=== PATIENT | female | born 1940 | race Caucasian/White ===

== ENCOUNTER 2023-08-16 08:25 | Outpatient (OUT) | payer MEDICARE, SELFPAY ==
[2023-08-16 09:04] LABS: Bilirubin Urine NEGATIVE (NEGATIVE); Blood Urine NEGATIVE (NEGATIVE); Clarity Urine SLIGHTLY CLOUDY (CLEAR); Color Urine LT. YELLOW (YELLOW); Glucose Urine UA NEGATIVE (NEGATIVE); Ketones Urine NEGATIVE (NEGATIVE); Leukocyte Esterase Urine MODERATE (NEGATIVE); Nitrite Urine POSITIVE (NEGATIVE); Protein Urine NEGATIVE (NEG/TRACE); Urobilinogen Urine 0.2 EU/dL (0.2-1.0); pH Urine 5.5 (5.0-9.0)
[2023-08-16 09:04] LABS: Basophils Absolute Auto 0.1 10^3/uL (0.0-0.1); Basophils Percent Auto 0.7 % (0.2-2.0); Eosinophils Absolute Auto 0.6 10^3/uL (0.0-0.7); Eosinophils Percent Auto 8.6 % (0.9-7.0); Hematocrit 35.7 % (36.0-48.0); Hemoglobin 10.8 g/dL (12.0-16.0); Immature Granulocytes Abs Auto 0.04 10^3/uL (0.00-0.03); Immature Granulocytes Pct Auto 0.6 % (0.0-0.5); Lymphocytes Absolute Auto 2.2 10^3/uL (1.2-3.8); Lymphocytes Percent Auto 32.9 % (20.5-60.0); Mean Corpuscular HGB Conc 30.3 g/dL (29.9-35.2); Mean Corpuscular Volume 89.3 fL (81.0-99.0); Mean Platelet Volume 10.5 fL (9.5-13.5); Monocytes Absolute Auto 0.7 10^3/uL (0.3-0.8); Monocytes Percent Auto 10.5 % (1.7-12.0); Neutrophils Absolute Auto 3.2 10^3/uL (1.4-6.5); Neutrophils Percent Auto 46.7 % (43.0-75.0); Platelet Count 241 10^3/uL (150-450); Red Cell Distribution Width 14.1 % (11.0-15.0); White Blood Count 6.8 10^3/uL (4.0-11.0)
[2023-08-16 09:09] LABS: Bacteria Urine SMALL #/HPF (NONE SEEN); Cast Seen? NONE SEEN #/LPF (NONE SEEN); Crystals Seen? None Seen #/HPF (None Seen); Mucus Urine NONE SEEN (NONE SEEN); RBC Urine NONE SEEN #/HPF (0-2); Squamous Epithelial Cell Urine RARE #/LPF (NONE/RARE)
[2023-08-16 09:13] LABS: Microalbumin Urine Random 1.8 mg/dL (<=30.0)
[2023-08-16 09:58] LABS: Estimated Average Glucose 134 mg/dL; Glycohemoglobin A1C 6.3 % (4.5-6.2)
[2023-08-16 10:33] LABS: Alanine Aminotransferase 14 U/L (14-59); Albumin Globulin Ratio 0.7; Albumin Level 3.1 g/dL (3.4-5.0); Alkaline Phosphatase 126 U/L (46-116); Aspartate Amino Transferase 17 U/L (15-37); BUN Creatinine Ratio 25.6; Bilirubin Total 0.3 mg/dL (0.2-1.0); Chloride 106 mmol/L (98-107); Chol HDL Ratio 4.4; Cholesterol 191 mg/dL (<=200); Estimated GFR (African America 36 (>=60); Estimated GFR (Non-African Ame 30 (>=60); Globulin 4.5 g/dL; Glucose 111 mg/dL (74-106); HDL Cholesterol 43 mg/dL (40-60); LDL Cholesterol Calculated 118.2 mg/dL; Sodium 137 mmol/L (136-145); Total Protein 7.6 g/dL (6.4-8.2); Triglycerides 149 mg/dL (<=150); VLDL CHOLESTEROL 29.8 mg/dL
== END 2023-08-16 08:26 | disposition home or self-care (01) ==
LOC: LAB 08:29
PROVIDERS: PCP Nurse Practitioner; Visit Provider Nurse Practitioner
DX: N18.4 Chronic kidney disease, stage 4 (severe) (principal); D50.9 Iron deficiency anemia, unspecified; E11.9 Type 2 diabetes mellitus without complications
CPT/HCPCS: 36415; 80053; 80061; 81001; 82043; 83036; 83540; 85025

== ENCOUNTER 2024-04-25 08:46 | Outpatient (OUT) | payer MEDICARE, SELFPAY ==
--- OUTSIDE RECORDS SUMMARY | 2024-04-25 08:58 | XMS_ITS | CCD ---
Author Organization [facility] [employer]GAL [employer] [facility] Care Team Providers Care Section Leader Name Role Phone PHYSICIAN, DEFAULT Unavailable Unavailable PHYSICIAN, DEFAULT Unavailable Unavailable AMBURN, JOSE CARLOS Unavailable Unavailable AICHHOLZ, DISTRICT SALES MANAGER BAILEE Consulting Unavailable AICHHOLZ, DISTRICT SALES MANAGER BAILEE Primary Care Unavailable AICHHOLZ, DISTRICT SALES MANAGER BAILEE Admitting Unavailable AICHHOLZ, DISTRICT SALES MANAGER BAILEE Attending Unavailable AICHHOLZ, DISTRICT SALES MANAGER BAILEE Consulting Unavailable AICHHOLZ, DISTRICT SALES MANAGER BAILEE Primary Care Unavailable AICHHOLZ, DISTRICT SALES MANAGER BAILEE Admitting Unavailable AICHHOLZ, DISTRICT SALES MANAGER BAILEE Attending Unavailable AICHHOLZ, DISTRICT SALES MANAGER BAILEE Consulting Unavailable AICHHOLZ, DISTRICT SALES MANAGER BAILEE Primary Care Unavailable AICHHOLZ, DISTRICT SALES MANAGER BAILEE Admitting Unavailable AICHHOLZ, DISTRICT SALES MANAGER BAILEE Attending Unavailable Aichholz AS400 OPERATOR, Bailee Unavailable Krishna Headley MD Primary Care Provider [phone] AICHHOLZ, BAILEE Attending Unavailable AICHHOLZ, BAILEE Attending Unavailable Allergies Allergy Classification Reported Allergen(s) Allergy Type Date of Onset Reaction(s) Facility (1 source) [facility]; Translations: [[facility]Other] Propensity to adverse reactions (disorder) 5 [facility] (3 sources) Clarithromycin Propensity to adverse reactions 4 [facility] (3 sources) Diclofenac Drug Allergy 4 [facility] (3 sources) metFORMIN Drug Allergy 4 [facility] (3 sources) Fluticasone Furoate-Vilanterol Propensity to adverse reactions 4 Headache [facility] Healthcare Work Phone: Medications Current Medications Medication Drug Class(es) Dates Sig (Normalized) Sig (Original) albuterol 0.833 mg/ml / ipratropium bromide 0.167 mg/ml inhalation solution (3 sources) Anticholinergic, beta2-Adrenergic Agonist ipratropium-albute rol (Duo-Neb) 0.5-2.5 mg/3 mL nebulizer solution Take 3 mL by nebulization in the morning and 3 mL before bedtime. 0 Active aspirin 81 mg delayed release oral tablet (3 sources) Platelet Aggregation Inhibitor, Nonsteroidal Anti-inflammatory Drug take 1 tablet by mouth in the morning aspirin 81 MG EC tablet Take 1 tablet by mouth in the morning. 0 Active ferrous sulfate 325 mg oral tablet (3 sources) Start: 08-08-2023 End: 11-06-2023 take 1 tablet by mouth in the morning ferrous sulfate (FeroSul) 325 (65 Fe) MG tablet Indications: Chronic kidney disease, stage 3 unspecified (HCC) (CMS/HCC) Take 1 tablet (325 mg) by mouth in the morning and 1 tablet (325 mg) before bedtime. 180 tablet 1 08/08/2023 11/06/2023 Active 30 actuat fluticasone furoate 0.1 mg/actuat / umeclidinium 0.0625 mg/actuat / vilanterol 0.025 mg/actuat dry powder inhaler (3 sources) Anticholinergic, Corticosteroid, beta2-Adrenergic Agonist Start: 06-04-2023 take 1 puff(s) by mouth in the morning Trelegy Ellipta 100-62.5-25 MCG/ACT aerosol powder Inhale 1 puff in the morning. Rinse mouth after use.. 0 06/04/2023 Active furosemide 20 mg oral tablet (3 sources) Loop Diuretic Start: 08-08-2023 take 1 tablet by mouth in the morning furosemide (Lasix) 20 MG tablet Take 1 tablet by mouth in the morning. 0 08/08/2023 Active gabapentin 300 mg oral capsule (3 sources) Anti-epileptic Agent Start: 08-08-2023 End: 11-06-2023 take 2 capsules by mouth at bedtime gabapentin (Neurontin) 300 MG capsule Indications: Polyneuropathy, unspecified Take 2 capsules (600 mg) by mouth at bedtime 180 capsule 1 08/08/2023 11/06/2023 Active hydrOXYzine hydrochloride 10 mg oral tablet (3 sources) Antihistamine take 1 tablet by mouth at bedtime hydrOXYzine HCl (Atarax) 10 MG tablet Take 1 tablet by mouth at bedtime 0 Active lisinopril 30 mg oral tablet (3 sources) Angiotensin Converting Enzyme Inhibitor Start: 08-08-2023 End: 11-06-2023 take 1 tablet by mouth in the morning lisinopril 30 MG tablet Indications: Essential (primary) hypertension (CMS/HCC) Take 1 tablet (30 mg) by mouth in the morning. 90 tablet 1 08/08/2023 11/06/2023 Active montelukast 10 mg oral tablet (3 sources) Leukotriene Receptor Antagonist Start: 08-08-2023 End: 11-06-2023 take 1 tablet by mouth at bedtime montelukast (Singulair) 10 MG tablet Indications: Severe persistent asthma, uncomplicated (CMS/HCC) Take 1 tablet (10 mg) by mouth at bedtime 90 tablet 1 08/08/2023 11/06/2023 Active pioglitazone 15 mg oral tablet (3 sources) Peroxisome Proliferator Receptor alpha Agonist, Peroxisome Proliferator Receptor gamma Agonist, Thiazolidinedione Start: 08-08-2023 End: 11-06-2023 take 1 tablet by mouth in the morning pioglitazone (Actos) 15 MG tablet Indications: Type 2 diabetes mellitus with diabetic neuropathy, unspecified (CMS/HCC) Take 1 tablet (15 mg) by mouth in the morning. 90 tablet 1 08/08/2023 11/06/2023 Active triamcinolone acetonide 0.001 mg/mg topical ointment (3 sources) Corticosteroid triamcinolone (Kenalog) 0.1 % ointment Apply 1 application topically in the morning and 1 application before bedtime. 0 Active Problems Active Problems Problem Classification Problem Date Documented Date Episodic/Chronic Asthma (10 sources) Uncomplicated severe persistent asthma; Translations: [Severe persistent asthma, uncomplicated] Onset: 08-08-2023 Resolved: 09-19-2023 08-08-2023 Chronic Chronic kidney disease (6 sources) Chronic kidney disease stage 4; Translations: [Chronic kidney disease, stage 4 (severe)] Onset: 08-17-2023 08-17-2023 Chronic Deficiency and other anemia (3 sources) Iron deficiency anemia; Translations: [Iron deficiency anemia, unspecified] Onset: 09-19-2023 09-19-2023 Episodic Diabetes mellitus with complications (18 sources) Type 2 diabetes mellitus with diabetic chronic kidney disease; Translations: [Neuropathy due to type 2 diabetes mellitus] Onset: 10-17-2022 Chronic Disorders of lipid metabolism (3 sources) Hyperlipidemia; Translations: [Hyperlipidemia, unspecified] Onset: 09-19-2023 09-19-2023 Chronic Essential hypertension (5 sources) Essential hypertension; Translations: [Essential (primary) hypertension] Onset: 08-08-2023 08-08-2023 Chronic Fluid and electrolyte disorders (3 sources) Hyperkalemia; Translations: [Hyperkalemia] Onset: 09-19-2023 09-19-2023 Episodic Heart valve disorders (3 sources) Tricuspid valve regurgitation; Translations: [Rheumatic tricuspid insufficiency] Onset: 09-19-2023 09-19-2023 Chronic Nutritional deficiencies (3 sources) Vitamin D deficiency; Translations: [Vitamin D deficiency, unspecified] Onset: 09-19-2023 09-19-2023 Chronic Osteoarthritis (3 sources) Osteoarthritis; Translations: [Unspecified osteoarthritis, unspecified site] Onset: 09-19-2023 09-19-2023 Chronic Other nervous system disorders (5 sources) Polyneuropathy; Translations: [Polyneuropathy, unspecified] Onset: 08-08-2023 08-08-2023 Chronic Other nutritional; endocrine; and metabolic disorders (4 sources) Body mass index 30+ - obesity; Translations: [Body mass index (BMI) 34.0-34.9, adult] Onset: 09-19-2023 09-19-2023 Chronic Other skin disorders (3 sources) Lesion of skin of face; Translations: [Disorder of the skin and subcutaneous tissue, unspecified] Onset: 09-19-2023 09-19-2023 Episodic Pulmonary heart disease (3 sources) Pulmonary hypertension; Translations: [Pulmonary hypertension, unspecified] Onset: 09-19-2023 09-19-2023 Chronic Residual codes; unclassified (3 sources) Obstructive sleep apnea syndrome; Translations: [Obstructive sleep apnea (adult) (pediatric)] Onset: 09-19-2023 09-19-2023 Chronic Residual codes; unclassified (3 sources) Insomnia; Translations: [Insomnia, unspecified] Onset: 09-19-2023 09-19-2023 Episodic Residual codes; unclassified (5 sources) Edema of lower extremity; Translations: [Localized edema] Onset: 09-19-2023 09-19-2023 Episodic Residual codes; unclassified (3 sources) Amnesia; Translations: [Other amnesia] Onset: 09-19-2023 09-19-2023 Episodic Unclassified (1 source) CHRN KIDNEY DISEASE STG 3 UNSP; Translations: [CHRN KIDNEY DISEASE STG 3 UNSP] Onset: 10-23-2022 Urinary tract infections (1 source) Urinary tract infectious disease; Translations: [Urinary tract infection, site not specified] Onset: 08-17-2023 08-17-2023 Episodic Past or Other Problems Problem Classification Problem Date Documented Da te Episodic/Chronic Deficiency and other anemia (4 sources) Iron deficiency anemia, unspecified; Translations: [IRON DEFICIENCY ANEMIA UNSPECIFIED] Onset: 11-14-2021 Episodic Other skin disorders (3 sources) Eruption; Translations: [Rash and other nonspecific skin eruption] Onset: 09-19-2023 Resolved: 09-19-2023 09-19-2023 Episodic Results Test Name Value Interpretation Reference Range Facil ity CBC AUTO DIFFon 10-17-2022 BASO # 0.0 103/ul Normal 0.0-0.1 [facility] Comment on above: Performed By: #### C BC #### [facility] [address] [place] [address] Dr. Juan Manuel Mcintosh Basophils/100 WBC (Bld) 0.4 % Normal 0.2-2.0 [facility] Comment on above: Performed By: #### C BC #### [facility] [address] [place] [address] Dr. Juan Manuel Mcintosh EO # 0.4 103/ul Normal 0.0-0.7 [facility] Comment on above: Performed By: #### C BC #### [facility] [address] [address] [address] Juan Manuel Mcintosh Eosinophils/100 WBC (Bld) 4.1 % Normal 0.9-7.0 [facility] Comment on above: Performed By: #### C BC #### [facility] [address] [place] [address] Dr. Juan Manuel Mcintosh Erythrocyte distribution width (RBC) [Ratio] 14.0 % Normal 11.0-15.0 [facility] Comment on above: Performed By: #### C BC #### [facility] [address] [place] [address] Dr. Juan Manuel Mcintosh Hematocrit (Bld) [Volume fraction] 35.3 % Critically low 36.0-48.0 [facility] Comment on above: Performed By: #### C BC #### [facility] [address] [place] [address] Dr. Juan Manuel Mcintosh Hemoglobin (Bld) [Mass/Vol] 10.9 g/dL Critically low 12.0-16.0 [facility] Comment on above: Performed By: #### C BC #### [facility] [address] [place] [address] Dr. Juan Manuel Mcintosh IG # 0.04 10e3/ul Critically high 0.00-0.03 [facility] Comment on above: Performed By: #### C BC #### [facility] [address] [place] [address] Dr. Juan Manuel Mcintosh IG % 0.4 % Normal 0.0-0.5 [facility] Comment on above: Performed By: #### C BC #### [facility] [address] [place] [address] Dr. Juan Manuel Mcintosh LYMPH # 1.7 103/ul Normal 1.2-3.8 [facility] Comment on above: Performed By: #### C BC #### [facility] [address] [place] [address] Dr. Juan Manuel Mcintosh Lymphocytes/100 WBC (Bld) 16.8 % Critically low 20.5-60.0 [facility] Comment on above: Performed By: #### C BC #### [facility] [address] [place] [address] Dr. Juan Manuel Mcintosh MANUAL DIFF REQ NO Normal [facility] Comment on above: Performed By: #### C BC #### [facility] [address] [place] [address] Dr. Juan Manuel Mcintosh MCH (RBC) [Entitic mass] 26.9 pg Normal 26.7-34.0 [facility] Comment on above: Performed By: #### C BC #### [facility] [address] [address] [address] Juan Manuel Mcintosh MCHC (RBC) [Mass/Vol] 30.9 g/dL Normal 29.9-35.2 [facility] Comment on above: Performed By: #### C BC #### [facility] [address] [address] [address] Juan Manuel Mcintosh MCV (RBC) [Entitic vol] 87.2 fL Normal 81.0-99.0 [facility] Comment on above: Performed By: #### C BC #### [facility] [address] [address] [address] Juan Manuel Mcintosh MONO # 1.1 103/ul Critically high 0.3-0.8 [facility] Comment on above: Performed By: #### C BC #### [facility] [address] [address] [address] Juan Manuel Mcintosh Monocytes/100 WBC (Bld) 10.7 % Normal 1.7-12.0 [facility] Comment on above: Performed By: #### C BC #### [facility] [address] [address] [address] Juan Manuel Mcinotsh NEUT # 6.9 103/ul Critically high 1.4-6.5 [facility] Comment on above: Performed By: #### C BC #### [facility] [address] [address] [address] Juan Manuel Mcintosh Neutrophils/100 WBC (Bld) 67.6 % Normal 43.0-75.0 [facility] Comment on above: Performed By: #### C BC #### [facility] [address] [address] [address] Juan Manuel Mcintosh Platelet mean volume (Bld) [Entitic vol] 11.2 fL Normal 9.5-13.5 [facility] Comment on above: Performed By: #### C BC #### [facility] [address] [address] [address] Juan Manuel Mcintosh PLT 186 103/ul Normal 150-450 [facility] Comment on above: Performed By: #### C BC #### [facility] [address] [place] [address] Dr. Juan Manuel Mcintosh RBC 4.05 106/ul Critically low 4.20-5.40 [facility] Comment on above: Performed By: #### C BC #### [facility] [address] [place] [address] Dr. Juan Manuel Mcintosh WBC 10.2 103/ul Normal 4.0-11.0 [facility] Comment on above: Performed By: #### C BC #### [facility] [address] [place] [address] Dr. Juan Manuel Mcintosh GLYCOHEMOGLOBIN A1Con 2022 ADA RECOMMENDATION SEE BELOW Normal [facility] Comment on above: Result Comment: ADA RECOMMENDED LIMIT 4.0 - 6.0 ADA THERAPEUTIC TARGET < 7.0 ACTION SUGGESTED > 7.0 Performed By: #### A 1C #### [facility] [address] [place] [address] Dr. Juan Manuel Mcintosh Glucose [Mass/Vol] 128 mg/dL Normal [facility] Comment on above: Performed By: #### A 1C #### [facility] [address] [place] [address] Dr. Juan Manuel Mcintosh HbA1c (Bld) [Mass fraction] 6.1 % Normal 4.5-6.2 [facility] Comment on above: Performed By: #### A 1C #### [facility] [address] [place] [address] Dr. Juan Manuel Mcintosh PROF CHEM 8 (BAS METB)on Anion gap [Moles/Vol] 15.5 mmol/L Normal [facility] Comment on above: Performed By: #### B MP #### [facility] [address] [place] [address] Dr. Juan Manuel Mcintosh Calcium [Mass/Vol] 9.0 mg/dL Normal 8.5-10.[address] [facility] Comment on above: Performed By: #### B MP #### [facility] [address] [place] [address] Dr. Juan Manuel Mcintosh Chloride [Moles/Vol] 106 mmol/L Normal 98-107 [facility] Comment on above: Performed By: #### B MP #### [facility] [address] [address] [address] Juan Manuel Mcintosh CO2 [Moles/Vol] 21.1 mmol/L Normal 21.0-32.0 [facility] Comment on above: Performed By: #### B MP #### [facility] [address] [address] [address] Juan Manuel Mcintosh Creatinine [Mass/Vol] 1.78 mg/dL Critically high 0.55-1.02 [facility] Comment on above: Performed By: #### B MP #### [facility] [address] [address] [address] Juan Manuel Mcintosh EGFR-AF NEW ZEALANDER 33 mL/min/1.73m2 Critically low >=60 [facility] Comment on above: Performed By: #### B MP #### [facility] [address] [address] [address] Juan Manuel Mcintosh EGFR-NON AF NEW ZEALANDER 27 mL/min/1.73m2 Critically low >=60 [facility] Comment on above: Performed By: #### B MP #### [facility] [address] [place] [address] Dr. Juan Manuel Mcintosh Glucose [Mass/Vol] 108 mg/dL Critically high 74-106 [facility] Comment on above: Performed By: #### B MP #### [facility] [address] [address] [address] Juan Manuel Mcintosh Potassium [Moles/Vol] 4.6 mmol/L Normal 3.5-5.1 [facility] Comment on above: Performed By: #### B MP #### [facility] [address] [address] [address] Juan Manuel Mcintosh Sodium [Moles/Vol] 138 mmol/L Normal 136-[address] [facility] Comment on above: Performed By: #### B MP #### [facility] [address] [address] [address] Juan Manuel Mcintosh Urea nitrogen [Mass/Vol] 40.0 mg/dL Critically high 7.0-18.0 [facility] Comment on above: Performed By: #### B MP #### [facility] [address] [place] [address] Dr. Juan Manuel Mcintosh Urea nitrogen/Creatinine [Mass ratio] 22.5 mg/mg Normal [facility] Comment on above: Performed By: #### B MP #### [facility] [address] [place] [address] Dr. Juan Manuel Mcintosh GLYCOHEMOGLOBIN A1Con 2021 ADA RECOMMENDATION SEE BELOW Normal [facility] Comment on above: Result Comment: ADA RECOMMENDED LIMIT 4.0 - 6.0 ADA THERAPEUTIC TARGET < 7.0 ACTION SUGGESTED > 7.0 Performed By: #### A 1C #### [facility] [address] [place] [address] Dr. Juan Manuel Mcintosh Glucose [Mass/Vol] 126 mg/dL Normal [facility] Comment on above: Performed By: #### A 1C #### [facility] [address] [place] [address] Dr. Juan Manuel Mcintosh HbA1c (Bld) [Mass fraction] 6.0 % Normal 4.5-6.2 [facility] Comment on above: Performed By: #### A 1C #### [facility] [address] [place] [address] Dr. Juan Manuel Mcintosh HEMOGRAM AND PLATELon 2021 Hematocrit (Bld) [Volume fraction] 34.5 % Critically low 36.0-48.0 [facility] Comment on above: Performed By: #### H H #### [facility] [address] [place] [address] Dr. Juan Manuel Mcintosh Hemoglobin (Bld) [Mass/Vol] 10.4 g/dL Critically low 12.0-16.0 [facility] Comment on above: Performed By: #### H H #### [facility] [address] [place] [address] Dr. Juan Manuel Mcintosh MCH (RBC) [Entitic mass] 27.8 pg Normal 26.7-34.0 [facility] Comment on above: Performed By: #### H H #### [facility] [address] [address] [address] Juan Manuel Mcintosh MCHC (RBC) [Mass/Vol] 30.1 g/dL Normal 29.9-35.2 [facility] Comment on above: Performed By: #### H H #### [facility] [address] [address] [address] Juan Manuel Mcintosh MCV (RBC) [Entitic vol] 92.2 fL Normal 81.0-99.0 [facility] Comment on above: Performed By: #### H H #### [facility] [address] [address] [address] Juan Manuel Mcintosh PLT 216 103/ul Normal 150-450 [facility] Comment on above: Performed By: #### H H #### [facility] [address] [place] [address] Dr. Juan Manuel Mcintosh RBC 3.74 106/ul Critically low 4.20-5.40 [facility] Comment on above: Performed By: #### H H #### [facility] [address] [address] [address] Juan Manuel Mcintosh WBC 5.6 103/ul Normal 4.0-11.0 [facility] Comment on above: Performed By: #### H H #### [facility] [address] [address] [address] Juan Manuel Mcintosh PROF CHEM 8 (BAS METB)on Anion gap [Moles/Vol] 14.2 mmol/L Normal [facility] Comment on above: Performed By: #### B MP #### [facility] [address] [address] [address] Juan Manuel Mcintosh Calcium [Mass/Vol] 8.9 mg/dL Normal 8.5-10.[address] [facility] Comment on above: Performed By: #### B MP #### [facility] [address] [address] [address] Juan Manuel Mcintosh Chloride [Moles/Vol] 107 mmol/L Normal 98-107 [facility] Comment on above: Performed By: #### B MP #### [facility] [address] [address] [address] Juan Manuel Mcintosh CO2 [Moles/Vol] 25.1 mmol/L Normal 21.0-32.0 [facility] Comment on above: Performed By: #### B MP #### [facility] [address] [address] [address] Juan Manuel Mcintosh Creatinine [Mass/Vol] 1.55 mg/dL Critically high 0.55-1.02 [facility] Comment on above: Performed By: #### B MP #### [facility] [address] [address] [address] Juan Manuel Mcintosh EGFR-AF NEW ZEALANDER 39 mL/min/1.73m2 Critically low >=60 [facility] Comment on above: Performed By: #### B MP #### [facility] [address] [address] [address] Juan Manuel Mcintosh EGFR-NON AF NEW ZEALANDER 32 mL/min/1.73m2 Critically low >=60 [facility] Comment on above: Performed By: #### B MP #### [facility] [address] [address] [address] Juan Manuel Mcintosh Glucose [Mass/Vol] 103 mg/dL Normal 74-[address] [facility] Comment on above: Performed By: #### B MP #### [facility] [address] [address] [address] Juan Manuel Mcintosh Potassium [Moles/Vol] 5.3 mmol/L Critically high 3.5-5.1 [facility] Comment on above: Performed By: #### B MP #### [facility] [address] [address] [address] Juan Manuel Mcintosh Sodium [Moles/Vol] 141 mmol/L Normal 136-145 [facility] Comment on above: Performed By: #### B MP #### [facility] [address] [address] [address] Juan Manuel Mcintosh Urea nitrogen [Mass/Vol] 34.0 mg/dL Critically high 7.0-18.0 [facility] Comment on above: Performed By: #### B MP #### [facility] [address] [place] [address] Dr. Juan Manuel Mcintosh Urea nitrogen/Creatinine [Mass ratio] 21.9 mg/mg Normal [facility] Comment on above: Performed By: #### B MP #### [facility] [address] [place] [address] Dr. Juan Manuel Mcintosh CBC AUTO DIFFon 11-14-2021 BASO # 0.1 103/ul Normal 0.0-0.1 [facility] Comment on above: Performed By: #### C BC #### [facility] [address] [place] [address] Dr. Juan Manuel Mcintosh Basophils/100 WBC (Bld) 1.3 % Normal 0.2-2.0 [facility] Comment on above: Performed By: #### C BC #### [facility] [address] [place] [address] Dr. Juan Manuel Mcintosh EO # 0.4 103/ul Normal 0.0-0.7 [facility] Comment on above: Performed By: #### C BC #### [facility] [address] [place] [address] Dr. Juan Manuel Mcintosh Eosinophils/100 WBC (Bld) 8.7 % Critically high 0.9-7.0 [facility] Comment on above: Performed By: #### C BC #### [facility] [address] [place] [address] Dr. Juan Manuel Mcintosh Erythrocyte distribution width (RBC) [Ratio] 14.6 % Normal 11.0-15.0 [facility] Comment on above: Performed By: #### C BC #### [facility] [address] [place] [address] Dr. Juan Manuel Mcintosh Hematocrit (Bld) [Volume fraction] 35.7 % Critically low 36.0-48.0 [facility] Comment on above: Performed By: #### C BC #### [facility] [address] [place] [address] Dr. Juan Manuel Mcintosh Hemoglobin (Bld) [Mass/Vol] 10.6 g/dL Critically low 12.0-16.0 [facility] Comment on above: Performed By: #### C BC #### [facility] [address] [place] [address] Dr. Juan Manuel Mcintosh IG # 0.02 10e3/ul Normal 0.00-0.03 [facility] Comment on above: Performed By: #### C BC #### [facility] [address] [place] [address] Dr. Juan Manuel Mcintosh IG % 0.4 % Normal 0.0-0.5 [facility] Comment on above: Performed By: #### C BC #### [facility] [address] [place] [address] Dr. Juan Manuel Mcintosh LYMPH # 1.8 103/ul Normal 1.2-3.8 [facility] Comment on above: Performed By: #### C BC #### [facility] [address] [place] [address] Dr. Juan Manuel Mcintosh Lymphocytes/100 WBC (Bld) 39.5 % Normal 20.5-60.0 [facility] Comment on above: Performed By: #### C BC #### [facility] [address] [place] [address] Dr. Juan Manuel Mcintosh MANUAL DIFF REQ NO Normal [facility] Comment on above: Performed By: #### C BC #### [facility] [address] [place] [address] Dr. Juan Maunel Mcintosh MCH (RBC) [Entitic mass] 27.4 pg Normal 26.7-34.0 [facility] Comment on above: Performed By: #### C BC #### [facility] [address] [place] [address] Dr. Juan Manuel Mcintosh MCHC (RBC) [Mass/Vol] 29.7 g/dL Critically low 29.9-35.2 [facility] Comment on above: Performed By: #### C BC #### [facility] [address] [place] [address] Dr. Juan Manuel Mcintosh MCV (RBC) [Entitic vol] 92.2 fL Normal 81.0-99.0 [facility] Comment on above: Performed By: #### C BC #### [facility] [address] [place] [address] Dr. Juan Manuel Mcintosh MONO # 0.6 103/ul Normal 0.3-0.8 [facility] Comment on above: Performed By: #### C BC #### [facility] [address] [place] [address] Dr. Juan Manuel Mcintosh Monocytes/100 WBC (Bld) 14.3 % Critically high 1.7-12.0 [facility] Comment on above: Performed By: #### C BC #### [facility] [address] [place] [address] Dr. Juan Manuel Mcintosh NEUT # 1.6 103/ul Normal 1.4-6.5 [facility] Comment on above: Performed By: #### C BC #### [facility] [address] [place] [address] Dr. Juan Manuel Mcintosh Neutrophils/100 WBC (Bld) 35.8 % Critically low 43.0-75.0 [facility] Comment on above: Performed By: #### C BC #### [facility] [address] [place] [address] Dr. Juan Manuel Mcintosh Platelet mean volume (Bld) [Entitic vol] 11.6 fL Normal 9.5-13.5 [facility] Comment on above: Performed By: #### C BC #### [facility] [address] [place] [address] Dr. Juan Manuel Mcintosh PLT 184 103/ul Normal 150-450 [facility] Comment on above: Performed By: #### C BC #### [facility] [address] [place] [address] Dr. Juan Manuel Mcintosh RBC 3.87 106/ul Critically low 4.20-5.[address] [facility] Comment on above: Performed By: #### C BC #### [facility] [address] [place] [address] Dr. Juan Manuel Mcintosh WBC 4.5 103/ul Normal 4.0-11.0 [facility] Comment on above: Performed By: #### C BC #### [facility] [address] [place] [address] Dr. Juan Manuel Mcintosh FERRITINon 04-11-2022 Ferritin [Mass/Vol] 121.0 ng/mL Normal 11.1-264.0 [facility] Comment on above: Performed By: #### F ERR, IRON #### [facility] [address] [place], [place] [address] Dr. Juan Manuel Mcintosh IRONon 11-14-2021 Iron [Mass/Vol] 113.0 ug/dL Normal 37.0-170.0 [facility] Comment on above: Performed By: #### F ERR, IRON #### [facility] [address] [place], [place] [address] Dr. Juan Manuel Mcintosh Vital Signs Date Time Vital Sign Value Performing Clinician Bright [facility] 09-19-2023 09:16-0500 Body height 172.7 cm Bailee Bhakta AS400 OPERATOR Work Phone: [facility] 09-19-2023 09:16-0500 Body mass index (BMI) [Ratio] 34.45 kg/m2 Bailee Bhakta AS400 OPERATOR Work Phone: [facility] 09-19-2023 09:16-0500 Body temperature 97.11 [degF] Bailee Bhakta AS400 OPERATOR Work Phone: [facility] 09-19-2023 09:16-0500 Body weight 102.78 kg Bailee Bhakta AS400 OPERATOR Work Phone: [facility] 09-19-2023 09:16-0500 Diastolic blood pressure 70 mm[Hg] Bailee Bhakta AS400 OPERATOR Work Phone: [facility] 09-19-2023 09:16-0500 Heart rate 63 /min Bailee Bhakta AS400 OPERATOR Work Phone: [facility] 09-19-2023 09:16-0500 Respiratory rate 18 /min Bailee Bhakta AS400 OPERATOR Work Phone: [facility] 09-19-2023 09:16-0500 SaO2% (BldA) [Mass fraction] 97 % Bailee Bhakta AS400 OPERATOR Work Phone: [facility] 09-19-2023 09:16-0500 Systolic blood pressure 126 mm[Hg] Baileenicolas Bhakta AS400 OPERATOR Work Phone: [facility] Healthcare Encounters Encounter Date Encounter Type Care Provider Facility Start: 12-25-2023 End: 12-25-2023 ambulatory BAILEE MEENUHHOLZ Not Available Start: 09-19-2023 Bamboo flowsheet Bailee Meenuhholz AS400 OPERATOR Work Phone: [facility] Start: 09-19-2023 Bamboo flowsheet Bailee Aichholz AS400 OPERATOR Work Phone: [facility] Start: 09-19-2023 End: 09-19-2023 ambulatory BAILEE AICHHOLZ Not Available Start: 09-19-2023 End: 09-19-2023 Office outpatient visit 25 minutes Bailee Bhakta AS400 OPERATOR Work Phone: [facility] Comment on above: Type 2 diabetes alfredo itus with diabetic neuropathy, without long-term current use of insulin ([facility]) (Primary Dx); BMI 34.0-34.9,adult; Asthma-COPD overlap syndrome; Lower extremity edema; Polyneuropathy, unspecified; Essential (primary) hypertension (CMS/[facility]); Stage 4 chronic kidney disease (CMS/[facility]) Start: 10-17-2022 End: 10-18-2022 ambulatory DISTRICT SALES MANAGER BAILEE AICHHOLZ Facility:[facility] Start: 04-18-2022 End: 04-19-2022 ambulatory DISTRICT SALES MANAGER BAILEE AICHHOLZ Facility:[facility] Start: 11-14-2021 End: 11-15-2021 ambulatory DISTRICT SALES MANAGER BAILEE AICHHOLZ Facility:[facility] Start: 10-05-2017 End: 10-06-2017 Ambulatory DEFAULT PHYSICIAN Facility:[facility] Procedures Date Procedure Procedure Detail Performing Clinician Start: 09-19-2023 H/O: surgery H/O squamous c ell carcinoma excision Bailee Bhakta AS400 OPERATOR Work Phone: Plan of Treatment Date Care Activity Detail Author Start: 08-16-2024 Urine screening for protein Diabetes: Urine Protein Screening [facility] Start: 12-25-2023 End: 12-25-2023 Patient encounter procedure 12/25/2023 10:30 AM EDT Office Visit [facility] [address] [place] [address] Bailee Bhakta NP [address] [place] [phone] [facility] Start: 11-15-2023 Hemoglobin A1c measurement Diabetes: Hemoglobin A1C [facility] Start: 09-19-2023 End: 09-19-2023 Patient encounter procedure 09/19/2023 9:00 AM EST Office Visit [facility] [address] [place] [id number] Bailee Bhakta NP [address] [place] [phone] Arrived [facility] Comment on above: Arrived Start: 1950 Glaucoma screening Diabetes: R etinopathy Screening [facility] Start: 1940 Medicare Annual Well ness (AWV) Medicare Annual Wellness (AWV) [facility] Immunizations Immunization Date Immunization Notes Care Provider Fa cili 08-11-2023 Influenza, High-dose Seasonal, Quadrivalent, Preservative Free Bailee Aichholz AS400 OPERATOR Work Phone: [facility] 05-30-2022 Influenza, High-dose Seasonal, Quadrivalent, Preservative Free Bailee Aichholz AS400 OPERATOR Work Phone: [facility] 05-16-2021 Influenza, High-dose Seasonal, Quadrivalent, Preservative Free Bailee Aichholz AS400 OPERATOR Work Phone: [facility] 05-16-2021 pneumococcal conjuga te vaccine, 13 valent Bailee Aichholz AS400 OPERATOR Work Phone: [facility] 04-29-2018 influenza, high dose seasonal, preservative-free Bailee Aichholz AS400 OPERATOR Work Phone: [facility] 04-12-2017 influenza, high dose seasonal, preservative-free Bailee Aichholz AS400 OPERATOR Work Phone: [facility] 05-16-2016 influenza, high dose seasonal, preservative-free Bailee Aichholz AS400 OPERATOR Work Phone: [facility] 04-17-2014 influenza, high dose seasonal, preservative-free Bailee Aichholz AS400 OPERATOR Work Phone: [facility] 08-06-2013 zoster vaccine, live Bailee chholz AS400 OPERATOR Work Phone: [facility] 07-15-2013 influenza, high dose seasonal, preservative-free Bailee Aichholz AS400 OPERATOR Work Phone: [facility] 12-08-2011 influenza virus vacc ine, whole virus Bailee Aichholz AS400 OPERATOR Work Phone: [facility] 12-08-2011 pneumococcal polysaccharide vaccine, 23 valent Bailee Aichholz AS400 OPERATOR Work Phone: [facility] 12-08-2011 tetanus toxoid, redu domenic diphtheria toxoid, and acellular pertussis vaccine, adsorbed Bailee Aichholz AS400 OPERATOR Work Phone: [facility] Payers Date Payer Category Payer Medicare [employer]PLACEMENT [id number] 2022-Present [address] [address] [place] [address] [id number] 1959 Medicare [id number] 1958 Medicare [id number] 1941 Unknown [id number] 1941 Unknown [id number] 1941 Unknown [id number] 1941 Unknown [id number] 1941 Unknown [id number] Unknown Social History Date Type Detail Facility [facility]: [facility] Start: 09-14-2023 Tobacco use and exposure Smokeless t obacco non-user [facility] Start: 09-19-2023 Alcohol intake Ex-drinker (finding) [facility] Start: 09-14-2023 End: 09-19-2023 History of Social function [facility] Start: 09-14-2023 End: 09-19-2023 Tobacco use panel [facility] Start: 09-16-2023 Alcohol Comment caffeine more than 4 cups per day [facility] Start: 1940 Sex Assigned At Not on file [facility] History of Present illness Narrative 09-19-2023 Bailee Bhakta NP - 09/19/2023 9:57 AM Corwin Bhakta NP - 09/19/2023 9:56 AM Corwin Bhakta NP - 09/19/2023 9:54 AM Corwin Bhakta NP - 09/19/2023 9:54 AM EST Note Date & Type Note Facility 09-19-2023 History of Presen t illness Narrative Associated Problem(s): Stage 4 chronic kidney disease (CMS/HCC) Reviewed labs, pt in the past and still today do not want to see Nephrology does not want to do dialysis if gets to that Associated Problem(s): Lower extremity edema stable Associated Problem(s): Essential (primary) hypertension (CMS/HCC) Labs stable Associated Problem(s): Polyneuropathy, unspecified Stable, only taking 1 gabapentin at HS Associated Problem(s): Type 2 diabetes mellitus with diabetic neuropathy, without long-term current use of insulin ([facility]) Reviewed labs Recommend eye exam, and freq foot checks No changes in meds Associated Problem(s): Asthma-COPD overlap syndrome Stable on current meds, no changes Gabapentin needs to be a 90 day supply instead of 180 day supply- daughter said you had decreased the medication to once a day instead of twice Images from the original note were not included. Gina West is a 83 y.o. female presents with chief complaint of No chief complaint on file. HPI: Here for recheck chronic conditions: CKD, HTN asthma/copd, and Diabetes Had labs in Aug 2023 here to review Minimal use of rescue inhaler, no low blood sugars, no chest pain/pressure SUBJECTIVE: MEDICATIONS: Current Outpatient Medications Medication Instructions aspirin 81 MG EC tablet 1 tablet, Oral, Daily ferrous sulfate (FEROSUL) 325 mg, Oral, 2 times daily furosemide (Lasix) 20 MG tablet 1 tablet, Oral, Daily gabapentin (NEURONTIN) 600 mg, Oral, Nightly hydrOXYzine HCl (Atarax) 10 MG tablet 1 tablet, Oral, Nightly ipratropium-albuterol (Duo-Neb) 0.5-2.5 mg/3 mL nebulizer solution 3 mL, Nebulization, 2 times daily lisinopril 30 mg, Oral, Daily montelukast (SINGULAIR) 10 mg, Oral, Nightly pioglitazone (ACTOS) 15 mg, Oral, Daily Trelegy Ellipta 100-62.5-25 MCG/ACT aerosol powder 1 puff, Inhalation, Daily, Rinse mouth after use. triamcinolone (Kenalog) 0.1 % ointment 1 application , Topical, 2 times daily ALLERGIES: Allergies Allergen Reactions Breo Ellipta [Fluticasone Furoate-Vilanterol] Headache Clarithromycin Diclofenac Metformin REVIEW OF SYMPTOMS: Review of Systems Constitutional: Negative for appetite change, chills and fever. HENT: Negative for congestion, ear pain and sore throat. Eyes: Negative for pain, discharge, redness and visual disturbance. Respiratory: Positive for cough and shortness of breath. Negative for wheezing. Cardiovascular: Positive for leg swelling. Negative for chest pain and palpitations. Gastrointestinal: Negative for abdominal pain, blood in stool, constipation, diarrhea, nausea and vomiting. Genitourinary: Negative for difficulty urinating, dysuria and frequency. Musculoskeletal: Negative for arthralgias, back pain, joint swelling and myalgias. Skin: Negative for rash and wound. Neurological: Negative for dizziness, tremors, seizures, syncope and headaches. Psychiatric/Behavioral: Negative for behavioral problems, self-injury and suicidal ideas. The patient is not nervous/anxious. Hematological: Does not bruise/bleed easily. Endocrine: Negative for polydipsia, polyphagia and polyuria. Allergic/Immunologic: Negative for environmental allergies and food allergies. PAST MEDICAL HISTORY Past Medical History: Diagnosis Date Asthma-COPD overlap syndrome Carotid bruit Chronic kidney disease, stage IV (severe) (CMS/HCC) Diabetic retinopathy (CMS/HCC) MUJICA (dyspnea on exertion) Extrinsic asthma (CMS/HCC) unspecified H/O squamous cell carcinoma excision nasal HLD (hyperlipidemia) (CMS/HCC) HTN (hypertension) (CMS/HCC) Hyperkalemia Insomnia Iron deficiency anemia Lower extremity edema Memory loss Mitral valve disease Moderate persistent asthma in adult without complication (CMS/HCC) Obstructive sleep apnea (adult) (pediatric) Osteoarthritis Pulmonary hypertension (CMS/HCC) Rash of both feet Severe persistent asthma, uncomplicated (CMS/HCC) Skin lesion of face as of 04/03/23 pt is refusing to see dermatology for this skin lesion on nose Tricuspid valve disease Type 2 diabetes with complication (CMS/HCC) Vitamin D deficiency Past Surgical History: Procedure Laterality Date CATARACT EXTRACTION 2009 family history includes Diabetes in her mother; Heart attack (age of onset: 84) in her father; Hypertension in her mother. OBJECTIVE: Visit Vitals BP 126/70 (BP Location: Left arm, Patient Position: Sitting, BP Cuff Size: Adult long) Pulse 63 Temp 97.1 F (Temporal) Resp 18 Ht 5' 8 Wt 226 lb 9.6 oz SpO2 97% BMI 34.45 kg/m Smoking Status Never BSA 2.22 m Physical Exam Vitals reviewed. Constitutional: General: She is not in acute distress. Appearance: Normal appearance. HENT: Head: Normocephalic and atraumatic. Right Ear: External ear normal. Left Ear: External ear normal. Nose: Nose normal. Mouth/Throat: Mouth: Mucous membranes are moist. Eyes: Extraocular Movements: Extraocular movements intact. Conjunctiva/sclera: Conjunctivae normal. Neck: Vascular: No carotid bruit. Cardiovascular: Rate and Rhythm: Normal rate and regular rhythm. Pulses: Normal pulses. Heart sounds: Murmur heard. Pulmonary: Effort: Pulmonary effort is normal. No respiratory distress. Breath sounds: Normal breath sounds. No wheezing, rhonchi or rales. Abdominal: General: Bowel sounds are normal. There is no distension. Palpations: Abdomen is soft. There is no mass. Tenderness: There is no abdominal tenderness. Musculoskeletal: General: Normal range of motion. Cervical back: Neck supple. Right lower leg: No edema. Left lower leg: No edema. Skin: General: Skin is warm and dry. Capillary Refill: Capillary refill takes 2 to 3 seconds. Findings: No rash. Neurological: General: No focal deficit present. Mental Status: She is alert and oriented to person, place, and time. Psychiatric: Mood and Affect: Mood normal. Behavior: Behavior normal. Thought Content: Thought content normal. Judgment: Judgment normal. ASSESSMENT AND PLAN: No follow-ups on file. Problem List Items Addressed This Visit Polyneuropathy, unspecified Stable, only taking 1 gabapentin at HS Essential (primary) hypertension (CMS/HCC) Labs stable Stage 4 chronic kidney disease (CMS/HCC) Reviewed labs, pt in the past and still today do not want to see Nephrology does not want to do dialysis if gets to that Asthma-COPD overlap syndrome Stable on current meds, no changes Lower extremity edema stable Type 2 diabetes mellitus with diabetic neuropathy, without long-term current use of insulin (CMS/HCC) - Primary Reviewed labs Recommend eye exam, and freq foot checks No changes in meds BMI 34.0-34.9,adult documented in this encounter [facility] Evaluation note Note Date & Type Note Facility Evaluation note Diagnosis Type 2 diabetes mellitus with diabetic neuropathy, without long-term current use of insulin (CMS/HCC)- Primary BMI 34.0-34.9,adult Asthma-COPD overlap syndrome Lower extremity edema Edema Polyneuropathy, unspecified Essential (primary) hypertension (CMS/HCC) Unspecified essential hypertension Stage 4 chronic kidney disease (CMS/HCC) documented in this encounter [facility] Summary Purpose Family History No Family History Records FoundNo Family History Records FoundNo Family History Records Found Advance Directives No Advanced Directives Records FoundNo Advanced Directives Records FoundNo Advanced Directives Records Found Additional Source Comments INFORMATION SOURCE (unrecogn ized section and content) DATE CREATED AUTHOR 01/25/2018 [facility] DATE CREATED AUTHOR AUTHOR'S ORGANIZ ATION 10/24/2022 [facility] DATE CREATED AUTHOR AUTHOR'S ORGANIZ ATION 12/27/2023 [facility] [employer] Care Teams (unrecognized sec tion and content) Section Leader Relationship Specialty Start Date End Date Krishna Headley MD [address] [place] [address] PCP - General Family Medicine 09/14/23 Bailee Bhakta NP [address] [place] [address] Referring Physician Nurse Practitioner 02/21/23 Section Leader Relationship Specialty Start Date End Date Krishna Headley MD [address] [place] [address] PCP - General Family Medicine 09/14/23 Bailee Bhakta NP [address] [place] [address] Referring Physician Nurse Practitioner 02/21/23 FOR RECORDS PERTAINING TO PATIENTS WHO ARE OR HAVE BEEN ENROLLED IN A CHEMICAL DEPENDENCY/SUBSTANCEABUSE PROGRAM, SOME INFORMATION MAY BE OMITTED. This clinical summary was aggregated from multiple sources. Caution should be exercised in using it in the provision of clinical care. This summary normalizes information from multiple sources, and as a consequence, information in this document may materially change the coding, format and clinical context of patient data. In addition, data may be omitted in some cases. CLINICAL DECISIONS SHOULD BE BASED ON THE PRIMARY CLINICAL RECORDS. [facility] provides no warranty or guarantee of the accuracy or completeness of information in this document.
[2024-04-25 09:07] LABS: Basophils Absolute Auto 0.1 10^3/uL (0.0-0.1); Basophils Percent Auto 1.5 % (0.2-2.0); Eosinophils Absolute Auto 0.3 10^3/uL (0.0-0.7); Eosinophils Percent Auto 7.2 % (0.9-7.0); Hematocrit 36.9 % (36.0-48.0); Hemoglobin 11.2 g/dL (12.0-16.0); Immature Granulocytes Abs Auto 0.02 10^3/uL (0.00-0.03); Immature Granulocytes Pct Auto 0.4 % (0.0-0.5); Lymphocytes Absolute Auto 1.6 10^3/uL (1.2-3.8); Mean Corpuscular HGB Conc 30.4 g/dL (29.9-35.2); Mean Corpuscular Volume 92.3 fL (81.0-99.0); Mean Platelet Volume 10.8 fL (9.5-13.5); Monocytes Absolute Auto 0.5 10^3/uL (0.3-0.8); Monocytes Percent Auto 11.8 % (1.7-12.0); Neutrophils Percent Auto 44.1 % (43.0-75.0); Platelet Count 177 10^3/uL (150-450); Red Cell Distribution Width 13.4 % (11.0-15.0); White Blood Count 4.6 10^3/uL (4.0-11.0)
[2024-04-25 10:16] LABS: Anion Gap 13.9; Calcium 8.8 mg/dL (8.5-10.1); Chloride 108 mmol/L (98-107); Estimated GFR (African America 43 (>=60); Estimated GFR (Non-African Ame 35 (>=60); Glucose 127 mg/dL (74-106); Potassium 4.9 mmol/L (3.5-5.1); Sodium 140 mmol/L (136-145)
[2024-04-25 10:42] LABS: Estimated Average Glucose 117 mg/dL; Glycohemoglobin A1C 5.7 % (4.5-6.2)
== END 2024-04-25 08:47 | disposition home or self-care (01) ==
LOC: LAB 08:51
PROVIDERS: PCP Nurse Practitioner; Visit Provider Nurse Practitioner
DX: E11.8 Type 2 diabetes mellitus with unspecified complications (principal); J44.89 Other specified chronic obstructive pulmonary disease; N18.4 Chronic kidney disease, stage 4 (severe); I12.9 Hypertensive chronic kidney disease with stage 1 through stage 4 chronic kidney disease, or unspecified chronic kidney disease
CPT/HCPCS: 36415; 80048; 83036; 85025

== ENCOUNTER 2025-03-25 07:48 | Outpatient (OUT) | payer MEDICARE, SELFPAY ==
--- OUTSIDE RECORDS SUMMARY | 2025-03-25 07:54 | XMS_ITS | Clinical Summary ---
Author Organization [facility] Address [address] [place] [address] Care Team Providers Care Test Engine Operator Name Role Phone Bailee Bhakta ACCESS DATABASE DEVELOPER Unavailable [phone] Krishna Headley MD Primary Care Provider [phone] Bailee Bhakta ACCESS DATABASE DEVELOPER Unavailable [phone] Allergies Active Allergy Reactions Criticality Noted Date Comments Fluticasone Furoate-Vilanterol Headache 08/17 Clarithromycin 08/17/2023 Diclofenac 08/17/2023 Metformin 08/17/2023 Medications ipratropium-albut brendan (Duo-Neb) 0.5-2.5 mg/3 mL nebulizer solution Take 3 mL by nebulization Daily as needed for wheezing or shortness of breath Active Fluticasone-Umecl idin-Vilant (Trelegy Ellipta) 100-62.5-25 MCG/ACT aerosol powderIndications :Asthma-COPD overlap syndrome (HCC) Inhale 1 puff Daily Rinse mouth after use. 60 each 5 06/26/20 24 Active hydrOXYzine HCl (Atarax) 10 MG tabletIndications :Insomnia, unspecified type Take 1 tablet (10 mg) by mouth as needed at bedtime for anxiety or itching 90 tablet 1 07/24/20 24 Active gabapentin (Neurontin) 300 MG capsuleIndication s:Polyneuropathy, unspecified Take 1 capsule (300 mg) by mouth at bedtime 90 capsule 1 11/05/19 25 Active albuterol HFA 90 mcg/act inhalerIndication s:Asthma-COPD overlap syndrome (HCC) Inhale 2 puffs every 6 (six) hours if needed for shortness of breath or wheezing 18 g 1 01/13/20 25 Active lisinopril 30 MG tabletIndications :Essential (primary) hypertension Take 1 tablet (30 mg) by mouth Daily 90 tablet 1 01/27/20 25 025 Active furosemide (Lasix) 20 MG tabletIndications :Lower extremity edema Take 1 tablet (20 mg) by mouth Daily 90 tablet 1 01/27/20 25 025 Active montelukast (Singulair) 10 MG tabletIndications :Severe persistent asthma, uncomplicated (HCC) Take 1 tablet (10 mg) by mouth at bedtime 90 tablet 1 01/27/20 25 025 Active ferrous sulfate (FeroSul) 325 (65 Fe) MG tabletIndications :Chronic kidney disease, stage 3 unspecified (CMS-HCC) Take 1 tablet (325 mg) by mouth in the morning and 1 tablet (325 mg) in the evening. Take before meals. 180 tablet 1 02/19/20 025 Active pioglitazone (Actos) 15 MG tabletIndications :Type 2 diabetes mellitus with diabetic neuropathy, unspecified (HCC) Take 1 tablet (15 mg) by mouth Daily 90 tablet 1 02/19/20 025 Active Active Problems Problem Noted Date Diagnosed Date Gradual-onset memory impairment 12/30/2024 Assessment & Plan (12/30/2024 12:54 PM EDT): MOCA Lengthy discussion with pt and daughter Deborah Will refer to Neuro Psych Encounter for subsequent [facility] wellness visit (AWV) in Medicare patient 12/25/2023 Assessment & Plan (12/30/2024 12:56 PM EDT): Reviewed Ht/Wt/BMI Recommend eye exam yearly Recommend dental exams twice a year Exercises is recommended most days of the week (appropriate as chronic conditions allow) Follow up yearly and prn Assessment & Plan (12/25/2023 11:24 AM EDT): Reviewed Ht/Wt/BMI Recommend eye exam yearly Recommend dental exams twice a year Exercises is recommended most days of the week (appropriate as chronic conditions allow) Follow up yearly and prn Obstructive sleep apnea (adult) (pediatric) 09/06 Assessment & Plan (06/26/2024 9:01 AM EST): Hx of PRETTY PAP use: does not wear PAP Insomnia 09/19/2023 Osteoarthritis 09/19/2023 Lower extremity edema 09/19/2023 Assessment & Plan (12/30/2024 6:31 AM EDT): Stable on lasix, elevate feet above heart level a few times daily Monitor sodium intake Periodic labs to monitor renal function Assessment & Plan (06/26/2024 6:31 AM EST): Stable on lasix, elevate feet above heart level a few times daily Monitor sodium intake Periodic labs to monitor renal function Assessment & Plan (09/19/2023 9:56 AM EST): stable Vitamin D deficiency 09/19/2023 Assessment & Plan (12/30/2024 6:33 AM EDT): Check labs Type 2 diabetes with complication 09/19/2023 Assessment & Plan (12/30/2024 6:32 AM EDT): Check blood sugars daily, notify if <70 or >200. Take medications (pills or insulin) as directed. Monitor for s/s of hypoglycemia (sweaty, dizziness, nausea, vomiting, or shakiness). Watch for increase in thirst, urination, or appetite. Inspect feet frequently monitoring for open wounds , and also recommend yearly eye exam. Pt should attempt to remain as physically active as chronic conditions allow, as well as trying to follow a diet low in carbohydrates, and simple sugars. Continue current meds: pioglitazone A1c Assessment & Plan (06/26/2024 6:35 AM EST): Check blood sugars daily, notify if <70 or >200. Take medications (pills or insulin) as directed. Monitor for s/s of hypoglycemia (sweaty, dizziness, nausea, vomiting, or shakiness). Watch for increase in thirst, urination, or appetite. Inspect feet frequently monitoring for open wounds , and also recommend yearly eye exam. Pt should attempt to remain as physically active as chronic conditions allow, as well as trying to follow a diet low in carbohydrates, and simple sugars. Continue current meds A1c 5.7% 04/2024 Assessment & Plan (12/25/2023 11:42 AM EDT): Check a1c Diabetic retinopathy 09/19/2023 Assessment & Plan (12/30/2024 6:32 AM EDT): Continue with annual eye exams Tight glucose control as well Assessment & Plan (06/26/2024 6:32 AM EST): Continue with annual eye exams Tight glucose control as well Iron deficiency anemia 09/19/2023 Assessment & Plan (12/30/2024 6:34 AM EDT): Check labs yearly and prn changes in sxs Skin lesion of face 09/19/2023 Overview (09/19/2023): as of 04/03/23 pt is refusing to see dermatology for this skin lesion on nose Hyperkalemia 09/19/2023 HLD (hyperlipidemia) 09/19/2023 H/O squamous cell carcinoma excision 09/19/2023 Overview (09/19/2023): nasal Pulmonary hypertension 09/19/2023 Assessment & Plan (12/30/2024 6:30 AM EDT): Per ECHO findings Assessment & Plan (06/26/2024 6:29 AM EST): Per ECHO findings Type 2 diabetes mellitus wit h diabetic neuropathy, without long-term current use of insulin 09/19/2023 Assessment & Plan (12/30/2024 6:29 AM EDT): Continue with marcus, inspect feet regularly, recommend proper fitting shoes as well Blood glucose control OARRS reviewed Assessment & Plan (06/26/2024 6:26 AM EST): Continue with marcus, inspect feet regularly Blood glucose control OARRS reviewed Assessment & Plan (12/25/2023 11:41 AM EDT): Continue with current meds no changes Assessment & Plan (09/19/2023 9:53 AM EST): Reviewed labs Recommend eye exam, and freq foot checks No changes in meds Tricuspid regurgitation 09/19/2023 Assessment & Plan (12/30/2024 6:30 AM EDT): Per ECHO findings Murmur present Continue to monitor Prior discussions with daughter and patient does not want any surgical intervention for this Assessment & Plan (06/26/2024 6:28 AM EST): Per ECHO findings Murmur present Continue to monitor Prior discussions with daughter and patient does not want any surgical intervention for this BMI 34.0-34.9,adult 09/19/2023 Stage 4 chronic kidney disease 08/17/2023 Assessment & Plan (12/30/2024 6:31 AM EDT): Long standing CKD, discussions in the past with pt (daughter as well) that she does not want to see Nephrology, she would not pursue dialysis if needed either Will continue to periodically monitor labs and control DM and HTN Recommend avoiding nephrotoxic drugs if possible and adequate control of DM and HTN Assessment & Plan (06/26/2024 6:30 AM EST): Long standing CKD, discussions in the past with pt (daughter as well) that she does not want to see Nephrology, she would not pursue dialysis if needed either Will continue to periodically monitor labs and control DM and HTN Assessment & Plan (12/25/2023 11:42 AM EDT): Reviewed labs, pt in the past and still today do not want to see Nephrology does not want to do dialysis if gets to that Assessment & Plan (09/19/2023 9:57 AM EST): Reviewed labs, pt in the past and still today do not want to see Nephrology does not want to do dialysis if gets to that 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/2023 Assessment & Plan (12/30/2024 10:40 AM EDT): Does well with Trelegy inhaler, and singulair Has duoneb if needed and albuterol, minimal use Samples #4: trelegy 100's lot;[id number], exp 12/2025 Assessment & Plan (06/26/2024 8:53 AM EST): Does well with Trelegy inhaler, and singulair Has duoneb if needed and albuterol, minimal use Trelegy 100, lot [id number], exp 08/31 #2 samples Assessment & Plan (12/25/2023 11:42 AM EDT): Stable on current meds, no changes #2 trelegy samples Lot [id number], exp 03/2025 Doing well on current meds Assessment & Plan (09/19/2023 9:32 AM EST): Stable on current meds, no changes Essential (primary) hypertension 08/08/2023 Assessment & Plan (12/30/2024 6:30 AM EDT): Continue current meds Please check blood pressure daily and record DASH diet Limit caffeine Take medication as directed Contact office if chest pain, pressure, dizziness, shortness of breath, swelling legs Recommend slow position changes Current meds: lisinopril Assessment & Plan (06/26/2024 6:29 AM EST): Continue current meds Please check blood pressure daily and record DASH diet Limit caffeine Take medication as directed Contact office if chest pain, pressure, dizziness, shortness of breath, swelling legs Recommend slow position changes Assessment & Plan (12/25/2023 11:42 AM EDT): Stable Check labs Assessment & Plan (09/19/2023 9:54 AM EST): Labs stable Resolved Problems Problem Noted Date Diagnosed Date Resolved Date Rash of both feet 09/19/2023 09/19/2023 Memory loss 09/19/2023 12/30/2024 Moderate persistent asthma i n adult without complication 09/19/2023 06/26/2024 Severe persistent asthma, uncomplicated 08/08/2023 09/19/2023 Polyneuropathy, unspecified 08/08/2023 06/26/2024 Assessment & Plan (09/19/2023 9:54 AM EST): Stable, only taking 1 gabapentin at Type 2 diabetes mellitus wit h diabetic neuropathy, unspecified 08/08/2023 06/26/2024 Encounters Date Type Department Care Team Description 2025 Travel 02/18/2025 Refill [facility] [address] [place] [id number] Bailee Bhakta NP Chronic kidney disease, stage 3 unspecified ([facility]); Type 2 diabetes mellitus with diabetic neuropathy, unspecified ([facility]) 01/25/2025 Refill [facility] [address] [place] [address] Bailee Bhakta NP Essential (primary) hypertension ; Lower extremity edema; Severe persistent asthma, uncomplicated (HCC) 01/12/2025 Refill [facility] [address] [place] [address] Bailee Bhakta NP Asthma-COPD overlap syndrome (HCC); Lower extremity edema; Insomnia, unspecified type; Essential (primary) hypertension 01/12/2025 Telephone [facility] [address] [place] [address] Bailee Bhakta NP 12/30/2024 10:00 AM EDT Office Visit [facility] [address] [place] [address] Bailee Bhakta NP Encounter for subsequent annual wellness visit (AWV) in Medicare patient (Primary Dx); Type 2 diabetes mellitus with diabetic neuropathy, without long-term current use of insulin (HCC); Asthma-COPD overlap syndrome (HCC); Essential (primary) hypertension ; Pulmonary hypertension (HCC); Tricuspid valve insufficiency, unspecified etiology; Stage 4 chronic kidney disease (HCC); Lower extremity edema; Diabetic retinopathy associated with type 2 diabetes mellitus, macular edema presence unspecified, unspecified laterality, unspecified retinopathy severity (HCC); Type 2 diabetes with complication (HCC); Vitamin D deficiency; Iron deficiency anemia, unspecified iron deficiency anemia type; Mixed hyperlipidemia ; Gradual-onset memory impairment 12/30/2024 [employer] flowsheet [facility] [address] [place] [address] Bailee Bhakta NP 12/27/2024 Travel from Last 3 Months Immunizations Immunization Administration Dates Next Due Influenza Whole 12/08/2011 Influenza, High Dose Seasona l, Preservative Free 06/11/2024,04/29/2018,04/12/2017,05/16,04/17/2014,07/15/2013 Influenza, High-dose Seasona l, Quadrivalent, Preservative Free 08/11/2023,05/30/2022,05/16/2021 Pneumococcal Conjugate PCV 13 05/16/2021 Pneumococcal Polysaccharide PPSV23 12/08/2011 Tdap 12/08/2011 Zoster, live 08/06/2013 Family History Medical History Relation Name Comments Heart attack Father Diabetes Mother Hypertension Mother Relation Name Status Comments Father Mother Social History Tobacco Use Types Packs/Day Years Used Date Smoking Tobacco: Never Smokeless Tobacco: Never Tobacco Cessation:Counseling Given: Not Answered Alcohol Use Standard Drinks/Week Comments Not Currently 0 (1 standard drink = 0.6 oz pure alcohol) caffeine more than 4 cups per day [id number] Health Literacy Answer Date Recor ded How often do you need to hav e someone help you when you read instructions, pamphlets, or other written material from your doctor or pharmacy? Sometimes 06/25/2024 Social Connection and Isolat ion Panel [NHANES] Answer Date Recorded In a typical week, how many times do you talk on the phone with family, friends, or neighbors? More than three times a week 06/25/2024 How often do you get togethe r with friends or relatives? More than three times a week 06/25/2024 How often do you attend chur or restorationism services? More than 4 times per year 06/25/2024 Do you belong to any clubs o r organizations such as pentecostal groups, unions, fraternal or athletic groups, or school groups? No 06/25/2024 How often do you attend meet ings of the clubs or organizations you belong to? Never 06/25/2024 Are you , , di vorced, , never , or living with a partner? 06/25/2024 AUDIT-C Answer Date Recorded Q1: How often do you have a drink containing alcohol? Never 06/25/2024 Q2: How many drinks containi ng alcohol do you have on a typical day when you are drinking? Patient does not drink Q3: How often do you have si x or more drinks on one occasion? Never 06/25/2024 Overall Financial Resource Strain (CARDIA) Answe r Date Recorded How hard is it for you to pa y for the very basics like food, housing, medical care, and heating? Not hard at all 06/25/2024 PHQ-2 Answer Date Recorded Patient Health Questionnaire-2 Score 0 12/30/2024 [facility] - Occupational Stress Questionnaire Answer Date Recorded Do you feel stress - tense, restless, nervous, or anxious, or unable to sleep at night because your mind is troubled all the time - these days? Not at all 06/25/2024 Exercise Vital Sign Answer Date Recorde d On average, how many days pe r week do you engage in moderate to strenuous exercise (like a brisk walk)? 0 days 06/25/2024 On average, how many minutes do you engage in exercise at this level? 0 min 06/25/2024 Hunger Vital Sign Answer Date Recorded Within the past 12 months, y ou worried that your food would run out before you got the money to buy more. Never true 06/25/20 24 Within the past 12 months, t he food you bought just didn't last and you didn't have money to get more. Never true 06/25/2024 PRAPARE - Transportation Answer Date Re corded In the past 12 months, has l ack of transportation kept you from medical appointments or from getting medications? No 06/07 In the past 12 months, has l ack of transportation kept you from meetings, work, or from getting things needed for daily living? No 06/25/2024 Housing Stability Vital Sign Answer Hardeep e Recorded In the last 12 months, was t here a time when you were not able to pay the mortgage or rent on time? No 06/25/2024 Number of Times Moved in the Last Year Not on fi le 06/25/2024 At any time in the past [address] [facility], were you homeless or living in a mcc (including now)? No 06/25/2024 Comments Unknown Sex and Gender Information Value Date Recorded Sex Assigned at Not on file Legal Sex Female 6:49 PM EDT Gender Identity Not on file Sexual Orientation Not on file Last Filed Vital Signs Vital Sign Reading Time Taken Comments Blood Pressure 124/72 12/30/2024 10:12 AM EDT Pulse 63 12/30/2024 10:12 AM EDT Temperature 36.9 C (98.5 F) 12/30/2024 10:12 AM EDT Respiratory Rate 20 12/30/2024 10:12 AM EDT Oxygen Saturation 99% 12/30/2024 10:12 AM EDT Inhaled Oxygen Concentration - - Weight 102 kg (225 lb) 12/30/2024 10:12 AM EDT Height 172.7 cm (5' 8 ) 06/26/2024 8:35 AM EST Body Mass Index 34.21 06/26/2024 8:35 AM EST Plan of Treatment Upcoming Encounters Date Type Department Care Team (Late st Contact Info) Description 03/30/2025 10:30 AM EDT Office Visit [facility] [address] [place] [address] Bailee Bhakta NP [address] [place] [address] Health Maintenance Due Date Last Done Comments Diabetes: Urine Protein Screening 08/16/2024 024 Diabetes: Retinopathy Screening 11/01/2024 4 Influenza Vaccine (#1) 2025 4, 08/11/2023, 05/30/2022, Additional history exists Diabetes: Hemoglobin A1C 07/02/2025 025, 04/25/2024, 08/16/2023 Medicare Annual Wellness (AWV) 12/30/2025 0 12/30/2024, 12/30/2024, 12/25/2023, Additional history exists Pneumococcal Vaccine: 65+ Years Completed , 12/08/2011 Procedures Procedure Name Priority Date/Time Associated Diagnosis Comments POCT GLYCOSYLATED HEMOGLOBIN (HGB A1C) Routine 12/30/2024 10:44 AM EDT Type 2 diabetes with complication (HCC) from Last 3 Months Results * POCT glycosylated hemoglobin (Hb A1C) docked device (12/30/2024 10:44 AM EDT) Hemoglobin A1C 5.8 Blood Venous blood specimen / Unknown 12/30/2024 10:44 AM EDT us Bailee Bhakta NP POINT OF CARE TEST ENTER/EDIT O RDERABLES Final Result from Last 3 Months Insurance [facility] MEDICAID [facility] Care Teams Test Engine Operator Relationship Specialty Start Date End Date Krishna Headley MD [address] [place] [phone] PCP - General Family Medicine 09/14/23 Bailee Bhakta NP [address] [place] [address] PCP - [facility] 02/04/24 04/05/61 Bailee Bhakta NP [address] [place] [phone] Referring Physician Nurse Practitioner 02/21/23
--- OUTSIDE RECORDS SUMMARY | 2025-03-25 07:54 | XMS_ITS | Encounter Summary ---
Author Organization [facility] Address [address] [place] [address] Care Team Providers Care Custom Wood Stair Builder Name Role Phone Bailee Bhakta PULMONARY PHYSICIAN Unavailable [phone] Krishna Headley MD Primary Care Provider [phone] Bailee Bhakta PULMONARY PHYSICIAN Unavailable [phone] Encounter Details Date Type Department Care Team (Latest Contact Info) Description 2025 Travel Social History Tobacco Use Types Packs/Day Years Used Date Smoking Tobacco: Never Smokeless Tobacco: Never Alcohol Use Standard Drinks/Week Comments Not Currently [...] 06/25/2024 How often do you attend chur ch or pentecostal services? More than 4 times per year 06/25/2024 Do you belong to any clubs o r organizations such as anabaptism groups, unions, fraternal or athletic groups, or [...] Recorded Patient Health Questionnaire-2 Score 0 12/30/2024 [facility] - Occupational Stress Questionnaire Answer Date Recorded [...] any time in the past 12 m [facility], were you homeless or living in a custodial (including now)? No 06/25/2024 Comments Unknown Sex and Gender Information Value Date Recorded Sex Assigned at Not on file Legal Sex Female 6:49 PM EDT Gender Identity Not on file Sexual Orientation Not on file documented as of this encounter Plan of Treatment Upcoming Encounters Date Type Department Care Team (Late st Contact Info) Description 03/30/2025 10:30 AM EDT Office Visit [facility] [address] [place] [address] Bailee Bhakta NP [address] [place] [phone] documented as of this encounter Visit Diagnoses Not on filedocumented in this encounter Additional Health Concerns Assessment Noted Time PHQ-9 Depression Total Score: 2 12/31/19 10:20 AM EDT documented as of this encounter Care Teams Custom Wood Stair Builder Relationship Specialty Start Date End Date Krishna Headley MD [address] [place] [address] PCP - General Family Medicine 09/14/23 Bailee Bhakta NP [address] [place] [address] PCP - [facility] 02/04/24 04/05/61 Bailee Bhakta NP [address] [place] [phone] Referring Physician Nurse Practitioner 02/21/23 documented as of this encounter
--- OUTSIDE RECORDS SUMMARY | 2025-03-25 07:55 | XMS_ITS | CCD ---
Author Organization [facility] Care Team Providers Care Granite Worker Name Role Phone PHYSICIAN, DEFAULT Unavailable Unavailable PHYSICIAN, DEFAULT Unavailable Unavailable AMBURN, JOSE CARLOS Unavailable Unavailable AICHHOLZ, CHANGE MANAGER BAILEE Consulting Unavailable AICHHOLZ, CHANGE MANAGER BAILEE Primary Care Unavailable AICHHOLZ, CHANGE MANAGER BAILEE Admitting Unavailable AICHHOLZ, CHANGE MANAGER BAILEE Attending Unavailable AICHHOLZ, CHANGE MANAGER BAILEE Consulting Unavailable AICHHOLZ, CHANGE MANAGER BAILEE Primary Care Unavailable AICHHOLZ, CHANGE MANAGER BALIEE Admitting Unavailable AICHHOLZ, CHANGE MANAGER BAILEE Attending Unavailable AICHHOLZ, CHANGE MANAGER BAILEE Consulting Unavailable AICHHOLZ, CHANGE MANAGER BAILEE Primary Care Unavailable AICHHOLZ, CHANGE MANAGER BAILEE Admitting Unavailable AICHHOLZ, CHANGE MANAGER BAILEE Attending Unavailable Aichholz SURGICAL CORSETIER, Bailee Unavailable Krishna Headley MD Primary Care Provider Aichholz SURGICAL CORSETIER, Bailee Unavailable Aichholz SURGICAL CORSETIER, Bailee Unavailable AICHHOLZ, BAILEE Attending Unavailable AICHHOLZ, BAILEE Attending Unavailable Allergies Allergy Classification Reported Allergen(s) Allergy Type Date of Onset Reaction(s) Facility (1 source) Mis-Other; Translations: [Misc-Other] Propensity to adverse reactions (disorder) 5 [facility] (18 sources) Clarithromycin Propensity to adverse reactions 4 [facility] (18 sources) Diclofenac Drug Allergy 4 [facility] (18 sources) metFORMIN Drug Allergy 4 [facility] (18 sources) Fluticasone Furoate-Vilanterol Propensity to adverse reactions 4 Headache [facility] Healthcare Work Phone: Medications Current Medications Medication Drug Class(es) Dates Sig (Normalized) Sig (Original) [id number] 200 actuat albuterol 0.09 mg/actuat metered dose inhaler (12 sources) beta2-Adrenergic Agonist Start: 06-26-2024 End: 02-11-2025 take 2 puff(s) by inhalation every six hours for wheezing albuterol HFA 90 mcg/act inhaler Indications: Asthma-COPD overlap syndrome (HCC) Inhale 2 puffs every 6 (six) hours if needed for shortness of breath or wheezing 18 g 1 01/12/2025 Active albuterol 0.833 mg/ml / ipratropium bromide 0.167 mg/ml inhalation solution (18 sources) Anticholinergic, beta2-Adrenergic Agonist ipratropium-albuter ol (Duo-Neb) 0.5-2.5 mg/3 mL nebulizer solution Take 3 mL by nebulization Daily as needed for wheezing or shortness of breath Active ipratropium-albu terol (Duo-Neb) 0.5-2.5 mg/3 mL nebulizer solution Take 3 mL by nebulization in the morning and 3 mL before bedtime. 0 Active aspirin 81 mg delayed release oral tablet (6 sources) Platelet Aggregation Inhibitor, Nonsteroidal Anti-inflammatory Drug Start: 06-26-2024 End: 09-24-2024 take 1 tablet by mouth once daily aspirin 81 MG EC tablet Indications: Type 2 diabetes mellitus with diabetic neuropathy, without long-term current use of insulin (CMS/HCC) , Essential (primary) hypertension ([facility]) Take 1 tablet (81 mg) by mouth Daily 90 tablet 1 06/26/2024 09/24/2024 Active take 1 tablet by mouth in the mo rning aspirin 81 MG EC tablet Take 1 tablet by mouth in the morning. 0 Active ferrous sulfate 325 mg oral tablet (15 sources) Start: 11-07-2024 End: 05-19-2025 take 1 tablet by mouth in the morning ferrous sulfate (FeroSul) 325 (65 Fe) MG tablet Indications: Chronic kidney disease, stage 3 unspecified (CMS-HCC) Take 1 tablet (325 mg) by mouth in the morning and 1 tablet (325 mg) in the evening. Take before meals. 180 tablet 1 02/18/2025 05/19/2025 Active Start: 05-05-2024 End: 10-22-2024 take 1 tablet by mouth in the morning ferrous sulfate (FeroSul) 325 (65 Fe) MG tablet Indications: Chronic kidney disease, stage 3 unspecified (HCC) (CMS/HCC) Take 1 tablet (325 mg) by mouth in the morning and 1 tablet (325 mg) in the evening. Take with meals. 180 tablet 1 07/24/2024 10/22/2024 Active Start: 08-08-2023 End: 11-06-2023 take 1 tablet [...] / vilanterol 0.025 mg/actuat dry powder inhaler (18 sources) Anticholinergic, Corticosteroid, beta2-Adrenergic Agonist Start: 06-26-2024 End: 07-26-2024 take 1 puff(s) by mouth once daily Thtwceijlmt-Enrjxazxe-Vpfdcw (Trelegy Ellipta) 100-62.5-25 MCG/ACT aerosol powder Indications: Asthma-COPD overlap syndrome (HCC) Inhale 1 puff Daily Rinse mouth after use. 60 each 5 06/26/2024 Active Start: 06-04-2023 End: 06-26-2024 take 1 puff(s) by mouth in the morning Trelegy Ellipta 100-62.5-25 MCG/ACT aerosol powder Inhale 1 puff in the morning. Rinse mouth after use.. 06/04/2023 06/26/2024 Discontinued (Reorder) furosemide 20 mg oral tablet (19 sources) Loop Diuretic Start: 01-26-2025 End: 04-26-2025 take 1 tablet by mouth once daily furosemide (Lasix) 20 MG tablet Indications: Lower extremity edema Take 1 tablet (20 mg) by mouth Daily 90 tablet 1 01/26/2025 04/26/2025 Active Start: 11-08-2023 End: 10-22-2024 take 1 tablet by mouth once daily furosemide (Lasix) 20 MG tablet Indications: Lower extremity edema Take 1 tablet (20 mg) by mouth Daily 90 tablet 1 07/24/2024 Active Start: 08-08-2023 take 1 tablet by bruce th in the morning furosemide (Lasix) 20 MG tablet Take 1 tablet by mouth in the morning. 0 08/08/2023 Active gabapentin 300 mg oral capsule (19 sources) Anti-epileptic Agent Start: 11-04-2024 End: 02-02-2025 take 1 capsule by mouth at bedtime gabapentin (Neurontin) 300 MG capsule Indications: Polyneuropathy, unspecified Take 1 capsule (300 mg) by mouth at bedtime 90 capsule 1 11/04/2024 Active Start: 11-08-2023 End: 07-24-2024 take 1 capsule by mouth at bedtime gabapentin (Neurontin) 300 MG capsule Indications: Polyneuropathy, unspecified Take 1 capsule (300 mg) by mouth at bedtime 90 capsule 1 04/25/2024 Active Start: 08-08-2023 End: 11-06-2023 take 2 capsules by mouth at bedtime gabapentin (Neurontin) 300 MG capsule Indications: Polyneuropathy, unspecified Take 2 capsules (600 mg) by mouth at bedtime 180 capsule 1 08/08/2023 11/06/2023 Active hydrOXYzine hydrochloride 10 mg oral tablet (18 sources) Antihistamine Start: 11-08-2023 End: 10-22-2024 hydrOXYzine HCl (Atarax) 10 MG tablet Indications: Insomnia, unspecified type Take 1 tablet (10 mg) by mouth as needed at bedtime for anxiety or itching 90 tablet 1 07/24/2024 Active take 1 tablet by mouth at bedtim e hydrOXYzine HCl (Atarax) 10 MG tablet Take 1 tablet by mouth at bedtime 0 Active lisinopril 30 mg oral tablet (19 sources) Angiotensin Converting Enzyme Inhibitor Start: 01-26-2025 End: 04-26-2025 take 1 tablet by mouth once daily lisinopril 30 MG tablet Indications: Essential (primary) hypertension Take 1 tablet (30 mg) by mouth Daily 90 tablet 1 01/26/2025 04/26/2025 Active Start: 11-08-2023 End: 10-22-2024 take 1 tablet by mouth once daily lisinopril 30 MG tablet Indications: Essential (primary) hypertension (CMS/HCC) Take 1 tablet (30 mg) by mouth Daily 90 tablet 1 07/24/2024 Active Start: 08-08-2023 End: 11-06-2023 take 1 tablet by mouth in the morning lisinopril 30 MG tablet Indications: Essential (primary) hypertension (CMS/HCC) Take 1 tablet (30 mg) by mouth in the morning. 90 tablet 1 08/08/2023 11/06/2023 Active montelukast 10 mg oral tablet (19 sources) Leukotriene Receptor Antagonist Start: 01-26-2025 End: 04-26-2025 take 1 tablet by mouth at bedtime montelukast (Singulair) 10 MG tablet Indications: Severe persistent asthma, uncomplicated (HCC) Take 1 tablet (10 mg) by mouth at bedtime 90 tablet 1 01/26/2025 04/26/2025 Active Start: 11-08-2023 End: 10-22-2024 take 1 tablet by mouth at bedtime montelukast (Singulair) 10 MG tablet Indications: Severe persistent asthma, uncomplicated (CMS/HCC) Take 1 tablet (10 mg) by mouth at bedtime 90 tablet 1 07/24/2024 Active Start: 08-08-2023 End: 11-06-2023 take 1 tablet by mouth at bedtime montelukast (Singulair) 10 MG tablet Indications: Severe persistent asthma, uncomplicated (CMS/HCC) Take 1 tablet (10 mg) by mouth at bedtime 90 tablet 1 08/08/2023 11/06/2023 Active pioglitazone 15 mg oral tablet (19 sources) Peroxisome Proliferator Receptor alpha Agonist, Peroxisome Proliferator Receptor gamma Agonist, Thiazolidinedione Start: 11-08-2023 End: 05-19-2025 take 1 tablet by mouth once daily pioglitazone (Actos) 15 MG tablet Indications: Type 2 diabetes mellitus with diabetic neuropathy, unspecified (HCC) Take 1 tablet (15 mg) by mouth Daily 90 tablet 1 02/18/2025 05/19/2025 Active Start: 08-08-2023 End: 11-06-2023 take 1 tablet by mouth in the morning pioglitazone (Actos) 15 MG tablet Indications: Type 2 diabetes mellitus with diabetic neuropathy, unspecified (CMS/HCC) Take 1 tablet (15 mg) by mouth in the morning. 90 tablet 1 08/08/2023 11/06/2023 Active triamcinolone acetonide 0.00 1 mg/mg topical ointment (3 sources) Corticosteroid triamcinolone (K enalog) 0.1 % ointment Apply 1 application topically in the morning and 1 application before bedtime. 0 Active Problems Active Problems Problem Classification Problem Date Documented Date Episodic/Chronic Asthma (20 sources) Uncomplicated severe persistent asthma; Translations: [Severe persistent asthma, uncomplicated] Onset: 08-08-2023 Resolved: 06-26-2024 08-08-2023 Chronic Chronic kidney disease (20 sources) Chronic kidney disease stage 4; Translations: [Chronic kidney disease, stage 4 (severe)] Onset: 08-17-2023 08-17-2023 Chronic Diabetes mellitus with complications (20 sources) Type 2 diabetes mellitus with diabetic chronic kidney disease; Translations: [Neuropathy due to type 2 diabetes mellitus] Onset: 10-17-2022 Resolved: 06-26-2024 Chronic Disorders of lipid metabolism (20 sources) Hyperlipidemia; Translations: [Hyperlipidemia, unspecified] Onset: 09-19-2023 09-19-2023 Chronic Essential hypertension (20 sources) Essential hypertension; Translations: [Essential (primary) hypertension] Onset: 08-08-2023 08-08-2023 Chronic Heart valve disorders (20 sources) Tricuspid valve regurgitation; Translations: [Rheumatic tricuspid insufficiency] Onset: 09-19-2023 09-19-2023 Chronic Nutritional deficiencies (20 sources) Vitamin D deficiency; Translations: [Vitamin D deficiency, unspecified] Onset: 09-19-2023 09-19-2023 Chronic Osteoarthritis (18 sources) Osteoarthritis; Translations: [Unspecified osteoarthritis, unspecified site] Onset: 09-19-2023 09-19-2023 Chronic Other nutritional; endocrine; and metabolic disorders (20 sources) Body mass index 30+ - obesity; Translations: [Body mass index (BMI) 34.0-34.9, adult] Onset: 09-19-2023 09-19-2023 Chronic Pulmonary heart disease (20 sources) Pulmonary hypertension; Translations: [Pulmonary hypertension, unspecified] Onset: 09-19-2023 09-19-2023 Chronic Residual codes; unclassified (20 sources) Obstructive sleep apnea syndrome; Translations: [Obstructive sleep apnea (adult) (pediatric)] Onset: 09-19-2023 09-19-2023 Chronic Residual codes; unclassified (9 sources) Memory impairment; Translations: [Other amnesia] Onset: 12-30-2024 12-30-2024 Episodic Unclassified (1 source) CHRN KIDNEY DISEASE [...] [IRON DEFICIENCY ANEMIA UNSPECIFIED] Onset: 11-14-2021 Episodic Deficiency and other anemia (20 sources) Iron deficiency anemia; Translations: [Iron deficiency anemia, unspecified] Onset: 09-19-2023 09-19-2023 Episodic Fluid and electrolyte disorders (18 sources) Hyperkalemia; Translations: [Hyperkalemia] Onset: 09-19-2023 09-19-2023 Episodic Mood disorders (15 sources) Mood disorders Onset: 12-25-2023 Resolved: 12-30-2024 12-25-2023 Other nervous system disorders (20 sources) Polyneuropathy; Translations: [Polyneuropathy, unspecified] Onset: 08-08-2023 Resolved: 06-26-2024 08-08-2023 Chronic Other skin disorders (18 sources) Lesion of skin of face; Translations: [Disorder of the skin and subcutaneous tissue, unspecified] Onset: 09-19-2023 09-19-2023 Episodic Other skin disorders (18 sources) Eruption; Translations: [Rash and other nonspecific skin eruption] Onset: 09-19-2023 Resolved: 09-19-2023 09-19-2023 Episodic Residual codes; unclassified (20 sources) Insomnia; Translations: [Insomnia, unspecified] Onset: 09-19-2023 09-19-2023 Episodic Residual codes; unclassified (20 sources) Edema of lower extremity; Translations: [Localized edema] Onset: 09-19-2023 09-19-2023 Episodic Residual codes; unclassified (18 sources) Amnesia; Translations: [Other amnesia] Onset: 09-19-2023 Resolved: 12-30-2024 09-19-2023 Episodic Results Test Name Value Interpretation Reference Range Facil ity HbA1c (Bld) [Mass fraction]o n 12-30-2024 Interpretation and review of laboratory results Normal [facility] e Laboratory - Hematology and Cell countson 12-30-2024 HbA1c (Bld) [Mass fraction] 5.8 % [facility] ALL CBC WITH AUTO DIFFon BASOPHILS ABSOLUTE AUTO 0.1 [facility] Basophils/100 WBC (Bld) 1.5 % 0.2 - 2.0 % [facility] Eosinophils/100 WBC (Bld) 7.2 % High 0.9 - 7.0 % [facility] Erythrocyte distribution width (RBC) [Ratio] 13.4 % 11.0 - 15.0 % [facility] Hematocrit (Bld) [Volume fraction] 36.9 % 36.0 - 48.0 % [facility] Hemoglobin (Bld) [Mass/Vol] 11.2 g/dL Low 12.0 - 16.0 g/dL [facility] IMMATURE GRANULOCYTES ABS AUTO 0.02 [facility] Immature granulocytes/100 WBC (Bld) 0.4 % 0.0 - 0.5 % [facility] Interpretation and review of laboratory results Abnormal [facility] LYMPHOCYTES ABSOLUTE AUTO 1.6 [facility] Lymphocytes/100 WBC (Bld) 35.0 % 20.5 - 60.0 % [facility] MCH (RBC) [Entitic mass] 28.0 pg 26.7 - 34.0 pg [facility] MCHC (RBC) [Mass/Vol] 30.4 g/dL 29.9 - 35.2 g/dL [facility] MCV (RBC) [Entitic vol] 92.3 fL 81.0 - 99.0 fL [facility] MONOCYTES ABSOLUTE AUTO 0.5 [facility] Monocytes/100 WBC (Bld) 11.8 % 1.7 - 12.0 % [facility] NEUTROPHILS ABSOLUTE AUTO 2.0 [facility] Neutrophils/100 WBC (Bld) 44.1 % 43.0 - 75.0 % [facility] Platelet mean volume (Bld) [Entitic vol] 10.8 fL 9.5 - 13.5 fL [facility] EO # 0.3 [facility] PLT 177 [facility] RBC 4.00 Low [facility] WBC 4.6 [facility] CBC AUTO DIFFon 10-17-2022 BASO # 0.0 103/ul Normal 0.0-0.1 [facility] Comment on above: Performed By: #### C BC #### [facility] [address] [address] [address] Juan Manuel Mcintosh Basophils/100 WBC (Bld) 0.4 % Normal 0.2-2.0 [facility] Comment on above: Performed By: #### C BC #### [facility] [address] [address] [address] Juan Manuel Mcintosh EO # 0.4 103/ul Normal 0.0-0.7 [facility] Comment on above: Performed By: #### C BC #### [facility] [address] [address] [address] Juan Manuel Mcintosh Eosinophils/100 WBC (Bld) 4.1 % Normal 0.9-7.0 [facility] Comment on above: Performed By: #### C BC #### [facility] [address] [place] [address] Dr. Juan Manuel Mcintosh Erythrocyte distribution width (RBC) [Ratio] 14.0 % Normal 11.0-15.0 [facility] Comment on above: Performed By: #### C BC #### [facility] [address] [address] [address] Juan Manuel Mcintosh Hematocrit (Bld) [Volume fraction] 35.3 % Critically low 36.0-48.0 [facility] Comment on above: Performed By: #### C BC #### [facility] [address] [place] [address] Dr. Juan Manuel Mcintosh Hemoglobin (Bld) [Mass/Vol] 10.9 g/dL Critically low 12.0-16.0 [facility] Comment on above: Performed By: #### C BC #### [facility] [address] [place] [address] Dr. Juan Manuel Mcintosh IG # 0.04 10e3/ul Critically high 0.00-0.03 [facility] Comment on above: Performed By: #### C BC #### [facility] [address] [place] [address] Dr. Juan Manuel Mcintosh IG % 0.4 % Normal 0.0-0.5 [facility] Comment on above: Performed By: #### C BC #### [facility] [address] [place] [address] Dr. Juan Manuel Mcintosh LYMPH # 1.7 103/ul Normal 1.2-3.8 [facility] Comment on above: Performed By: #### C BC #### [facility] [address] [place] [address] Dr. Juan Manuel Mcintosh Lymphocytes/100 WBC (Bld) 16.8 % Critically low 20.5-60.0 [facility] Comment on above: Performed By: #### C BC #### [facility] [address] [place] [address] Dr. Juan Manuel Mcintosh MANUAL DIFF REQ NO Normal [facility] Comment on above: Performed By: #### C BC #### [facility] [address] [place] [address] Dr. Juan Manuel Mcintosh MCH (RBC) [Entitic mass] 26.9 pg Normal 26.7-34.0 [facility] Comment on above: Performed By: #### C BC #### [facility] [address] [place] [address] Dr. Juan Manuel Mcintosh MCHC (RBC) [Mass/Vol] 30.9 g/dL Normal 29.9-35.2 [facility] Comment on above: Performed By: #### C BC #### [facility] [address] [place] [address] Dr. Juan Manuel Mcintosh MCV (RBC) [Entitic vol] 87.2 fL Normal 81.0-99.0 [facility] Comment on above: Performed By: #### C BC #### [facility] [address] [place] [address] Dr. Juan Manuel Mcintosh MONO # 1.1 103/ul Critically high 0.3-0.8 [facility] Comment on above: Performed By: #### C BC #### [facility] [address] [place] [address] Dr. Juan Manuel Mcintosh Monocytes/100 WBC (Bld) 10.7 % Normal 1.7-12.0 [facility] Comment on above: Performed By: #### C BC #### [facility] [address] [place] [address] Dr. Juan Manuel Mcintosh NEUT # 6.9 103/ul Critically high 1.4-6.5 [facility] Comment on above: Performed By: #### C BC #### [facility] [address] [place] [address] Dr. Juan Manuel Mcintosh Neutrophils/100 WBC (Bld) 67.6 % Normal 43.0-75.0 [facility] Comment on above: Performed By: #### C BC #### [facility] [address] [place] [address] Dr. Juan Manuel Mcintosh Platelet mean volume (Bld) [Entitic vol] 11.2 fL Normal 9.5-13.5 [facility] Comment on above: Performed By: #### C BC #### [facility] [address] [place] [address] Dr. Juan Manuel Mcintosh PLT 186 103/ul Normal 150-450 [facility] Comment on above: Performed By: #### C BC #### [facility] [address] [place] [address] Dr. Juan Manuel Mcintosh RBC 4.05 106/ul Critically low 4.20-5.40 [facility] Comment on above: Performed By: #### C BC #### [facility] [address] [place] [address] Dr. Juan Manuel Mcintosh WBC 10.2 103/ul Normal 4.0-11.0 [facility] Comment on above: Performed By: #### C BC #### [facility] [address] [place] [address] Dr. Juan Manuel Mcintosh GLYCOHEMOGLOBIN A1Con 2022 ADA RECOMMENDATION SEE BELOW Normal [facility] Comment on above: Result Comment: ADA RECOMMENDED LIMIT 4.0 - 6.0 ADA THERAPEUTIC TARGET < 7.0 ACTION SUGGESTED > 7.0 Performed By: #### A 1C #### [facility] [address] [place] [address] Dr. Juan Manuel Mcintosh Glucose [Mass/Vol] 128 mg/dL Normal [facility] Comment on above: Performed By: #### A 1C #### [facility] [address] [place] [address] Dr. Juan Manuel Mcintosh HbA1c (Bld) [Mass fraction] 6.1 % Normal 4.5-6.2 [facility] Comment on above: Performed By: #### A 1C #### [facility] [address] [place] [address] Dr. Juan Manuel Mcintosh PROF CHEM 8 (BAS METB)on Anion gap [Moles/Vol] 15.5 mmol/L Normal [facility] Comment on above: Performed By: #### B MP #### [facility] [address] [place] [address] Dr. Juan Manuel Mcintosh Calcium [Mass/Vol] 9.0 mg/dL Normal 8.5-10.1 [facility] Comment on above: Performed By: #### B MP #### [facility] [address] [place] [address] Dr. Juan Manuel Mcintosh Chloride [Moles/Vol] 106 mmol/L Normal 98-107 [facility] Comment on above: Performed By: #### B MP #### [facility] [address] [place] [address] Dr. Juan Manuel Mcintosh CO2 [Moles/Vol] 21.1 mmol/L Normal 21.0-32.0 [facility] Comment on above: Performed By: #### B MP #### [facility] [address] [place] [address] Dr. Juan Manuel Mcintosh Creatinine [Mass/Vol] 1.78 mg/dL Critically high 0.55-1.02 [facility] Comment on above: Performed By: #### B MP #### [facility] [address] [address] [address] Juan Manuel Mcintosh EGFR-AF AZERBAIJANI 33 mL/min/1.73m2 Critically low >=60 [facility] Comment on above: Performed By: #### B MP #### [facility] [address] [address] [address] Juan Manuel Mcintosh EGFR-NON AF AZERBAIJANI 27 mL/min/1.73m2 Critically low >=60 [facility] Comment on above: Performed By: #### B MP #### [facility] [address] [address] [address] Juan Manuel Mcintosh Glucose [Mass/Vol] 108 mg/dL Critically high 74-106 T [facility] Comment on above: Performed By: #### B MP #### [facility] [address] [address] [address] Juan Manuel Mcintosh Potassium [Moles/Vol] 4.6 mmol/L Normal 3.5-5.1 [facility] Comment on above: Performed By: #### B MP #### [facility] [address] [address] [address] Juan Manuel Mcintosh Sodium [Moles/Vol] 138 mmol/L Normal 136-145 [facility] Comment on above: Performed By: #### B MP #### [facility] [address] [address] [address] Juan Manuel Mcintosh Urea nitrogen [Mass/Vol] 40.0 mg/dL Critically high 7.0-18.0 [facility] Comment on above: Performed By: #### B MP #### [facility] [address] [address] [address] Juan Manuel Mcintosh Urea nitrogen/Creatinine [Mass ratio] 22.5 mg/mg Normal [facility] Comment on above: Performed By: #### B MP #### [facility] [address] [address] [address] Juan Manuel Mcintosh GLYCOHEMOGLOBIN A1Con 2021 ADA RECOMMENDATION SEE BELOW Normal [facility] Comment on above: Result Comment: ADA RECOMMENDED LIMIT 4.0 - 6.0 ADA THERAPEUTIC TARGET < 7.0 ACTION SUGGESTED > 7.0 Performed By: #### A 1C #### [facility] [address] [address] [address] Juan Manuel Mcintosh Glucose [Mass/Vol] 126 mg/dL Normal [facility] Comment on above: Performed By: #### A 1C #### [facility] [address] [address] [address] Juan Manuel Mcintosh HbA1c (Bld) [Mass fraction] 6.0 % Normal 4.5-6.2 [facility] Comment on above: Performed By: #### A 1C #### [facility] [address] [place] [address] Dr. Juan Manuel Mcintosh HEMOGRAM AND PLATELon 2021 Hematocrit (Bld) [Volume fraction] 34.5 % Critically low 36.0-48.0 [facility] Comment on above: Performed By: #### H H #### [facility] [address] [place] [address] Dr. Juan Manuel Mcintosh Hemoglobin (Bld) [Mass/Vol] 10.4 g/dL Critically low 12.0-16.0 [facility] Comment on above: Performed By: #### H H #### [facility] [address] [place] [address] Dr. Juan Manuel Mcintosh MCH (RBC) [Entitic mass] 27.8 pg Normal 26.7-34.0 [facility] Comment on above: Performed By: #### H H #### [facility] [address] [place] [address] Dr. Juan Manuel Mcintosh MCHC (RBC) [Mass/Vol] 30.1 g/dL Normal 29.9-35.2 [facility] Comment on above: Performed By: #### H H #### [facility] [address] [place] [id number] Dr. Juan Manuel Mcintosh MCV (RBC) [Entitic vol] 92.2 fL Normal 81.0-99.0 [facility] Comment on above: Performed By: #### H H #### [facility] [address] [place] [address] Dr. Juan Manuel Mcintosh PLT 216 103/ul Normal 150-450 [facility] Comment on above: Performed By: #### H H #### [facility] [address] [address] [address] Jua nManuel Mcintosh RBC 3.74 106/ul Critically low 4.20-5.40 [facility] Comment on above: Performed By: #### H H #### [facility] [address] [address] [address] Juan Manuel Mcintosh WBC 5.6 103/ul Normal 4.0-11.0 [facility] Comment on above: Performed By: #### H H #### [facility] [address] [address] [address] Juan Manuel Mcintosh PROF CHEM 8 (BAS METB)on Anion gap [Moles/Vol] 14.2 mmol/L Normal [facility] Comment on above: Performed By: #### B MP #### [facility] [address] [address] [address] Juan Manuel Mcintosh Calcium [Mass/Vol] 8.9 mg/dL Normal 8.5-10.1 [facility] Comment on above: Performed By: #### B MP #### [facility] [address] [address] [address] Juan Manuel Mcintosh Chloride [Moles/Vol] 107 mmol/L Normal 98-107 [facility] Comment on above: Performed By: #### B MP #### [facility] [address] [address] [address] Juan Manuel Mcintosh CO2 [Moles/Vol] 25.1 mmol/L Normal 21.0-32.0 [facility] Comment on above: Performed By: #### B MP #### [facility] [address] [address] [address] Juan Manuel Mcintosh Creatinine [Mass/Vol] 1.55 mg/dL Critically high 0.55-1.02 [facility] Comment on above: Performed By: #### B MP #### [facility] [address] [address] [address] Juan Manuel Mcintosh EGFR-AF AZERBAIJANI 39 mL/min/1.73m2 Critically low >=60 [facility] Comment on above: Performed By: #### B MP #### [facility] [address] [address] [address] Juan Manuel Mcintosh EGFR-NON AF AZERBAIJANI 32 mL/min/1.73m2 Critically low >=60 [facility] Comment on above: Performed By: #### B MP #### [facility] [address] [address] [address] Juan Manuel Mcintosh Glucose [Mass/Vol] 103 mg/dL Normal 74-106 [facility] Comment on above: Performed By: #### B MP #### [facility] [address] [address] [address] Juan Manuel Mcintosh Potassium [Moles/Vol] 5.3 mmol/L Critically high 3.5-5.1 [facility] Comment on above: Performed By: #### B MP #### [facility] [address] [address] [address] Juan Manuel Mcintosh Sodium [Moles/Vol] 141 mmol/L Normal 136-145 [facility] Comment on above: Performed By: #### B MP #### [facility] [address] [address] [address] Juan Manuel Mcintosh Urea nitrogen [Mass/Vol] 34.0 mg/dL Critically high 7.0-18.0 [facility] Comment on above: Performed By: #### B MP #### [facility] [address] [address] [address] Juan Manuel Mcintosh Urea nitrogen/Creatinine [Mass ratio] 21.9 mg/mg Normal [facility] Comment on above: Performed By: #### B MP #### [facility] [address] [address] [address] Juan Manuel Mcintosh CBC AUTO DIFFon 11-14-2021 BASO # 0.1 103/ul Normal 0.0-0.1 [facility] Comment on above: Performed By: #### C BC #### [facility] [address] [address] [address] Juan Manuel Mcintosh Basophils/100 WBC (Bld) 1.3 % Normal 0.2-2.0 [facility] Comment on above: Performed By: #### C BC #### [facility] [address] [place] [address] Dr. Juan Manuel Mcintosh EO # 0.4 103/ul Normal 0.0-0.7 [facility] Comment on above: Performed By: #### C BC #### [facility] [address] [place] [address] Dr. Juan Manuel Mcintosh Eosinophils/100 WBC (Bld) 8.7 % Critically high 0.9-7.0 [facility] Comment on above: Performed By: #### C BC #### [facility] [address] [place] [address] Dr. Juan Manuel Mcintosh Erythrocyte distribution width (RBC) [Ratio] 14.6 % Normal 11.0-15.0 [facility] Comment on above: Performed By: #### C BC #### [facility] [address] [place] [address] Dr. Juan Manuel Mcintosh Hematocrit (Bld) [Volume fraction] 35.7 % Critically low 36.0-48.0 [facility] Comment on above: Performed By: #### C BC #### [facility] [address] [place] [address] Dr. Juan Manuel Mcintosh Hemoglobin (Bld) [Mass/Vol] 10.6 g/dL Critically low 12.0-16.0 [facility] Comment on above: Performed By: #### C BC #### [facility] [address] [place] [address] Dr. Juan Manuel Mcintosh IG # 0.02 10e3/ul Normal 0.00-0.03 [facility] Comment on above: Performed By: #### C BC #### [facility] [address] [place] [address] Dr. Juan Manuel Mcintosh IG % 0.4 % Normal 0.0-0.5 [facility] Comment on above: Performed By: #### C BC #### [facility] [address] [place] [address] Dr. Juan Manuel Mcintosh LYMPH # 1.8 103/ul Normal 1.2-3.8 [facility] Comment on above: Performed By: #### C BC #### [facility] [address] [place] [address] Dr. Juan Manuel Mcintosh Lymphocytes/100 WBC (Bld) 39.5 % Normal 20.5-60.0 [facility] Comment on above: Performed By: #### C BC #### [facility] [address] [place] [address] Dr. Juan Manuel Mcintosh MANUAL DIFF REQ NO Normal [facility] Comment on above: Performed By: #### C BC #### [facility] [address] [place] [address] Dr. Juan Manuel Mcintosh MCH (RBC) [Entitic mass] 27.4 pg Normal 26.7-34.0 [facility] Comment on above: Performed By: #### C BC #### [facility] [address] [place] [address] Dr. Juan Manuel Mcintosh MCHC (RBC) [Mass/Vol] 29.7 g/dL Critically low 29.9-35.2 [facility] Comment on above: Performed By: #### C BC #### [facility] [address] [place] [address] Dr. Juan Manuel Mcintosh MCV (RBC) [Entitic vol] 92.2 fL Normal 81.0-99.0 [facility] Comment on above: Performed By: #### C BC #### [facility] [address] [place] [address] Dr. Juan Manuel Mcintosh MONO # 0.6 103/ul Normal 0.3-0.8 [facility] Comment on above: Performed By: #### C BC #### [facility] [address] [place] [address] Dr. Juan Manuel Mcintosh Monocytes/100 WBC (Bld) 14.3 % Critically high 1.7-12.0 [facility] Comment on above: Performed By: #### C BC #### [facility] [address] [place] [address] Dr. Juan Manuel Mcintosh NEUT # 1.6 103/ul Normal 1.4-6.5 [facility] Comment on above: Performed By: #### C BC #### [facility] [address] [address] [address] Juan Manuel Mcintosh Neutrophils/100 WBC (Bld) 35.8 % Critically low 43.0-75.0 [facility] Comment on above: Performed By: #### C BC #### [facility] [address] [place] [address] Dr. Juan Manuel Mcintosh Platelet mean volume (Bld) [Entitic vol] 11.6 fL Normal 9.5-13.5 [facility] Comment on above: Performed By: #### C BC #### [facility] [address] [place] [address] Dr. Juan Manuel Mcintosh PLT 184 103/ul Normal 150-450 [facility] Comment on above: Performed By: #### C BC #### [facility] [address] [place] [address] Dr. Juan Manuel Mcintosh RBC 3.87 106/ul Critically low 4.20-5.40 [facility] Comment on above: Performed By: #### C BC #### [facility] [address] [place] [address] Dr. Juan Manuel Mcintosh WBC 4.5 103/ul Normal 4.0-11.0 [facility] Comment on above: Performed By: #### C BC #### [facility] [address] [place] [address] Dr. Juan Manuel Mcintosh FERRITINon 11-14-2021 Ferritin [Mass/Vol] 121.0 ng/mL Normal 11.1-264.0 [facility] Comment on above: Performed By: #### F ERR, IRON #### [facility] [address] [place] [address] Dr. Juan Manuel Mcintosh IRONon 11-14-2021 Iron [Mass/Vol] 113.0 ug/dL Normal 37.0-170.0 [facility] Comment on above: Performed By: #### F ERR, IRON #### [facility] [address] [place] [address] Dr. Juan Manuel Mcintosh Vital Signs Date Time Vital Sign Value Performing Clinician Faci lity 12-30-2024 10:12-0400 Body mass index (BMI) [Ratio] 34.21 kg/m2 Bailee Zazuetaz [employer] Work Phone: [facility] 12-30-2024 10:12-0400 Body temperature 98.49 [degF] Bailee Zazuetaz [employer] Work Phone: [facility] 12-30-2024 10:12-0400 Body weight 102.06 kg Bailee Zazuetaz [employer] Work Phone: [facility] 12-30-2024 10:12-0400 Diastolic blood pressure 72 mm[Hg] Bailee Yeholz [employer] Work Phone: [facility] 12-30-2024 10:12-0400 Heart rate 63 /min Bailee Zazuetaz [employer] Work Phone: [facility] 12-30-2024 10:12-0400 Respiratory rate 20 /min Baileenicolas Zazuetaz [employer] Work Phone: [facility] 12-30-2024 10:12-0400 SaO2% (BldA) [Mass fraction] 99 % Bailee Marbinz [employer] Work Phone: [facility] 12-30-2024 10:12-0400 Systolic blood pressure 124 mm[Hg] Bailee Marbinz [employer] Work Phone: [facility] 06-26-2024 08:35-0500 Body height 172.7 cm Bailee Zazuetaz [employer] Work Phone: [facility] 06-26-2024 08:35-0500 Body mass index (BMI) [Ratio] 34.76 kg/m2 Bailee Yeholz [employer] Work Phone: [facility] 06-26-2024 08:35-0500 Body temperature 98.1 [degF] Bailee Belcherholz [employer] Work Phone: [facility] 06-26-2024 08:35-0500 Body weight 103.69 kg Baileenicolas Belcherholz [employer] Work Phone: [facility] 06-26-2024 08:35-0500 Diastolic blood pressure 82 mm[Hg] Bailee Aichholz [employer] Work Phone: [facility] 06-26-2024 08:35-0500 Heart rate 66 /min Bailee Aichholz [employer] Work Phone: [facility] 06-26-2024 08:35-0500 Respiratory rate 19 /min Bailee Aichholz [employer] Work Phone: [facility] 06-26-2024 08:35-0500 SaO2% (BldA) [Mass fraction] 99 % Bailee Aichholz [employer] Work Phone: [facility] 06-26-2024 08:35-0500 Systolic blood pressure 118 mm[Hg] Bailee Aichholz [employer] Work Phone: [facility] 09-19-2023 09:16-0500 Body height 172.7 cm Bailee Aichholz [employer] Work Phone: [facility] 09-19-2023 09:16-0500 Body mass index (BMI) [Ratio] 34.45 kg/m2 Bailee Aichholz [employer] Work Phone: [facility] 09-19-2023 09:16-0500 Body temperature 97.11 [degF] Bailee Meenuhholz [employer] Work Phone: [facility] 09-19-2023 09:16-0500 Body weight 102.78 kg Bailee Aichholz [employer] Work Phone: [facility] 09-19-2023 09:16-0500 Diastolic blood pressure 70 mm[Hg] Bailee Aichholz [employer] Work Phone: [facility] 09-19-2023 09:16-0500 Heart rate 63 /min Bailee Aichholz [employer] Work Phone: [facility] 09-19-2023 09:16-0500 Respiratory rate 18 /min Bailee Aichholz [employer] Work Phone: [facility] 09-19-2023 09:16-0500 SaO2% (BldA) [Mass fraction] 97 % Bailee Yony [employer] Work Phone: [facility] 09-19-2023 09:16-0500 Systolic blood pressure 126 mm[Hg] Bailee Marbinz [employer] Work Phone: [facility] Healthcare Encounters Encounter Date Encounter Type Care Provider Facility Start: 02-18-2025 End: 02-18-2025 Refill Bailee Aichholz [employer] Work Phone: [facility] Comment on above: Chronic kidney disea se, stage 3 unspecified ([facility]); Type 2 diabetes mellitus with diabetic neuropathy, unspecified ([facility]) Start: 01-25-2025 End: 01-26-2025 Refill Bailee Aichholz [employer] Work Phone: [facility] Comment on above: Essential (primary) hypertension ; Lower extremity edema; Severe persistent asthma, uncomplicated ([facility]) Start: 01-12-2025 End: 01-12-2025 Refill Bailee Marbinz [employer] Work Phone: [facility] Comment on above: Asthma-COPD overlap syndrome ([facility]); Lower extremity edema; Insomnia, unspecified type; Essential (primary) hypertension ([facility]) Start: 12-30-2024 End: 12-30-2024 Bamboo flowsheet Bailee Marbinz [employer] Work Phone: [facility] Start: 12-30-2024 End: 12-30-2024 Bamboo flowsheet Bailee Aichholz [employer] Work Phone: [facility] Start: 12-30-2024 End: 12-30-2024 Patient encounter procedure Bailee Marbinz [employer] Work Phone: [facility] Comment on above: Encounter for subseq uent annual wellness visit (AWV) in Medicare patient (Primary Dx); Type 2 diabetes mellitus with diabetic neuropathy, without long-term current use of insulin ([facility]); Asthma-COPD overlap syndrome (CMS/HCC); Essential (primary) hypertension (CMS/HCC); Pulmonary hypertension (CMS/HCC); Tricuspid valve insufficiency, unspecified etiology; Stage 4 chronic kidney disease (CMS/HCC); Lower extremity edema; Diabetic retinopathy associated with type 2 diabetes mellitus, macular edema presence unspecified, unspecified laterality, unspecified retinopathy severity (CMS/HCC); Type 2 diabetes with complication ([facility]/HCC); Vitamin D deficiency; Iron deficiency anemia, unspecified iron deficiency anemia type; Mixed hyperlipidemia ([facility]/HCC); Gradual-onset memory impairment Start: 12-30-2024 End: 12-30-2024 ambulatory BAILEE YONY Not Available Start: 11-19-2024 End: 11-19-2024 Refill Krishna Headley MD Work Phone: [facility] Comment on above: Asthma-COPD overlap syndrome (CMS/HCC) Start: 11-03-2024 End: 11-04-2024 Refill Bailee Bhakta [employer] Work Phone: [facility] Comment on above: Polyneuropathy, unsp ecified Start: 07-24-2024 End: 07-24-2024 Refill Bailee Bhakta [employer] Work Phone: [facility] Comment on above: Essential (primary) hypertension (CMS/HCC); Insomnia, unspecified type; Lower extremity edema; Type 2 diabetes mellitus with diabetic neuropathy, unspecified (CMS/HCC); Chronic kidney disease, stage 3 unspecified (HCC) ([facility]/HCC); Severe persistent asthma, uncomplicated ([facility]/HCC) Start: 06-26-2024 End: 06-26-2024 Bamboo flowsheet Bailee Bhakta [employer] Work Phone: [facility] Start: 06-26-2024 End: 06-26-2024 Bamboo flowsheet Bailee Bhakta [employer] Work Phone: [facility] Start: 06-26-2024 End: 06-26-2024 Office outpatient visit 25 minutes Bailee Bhakta [employer] Work Phone: [facility] Comment on above: Essential (primary) hypertension ([facility]/HCC) (Primary Dx); Type 2 diabetes mellitus with diabetic neuropathy, without long-term current use of insulin ([facility]); Obstructive sleep apnea (adult) (pediatric); Asthma-COPD overlap syndrome ([facility]); Tricuspid valve insufficiency, unspecified etiology; Pulmonary hypertension ([facility]); Stage 4 chronic kidney disease ([facility]); Lower extremity edema; Type 2 diabetes with complication ([facility]); Diabetic retinopathy associated with type 2 diabetes mellitus, macular edema presence unspecified, unspecified laterality, unspecified retinopathy severity ([facility]); BMI 34.0-34.9,adult; Mixed hyperlipidemia ([facility]) Start: 06-26-2024 End: 06-26-2024 ambulatory BAILEE YEHOLKaci Not Available Start: 05-06-2024 End: 05-06-2024 Refill Bailee Marbinz [employer] Work Phone: [facility] Comment on above: Lower extremity elizabeth a; Insomnia, unspecified type; Essential (primary) hypertension (CMS/HCC); Severe persistent asthma, uncomplicated ([facility]); Type 2 diabetes mellitus with diabetic neuropathy, unspecified ([facility]) Start: 04-25-2024 End: 04-25-2024 Clinisync Result Encounter Bailee Bhakta [employer] Work Phone: [facility] External Department Unsolicited Start: 04-25-2024 End: 04-25-2024 Clinisync Result Encounter Bailee Bhakta [employer] Work Phone: [facility] External Department Unsolicited Start: 04-25-2024 End: 04-25-2024 Refill Bailee Marbinz [employer] Work Phone: [facility] Comment on above: Polyneuropathy, unsp ecified Start: 12-25-2023 Patient encounter procedure Bailee Bhakta [employer] Work Phone: [facility] Start: 09-19-2023 Bamboo flowsheet Bailee Bhakta [employer] Work Phone: [facility] Start: 09-19-2023 Bamboo flowsheet Bailee Bhakta [employer] Work Phone: [facility] Start: 09-19-2023 End: 09-19-2023 Office outpatient visit 25 minutes Bailee Bhakta NP Work Phone: [facility] Comment on above: Type 2 diabetes alfredo itus with diabetic neuropathy, without long-term current use of insulin ([facility]) (Primary Dx); BMI 34.0-34.9,adult; Asthma-COPD overlap syndrome; Lower extremity edema; Polyneuropathy, unspecified; Essential (primary) hypertension ([facility]); Stage 4 chronic kidney disease ([facility]) Start: 10-17-2022 End: 10-18-2022 ambulatory CHANGE MANAGER BAILEE BHAKTA Facility:[facility] Start: 04-18-2022 End: 04-19-2022 ambulatory CHANGE MANAGER BAILEE BHAKTA Facility:[facility] Start: 11-14-2021 End: 11-15-2021 ambulatory CHANGE MANAGER BAILEE BHAKTA Facility:[facility] Start: 10-05-2017 End: 10-06-2017 Ambulatory DEFAULT PHYSICIAN Facility:[facility] Procedures Date Procedure Procedure Detail Performing Clinician Start: 12-30-2024 Hemoglobin glycosyla nathaly a1c Bailee Bhakta [employer] Work Phone: Start: 04-25-2024 ALL CBC WITH AUTO DIFF Bailee Bhakta [employer] Work Phone: Start: 09-19-2023 H/O: surgery H/O squamous c ell carcinoma excision Bailee Bhakta [employer] Work Phone: Plan of Treatment Date Care Activity Detail Author Start: 12-30-2025 Medicare Annual Well ness (AWV) Medicare Annual Wellness (AWV) [facility] Start: 07-02-2025 Hemoglobin A1c measurement Diabetes: Hemoglobin A1C [facility] Start: 04-06-2025 Influenza vaccination Influenza Vacc ine (#1) [facility] Start: 04-02-2025 End: 04-02-2025 Patient encounter procedure 04/02/2025 9:00 AM EDT Office Visit [facility] [address] [place] [id number] Bailee Bhakta NP [address] [place] [address] [facility] Start: 03-30-2025 End: 03-30-2025 Patient encounter procedure 03/30/2025 10:30 AM EDT Office Visit [facility] [address] [place] [id number] Bailee Bhakta, [employer]ICAL [employer]IER [address] [place] [address] [facility] Start: 12-30-2024 End: 12-30-2025 25-hydroxyvitamin D3 [Mass/volume] in Serum or Plasma Vitamin D 25 hydroxy Lab Routine Vitamin D deficiency Expected: 12/30/2024 (Approximate), Expires: 12/30/2025 [facility] Comment on above: Expected: 12/30/2024 (Approximate), Expires: 12/30/2025 Start: 12-30-2024 End: 12-30-2025 CBC W Auto Differential panel - Blood CBC and differential Lab Routine Iron deficiency anemia, unspecified iron deficiency anemia type Expected: 12/30/2024 (Approximate), Expires: 12/30/2025 [facility] Work Phone: Comment on above: Expected: 12/30/2024 (Approximate), Expires: 12/30/2025 Start: 12-30-2024 End: 12-30-2025 Comprehensive metabolic 2000 panel - Serum or Plasma Comprehensive metabolic panel Lab Routine Essential (primary) hypertension (CMS/HCC) Stage 4 chronic kidney disease (CMS/HCC) Lower extremity edema Type 2 diabetes with complication (CMS/HCC) Vitamin D deficiency Mixed hyperlipidemia (CMS/HCC) Expected: 12/30/2024 (Approximate), Expires: 12/30/2025 [facility] Comment on above: Expected: 12/30/2024 (Approximate), Expires: 12/30/2025 Start: 12-30-2024 End: 12-30-2025 Ferritin [Mass/volume] in Serum or Plasma Ferritin Lab Routine Stage 4 chronic kidney disease (CMS/HCC) Iron deficiency anemia, unspecified iron deficiency anemia type Expected: 12/30/2024 (Approximate), Expires: 12/30/2025 [facility] Comment on above: Expected: 12/30/2024 (Approximate), Expires: 12/30/2025 Start: 12-30-2024 End: 12-30-2025 Iron + transferrin + TIBC Iron + transferrin + TIBC Lab Routine Stage 4 chronic kidney disease ([facility]) Iron deficiency anemia, unspecified iron deficiency anemia type Expected: 12/30/2024 (Approximate), Expires: 12/30/2025 [facility] Comment on above: Expected: 12/30/2024 (Approximate), Expires: 12/30/2025 Start: 12-30-2024 End: 12-30-2025 Lipid 1996 panel - Serum or Plasma Lipid panel Lab Routine Mixed hyperlipidemia ([facility]) Expected: 12/30/2024 (Approximate), Expires: 12/30/2025 [facility] Comment on above: Expected: 12/30/2024 (Approximate), Expires: 12/30/2025 Start: 12-30-2024 End: 12-30-2025 Microalbumin/Creatinine panel in random Urine Microalbumin / creatinine, urine ratio Lab Routine Essential (primary) hypertension ([facility]) Type 2 diabetes with complication ([facility]) Expected: 12/30/2024 (Approximate), Expires: 12/30/2025 [facility] Comment on above: Expected: 12/30/2024 (Approximate), Expires: 12/30/2025 Start: 12-30-2024 End: 12-30-2025 Parathyrin.intact [Mass/volume] in Serum or Plasma PTH, intact Lab Routine Stage 4 chronic kidney disease ([facility]) Expected: 12/30/2024 (Approximate), Expires: 12/30/2025 [facility] Comment on above: Expected: 12/30/2024 (Approximate), Expires: 12/30/2025 Start: 12-30-2024 End: 12-30-2025 Phosphate [Moles/volume] in Serum or Plasma Phosphorus Lab Routine Stage 4 chronic kidney disease ([facility] HOSPITAL/[facility]) Expected: 12/30/2024 (Approximate), Expires: 12/30/2025 [facility] Comment on above: Expected: 12/30/2024 (Approximate), Expires: 12/30/2025 Start: 12-30-2024 End: 12-30-2025 Urinalysis complete panel - Urine Urinalysis with reflex microscopic (clean catch) Lab Routine Essential (primary) hypertension (CMS/HCC) Type 2 diabetes with complication (CMS/HCC) Expected: 12/30/2024 (Approximate), Expires: 12/30/2025 [facility] Comment on above: Expected: 12/30/2024 (Approximate), Expires: 12/30/2025 Start: 12-30-2024 End: 12-30-2024 Patient encounter procedure [facility] Comment on above: Type 2 diabetes alfredo itus with diabetic neuropathy, without long-term current use of insulin (CMS/HCC) (Primary Dx); Asthma-COPD overlap syndrome (CMS/HCC); Essential (primary) hypertension (CMS/HCC); Pulmonary hypertension (CMS/HCC); Tricuspid valve insufficiency, unspecified etiology; Stage 4 chronic kidney disease (CMS/HCC); Lower extremity edema; Diabetic retinopathy associated with type 2 diabetes mellitus, macular edema presence unspecified, unspecified laterality, unspecified retinopathy severity (CMS/HCC); Type 2 diabetes with complication (CMS/HCC); Vitamin D deficiency; Iron deficiency anemia, unspecified iron deficiency anemia type; Mixed hyperlipidemia (CMS/HCC) Start: 12-24-2024 Medicare Annual Well ness (AWV) Medicare Annual Wellness (AWV) [facility] Start: 11-01-2024 Glaucoma screening Diabetes: R etinopathy Screening [facility] Start: 10-23-2024 Hemoglobin A1c measurement Diabetes: Hemoglobin A1C [facility] Start: 08-16-2024 Urine screening for protein Diabetes: Urine Protein Screening [facility] Start: 06-26-2024 End: 06-26-2024 Patient encounter procedure [facility] Comment on above: Type 2 diabetes alfredo itus with diabetic neuropathy, without long-term current use of insulin (CMS/HCC) (Primary Dx); Obstructive sleep apnea (adult) (pediatric); Asthma-COPD overlap syndrome (CMS/HCC); Tricuspid valve insufficiency, unspecified etiology; Pulmonary hypertension (CMS/HCC); Essential (primary) hypertension (CMS/HCC); Stage 4 chronic kidney disease (CMS/HCC); Lower extremity edema; Type 2 diabetes with complication ([facility]); Diabetic retinopathy associated with type 2 diabetes mellitus, macular edema presence unspecified, unspecified laterality, unspecified retinopathy severity ([facility]); BMI 34.0-34.9,adult; Mixed hyperlipidemia ([facility]) Start: 04-06-2024 Influenza vaccination Influenza Vacc ine (#1) [facility] Start: 02-14-2024 Hemoglobin A1c measurement Diabetes: Hemoglobin A1C [facility] Start: 12-25-2023 End: 12-25-2023 Patient encounter procedure 12/25/2023 10:30 AM EDT Office Visit [facility] [address] [place] [id number] Bailee Bhakta NP [address] [place] [id number] [facility] Start: 11-15-2023 Hemoglobin A1c measurement Diabetes: Hemoglobin A1C [facility] Start: 09-19-2023 End: 09-19-2023 Patient encounter procedure 09/19/2023 9:00 AM EST Office Visit [facility] [address] [place] [id number] Bailee Bhakta NP [address] [place] [id number] Arrived [facility] Comment on above: Arrived Start: 1950 Glaucoma screening Diabetes: R etinopathy Screening [facility] Start: 1940 Medicare Annual Well ness (AWV) Medicare Annual Wellness (AWV) [facility] Immunizations Immunization Date Immunization Notes Care Provider Fa cility 06-11-2024 influenza, high dose seasonal, preservative-free Bailee Bhakta [employer] Work Phone: [facility] 06-11-2024 influenza virus vacc ine, unspecified formulation Bailee Bhakta [employer] Work Phone: [facility] 08-11-2023 Influenza, High-dose Seasonal, Quadrivalent, Preservative Free Bailee Aichholz [employer] Work Phone: [facility] 08-11-2023 influenza virus vacc ine, unspecified formulation Bailee Aichholz [employer] Work Phone: [facility] 05-30-2022 Influenza, High-dose Seasonal, Quadrivalent, Preservative Free Bailee Aichholz [employer] Work Phone: [facility] 05-16-2021 Influenza, High-dose Seasonal, Quadrivalent, Preservative Free Bailee Aichholz [employer] Work Phone: [facility] 05-16-2021 pneumococcal conjuga te vaccine, 13 valent Bailee Aichholz [employer] Work Phone: [facility] 04-29-2018 influenza, high dose seasonal, preservative-free Bailee Aichholz [employer] Work Phone: [facility] 04-12-2017 influenza, high dose seasonal, preservative-free Bailee Aichholz [employer] Work Phone: [facility] 05-16-2016 influenza, high dose seasonal, preservative-free Bailee Aichholz [employer] Work Phone: [facility] 04-17-2014 influenza, high dose seasonal, preservative-free Bailee Aichholz [employer] Work Phone: [facility] 08-06-2013 zoster vaccine, live Bailee chholz [employer] Work Phone: [facility] 07-15-2013 influenza, high dose seasonal, preservative-free Bailee Aichholz [employer] Work Phone: [facility] 12-08-2011 influenza virus vacc ine, whole virus Bailee Aichholz [employer] Work Phone: [facility] 12-08-2011 pneumococcal polysaccharide vaccine, 23 valent Bailee Aichholz [employer] Work Phone: [facility] 12-08-2011 tetanus toxoid, redu domenic diphtheria toxoid, and acellular pertussis vaccine, adsorbed Bailee Aichholz [employer] Work Phone: [facility] Payers Date Payer Category Payer Private Health Insurance [employer] [id number] 2022 Medicare (Managed Care) [id number] 1999 Medicare [id number] 1959 Medicare [id number] 1959 Medicare [id number] 1941 Unknown [id number] 1941 Unknown [id number] 1941 Unknown [id number] 1941 Unknown [id number] 1941 Unknown [id number] Unknown Social History Date Type Detail Facility Start: 09-14-2023 Tobacco smoking status NHIS Never sm oked tobacco [facility] Start: 09-14-2023 Tobacco use and exposure Smoke less tobacco non-user [facility] Start: 09-19-2023 End: 12-30-2024 Alcohol intake Ex-drinker (finding) [facility] Start: 09-14-2023 End: 06-25-2024 History of Social function [facility] Start: 09-14-2023 End: 06-25-2024 Tobacco use panel [facility] Start: 09-16-2023 Alcohol Comment caffeine more than 4 cups per day [facility] Start: 1940 Sex Assigned At Not on file [facility] How often do you nee d to have someone help you when you read instructions, pamphlets, or other written material from your doctor or pharmacy [SILS] Sometimes [facility] Do you belong to any clubs or organizations such as yazdanism groups, unions, fraternal or athletic groups, or school groups? No [facility] Are you now , , , , never or living with a partner? [facility] How often to you hav e a drink containing alcohol? Never [facility] Do you feel stress - tense, restless, nervous, or anxious, or unable to sleep at night because your mind is troubled all the time - these days [OSQ] Not at all [facility] (I/We) worried wheth er (my/our) food would run out before (I/we) got money to buy more. Never true [facility] How often do you nee d to have someone help you when you read instructions, pamphlets, or other written material from your doctor or pharmacy [SILS] Sometimes [facility] Functional Status Date Assessment Result Facility 12-30-2024 Patient Health Quest ionnaire 2 item (PHQ-2) [Reported] [facility] 12-30-2024 How difficult have t hese problems made it for you to do your work, take care of things at home, or get along with other people? Not difficult at all 12/30/2024 10:20 AM POP LINDSEY Not difficult at all [facility] Healthcare [facility] Clinical Notes 09-19-2023 to 12-30-2024 Bailee Bhakta NP - 12/30/2024 12:56 PM Ghassan Bhakta NP - 12/30/2024 12:54 PM POP HERNANDEZ - 12/30/2024 10:00 AM Ghassan Bhakta NP - 12/30/2024 10:00 AM EDTPatient Instructions Note Date & Type Note Facility 12-30-2024 History of Presen t illness Narrative Associated Problem(s): Encounter for subsequent annual wellness visit (AWV) in Medicare patient Reviewed Ht/Wt/BMI Recommend eye exam yearly Recommend dental exams twice a year Exercises is recommended most days of the week (appropriate as chronic conditions allow) Follow up yearly and prn Associated Problem(s): Gradual-onset memory impairment MOCA Lengthy discussion with pt and daughter Deborah Will refer to Neuro Psych Pt has been sick for 3-4 days Pt has been out of her trelegy inhaler it is $300 and can not afford it Symptoms started with a sore throat, dry cough, yellow mucus, sneezing, runny/stuffy nose. Sinus pressure, no ear issues, throat glands are not swollen, no fever, no sweats, no vomiting, no nausea, no diarrhea, SOB worse than normal, no tightness in the chest, no body aches and pain. Pt has been taking tylenol for her shoulder aches but nothing else otc. Images from the original note were not included. Gina West is a 84 y.o. female presents with chief complaint of Medicare Annual Wellness Visit Initial HPI: Diet:well balanced diet Activity:no exercise, does walk every day Mental Health Concerns: no depression/anxiety, more forgetfulness Falls in the last year: no Still driving: does drive, only short distances Do you pay your bills: yes Any hearing problems: no Any Vision problems: no Any Hospitalizations in the last year: none Specialist:none HCPOA/Living Will: yes and daughter Deborah Concerns: Pt has been sick for 3-4 days Pt has been out of her trelegy inhaler it is $300 and can not afford it Symptoms started with a sore throat, dry cough, yellow mucus, sneezing, runny/stuffy nose. Sinus pressure, no ear issues, throat glands are not swollen, no fever, no sweats, no vomiting, no nausea, no diarrhea, SOB worse than normal, no tightness in the chest, no body aches and pain. Pt has been taking tylenol for her shoulder aches but nothing else otc. Memory Loss Patient reports onset of memory loss was last year. Onset quality is gradual. Symptoms associated with memory loss include change in short-term memory and change in long-term memory. Symptoms do not include bladder incontinence, bowel incontinence, change in mood, day/night behavior changes, difficulty recalling words, falls, decline in function or impaired speech. Patient does not have the following behavorial problems associated with memory loss: paranoia, suspiciousness, hallucinations or agitation. The family and/or patient does not have the following concerns associated with memory loss: medication errors, wandering, driving, cooking, preparing meals, unable to manage finances or unable to manage home environment.History provided by patient. SUBJECTIVE: MEDICATIONS: Current Outpatient Medications Medication Instructions albuterol HFA 90 mcg/act inhaler 2 puffs, Inhalation, Every 6 hours PRN FeroSul 325 mg, 2 times daily with meals Venimgejiuv-Litnljlqj-Ovhavj (Trelegy Ellipta) 100-62.5-25 MCG/ACT aerosol powder 1 puff, Inhalation, Daily, Rinse mouth after use. furosemide (LASIX) 20 mg, Oral, Daily gabapentin (NEURONTIN) 300 mg, Oral, Nightly hydrOXYzine HCl (ATARAX) 10 mg, Oral, Nightly PRN ipratropium-albuterol (Duo-Neb) 0.5-2.5 mg/3 mL nebulizer solution 3 mL, Nebulization, Daily PRN lisinopril 30 mg, Oral, Daily montelukast (SINGULAIR) 10 mg, Oral, Nightly pioglitazone (ACTOS) 15 mg, Oral, Daily ALLERGIES: Allergies Allergen Reactions Breo Ellipta [Fluticasone Furoate-Vilanterol] Headache Clarithromycin Diclofenac Metformin REVIEW OF SYMPTOMS: Review of Systems Constitutional: Negative for appetite change, chills and fever. HENT: Negative for congestion, ear pain and sore throat. Eyes: Negative for pain, discharge, redness and visual disturbance. Respiratory: Positive for cough. Negative for shortness of breath and wheezing. Cardiovascular: Positive for leg swelling. Negative [...] not nervous/anxious. Hematological: Does not bruise/bleed easily. Memory impairment Endocrine: Negative for polydipsia, polyphagia and polyuria. Allergic/Immunologic: Negative for environmental allergies and food allergies. PAST MEDICAL HISTORY Past Medical History: Diagnosis Date Asthma-COPD overlap syndrome (CMS/HCC) Carotid bruit Chronic kidney disease, stage IV (severe) (CMS/HCC) Diabetic retinopathy (CMS/HCC) H/O squamous cell carcinoma excision nasal HLD (hyperlipidemia) (CMS/HCC) Hyperkalemia Insomnia Iron deficiency anemia Lower extremity edema Memory loss Moderate persistent asthma in adult without complication (CMS/HCC) Obstructive sleep apnea (adult) (pediatric) Osteoarthritis Pulmonary hypertension (CMS/HCC) Rash of both feet Severe persistent asthma, uncomplicated (CMS/HCC) Skin lesion of face as of 04/03/23 pt is refusing to see dermatology for this skin lesion on nose Type 2 diabetes with complication (CMS/HCC) Vitamin D deficiency Past Surgical History: Procedure Laterality Date CATARACT EXTRACTION 2009 family history includes Diabetes in her mother; Heart attack (age of onset: 84) in her father; Hypertension in her mother. OBJECTIVE: Visit Vitals Resp 20 Wt 225 lb BMI 34.21 kg/m Smoking Status Never BSA 2.21 m Physical Exam Vitals and nursing note reviewed. Constitutional: General: She is not in acute distress. Appearance: Normal appearance. HENT: Head: Normocephalic and atraumatic. Right Ear: Tympanic membrane, ear canal and external ear normal. Left Ear: Tympanic membrane, ear canal and external ear normal. Nose: Nose normal. No congestion or rhinorrhea. Mouth/Throat: Mouth: Mucous membranes are moist. Pharynx: No oropharyngeal exudate or posterior oropharyngeal erythema. Eyes: Extraocular Movements: Extraocular movements intact. Conjunctiva/sclera: Conjunctivae normal. Neck: Vascular: No carotid bruit. Cardiovascular: Rate and Rhythm: Normal rate and regular rhythm. Pulses: Normal pulses. Heart sounds: Murmur heard. Pulmonary: Effort: Pulmonary effort is normal. Breath sounds: Normal breath sounds. No wheezing or rhonchi. Abdominal: General: Bowel sounds are normal. There is no distension. Palpations: Abdomen is soft. There is no mass. Tenderness: There is no abdominal tenderness. Musculoskeletal: General: Normal range of motion. Cervical back: Normal range of motion and neck supple. Right lower leg: Edema present. Left lower leg: Edema present. Comments: Trace pedal bilat, calf soft Lymphadenopathy: Cervical: No cervical adenopathy. Skin: General: Skin is warm and dry. [...] file. Problem List Items Addressed This Visit Essential (primary) hypertension (CMS/HCC) Continue current meds Please check blood pressure daily and record DASH diet Limit caffeine Take medication as directed Contact office if chest pain, pressure, dizziness, shortness of breath, swelling legs Recommend slow position changes Current meds: lisinopril Relevant Orders Comprehensive metabolic panel Urinalysis with reflex microscopic (clean catch) Microalbumin / creatinine, urine ratio Stage 4 chronic kidney disease (CMS/HCC) Long standing CKD, discussions in the past with pt (daughter as well) that she does not want to see Nephrology, she would not pursue dialysis if needed either Will continue to periodically monitor labs and control DM and HTN Recommend avoiding nephrotoxic drugs if possible and adequate control of DM and HTN Relevant Orders Comprehensive metabolic panel PTH, intact Iron + transferrin + TIBC Ferritin Phosphorus Asthma-COPD overlap syndrome (CMS/HCC) Does well with Trelegy inhaler, and singulair Has duoneb if needed and albuterol, minimal use Samples #4: trelegy 100's lot;WN7G, exp 12/2025 Lower extremity edema Stable on lasix, elevate feet above heart level a few times daily Monitor sodium intake Periodic labs to monitor renal function Relevant Orders Comprehensive metabolic panel Vitamin D deficiency Check labs Relevant Orders Comprehensive metabolic panel Vitamin D 25 hydroxy Type 2 diabetes with complication ([facility]) Check blood sugars daily, notify if <70 [...] simple sugars. Continue current meds: pioglitazone A1c Relevant Orders POCT glycosylated hemoglobin (Hb A1C) docked device (Completed) Comprehensive metabolic panel Urinalysis with reflex microscopic (clean catch) Microalbumin / creatinine, urine ratio Diabetic retinopathy ([facility]) Continue with annual eye exams Tight glucose control as well Iron deficiency anemia Check labs yearly and prn changes in sxs Relevant Orders CBC and differential Iron + transferrin + TIBC Ferritin HLD (hyperlipidemia) (CMS/HCC) Relevant Orders Comprehensive metabolic panel Lipid panel Pulmonary hypertension ([facility]) Per ECHO findings Type 2 diabetes mellitus with diabetic neuropathy, without long-term current use of insulin ([facility]) - Primary Continue with marcus, inspect feet regularly, recommend proper fitting shoes as well Blood glucose control OARRS reviewed Tricuspid regurgitation Per ECHO findings Murmur present Continue to monitor Prior discussions with daughter and patient does not want any surgical intervention for this Gradual-onset memory impairment MOCA Lengthy discussion with pt and daughter Deborah Will refer to Neuro Psych Relevant Orders Ambulatory referral to Neuropsychology Associated Problem(s): Iron deficiency anemia Check labs yearly and prn changes in sxs Associated Problem(s): Vitamin D deficiency Check labs Associated Problem(s): Type 2 diabetes with complication (CMS/HCC) Check blood sugars daily, notify if <70 [...] simple sugars. Continue current meds: pioglitazone A1c Associated Problem(s): Diabetic retinopathy (CMS/[facility]) Continue with annual eye exams Tight glucose control as well Associated Problem(s): Lower extremity edema Stable on lasix, elevate feet above heart level a few times daily Monitor sodium intake Periodic labs to monitor renal function Associated Problem(s): Stage 4 chronic kidney disease ([facility]) Long standing CKD, discussions in the past with pt (daughter as well) that she does not want to see Nephrology, she would not pursue dialysis if needed either Will continue to periodically monitor labs and control DM and HTN Recommend avoiding nephrotoxic drugs if possible and adequate control of DM and HTN Associated Problem(s): Tricuspid regurgitation Per ECHO findings Murmur present Continue to monitor Prior discussions with daughter and patient does not want any surgical intervention for this Associated Problem(s): Pulmonary hypertension (CMS/HCC) Per ECHO findings Associated Problem(s): Essential (primary) hypertension (CMS/HCC) Continue current meds Please check blood pressure daily and record DASH diet Limit caffeine Take medication as directed Contact office if chest pain, pressure, dizziness, shortness of breath, swelling legs Recommend slow position changes Current meds: lisinopril Associated Problem(s): Asthma-COPD overlap syndrome (CMS/HCC) Does well with Trelegy inhaler, and singulair Has duoneb if needed and albuterol, minimal use Samples #4: trelegy 100's lot;WN7G, exp 12/2025 Associated Problem(s): Type 2 diabetes mellitus with diabetic neuropathy, without long-term current use of insulin (CMS/HCC) Continue with marcus, inspect feet regularly, recommend proper fitting shoes as well Blood glucose control OARRS reviewed documented in this encounter [facility] 06-26-2024 History of Presen t illness Narrative Some swelling in the feet/legs, pt has been having a lot of pain in her feet/legs. Feet does have a burning sensation. Pt is asking for an albuterol inhaler to carry in her purse for winter. Gina West is a 84 y.o. female presents with chief complaint of No chief complaint on file. HPI: COPD/Asthma: uses trelegy daily, works well, no side effects. She does have albuterol she uses PRN which is very rare. Minimal wheeze, some dyspnea Hypertension This is a chronic problem. The current episode started more than 1 year ago. The problem is unchanged. The problem is controlled. Associated symptoms include peripheral edema and shortness of breath. Pertinent negatives include no blurred vision, chest pain, headaches, malaise/fatigue, neck pain, palpitations or PND. There are no associated agents to hypertension. Risk factors for coronary artery disease include diabetes mellitus, dyslipidemia, obesity and sedentary lifestyle. Past treatments include PATRICIO inhibitors. The current treatment provides significant improvement. There are no compliance problems. Hypertensive end-organ damage includes kidney disease. There is no history of heart failure. Identifiable causes of hypertension include chronic renal disease. Diabetes She presents for her follow-up diabetic visit. She has type 2 diabetes mellitus. Her disease course has been stable. There are no hypoglycemic associated symptoms. Pertinent negatives for hypoglycemia include no dizziness, headaches, nervousness/anxiousness, seizures or tremors. Associated symptoms include fatigue and foot paresthesias. Pertinent negatives for diabetes include no blurred vision, no chest pain, no polydipsia, no polyphagia, no polyuria and no visual change. There are no hypoglycemic complications. Symptoms are stable. Diabetic complications include nephropathy and peripheral neuropathy. Risk factors for coronary artery disease include diabetes mellitus, dyslipidemia, hypertension, obesity and sedentary lifestyle. Current diabetic treatment includes oral agent (dual therapy). She is compliant with treatment all of the time. An PATRICIO inhibitor/angiotensin II receptor hipolito is being taken. She does not see a manager inpatient.Eye exam is current. Edema Presents with chronic edema. The current episode started more than 1 year ago. The onset of the episode was gradual. The problem presents itself daily. The problem has been waxing and waning. Risk factors for edema include no known risk factors. Associated symptoms include fatigue. Pertinent negative symptoms include no abdominal pain, no chest pain, no cough, no fever, no nausea, no palpitations, no PND and no vomiting. Past medical history is significant for chronic renal disease. Treatments tried include diuretics and elevating limb(s). There has been moderate improvement on treatment(s). SUBJECTIVE: MEDICATIONS: Current Outpatient Medications Medication Instructions albuterol HFA 90 mcg/act inhaler 2 puffs, Inhalation, Every 6 hours PRN aspirin 81 mg, Oral, Daily FeroSul 325 mg, 2 times daily before meals Ifofuiomtpg-Msvtvkjhs-Meyojt (Trelegy Ellipta) 100-62.5-25 MCG/ACT aerosol powder 1 puff, Inhalation, Daily, Rinse mouth after use. furosemide (LASIX) 20 mg, Oral, Daily gabapentin (NEURONTIN) 300 mg, Oral, Nightly hydrOXYzine HCl (ATARAX) 10 mg, Oral, Nightly ipratropium-albuterol (Duo-Neb) 0.5-2.5 mg/3 mL nebulizer solution 3 mL, Nebulization, Daily PRN lisinopril 30 mg, Oral, Daily montelukast (SINGULAIR) 10 mg, Oral, Nightly pioglitazone (ACTOS) 15 mg, Oral, Daily ALLERGIES: Allergies Allergen Reactions Breo Ellipta [Fluticasone Furoate-Vilanterol] Headache Clarithromycin Diclofenac Metformin REVIEW OF SYMPTOMS: Review of Systems Constitutional: Positive for fatigue. Negative for appetite change, chills, fever and malaise/fatigue. HENT: Negative for congestion, ear pain and sore throat. Eyes: Negative for blurred vision, pain, discharge, redness and visual disturbance. Respiratory: Positive for shortness of breath. Negative for cough and wheezing. Cardiovascular: Positive for leg swelling. Negative for chest pain, palpitations and PND. Gastrointestinal: Negative for abdominal pain, blood in stool, constipation, diarrhea, nausea and vomiting. Genitourinary: Negative for difficulty urinating, dysuria and frequency. Musculoskeletal: Positive for arthralgias. Negative for back pain, joint swelling, myalgias and neck pain. Skin: Negative for rash and wound. Neurological: Negative for dizziness, tremors, seizures, syncope and headaches. Psychiatric/Behavioral: Negative for behavioral problems, self-injury and suicidal ideas. The patient is not nervous/anxious. Hematological: Does not bruise/bleed easily. Endocrine: Negative for polydipsia, polyphagia and polyuria. Allergic/Immunologic: Negative for environmental allergies and food allergies. PAST MEDICAL HISTORY Past Medical History: Diagnosis Date Asthma-COPD overlap syndrome (CMS/HCC) Carotid bruit Chronic kidney disease, stage IV (severe) (CMS/HCC) Diabetic retinopathy (CMS/HCC) H/O squamous cell carcinoma excision nasal HLD (hyperlipidemia) (CMS/HCC) Hyperkalemia Insomnia Iron deficiency anemia Lower extremity edema Memory loss Moderate persistent asthma in adult without complication (CMS/HCC) Obstructive sleep apnea (adult) (pediatric) Osteoarthritis Pulmonary hypertension (CMS/HCC) Rash of both feet Severe persistent asthma, uncomplicated (CMS/HCC) Skin lesion of face as of 04/03/23 pt is refusing to see dermatology for this skin lesion on nose Type 2 diabetes with complication (CMS/HCC) Vitamin D deficiency Past Surgical History: Procedure Laterality Date CATARACT EXTRACTION 2009 family history includes Diabetes in her mother; Heart attack (age of onset: 84) in her father; Hypertension in her mother. OBJECTIVE: Visit Vitals BP 118/82 (BP Location: Left arm, Patient Position: Sitting, BP Cuff Size: Adult long) Pulse 66 Temp 98.1 F (Temporal) Resp 19 Ht 5' 8 Wt 228 lb 9.6 oz SpO2 99% BMI 34.76 kg/m Smoking Status Never BSA 2.23 m Physical Exam Vitals and nursing note reviewed. Constitutional: General: She is not in acute distress. Appearance: Normal appearance. She is obese. She is not ill-appearing. HENT: Head: Normocephalic and atraumatic. Right Ear: Tympanic membrane, ear canal and external ear normal. Left Ear: Tympanic membrane, ear canal and external ear normal. Nose: Rhinorrhea present. Comments: Pale and boggy Mouth/Throat: Mouth: Mucous membranes are moist. Pharynx: No oropharyngeal exudate or posterior oropharyngeal erythema. Eyes: Extraocular Movements: Extraocular movements intact. Conjunctiva/sclera: Conjunctivae normal. Neck: Vascular: No carotid bruit. Cardiovascular: Rate and Rhythm: Normal rate and regular rhythm. Pulses: Normal pulses. Heart sounds: Murmur heard. Pulmonary: Effort: Pulmonary effort is normal. Breath sounds: Normal breath sounds. No wheezing. Abdominal: General: Bowel sounds are normal. There is no distension. Palpations: Abdomen is soft. There is no mass. Tenderness: There is no abdominal tenderness. Musculoskeletal: General: Normal range of motion. Cervical back: Normal range of motion and neck supple. Right lower leg: No edema. Left lower leg: No edema. Skin: General: Skin is warm and dry. Capillary Refill: Capillary refill takes 2 to 3 seconds. Findings: No rash. Neurological: General: No focal deficit present. Mental Status: She is alert and oriented to person, place, and time. Comments: Decreased sensation bilat feet No ulcers Psychiatric: Mood and Affect: Mood normal. Behavior: Behavior normal. Thought Content: Thought content normal. Judgment: Judgment normal. ASSESSMENT AND PLAN: Follow up in about 6 months (around 12/24/2024) for Recheck. Problem List Items Addressed This Visit Essential (primary) hypertension ([facility]) - Primary Continue current meds Please check blood pressure daily and record DASH diet Limit caffeine Take medication as directed Contact office if chest pain, pressure, dizziness, shortness of breath, swelling legs Recommend slow position changes Relevant Medications aspirin 81 MG EC tablet Stage 4 chronic kidney disease ([facility]) Long standing CKD, discussions in the past with pt (daughter as well) that she does not want to see Nephrology, she would not pursue dialysis if needed either Will continue to periodically monitor labs and control DM and HTN Asthma-COPD overlap syndrome ([facility]) Does well with Trelegy inhaler, and singulair Has duoneb if needed and albuterol, minimal use Trelegy 100, lot [id number], exp 08/31 #2 samples Relevant Medications Cwcmqvveftt-Lyseojagt-Chjdrc (Trelegy Ellipta) 100-62.5-25 MCG/ACT aerosol powder albuterol HFA 90 mcg/act inhaler Obstructive sleep apnea (adult) (pediatric) Hx of PRETTY PAP use: does not wear PAP Lower extremity edema Stable on lasix, elevate feet above heart level a few times daily Monitor sodium intake Periodic labs to monitor renal function Type 2 diabetes with complication ([facility]) Check blood sugars daily, notify if <70 [...] sugars. Continue current meds A1c 5.7% 04/2024 Diabetic retinopathy ([facility]) Continue with annual eye exams Tight glucose control as well HLD (hyperlipidemia) ([facility]) Pulmonary hypertension ([facility]) Per ECHO findings Type 2 diabetes mellitus with diabetic neuropathy, without long-term current use of insulin ([facility]) Continue with marcus, inspect feet regularly Blood glucose control OARRS reviewed Relevant Medications aspirin 81 MG EC tablet Tricuspid regurgitation Per ECHO findings Murmur present Continue to monitor Prior discussions with daughter and patient does not want any surgical intervention for this BMI 34.0-34.9,adult Associated Problem(s): Diabetic retinopathy ([facility]) Continue with annual eye exams Tight glucose control as well Associated Problem(s): Type 2 diabetes with complication ([facility]) Check blood sugars daily, notify if <70 [...] sugars. Continue current meds A1c 5.7% 04/2024 Associated Problem(s): Lower extremity edema Stable on lasix, elevate feet above heart level a few times daily Monitor sodium intake Periodic labs to monitor renal function Associated Problem(s): Stage 4 chronic kidney disease ([facility]) Long standing CKD, discussions in the past with pt (daughter as well) that she does not want to see Nephrology, she would not pursue dialysis if needed either Will continue to periodically monitor labs and control DM and HTN Associated Problem(s): Essential (primary) hypertension (CMS/HCC) Continue current meds Please check blood pressure daily and record DASH diet Limit caffeine Take medication as directed Contact office if chest pain, pressure, dizziness, shortness of breath, swelling legs Recommend slow position changes Associated Problem(s): Pulmonary hypertension (CMS/HCC) Per ECHO findings Associated Problem(s): Tricuspid regurgitation Per ECHO findings Murmur present Continue to monitor Prior discussions with daughter and patient does not want any surgical intervention for this Associated Problem(s): Asthma-COPD overlap syndrome (CMS/HCC) Does well with Trelegy inhaler, and singulair Has duoneb if needed and albuterol, minimal use Trelegy 100, lot [id number], exp 08/31 #2 samples Associated Problem(s): Obstructive sleep apnea (adult) (pediatric) Hx of PRETTY PAP use: does not wear PAP Associated Problem(s): Type 2 diabetes mellitus with diabetic neuropathy, without long-term current use of insulin (CMS/HCC) Continue with marcus, inspect feet regularly Blood glucose control OARRS reviewed documented in this encounter [facility] 06-26-2024 Instructions Bailee Bhakta NP - 06/26/2024 8:40 AM EST No med changes Next appt will be Medicare Wellness appt No labs today documented in this encounter [facility] 09-19-2023 History of Presen t illness Narrative [...] without long-term current use of insulin (CMS/HCC) Reviewed labs Recommend eye exam, and freq [...] meds BMI 34.0-34.9,adult documented in this encounter [facility] Healthcare Evaluation note Diagnosis Type 2 diabetes mellitus with diabetic neuropathy, without long-term current use of insulin (CMS/HCC)- Primary BMI 34.0-34.9,adult Asthma-COPD overlap syndrome Lower extremity edema Edema Polyneuropathy, unspecified Essential (primary) hypertension (CMS/HCC) Unspecified essential hypertension Stage 4 chronic kidney disease (CMS/HCC) documented in this encounter [facility] HealthcareEvaluation note* Diagnosis Lower extremity edema Edema Insomnia, unspecified type Essential (primary) hypertension (CMS/HCC) Unspecified essential hypertension Severe persistent asthma, uncomplicated (CMS/HCC) Type 2 diabetes mellitus with diabetic neuropathy, unspecified (CMS/HCC) documented in this encounter [facility] HealthcareEvaluation note* Diagnosis Type 2 diabetes mellitus with diabetic neuropathy, without long-term current use of insulin ([facility])- Primary BMI 34.0-34.9,adult Asthma-COPD overlap syndrome ([facility]) Lower extremity edema Edema Polyneuropathy, unspecified Essential (primary) hypertension ([facility]) Unspecified essential hypertension Stage 4 chronic kidney disease ([facility]) Encounter for subsequent annual wellness visit (AWV) in Medicare patient- Primary Asthma-COPD overlap syndrome ([facility]) Essential (primary) hypertension ([facility] Unspecified essential hypertension Stage 4 chronic kidney disease ([facility]) Type 2 diabetes with complication ([facility]) Type 2 diabetes mellitus with diabetic neuropathy, without long-term current use of insulin ([facility]) Essential (primary) hypertension ([facility])- Primary Unspecified essential hypertension Type 2 diabetes mellitus with diabetic neuropathy, without long-term current use of insulin ([facility]) Obstructive sleep apnea (adult) (pediatric) Asthma-COPD overlap syndrome ([facility]) Tricuspid valve insufficiency, unspecified etiology Pulmonary hypertension ([facility]) Other chronic pulmonary heart diseases Stage 4 chronic kidney disease ([facility]) Lower extremity edema Edema Type 2 diabetes with complication ([facility]) Diabetic retinopathy associated with type 2 diabetes mellitus, macular edema presence unspecified, unspecified laterality, unspecified retinopathy severity ([facility]) BMI 34.0-34.9,adult Mixed hyperlipidemia ([facility]) Mixed hyperlipidemia documented in this encounter [facility] HealthcareEvaluation note* Diagnosis Polyneuropathy, unspecified documented in this encounter [facility] HealthcareEvaluation note* Diagnosis Type 2 diabetes mellitus with diabetic neuropathy, without long-term current use of insulin ([facility])- Primary BMI 34.0-34.9,adult Asthma-COPD overlap syndrome ([facility]) Lower extremity edema Edema Polyneuropathy, unspecified Essential (primary) hypertension ([facility]) Unspecified essential hypertension Stage 4 chronic kidney disease ([facility]) Encounter for subsequent annual wellness visit (AWV) in Medicare patient- Primary Asthma-COPD overlap syndrome ([facility]) Essential (primary) hypertension ([facility] Unspecified essential hypertension Stage 4 chronic kidney disease ([facility]) Type 2 diabetes with complication ([facility]) Type 2 diabetes mellitus with diabetic neuropathy, without long-term current use of insulin (CMS/HCC) Essential (primary) hypertension (CMS/HCC)- Primary Unspecified essential hypertension Type 2 diabetes mellitus with diabetic neuropathy, without long-term current use of insulin (CMS/HCC) Obstructive sleep apnea (adult) (pediatric) Asthma-COPD overlap syndrome (CMS/HCC) Tricuspid valve insufficiency, unspecified etiology Pulmonary hypertension (CMS/HCC) Other chronic pulmonary heart diseases Stage 4 chronic kidney disease (CMS/HCC) Lower extremity edema Edema Type 2 diabetes with complication (CMS/HCC) Diabetic retinopathy associated with type 2 diabetes mellitus, macular edema presence unspecified, unspecified laterality, unspecified retinopathy severity (CMS/HCC) BMI 34.0-34.9,adult Mixed hyperlipidemia (CMS/HCC) Mixed hyperlipidemia Essential (primary) hypertension (CMS/HCC) Unspecified essential hypertension Insomnia, unspecified type Lower extremity edema Edema Type 2 diabetes mellitus with diabetic neuropathy, unspecified (CMS/HCC) Chronic kidney disease, stage 3 unspecified (HCC) (CMS/[facility]) Severe persistent asthma, uncomplicated (CMS/[facility]) documented in this encounter [facility] HealthcareEvaluation note* Diagnosis Type 2 diabetes mellitus with diabetic neuropathy, without long-term current use of insulin (CMS/HCC)- Primary BMI 34.0-34.9,adult Asthma-COPD overlap syndrome (CMS/HCC) Lower extremity edema Edema Polyneuropathy, unspecified Essential (primary) hypertension (CMS/HCC) Unspecified essential hypertension Stage 4 chronic kidney disease (CMS/HCC) Encounter for subsequent annual wellness visit (AWV) in Medicare patient- Primary Asthma-COPD overlap syndrome (CMS/HCC) Essential (primary) hypertension (CMS/HCC) Unspecified essential hypertension Stage 4 chronic kidney disease (CMS/HCC) Type 2 diabetes with complication (CMS/HCC) Type 2 diabetes mellitus with diabetic neuropathy, without long-term current use of insulin (CMS/HCC) Essential (primary) hypertension (CMS/HCC)- Primary Unspecified essential hypertension Type 2 diabetes mellitus with diabetic neuropathy, without long-term current use of insulin (CMS/HCC) Obstructive sleep apnea (adult) (pediatric) Asthma-COPD overlap syndrome (CMS/HCC) Tricuspid valve insufficiency, unspecified etiology Pulmonary hypertension (CMS/HCC) Other chronic pulmonary heart diseases Stage 4 chronic kidney disease (CMS/HCC) Lower extremity edema Edema Type 2 diabetes with complication (CMS/HCC) Diabetic retinopathy associated with type 2 diabetes mellitus, macular edema presence unspecified, unspecified laterality, unspecified retinopathy severity ([facility]) BMI 34.0-34.9,adult Mixed hyperlipidemia ([facility]) Mixed hyperlipidemia Polyneuropathy, unspecified documented in this encounter [facility] HealthcareEvaluation note* Diagnosis Type 2 diabetes mellitus with diabetic neuropathy, without long-term current use of insulin ([facility])- Primary BMI 34.0-34.9,adult Asthma-COPD overlap syndrome ([facility]) Lower extremity edema Edema Polyneuropathy, unspecified Essential (primary) hypertension ([facility]/HCC) Unspecified essential hypertension Stage 4 chronic kidney disease ([facility]) Encounter for subsequent annual wellness visit (AWV) in Medicare patient- Primary Asthma-COPD overlap syndrome ([facility]/HCC) Essential (primary) hypertension ([facility] Unspecified essential hypertension Stage 4 chronic kidney disease ([facility]) Type 2 diabetes with complication ([facility]) Type 2 diabetes mellitus with diabetic neuropathy, without long-term current use of insulin ([facility]) Essential (primary) hypertension ([facility])- Primary Unspecified essential hypertension Type 2 diabetes mellitus with diabetic neuropathy, without long-term current use of insulin ([facility]) Obstructive sleep apnea (adult) (pediatric) Asthma-COPD overlap syndrome ([facility]) Tricuspid valve insufficiency, unspecified etiology Pulmonary hypertension ([facility]) Other chronic pulmonary heart diseases Stage 4 chronic kidney disease ([facility]) Lower extremity edema Edema Type 2 diabetes with complication ([facility]) Diabetic retinopathy associated with type 2 diabetes mellitus, macular edema presence unspecified, unspecified laterality, unspecified retinopathy severity ([facility]) BMI 34.0-34.9,adult Mixed hyperlipidemia ([facility]) Mixed hyperlipidemia Asthma-COPD overlap syndrome ([facility]) documented in this encounter [facility] HealthcareEvaluation note* Diagnosis Type 2 diabetes mellitus with diabetic neuropathy, without long-term current use of insulin ([facility])- Primary BMI 34.0-34.9,adult Asthma-COPD overlap syndrome ([facility]/HCC) Lower extremity edema Edema Polyneuropathy, unspecified Essential (primary) hypertension ([facility]) Unspecified essential hypertension Stage 4 chronic kidney disease ([facility]) Encounter for subsequent annual wellness visit (AWV) in Medicare patient- Primary Asthma-COPD overlap syndrome ([facility]/HCC) Essential (primary) hypertension ([facility]/HCC) Unspecified essential hypertension Stage 4 chronic kidney disease ([facility]/HCC) Type 2 diabetes with complication ([facility]/HCC) Type 2 diabetes mellitus with diabetic neuropathy, without long-term current use of insulin ([facility]) Essential (primary) hypertension ([facility])- Primary Unspecified essential hypertension Type 2 diabetes mellitus with diabetic neuropathy, without long-term current use of insulin ([facility]) Obstructive sleep apnea (adult) (pediatric) Asthma-COPD overlap syndrome ([facility]) Tricuspid valve insufficiency, unspecified etiology Pulmonary hypertension (CMS/HCC) Other chronic pulmonary heart diseases Stage 4 chronic kidney disease ([facility]) Lower extremity edema Edema Type 2 diabetes with complication ([facility]/HCC) Diabetic retinopathy associated with type 2 diabetes mellitus, macular edema presence unspecified, unspecified laterality, unspecified retinopathy severity ([facility]) BMI 34.0-34.9,adult Mixed hyperlipidemia ([facility]) Mixed hyperlipidemia Encounter for subsequent annual wellness visit (AWV) in Medicare patient- Primary Type 2 diabetes mellitus with diabetic neuropathy, without long-term current use of insulin ([facility]) Asthma-COPD overlap syndrome ([facility]) Essential (primary) hypertension ([facility]) Unspecified essential hypertension Pulmonary hypertension ([facility]) Other chronic pulmonary heart diseases Tricuspid valve insufficiency, unspecified etiology Stage 4 chronic kidney disease ([facility]) Lower extremity edema Edema Diabetic retinopathy associated with type 2 diabetes mellitus, macular edema presence unspecified, unspecified laterality, unspecified retinopathy severity ([facility]) Type 2 diabetes [facility] complication ([facility] [facility] Vitamin D deficiency Iron deficiency anemia, unspecified iron deficiency anemia type Mixed hyperlipidemia ([facility]) Mixed hyperlipidemia Gradual-onset memory impairment documented in this encounter [facility] HealthcareEvaluation note* Diagnosis Type 2 diabetes mellitus with diabetic neuropathy, without long-term current use of insulin ([facility])- Primary BMI 34.0-34.9,adult Asthma-COPD overlap syndrome ([facility]) Lower extremity edema Edema Polyneuropathy, unspecified Essential (primary) hypertension ([facility]/HCC) Unspecified essential hypertension Stage 4 chronic kidney disease ([facility]) Encounter for subsequent annual wellness visit (AWV) in Medicare patient- Primary Asthma-COPD overlap syndrome ([facility]/HCC) Essential (primary) hypertension ([facility]/HCC) Unspecified essential hypertension Stage 4 chronic kidney disease ([facility]) Type 2 diabetes with complication ([facility]) Type 2 diabetes mellitus with diabetic neuropathy, without long-term current use of insulin (CMS/HCC) Essential (primary) hypertension (CMS/HCC)- Primary Unspecified essential hypertension Type 2 diabetes mellitus with diabetic neuropathy, without long-term current use of insulin ([facility]) Obstructive sleep apnea (adult) (pediatric) Asthma-COPD overlap syndrome (CMS/HCC) Tricuspid valve insufficiency, unspecified etiology Pulmonary hypertension (CMS/HCC) Other chronic pulmonary heart diseases Stage 4 chronic kidney disease (CMS/[facility]) Lower extremity edema Edema Type 2 diabetes with complication (CMS/HCC) Diabetic retinopathy associated with type 2 diabetes mellitus, macular edema presence unspecified, unspecified laterality, unspecified retinopathy severity (CMS/HCC) BMI 34.0-34.9,adult Mixed hyperlipidemia ([facility]) Mixed hyperlipidemia Encounter for subsequent annual wellness visit (AWV) in Medicare patient- Primary Type 2 diabetes mellitus with diabetic neuropathy, without long-term current use of insulin ([facility]) Asthma-COPD overlap syndrome (CMS/HCC) Essential (primary) hypertension ([facility]/HCC) Unspecified essential hypertension Pulmonary hypertension ([facility]/HCC) Other chronic pulmonary heart diseases Tricuspid valve insufficiency, unspecified etiology Stage 4 chronic kidney disease ([facility]) Lower extremity edema Edema Diabetic retinopathy associated with type 2 diabetes mellitus, macular edema presence unspecified, unspecified laterality, unspecified retinopathy severity ([facility]) Type 2 diabetes with complication ([facility]) Vitamin D deficiency Iron deficiency anemia, unspecified iron deficiency anemia type Mixed hyperlipidemia ([facility]) Mixed hyperlipidemia Gradual-onset memory impairment Asthma-COPD overlap syndrome ([facility]) Lower extremity edema Edema Insomnia, unspecified type Essential (primary) hypertension ([facility]) Unspecified essential hypertension documented in this encounter [facility] HealthcareEvaluation note* Diagnosis Type 2 diabetes mellitus with diabetic neuropathy, without long-term current use of insulin (HCC)- Primary BMI 34.0-34.9,adult Asthma-COPD overlap syndrome (HCC) Lower extremity edema Edema Polyneuropathy, unspecified Essential (primary) hypertension Unspecified essential hypertension Stage 4 chronic kidney disease (HCC) Encounter for subsequent annual wellness visit (AWV) in Medicare patient- Primary Asthma-COPD overlap syndrome (HCC) Essential (primary) hypertension Unspecified essential hypertension Stage 4 chronic kidney disease (HCC) Type 2 diabetes with complication (HCC) Type 2 diabetes mellitus with diabetic neuropathy, without long-term current use of insulin (HCC) Essential (primary) hypertension- Primary Unspecified essential hypertension Type 2 diabetes mellitus with diabetic neuropathy, without long-term current use of insulin (HCC) Obstructive sleep apnea (adult) (pediatric) Asthma-COPD overlap syndrome (HCC) Tricuspid valve insufficiency, unspecified etiology Pulmonary hypertension (HCC) Other chronic pulmonary heart diseases Stage 4 chronic kidney disease (HCC) Lower extremity edema Edema Type 2 diabetes with complication (HCC) Diabetic retinopathy associated with type 2 diabetes mellitus, macular edema presence unspecified, unspecified laterality, unspecified retinopathy severity (HCC) BMI 34.0-34.9,adult Mixed hyperlipidemia Mixed hyperlipidemia Encounter for subsequent annual wellness visit (AWV) in Medicare patient- Primary Type 2 diabetes mellitus with diabetic neuropathy, without long-term current use of insulin (HCC) Asthma-COPD overlap syndrome (HCC) Essential (primary) hypertension Unspecified essential hypertension Pulmonary hypertension (HCC) Other chronic pulmonary heart diseases Tricuspid valve insufficiency, unspecified etiology Stage 4 chronic kidney disease (HCC) Lower extremity edema Edema Diabetic retinopathy associated with type 2 diabetes mellitus, macular edema presence unspecified, unspecified laterality, unspecified retinopathy severity (HCC) Type 2 diabetes with complication (HCC) Vitamin D deficiency Iron deficiency anemia, unspecified iron deficiency anemia type Mixed hyperlipidemia Mixed hyperlipidemia Gradual-onset memory impairment Essential (primary) hypertension Unspecified essential hypertension Lower extremity edema Edema Severe persistent asthma, uncomplicated (HCC) documented in this encounter [facility] HealthcareEvaluation note* Diagnosis Type 2 diabetes mellitus with diabetic neuropathy, without long-term current use of insulin (HCC)- Primary BMI 34.0-34.9,adult Asthma-COPD overlap syndrome (HCC) Lower extremity edema Edema Polyneuropathy, unspecified Essential (primary) hypertension Unspecified essential hypertension Stage 4 chronic kidney disease (HCC) Encounter for subsequent annual wellness visit (AWV) in Medicare patient- Primary Asthma-COPD overlap syndrome (HCC) Essential (primary) hypertension Unspecified essential hypertension Stage 4 chronic kidney disease (HCC) Type 2 diabetes with complication (HCC) Type 2 diabetes mellitus with diabetic neuropathy, without long-term current use of insulin (HCC) Essential (primary) hypertension- Primary Unspecified essential hypertension Type 2 diabetes mellitus with diabetic neuropathy, without long-term current use of insulin (HCC) Obstructive sleep apnea (adult) (pediatric) Asthma-COPD overlap syndrome (HCC) Tricuspid valve insufficiency, unspecified etiology Pulmonary hypertension (HCC) Other chronic pulmonary heart diseases Stage 4 chronic kidney disease (HCC) Lower extremity edema Edema Type 2 diabetes with complication (HCC) Diabetic retinopathy associated with type 2 diabetes mellitus, macular edema presence unspecified, unspecified laterality, unspecified retinopathy severity (HCC) BMI 34.0-34.9,adult Mixed hyperlipidemia Mixed hyperlipidemia Encounter for subsequent annual wellness visit (AWV) in Medicare patient- Primary Type 2 diabetes mellitus with diabetic neuropathy, without long-term current use of insulin (HCC) Asthma-COPD overlap syndrome (HCC) Essential (primary) hypertension Unspecified essential hypertension Pulmonary hypertension (HCC) Other chronic pulmonary heart diseases Tricuspid valve insufficiency, unspecified etiology Stage 4 chronic kidney disease (HCC) Lower extremity edema Edema Diabetic retinopathy associated with type 2 diabetes mellitus, macular edema presence unspecified, unspecified laterality, unspecified retinopathy severity (HCC) Type 2 diabetes with complication (HCC) Vitamin D deficiency Iron deficiency anemia, unspecified iron deficiency anemia type Mixed hyperlipidemia Mixed hyperlipidemia Gradual-onset memory impairment Chronic kidney disease, stage 3 unspecified ([facility]-HCC) Type 2 diabetes mellitus with diabetic neuropathy, unspecified (HCC) documented in this encounter [facility] Summary Purpose Family History No Family History Records FoundNo Family History Records FoundNo Family History Records Found Advance Directives No Advanced Directives Records FoundNo Advanced Directives Records FoundNo Advanced Directives Records Found Additional Source Comments INFORMATION SOURCE (unrecogn ized section and content) DATE CREATED AUTHOR 01/25/2018 [facility] DATE CREATED AUTHOR AUTHOR'S ORGANIZ ATION 10/24/2022 [facility] DATE CREATED AUTHOR AUTHOR'S ORGANIZ ATION 01/02/2025 [facility] dical Specialists [facility] Care Teams (unrecognized sec tion and content) Granite Worker Relationship Specialty Start Date End Date Krishna Headley MD [address] [place] [address] PCP - General Family Medicine 09/14/23 Bailee Bhakta NP [address] [place] [address] Referring Physician Nurse Practitioner 02/21/23 Granite Worker Relationship Specialty Start Date End Date Krishna Headley MD [address] [place] [address] PCP - General Family Medicine 09/14/23 Bailee Bhakta NP [address] [place] [address] Referring Physician Nurse Practitioner 02/21/23 Granite Worker Relationship Specialty Start Date End Date Krishna Headley MD [address] [place] [phone] PCP - General Family Medicine 09/14/23 Bailee Bhakta NP [address] [place] [address] PCP - [facility] 02/04/24 04/05/61 Bailee Bhakta NP [address] [place] [address] Referring Physician Nurse Practitioner 02/21/23 Granite Worker Relationship Specialty Start Date End Date Krishna Headley MD [address] [place] [phone] PCP - General Family Medicine 09/14/23 Bailee Bhakta NP [address] [place] [address] PCP - [facility] 02/04/24 04/05/61 Bailee Bhakta NP [address] [place] [address] Referring Physician Nurse Practitioner 02/21/23 Granite Worker Relationship Specialty Start Date End Date Krishna Headley MD [address] [place] [phone] PCP - General Family [facility] 09/14/23 Bailee Bhakta NP [address] [place] [address] [facility] 02/04/24 04/05/61 Bailee Bhakta NP [address] [place] [address] Referring Physician Nurse Practitioner 02/21/23 Granite Worker Relationship Specialty Start Date End Date Krishna Headley MD [address] [place] [address] PCP - General Family Medicine 09/14/23 Bailee Bhakta NP [address] [place] [address] [facility] 02/04/24 04/05/61 Bailee Bhakta NP [address] [place] [address] Referring Physician Nurse Practitioner 02/21/23 Granite Worker Relationship Specialty Start Date End Date Krishna Headley MD [address] [place] [address] PCP - General Family Medicine 09/14/23 Bailee Bhakta NP [address] [place] [address] PCP - [facility] 02/04/24 04/05/61 Bailee Bhakta NP [address] [place] [address] Referring Physician Nurse Practitioner 02/21/23 Granite Worker Relationship Specialty Start Date End Date Krishna Headley MD [address] [place] [address] PCP - General Family Medicine 09/14/23 Bailee Bhakta NP [address] [place] [address] [facility] 02/04/24 04/05/61 Bailee Bhakta NP [address] [place] [address] Referring Physician Nurse Practitioner 02/21/23 Granite Worker Relationship Specialty Start Date End Date Krishna Headley MD [address] [place] [address] PCP - General Family Medicine 09/14/23 Bailee Bhakta NP [address] [place] [address] PCP [facility] 02/04/24 04/05/61 Bailee Bhakta NP [address] [place] [address] Referring Physician Nurse Practitioner 02/21/23 Granite Worker Relationship Specialty Start Date End Date Krishna Headley MD [address] [place] [address] PCP - General Family [facility] 09/14/23 Bailee Bhakta NP [address] [place] [address] [facility] 02/04/24 04/05/61 Bailee Bhakta NP [address] [place] [address] Referring Physician Nurse Practitioner 02/21/23 Granite Worker Relationship Specialty Start Date End Date Krishna Headley MD [address] [place] [address] PCP - General Family Medicine 09/14/23 Bailee Bhakta NP [address] [place] [address] [facility] 02/04/24 04/05/61 Bailee Bhakta NP [address] [place] [address] Referring Physician Nurse Practitioner 02/21/23 Granite Worker Relationship Specialty Start Date End Date Krishna Headley MD [address] [place] [address] PCP - General Family Medicine 09/14/23 Bailee Bhakta NP [address] [place] [address] PCP - [facility] 02/04/24 04/05/61 Bailee Bhakta NP [address] [place] [address] Referring Physician Nurse Practitioner 02/21/23 Granite Worker Relationship Specialty Start Date End Date Krishna Headley MD [address] [place] [address] PCP - General Family Medicine 09/14/23 Bailee Bhakta NP [address] [place] [address] [facility] 02/04/24 04/05/61 Bailee Bhakta NP [address] [place] [address] Referring Physician Nurse Practitioner 02/21/23 Granite Worker Relationship Specialty Start Date End Date Krishna Headley MD [address] [place] [address] PCP - General Family Medicine 09/14/23 Bailee Bhakta NP [address] [place] [address] PCP [facility] 02/04/24 04/05/61 Bailee Bhakta NP [address] [place] [address] Referring Physician Nurse Practitioner 02/21/23 Granite Worker Relationship Specialty Start Date End Date Krishna Headley MD [address] [place] [address] PCP - General Family Medicine 09/14/23 Bailee Bhakta NP [address] [place] [address] PCP - [facility] 02/04/24 04/05/61 Bailee Bhakta NP [address] [place] [address] Referring Physician Nurse Practitioner 02/21/23 Reason for Visit (unrecogniz ed section and content) Reason Onset Date Comments Med Refill 05/06/2024 Reason Comments Med Refill Reason Onset Date Comments Med Refill 11/19/2024 Reason Comments Medicare Annual Wellness Visit Initial FOR RECORDS PERTAINING TO PATIENTS WHO ARE [...] BE BASED ON THE PRIMARY CLINICAL RECORDS. [employer] provides no warranty or guarantee of the accuracy or completeness of information in this document.
[2025-03-25 08:40] LABS: Hematocrit 36.1 % (36.0-48.0); Hemoglobin 11.2 g/dL (12.0-16.0); Immature Granulocytes Abs Auto 0.02 10^3/uL (0.00-0.03); Immature Granulocytes Pct Auto 0.4 % (0.0-0.5); Lymphocytes Absolute Auto 1.7 10^3/uL (1.2-3.8); Mean Corpuscular HGB Conc 31.0 g/dL (29.9-35.2); Mean Corpuscular Hemoglobin 27.9 pg (26.7-34.0); Mean Corpuscular Volume 90.0 fL (81.0-99.0); Platelet Count 198 10^3/uL (150-450); Red Blood Count 4.01 10^6/uL (4.20-5.40); White Blood Count 5.5 10^3/uL (4.0-11.0)
[2025-03-25 09:24] LABS: Glucose Urine UA NEGATIVE (NEGATIVE)
[2025-03-25 09:36] LABS: Iron 95.0 ug/dL (50.0-170.0); Percent Iron Saturation 33.9 %; Total Iron Binding Capacity 280.0 ug/dL (250.0-450.0)
[2025-03-25 09:55] LABS: Alanine Aminotransferase 21 U/L (14-59); Albumin Globulin Ratio 0.8; Albumin Level 3.5 g/dL (3.4-5.0); Alkaline Phosphatase 136 U/L (46-116); Anion Gap 13.4; Aspartate Amino Transferase 18 U/L (15-37); Blood Urea Nitrogen 38.0 mg/dL (7.0-18.0); Calcium 8.4 mg/dL (8.5-10.1); Carbon Dioxide 24.4 mmol/L (21.0-32.0); Chloride 103 mmol/L (98-107); Cholesterol 196 mg/dL (<=200); Estimated GFR (African America 28 (>=60 mL/min/1.73m^2); Estimated GFR (Non-African Ame 23 (>=60 mL/min/1.73m^2); Globulin 4.2 g/dL; Glucose 108 mg/dL (74-106); HDL Cholesterol 44 mg/dL (40-60); Potassium 4.8 mmol/L (3.5-5.1); Sodium 136 mmol/L (136-145); Total Protein 7.7 g/dL (6.4-8.2); Triglycerides 112 mg/dL (<=150); VLDL CHOLESTEROL 22.4 mg/dL
[2025-03-25 10:12] LABS: Cast Seen? NONE SEEN #/LPF (NONE SEEN); Crystals Seen? None Seen #/HPF (None Seen)
[2025-03-25 11:25] LABS: Ferritin 368.0 ng/mL (8.0-252.0)
[2025-03-26 08:09] LABS: Transferrin 231 mg/dL (149-313)
== END 2025-03-25 07:49 | disposition home or self-care (01) ==
LOC: LAB 07:52
PROVIDERS: PCP Nurse Practitioner; Visit Provider Nurse Practitioner
DX: D50.9 Iron deficiency anemia, unspecified (principal); N18.4 Chronic kidney disease, stage 4 (severe); R60.0 Localized edema; E11.8 Type 2 diabetes mellitus with unspecified complications; E55.9 Vitamin D deficiency, unspecified; E78.2 Mixed hyperlipidemia; I12.9 Hypertensive chronic kidney disease with stage 1 through stage 4 chronic kidney disease, or unspecified chronic kidney disease
CPT/HCPCS: 36415; 80053; 80061; 81001; 82043; 82306; 82570; 82728; 83540; 83550; 83970; 84100; 84466; 85025

== ENCOUNTER 2025-06-13 10:20 | Emergency (ER) | payer MEDICARE, SELFPAY ==
[2025-06-13] VITALS (17 sets, daily range): BP systolic 124–139; BP diastolic 60–95; PULSE 69–100; TEMP 36.6; O2SAT 95–99; BMI 41.3
--- NOTE | 2025-06-13 10:42 | ECG_ITS ---
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 Measurements Intervals [place] Rate: 83 P: 90 CO: 168 QRS: 50 QRSD: 86 T: 41 QT: 384 QTc: 424 Interpretive Statements 1100 Sinus rhythm 9110 normal ECG Compared to ECG 10/03/2017 09:13:36 No significant changes Electronically Signed On 06-13-2025 22:43:12 EST by CANDIDO MCKINNON M.D.
--- NOTE | 2025-06-13 10:42 | XR_ITS ---
[facility] [place] [id number] Patient Name: ROSALIO WHYTE MRN: [id number] date: 1940 Sex: F Assigned Patient Location: ER Current Patient Location: ER Accession/Order Number: [id number] Exam Date: 06/13/2025 11:30 Report Date: 06/13/2025 11:46 At the request of: KATYA RAYMUNDO DO Procedure: XR chest 2V XR chest 2V 06/13/2025 11:37 AM SIGNS AND SYMPTOMS: ^SOB PROTOCOL: Frontal and lateral radiograph of the chest COMPARISON: None FINDINGS: The trachea is midline. The heart and mediastinal structures are within normal limits. There is interstitial prominence with perihilar vascular prominence and hazy airspace opacity bilaterally. Small bilateral pleural effusions are noted. The bony thorax is intact. XR/XR chest 2V IMPRESSION: Findings suggest congestive heart failure with pulmonary edema. Impression dictated by: Dick Whipple M.D. 06/13/2025 11:46 AM [facility] Electron[facility] authenticated by: [id number] Y Date: 06/13/2025 11:46
[2025-06-13] MEDS: IPRATROPIUM/ALBUTEROL SULFATE 3 ML AMPUL.NEB 9 ML IH (11:02)
[2025-06-13] MEDS: METHYLPREDNISOLONE SOD SUCC PF 40 MG/ML VIAL IVP (11:13)
[2025-06-13] MEDS: MAGNESIUM SULFATE IN WATER 2 GM/50 ML PREMIX IV (11:14)
[2025-06-13 11:22] LABS: Hematocrit 33.7 % (36.0-48.0); Hemoglobin 10.8 g/dL (12.0-16.0); Immature Granulocytes Abs Auto 0.02 10^3/uL (0.00-0.03); Immature Granulocytes Pct Auto 0.3 % (0.0-0.5); Lymphocytes Absolute Auto 0.8 10^3/uL (1.2-3.8); Mean Corpuscular HGB Conc 32.0 g/dL (29.9-35.2); Mean Corpuscular Hemoglobin 28.6 pg (26.7-34.0); Mean Corpuscular Volume 89.2 fL (81.0-99.0); Platelet Count 203 10^3/uL (150-450); Red Blood Count 3.78 10^6/uL (4.20-5.40); White Blood Count 6.6 10^3/uL (4.0-11.0)
[2025-06-13 11:30] LABS: Anion Gap 11.0; Blood Urea Nitrogen 25.0 mg/dL (7.0-18.0); Calcium 8.9 mg/dL (8.5-10.1); Carbon Dioxide 26.0 mmol/L (21.0-32.0); Chloride 101 mmol/L (98-107); Estimated GFR (African America 35 (>=60 mL/min/1.73m^2); Estimated GFR (Non-African Ame 29 (>=60 mL/min/1.73m^2); Glucose 120 mg/dL (74-106); NT Pro B Type Natriuretic Pept 746.0 pg/mL (<=1800.0); Potassium 6.0 mmol/L (3.5-5.1); Sodium 132 mmol/L (136-145)
--- OUTSIDE RECORDS SUMMARY | 2025-06-13 12:01 | XMS_ITS | CCD ---
Author Organization [facility] Care Team Providers Care Web Applications Developer Name Role Phone PHYSICIAN, DEFAULT Unavailable Unavailable PHYSICIAN, DEFAULT Unavailable Unavailable AMBURN, JOSE CARLOS Unavailable Unavailable AICHHOLZ, CALL OR CONTACT CENTRE OPERATOR BAILEE Consulting Unavailable AICHHOLZ, CALL OR CONTACT CENTRE OPERATOR BAILEE Primary Care Unavailable AICHHOLZ, CALL OR CONTACT CENTRE OPERATOR BAILEE Admitting Unavailable AICHHOLZ, CALL OR CONTACT CENTRE OPERATOR BAILEE Attending Unavailable AICHHOLZ, CALL OR CONTACT CENTRE OPERATOR BAILEE Consulting Unavailable AICHHOLZ, CALL OR CONTACT CENTRE OPERATOR BAILEE Primary Care Unavailable AICHHOLZ, CALL OR CONTACT CENTRE OPERATOR BAILEE Admitting Unavailable AICHHOLZ, CALL OR CONTACT CENTRE OPERATOR BAILEE Attending Unavailable AICHHOLZ, CALL OR CONTACT CENTRE OPERATOR BAILEE Consulting Unavailable AICHHOLZ, CALL OR CONTACT CENTRE OPERATOR BAILEE Primary Care Unavailable AICHHOLZ, CALL OR CONTACT CENTRE OPERATOR BAILEE Admitting Unavailable AICHHOLZ, CALL OR CONTACT CENTRE OPERATOR BAILEE Attending Unavailable [employer] M[employer]ICULTURAL SERVICES LIBRARIAN, Bailee Unavailable Krishna Headley MD Primary Care Provider [employer] LIBRARIAN, Bailee Unavailable [employer] MULTICULTURAL SERVICES LIBRARIAN, Bailee Unavailable AICHHOLZ, BAILEE Attending Unavailable AICHHOLZ, BAILEE Attending Unavailable AICHHOLZ, BAILEE Attending Unavailable Allergies Allergy ClassificationReported Allergen(s)Allergy TypeDate of OnsetReaction(s) Facility (1 source)Misc-Other; Translations: [Misc-Other]Propensity to adverse reactions (disorder)37-57-9126Mky [facility] (20 sources)ClarithromycinPropensity to adverse shizqhauf13-78-5335[facility] (20 sources)DiclofenacDrug Ypmgaur72-20-5023RMXP [facility] (20 sources)metFORMINDrug Dazxdty46-92-5738JMTO [facility] (20 sources)Fluticasone Furoate-VilanterolPropensity to adverse reactions 44-76-2397ZznsmxrmTJBKMUSC Health [facility] Work Phone: Medications Current Medications MedicationDrug Class(es)DatesSig (Normalized)Sig (Original)[id number] 200 actuat albuterol 0.09 mg/actuat metered dose inhaler (16 sources)beta2-Adrenergic AgonistStart: 06-26-2024 End: 14-27-4742qotf 2 puff(s) by inhalation every six hours for wheezing albuterol HFA 90 mcg/act inhaler Indications: Asthma-COPD overlap syndrome (HCC) Inhale 2 puffs every 6 (six) hours if needed for shortness of breath or wheezing 18 g 1 01/12/2025 Activealbuterol 0.833 mg/ml / ipratropium bromide 0.167 mg/ml inhalation solution (20 sources)Anticholinergic, beta2-Adrenergic Agonistipratropium-albuterol (Duo- Neb) 0.5-2.5 mg/3 mL nebulizer solution Take 3 mL by nebulization Daily as needed for wheezing or shortness of breath Activeipratropium-albuterol (Duo-Neb) 0.5-2.5 mg/3 mL nebulizer solution Take 3 mL by nebulization in themorning and 3 mL before bedtime. 0 Activeaspirin 81 mg delayed release oral tablet (6 sources)Platelet Aggregation Inhibitor, Nonsteroidal Anti-inflammatory Drug Start: 06-26-2024 End: 73-32-1680svyx 1 tablet by mouth once dailyaspirin 81 MG EC tablet Indications: Type 2 diabetes mellitus with diabetic neuropathy, without long- term current use of insulin ([facility]) , Essential (primary) hypertension ([facility]) Take 1 tablet (81 mg) by mouth Daily 90 tablet 1 06/26/2024 09/24/2024 Activetake 1 tablet by mouth in the morningaspirin 81 MG EC tablet Take 1 tablet by mouth in the morning. 0 Activeferrous sulfate 325 mg oral tablet (20 sources)Start: 11-07-2024 End: 11-40-8217bflq 1 tablet by mouth at mealtimeferrous sulfate (FeroSul) 325 (65 Fe) MG tablet Indications: Chronic kidney disease, stage 3 unspecified ([facility]) Take 1 tablet (325 mg) by mouth in the morning. Take with meals. 90 tablet 1 03/30/2025 06/28/2025 ActiveStart: 05-05-2024 End: 72-98-0565gdjn 1 tablet by mouth in the morningferrous sulfate (FeroSul) 325 (65 Fe) MG tablet Indications: Chronic kidney disease, stage 3 unspecified (HCC) (CMS/HCC) Take 1 tablet (325 mg) by mouth in the morning and 1 tablet (325 mg) in the evening. Take with meals. 180 tablet 1 07/24/2024 10/22/2024 Active Start: 08-08-2023 End: 95-20-8646ccau 1 tablet by mouth in the morningferrous sulfate (FeroSul) 325 (65 Fe) MG tablet Indications: Chronic kidney disease, stage 3 unspecified (HCC) (CMS/HCC) Take 1 tablet (325 mg) by mouth in the morning and 1 tablet (325 mg) before bedtime. 180 tablet 1 08/08/2023 11/06/2023 Povyfg92 actuat fluticasone furoate 0.1 mg/actuat / umeclidinium 0.0625 mg/actuat / vilanterol 0.025 mg/actuat dry powder inhaler (20 sources)Anticholinergic, Corticosteroid, beta2-Adrenergic AgonistStart: 06-26-2024 End: 31-52-5496bvkg 1 puff(s) by mouth once opoboXfrnfixoynt-Epfnzwtzq-Lqkuio (Trelegy Ellipta) 100-62.5-25 MCG/ACT aerosol powder Indications: Asthma-COPD overlap syndrome (HCC) Inhale 1 puff Daily Rinse mouth after use. 60 each 5 03/30/2025 04/29/2025 ActiveStart: 06-04-2023 End: 60-21-0143ddeb 1 puff(s) by mouth in the morningTrelegy Ellipta 100-62.5-25 MCG/ACT aerosol powder Inhale 1 puff in the morning. Rinse mouth after use.. 06/04/2023 06/26/2024 Discontinued (Reorder)furosemide 20 mg oral tablet (20 sources)Loop DiureticStart: 01-26-2025 End: 87-73-3825glbp 1 tablet by mouth once dailyfurosemide (Lasix) 20 MG tablet Indications: Lower extremity edema Take 1 tablet (20 mg) by mouth Daily 90 tablet 1 01/26/2025 04/26/2025 ActiveStart: 11-08-2023 End: 56-09-4249yqla 1 tablet by mouth once dailyfurosemide (Lasix) 20 MG tablet Indications: Lower extremity edema Take 1 tablet (20 mg) by mouth Daily 90 tablet 1 07/24/2024 ActiveStart: 66-49-8993vabg 1 tablet by mouth in the morning furosemide (Lasix) 20 MG tablet Take 1 tablet by mouth in the morning. 0 08/08/2023 Activegabapentin 300 mg oral capsule (20 sources)Anti-epileptic AgentStart: 11-04-2024 End: 25-58-1129hyao 1 capsule by mouth at bedtimegabapentin (Neurontin) 300 MG capsule Indications: Polyneuropathy, unspecified Take 1 capsule (300 mg) by mouth at bedtime 90 capsule 1 03/30/2025 06/28/2025 ActiveStart: 11-08-2023 End: 02-97-3609aiei 1 capsule by mouth at bedtimegabapentin (Neurontin) 300 MG capsule Indications: Polyneuropathy, unspecified Take 1 capsule (300 mg) by mouth at bedtime 90 capsule 1 04/25/2024 ActiveStart: 08-08-2023 End: 31-68-4498kkad 2 capsules by mouth at bedtimegabapentin (Neurontin) 300 MG capsule Indications: Polyneuropathy, unspecified Take 2 capsules (600mg) by mouth at bedtime 180 capsule 1 08/08/2023 11/06/2023 ActivehydrOXYzine hydrochloride 10 mg oral tablet (20 sources)AntihistamineStart: 11-08-2023 End: 11-11-5087srnuSIHcmoc HCl (Atarax) 10 MG tablet Indications: Insomnia, unspecified type Take 1 tablet (10 mg)by mouth as needed at bedtime for anxiety or itching 90 tablet 1 03/30/2025 06/28/2025 Activetake 1 tablet by mouth at bedtimehydrOXYzine HCl (Atarax) 10 MG tablet Take 1 tablet by mouth at bedtime 0 Activelisinopril 30 mg oral tablet (20 sources)Angiotensin Converting Enzyme InhibitorStart: 01-26-2025 End: 79-92-8820zmyt 1 tablet by mouth once dailylisinopril 30 MG tablet Indications: Essential (primary) hypertension Take 1 tablet (30 mg) by mouth Daily 90 tablet 1 01/26/2025 04/26/2025 ActiveStart: 11-08-2023 End: 50-06-5571nzhx 1 tablet by mouth once dailylisinopril 30 MG tablet Indications: Essential (primary) hypertension (CMS/HCC) Take 1 tablet (30 mg) by mouth Daily 90 tablet 1 07/24/2024 ActiveStart: 08-08-2023 End: 04-10-0148ggnh 1 tablet by mouth in the morninglisinopril 30 MG tablet Indications: Essential (primary) hypertension (CMS/HCC) Take 1 tablet (30 mg) by mouth in the morning. 90 tablet 1 08/08/2023 11/06/2023 Activemontelukast 10 mg oral tablet (20 sources)Leukotriene Receptor AntagonistStart: 01-26-2025 End: 16-91-4435wecs 1 tablet by mouth at bedtimemontelukast (Singulair) 10 MG tablet Indications: Severe persistent asthma, uncomplicated (HCC) Take 1 tablet (10 mg) by mouth at bedtime 90 tablet 1 01/26/2025 04/26/2025 ActiveStart: 11-08-2023 End: 05-70-7761xraw 1 tablet by mouth at bedtimemontelukast (Singulair) 10 MG tablet Indications: Severe persistent asthma, uncomplicated (CMS/HCC)Take 1 tablet (10 mg) by mouth at bedtime 90 tablet 1 07/24/2024 ActiveStart: 08-08-2023 End: 46-14-5363yicn 1 tablet by mouth at bedtimemontelukast (Singulair) 10 MG tablet Indications: Severe persistent asthma, uncomplicated (CMS/HCC)Take 1 tablet (10 mg) by mouth at bedtime 90 tablet 1 08/08/2023 11/06/2023 Active pioglitazone 15 mg oral tablet (20 sources)Peroxisome Proliferator Receptor alpha Agonist, Peroxisome Proliferator Receptor gamma Agonist, ThiazolidinedioneStart: 11-08-2023 End: 76-38-4414mtgo 1 tablet by mouth once dailypioglitazone (Actos) 15 MG tablet Indications: Type 2 diabetes mellitus with diabetic neuropathy, un specified (HCC) Take 1 tablet (15 mg) by mouth Daily 90 tablet 1 02/18/2025 05/19/2025 ActiveStart: 08-08-2023 End: 13-49-1831xenx 1 tablet by mouth in the morningpioglitazone (Actos) 15 MG tablet Indications: Type 2 diabetes mellitus with diabetic neuropathy, un specified (CMS/HCC) Take 1 tablet (15 mg) by mouth in the morning. 90 tablet 1 08/08/2023 11/06/2023 Activetriamcinolone acetonide 0.001 mg/mg topical ointment (3 sources)Corticosteroidtriamcinolone (Kenalog) 0.1 % ointment Apply 1 application topically in the morning and 1 application before bedtime. 0 Active Problems Active Problems Problem ClassificationProblemDateDocumented DateEpisodic/ChronicAsthma (20 sources)Uncomplicated severe persistent asthma; Translations: [Severe persistent asthma, uncomplicated]Onset: 08-08-2023 Resolved: 058362-86-5782OnbhbgsBbqnrvs kidney disease (20 sources)Chronic kidney disease stage 4; Translations: [Chronic kidney disease, stage 4 (severe)]Onset: 366558-79-6684NjpgdmxTbfwpideil and other anemia (20 sources)Iron deficiency anemia; Translations: [Iron deficiency anemia, unspecified]Onset: 436310-67-3219TqejnwjdBzvrifyo mellitus with complications (20 sources)Type 2 diabetes mellitus with diabetic chronic kidney disease; Translations: [Neuropathy due to type 2 diabetes mellitus]Onset: 10-17-2022 Resolved: 44-95-6190LkbgngxNyjvsrlas of lipid metabolism (20 sources)Hyperlipidemia; Translations: [Hyperlipidemia, unspecified]Onset: 260668-79-3488KvuucupGkvexsvwx hypertension (20 sources)Essential hypertension; Translations: [Essential (primary) hypertension]Onset: 346931-54-9391TlebynqSwvuc valve disorders (20 sources)Tricuspid valve regurgitation; Translations: [Rheumatic tricuspid insufficiency]Onset: 305988-83-6128PgkuqghVdptwlkrxrh deficiencies (20 sources)Vitamin D deficiency; Translations: [Vitamin D deficiency, unspecified]Onset: 050261-45-9682FctihthXkdxzjcugcdxjj (20 sources)Osteoarthritis; Translations: [Unspecified osteoarthritis, unspecified site]Onset: 830237-33-1219SfzubrhOlhjm nervous system disorders (20 sources)Polyneuropathy; Translations: [Polyneuropathy, unspecified]Onset: 08-08-2023 Resolved: 177979-64-6847OwqxgfdHrjvd nutritional; endocrine; and metabolic disorders (20 sources)Body mass index 30+ - obesity; Translations: [Body mass index (BMI) 34.0-34.9, adult]Onset: 236559-73-7018LqqyfulAjkoukahp heart disease (20 sources)Pulmonary hypertension; Translations: [Pulmonary hypertension, unspecified]Onset: 665240-35-0380TzznfteHqtnocgd codes; unclassified (20 sources)Obstructive sleep apnea syndrome; Translations: [Obstructive sleep apnea (adult) (pediatric)]Onset: 819523-01-2711CecqsykYtwvjeyp codes; unclassified (20 sources)Insomnia; Translations: [Insomnia, unspecified]Onset: 09-19-2023 96-68-7218RdgxkjmdAorupgpimggy (1 source)CHRN KIDNEY DISEASE STG 3 UNSP; Translations: [CHRN KIDNEY DISEASE STG 3 UNSP]Onset: 78-14-5626Jssgrnz tract infections (1 source)Urinary tract infectious disease; Translations: [Urinary tract infection, site not specified]Onset: 279332-34-0357Sunhcmvl Past or Other Problems Problem ClassificationProblemDateDocumented DateEpisodic/ChronicDeficiency and other anemia (4 sources)Iron deficiency anemia, unspecified; Translations: [IRON DEFICIENCY ANEMIA UNSPECIFIED]Onset: 34-45-6638BjgpexopAxqgu and electrolyte disorders (20 sources)Hyperkalemia; Translations: [Hyperkalemia]Onset: 09-19-2023 85-22-4614NtrauphbHrpe disorders (19 sources)Mood disordersOnset: 12-25-2023 Resolved: Other skin disorders (20 sources)Lesion of skin of face; Translations: [Disorder of the skin and subcutaneous tissue, unspecified]Onset: 586583-61-0536SqnldkwzQwifu skin disorders (20 sources)Eruption; Translations: [Rash and other nonspecific skin eruption] Onset: 09-19-2023 Resolved: 089905-01-8357KhxfjyehNstifvml codes; unclassified (20 sources)Edema of lower extremity; Translations: [Localized edema]Onset: 205733-81-9124VtqlhpikPstilzqv codes; unclassified (20 sources)Amnesia; Translations: [Other amnesia]Onset: 09-19-2023 Resolved: 167656-08-6706BgwxgvjkIjofopwl codes; unclassified (13 sources)Memory impairment; Translations: [Other amnesia]Onset: 12-30-2024 48-97-3903Udckvcme Results Test NameValueInterpretationReference RangeFacilityALL CBC WITH AUTO DIFFon 79-08-8330PIROKZIIX ABSOLUTE AUTO0.1NOMS HealthcareBasophils/100 WBC (Bld)0.9 % 0.2 - 2.0 %NOMS HealthcareEosinophils/100 WBC (Bld)7.1 %High0.9 - 7.0 %NOM HealthcareErythrocyte distribution width (RBC) [Ratio]14 %11.0 - 15.0 %NOMS HealthcareHematocrit (Bld) [Volume fraction]36.1 %36.0 - 48.0 %[facility]OM[facility] Hemoglobin (Bld) [Mass/Vol]11.2 g/dLLow12.0 - 16.0 g/dLNOTN HealthcareIMMATURE GRANULOCYTES ABS AUTO0.02NOTN HealthcareImmature granulocytes/100 WBC (Bld)0.4 % 0.0 - 0.5 %NOM HealthcareInterpretation and review of laboratory results AbnormalNOTN HealthcareLYMPHOCYTES ABSOLUTE AUTO1.7[facility] Lymphocytes/100 WBC (Bld)31.8 %20.5 - 60.0 %NOMResearch Medical CenterMCH (RBC) [Entitic mass]27.9 pg26.7 - 34.0 pgNOScotland County Memorial HospitalMCHC (RBC) [Mass/Vol]31 g/dL29.9 - 35.2 g/dLNOScotland County Memorial HospitalMCV (RBC) [Entitic vol]90 fL81.0 - 99.0 fLLiberty Hospital MONOCYTES ABSOLUTE AUTO0.7NOScotland County Memorial HospitalMonocytes/100 WBC (Bld)13.5 %High1.7 - 12.0 %NOMResearch Medical CenterNEUTROPHILS ABSOLUTE AUTO2.5NOTN HealthcareNeutrophils/100 WBC (Bld)46.3 %43.0 - 75.0 %[facility] HospitalPlatelet mean volume (Bld) [Entitic vol]10.8 fL9.5 - 13.5 fLLiberty HospitalTBH EO #0.4NOCox North KVO809YJVXCox North RBC4.01LowNOCox North WBC5.5NOScotland County Memorial HospitalCLINISYNCNSelect Specialty HospitalSaobbykjmiPnM0l (Bld) [Mass fraction]on 93-55-2748Iwtaodorgurlcy and review of laboratory resultsNoAscension SE [facility] CampusLaboratory - Hematology and Cell countson 99-39-1763ZiS3i (Bld) [Mass fraction]5.8 %[facility] CBC WITH AUTO DIFFon 16-79-3812GJUGDSUAA ABSOLUTE AUTO0.1NOMS [facility] Basophils/100 WBC (Bld)1.5 %0.2 - 2.0 %[facility] HospitalEosinophils/100 WBC (Bld) 7.2 %High0.9 - 7.0 %[facility] HospitalErythrocyte distribution width (RBC) [Ratio] 13.4 %11.0 - 15.0 %[facility] HospitalHematocrit (Bld) [Volume fraction]36.9 %36.0 - 48.0 %[facility] HospitalHemoglobin (Bld) [Mass/Vol]11.2 g/dLLow12.0 - 16.0 g/dLCox Walnut LawnMATURE GRANULOCYTES ABS AUTO0.02NOScotland County Memorial HospitalImmature granulocytes/100 WBC (Bld)0.4 %0.0 - 0.5 %[facility] HospitalInterpretation and review of laboratory resultsAbSelect Specialty HospitalLYMPHOCYTES ABSOLUTE AUTO1.6 NOMResearch Medical CenterLymphocytes/100 WBC (Bld)35.0 %20.5 - 60.0 %[facility] (RBC) [Entitic mass]28.0 pg26.7 - 34.0 pgNOMS HealthcareMCHC (RBC) [Mass/Vol] 30.4 g/dL29.9 - 35.2 g/dLUniversity Health Lakewood Medical CenterV (RBC) [Entitic vol]92.3 fL81.0 - 99.0 fLTIMPANOGOS REGIONAL HOSPITAL HealthcareMONOCYTES ABSOLUTE AUTO0.5NOTN HealthcareMonocytes/100 WBC (Bld)11.8 %1.7 - 12.0 %NOMS HealthcareNEUTROPHILS ABSOLUTE AUTO2.0NOTN HealthcareNeutrophils/100 WBC (Bld)44.1 %43.0 - 75.0 %NOMS HealthcarePlatelet mean volume (Bld) [Entitic vol]10.8 fL9.5 - 13.5 fLLiberty HospitalTBH EO #0.3 Liberty HospitalTBH TDI334PXOJCox North RBC4.00LowSouthPointe Hospital WBC4.6 Liberty HospitalCLINISYNCNOMS [facility] CampusCBC AUTO DIFFon 36-12-0224EUKL #0.0 103/ulNormal0.0-0.1The [facility] Medical CenterComment on above:Performed By: #### CBC #### [facility] [address] [place] [address] Dr. Juan Manuel McintoshBasophils/100 WBC (Bld)0.4 %Normal0.2-2.0[facility] Comment on above:Performed By: #### CBC #### [facility] [address] [place] [address] Dr. Juan Manuel Wills #0.4 103/ulNormal0.0-0.7The [facility] CenterComment on above: Performed By: #### CBC #### [facility] [address] [place] [address] Dr. Juan Manuel Leeosinophils/100 WBC (Bld)4.1 %Normal0.9-7.0[facility] Comment on above:Performed By: #### CBC #### [facility] [address] [place] [address] Dr. Juan Manuel Leerythrocyte distribution width (RBC) [Ratio]14.0 %Ivnbch01.0-15.0 [facility] HospitalComment on above:Performed By: #### CBC #### [facility] [address] [address] [address] Juan Manuel McintoshHematocrit (Bld) [Volume fraction]35.3 %Critically low36.0-48.0 The [facility] CenterComment on above:Performed By: #### CBC #### [facility] [address] [place] [address] Dr. Juan Manuel McintoshHemoglobin (Bld) [Mass/Vol]10.9 g/dLCritically low12.0-16.0The [facility] HospitalComment on above:Performed By: #### CBC #### [facility] [address] [place] [address] Dr. Juan Manuel McintoshIG #0.04 10e3/ulCritically high0.00-0.03The [facility] Comment on above:Performed By: #### CBC #### [facility] [address] [place] [address] Dr. Juan Manuel McintoshIG %0.4 %Normal0.0-0.5The [facility] CenterComment on above: Performed By: #### CBC #### [facility] [address] [place] [address] Dr. Juan Manuel Castillo #1.7 103/ulNormal1.2-3.8The [facility] CenterComment on above:Performed By: #### CBC #### [facility] [address] [place] [address] Dr. Juan Manuel Faulknermphocytes/100 WBC (Bld)16.8 %Critically low20.5-60.0The [facility] CenterComment on above:Performed By: #### CBC #### [facility] [address] [place] [address] Dr. Juan Manuel McintoshMANUAL DIFF REQNONormalThe [facility] Medical CenterComment on above: Performed By: #### CBC #### [facility] [address] [place] [address] Dr. Juan Manuel Silva (RBC) [Entitic mass]26.9 fjSmrkcq06.7-34.0The [facility] CenterComment on above:Performed By: #### CBC #### [facility] [address] [address] [address] Juan Manuel ParkHC (RBC) [Mass/Vol]30.9 g/tNLpgkxr23.9-35.2The [facility] CenterComment on above:Performed By: #### CBC #### [facility] [address] [address] [address] Juan Manuel ParkV (RBC) [Entitic vol]87.2 yJSqbmsu31.0-99.0The [facility] CenterComment on above:Performed By: #### CBC #### [facility] [address] [place] [address] Dr. Juan Manuel Thompson #1.1 103/ulCritically high0.3-0.8The [facility] Comment on above:Performed By: #### CBC #### [facility] [address] [place] [address] Dr. Juan Manuel Chaseocytes/100 WBC (Bld)10.7 %Normal1.7-12.0[facility] Comment on above:Performed By: #### CBC #### [facility] [address] [place] [address] Dr. Juan Manuel Alvarado #6.9 103/ulCritically high1.4-6.5The [facility] Comment on above:Performed By: #### CBC #### [facility] [address] [place] [address] Dr. Juan Manuel Priceutrophils/100 WBC (Bld)67.6 %Oqwauq58.0-75.0The [facility] CenterComment on above:Performed By: #### CBC #### [facility] [address] [place] [address] Dr. Juan Manuel Guzmanlet mean volume (Bld) [Entitic vol]11.2 fLNormal9.5-13.5The [facility] CenterComment on above:Performed By: #### CBC #### [facility] [address] [place] [address] Dr. Juan Manuel McintoshPLT186 103/lpPwxldp784-903Sht Isacc HospitalComment on above: Performed By: #### CBC #### [facility] [address] [address] [address] Juan Manuel McintoshRBC4.05 106/ulCritically low4.20-5.40The [facility] CenterComup health system on above:Performed By: #### CBC #### [facility] [address] [place] [address] Dr. Juan Manuel McintoshWBC10.2 103/ulNormal4.0-11.0The [facility] CenterComment on above:Performed By: #### CBC #### [facility] [address] [place] [address] Dr. Juan Manuel McintoshGLYCOHEMOGLOBIN A1Con 25-49-6381JKS RECOMMENDATIONSEE BELOWNormal The [facility] CenterComup health system on above:Result Comment: ADA RECOMMENDED LIMIT 4.0 - 6.0 ADA THERAPEUTIC TARGET < 7.0 ACTION SUGGESTED > 7.0Performed By: #### A1C #### [facility] [address] [place] [address] Dr. Juan Manuel McintoshGlucose [Mass/Vol]128 mg/dLNormalThe [facility] CenterComment on above:Performed By: #### A1C #### [facility] [address] [place] [address] Dr. Juan Manuel McintoshHbA1c (Bld) [Mass fraction]6.1 %Normal4.5-6.2The [facility] on above:Performed By: #### A1C #### [facility] [address] [place] [address] Dr. Juan Manuel McintoshPROF CHEM 8 (BAS METB)on 38-27-7028Wjres gap [Moles/Vol]15.5 mmol/LNormalThe [facility] on above:Performed By: #### BMP #### [facility] [address] [place] [address] Dr. Juan Manuel McintoshCalcium [Mass/Vol]9.0 mg/dLNormal8.5-10.1The [facility] Comment on above:Performed By: #### BMP #### [facility] [address] [place], [place] [id number] Dr. Juan Manuel McintoshChloride [Moles/Vol]106 mmol/AYtgotx75-555Zps [facility] Comment on above:Performed By: #### BMP #### [facility] [address] [address] [address] Juan Manuel McintoshCO2 [Moles/Vol]21.1 mmol/LPahrzn81.0-32.0The [facility] Comment on above:Performed By: #### BMP #### [facility] [address] [address] [address] Juan Manuel McintoshCreatinine [Mass/Vol]1.78 mg/dLCritically high0.55-1.02The [facility] CenterComment on above:Performed By: #### BMP #### [facility] [address] [place] [address] Dr. Zambrano ChangEGFR-AF MRHFTAFJ57 mL/min/1.77p9Oadvcragle low>=60The [facility] CenterComment on above:Performed By: #### BMP #### [facility] [address] [place] [address] Dr. Juan Manuel LeeGFR-NON AF DJTWDIAP50 mL/min/1.56h2Nvattjmzbv low>=60The [facility] CenterComment on above:Performed By: #### BMP #### [facility] [address] [place] [address] Dr. Juan Manuel McintoshGlucose [Mass/Vol]108 mg/dLCritically fots70-013Ivf [facility] CenterComment on above:Performed By: #### BMP #### [facility] [address] [place] [address] Dr. Juan Manuel McintoshPotassium [Moles/Vol]4.6 mmol/LNormal3.5-5.1The [facility] Comment on above:Performed By: #### BMP #### [facility] [address] [place] [address] Dr. Juan Manuel McintoshSodium [Moles/Vol]138 mmol/TAnzalh631-338Hpc [facility] Comment on above:Performed By: #### BMP #### [facility] [address] [place] [address] Dr. Juan Manuel Reis nitrogen [Mass/Vol]40.0 mg/dLCritically high7.0-18.0The [facility] CenterComment on above:Performed By: #### BMP #### [facility] [address] [address] [address] Juan Manuel Reis nitrogen/Creatinine [Mass ratio]22.5 mg/mgNoSelect Medical Cleveland Clinic Rehabilitation Hospital, Edwin ShawComment on above:Performed By: #### BMP #### [facility] [address] [address] [address] Juan Manuel McintoshGLYCOHEMOGLOBIN A1Con 51-26-8338GAA RECOMMENDATIONSEE [place] [facility] on above:Result Comment: ADA RECOMMENDED LIMIT 4.0 - 6.0 ADA THERAPEUTIC TARGET < 7.0 ACTION SUGGESTED > 7.0Performed By: #### A1C #### [facility] [address] [place] [address] Dr. Juan Manuel McintoshGlucose [Mass/Vol]126 mg/dLNoSelect Medical [facility], Edwin ShawComment on above:Performed By: #### A1C #### [facility] [address] [place] [address] Dr. Juan Manuel McintoshHbA1c (Bld) [Mass fraction]6.0 %Normal4.5-6.2[facility] on above:Performed By: #### A1C #### [facility] [address] [place] [address] Dr. Juan Maneul McintoshHEMOGRAM AND PLATELon 56-04-2548Fsylpuzrqd (Bld) [Volume fraction]34.5 %Critically low36.0-48.0The [facility] CenterComment on above: Performed By: #### HH #### [facility] [address] [place] [address] Dr. Juan Manuel McintoshHemoglobin (Bld) [Mass/Vol]10.4 g/dLCritically low12.0-16.0The [facility] CenterComment on above:Performed By: #### HH #### [facility] [address] [place] [address] Dr. Juan Manuel [facility] ([facility]BC) [Entitic mass]27.8 dmSxkkyy00.7-34.0The [facility] CenterComment on above:Performed By: #### HH #### [facility] [address] [place] [address] Dr. Juan Manuel [place] (RBC) [Mass/Vol]30.1 g/qQEitxgq05.9-35.2The [facility] CenterComment on above:Performed By: #### HH #### [facility] [address] [place] [address] Dr. Juan Manuel Mc[facility] [place]BC[place] [Entitic vol]92.2 nHNmhcyj59.0-99.0The [facility] CenterComment on above:Performed By: #### HH #### [facility] [address] [place] [address] Dr. Juan Manuel McintoshPLT216 103/ilPywxah528-404Xjj [facility] CenterComment on above: Performed By: #### HH #### [facility] [address] [place] [address] Dr. Juan Manuel McintoshRBC3.74 106/ulCritically low4.20-5.40The [facility] CenterComment on above:Performed By: #### HH #### [facility] [address] [place] [address] Dr. Juan Manuel McintoshWBC5.6 103/ulNormal4.0-11.0The [facility] CenterComment on above: Performed By: #### HH #### [facility] [address] [place] [address] Dr. Juan Manuel McintoshPROF CHEM 8 (BAS METB)on 51-86-7721Nstaw gap [Moles/Vol]14.2 mmol/LNormalThe [facility] CenterComment on above:Performed By: #### BMP #### [facility] [address] [place] [address] Dr. Juan Manuel McintoshCalcium [Mass/Vol]8.9 mg/dLNormal8.5-10.1[facility] Comment on above:Performed By: #### BMP #### [facility] [address] [address] [address] Juan Manuel McintoshChloride [Moles/Vol]107 mmol/YQremlk99-421Bfa [facility] Comment on above:Performed By: #### BMP #### [facility] [address] [address] [address] Juan Manuel McintoshCO2 [Moles/Vol]25.1 mmol/XIqewca65.0-32.0The [facility] Comment on above:Performed By: #### BMP #### [facility] [address] [address] [address] Juan Manuel McintoshCreatinine [Mass/Vol]1.55 mg/dLCritically high0.55-1.02The [facility] CenterComment on above:Performed By: #### BMP #### [facility] [address] [place] [address] Dr. Zambrano ChangEGFR-AF KYCTIEVF74 mL/min/1.93a2Txldmwetan low>=60The [facility] CenterComment on above:Performed By: #### BMP #### [facility] [address] [place] [address] Dr. Juan Manuel LeeGFR-NON AF JLFFRPXE72 mL/min/1.46h3Oglvaoznry low>=60The [facility] CenterComment on above:Performed By: #### BMP #### [facility] [address] [address] [address] Juan Manuel McintoshGlucose [Mass/Vol]103 mg/wOYdzgpp02-089Znu [facility] Comment on above:Performed By: #### BMP #### [facility] [address] [address] [address] Juan Manuel McintoshPotassium [Moles/Vol]5.3 mmol/LCritically high3.5-5.1The [facility] CenterComment on above:Performed By: #### BMP #### [facility] [address] [place] [address] Dr. Juan Manuel McintoshSodium [Moles/Vol]141 mmol/QCklidk581-500Lin [facility] Comment on above:Performed By: #### BMP #### [facility] [address] [address] [address] Juan Manuel Reis nitrogen [Mass/Vol]34.0 mg/dLCritically high7.0-18.0The [facility] CenterComment on above:Performed By: #### BMP #### [facility] [address] [place] [address] Dr. Juan Manuel Reis nitrogen/Creatinine [Mass ratio]21.9 mg/mgNormalThe [facility] CenterComment on above:Performed By: #### BMP #### [facility] [address] [place] [address] Dr. Juan Manuel MckeonC AUTO DIFFon 70-35-3862ICCV #0.1 103/ulNormal0.0-0.1The [facility] on above:Performed By: #### CBC #### [facility] [address] [place] [address] Dr. Juan Manuel McintoshBasophils/100 WBC (Bld)1.3 %Normal0.2-2.0[facility] Comment on above:Performed By: #### CBC #### [facility] [address] [place] [address] Dr. Juan Manuel Wills #0.4 103/ulNormal0.0-0.7The [facility] on above: Performed By: #### CBC #### [facility] [address] [place] [address] Dr. Juan Manuel Leeosinophils/100 WBC (Bld)8.7 %Critically high0.9-7.0The [facility] on above:Performed By: #### CBC #### [facility] [address] [place] [address] Dr. Juan Manuel Leerythrocyte distribution width (RBC) [Ratio]14.6 %Zanogd60.0-15.0 [facility] Hospitalment on above:Performed By: #### CBC #### [facility] [address] [place] [address] Dr. Juan Manuel McintoshHematocrit (Bld) [Volume fraction]35.7 %Critically low36.0-48.0 The [facility] CenterComment on above:Performed By: #### CBC #### [facility] [address] [address] [address] Juan Manuel McintoshHemoglobin (Bld) [Mass/Vol]10.6 g/dLCritically low12.0-16.0The [facility] on above:Performed By: #### CBC #### [facility] [address] [place] [address] Dr. Juan Manuel Rueda #0.02 10e3/ulNormal0.00-0.03The [facility] on above:Performed By: #### CBC #### [facility] [address] [place] [address] Dr. Juan Manuel Rueda %0.4 %Normal0.0-0.5The [facility] on above: Performed By: #### CBC #### [facility] [address] [place] [address] Dr. Juan Manuel Castillo #1.8 103/ulNormal1.2-3.8The [facility] on above:Performed By: #### CBC #### [facility] [address] [place] [address] Dr. Juan Manuel Arguetahocytes/100 WBC (Bld)39.5 %Uctrsk73.5-60.0The [facility] on above:Performed By: #### CBC #### [facility] [address] [place] [address] Dr. Juan Manuel SpicerUAL DIFF REQNONormalThe [facility] CenterComup [facility] system on above: Performed By: #### CBC #### [facility] [address] [place] [address] Dr. Juan Manuel Silva (RBC) [Entitic mass]27.4 rtWcxshq41.7-34.0The [facility] on above:Performed By: #### CBC #### [facility] [address] [place] [address] Dr. Juan Manuel Park (RBC) [Mass/Vol]29.7 g/dLCritically low29.9-35.2The [facility]Comment [facility] above:Performed By: #### CBC #### [facility] [address] [place] [address] Dr. Juan Manuel Peralta (RBC) [Entitic vol]92.2 nLOabvzo84.0-99.0The [facility] CenterComment on above:Performed By: #### CBC #### [facility] [address] [place] [address] Dr. Juan Manuel Thompson #0.6 103/ulNormal0.3-0.8The [facility] CenterComment on above:Performed By: #### CBC #### [facility] [address] [place] [address] Dr. Juan Manuel Chaseocytes/100 WBC (Bld)14.3 %Critically high1.7-12.0The [facility] CenterComment on above:Performed By: #### CBC #### [facility] [address] [place] [address] Dr. Juan Manuel Alvarado #1.6 103/ulNormal1.4-6.5The [facility] CenterComment on above:Performed By: #### CBC #### [facility] [address] [place] [address] Dr. Juan Manuel Priceutrophils/100 WBC (Bld)35.8 %Critically low43.0-75.0The [facility] CenterComment on above:Performed By: #### CBC #### [facility] [address] [place] [address] Dr. Juan Manuel Guzmanlet mean volume (Bld) [Entitic vol]11.6 fLNormal9.5-13.5The [facility] CenterComment on above:Performed By: #### CBC #### [facility] [address] [place] [address] Dr. Juan Manuel McintoshPLT184 103/siMyewfx590-632Oex [facility] CenterComment on above: Performed By: #### CBC #### [facility] [address] [place] [address] Dr. Juan Manuel McintoshRBC3.87 106/ulCritically low4.20-5.40The [facility] CenterComment on above:Performed By: #### CBC #### [facility] [address] [place] [address] Dr. Juan Manuel McintoshWBC4.5 103/ulNormal4.0-11.0The [facility] CenterComment on above: Performed By: #### CBC #### [facility] [address] [place] [address] Dr. Juan Manuel McintoshFERRITINon 95-90-5352Cievgqip [Mass/Vol]121.0 ng/mLNormal 11.1-264.0The [facility] CenterComment on above:Performed By: #### FERR, IRON #### [facility] [address] [place] [address] Dr. Juan Manuel McintoshIRODonna 66-95-6772Ezwd [Mass/Vol]113.0 ug/zHZkarvq60.0-170.0The [facility] CenterComment on above:Performed By: #### FERR, IRON #### [facility] [address] [place] [address] Dr. Juan Manuel Mcintosh Vital Signs Date TimeVital SignValuePerforming YmpjmhzatCicvryic54-07-7569 10:42-0400Body mass index (BMI) [Ratio]34.21 kg/m2Karinasa Bhakta [employer] Work Phone: [facility] HospitalXmomhoqbww53-30-1322 10:42-0400Body temperature 98.1 [degF]Bailee Bhakta [employer]IAN Work Phone: [facility] HospitalFtjbmzvcsm60-00-9495 10:42-0400Body orcsmo458.06 kgKarina Yony M[employer]IAN Work Phone: [facility] HospitalHnjysnzmoy24-44-6320 10:42-0400Diastolic blood lhoobhmq10 mm[Hg]Bailee Bhakta [employer] Work Phone: [facility] HospitalGfsnqbfpis07-38-5147 10:42-0400Heart rate68 /min Bailee Bhakta [employer] Work Phone: [facility] HospitalClhyvcidrg60-37-4549 10:42-0273ZwH4% (BldA) [Mass fraction]97 %Bailee Marbinz [employer]IAN Work Phone: [facility] HospitalOwgrfzmlzi01-18-5400 10:42-0400Systolic blood weivxqoa697 mm[Hg]Bailee Yeholz [employer]IAN Work Phone: [facility] HospitalEdhqbcyacm93-42-9562 10:12-0400Body mass index (BMI) [Ratio]34.21 kg/m2Lisa Yeholz M[employer]IAN Work Phone: [facility] HospitalXrbamjojld46-87-7867 10:12-0400Body temperature 98.49 [degF]Bailee Yeholz M[employer]IAN Work Phone: [facility] HospitalJmprukzgjy24-85-0191 10:12-0400Body qfmayn764.06 kgLisa Belcherholz M[employer]IAN Work Phone: [facility] HospitalKvslvmydxp16-47-8416 10:12-0400Diastolic blood whyppoyd74 mm[Hg]Bailee Marbinz [employer]IAN Work Phone: [facility] HospitalSmyqpuijjy55-78-6251 10:12-0400Heart rate63 /min Bailee Yeholz [employer] Work Phone: [facility] HospitalEpnfbpiman27-81-7560 10:12-0400Respiratory rate20 /minLisa Belcherholz M[employer]IC[employer]IAN Work Phone: [facility] HospitalInldcahvbf74-68-5076 10:12-8895HbA4% (BldA) [Mass fraction]99 %Bailee Yeholz [employer]IAN Work Phone: [facility] HospitalNwjhtuatse11-30-5803 10:12-0400Systolic blood watrtobi677 mm[Hg]Bailee Yeholz M[employer]IAN Work Phone: [facility] HospitalHdqqcilrrg91-15-9924 08:35-0500Body kzekqh946.7 Orville Corriganhholz M[employer]IC[employer]IAN Work Phone: [facility] HospitalPafzjwnhew79-06-5258 08:35-0500Body mass index (BMI) [Ratio]34.76 kg/m2Lisa Meenuhholz M[employer]IAN Work Phone: [address] [address]Hyiqfbvwnw95-43-5764 08:35-0500Body temperature 98.1 [degF]Bailee Zazuetaz [employer]IAN Work Phone: [address] [place] [address]Pvukstabpb17-28-3515 08:35-0500Body stbvag624.69 kgLisa Yeholz M[employer]IAN Work Phone: [address] [place] [address]Jojrcgysbe10-33-9677 08:35-0500Diastolic blood vyaezrpb31 mm[Hg]Bailee Zazuetaz [employer]IAN Work Phone: [address] [place] [address]Yscmpyjknc98-58-3280 08:35-0500Heart rate66 /min Bailee Yeholz M[employer]IAN Work Phone: [address] [place] [address]Etlqyyrfum32-57-6405 08:35-0500Respiratory rate19 /minLisa Belcherholz M[employer]IAN Work Phone: [address] [address]Mhjhmbrgnn07-33-2650 08:35-0562RlO4% (BldA) [Mass fraction]99 %Bailee Zazuetaz [employer]IAN Work Phone: [address] [address]Lfbbounaej06-67-2536 08:35-0500Systolic blood gegfzwng370 mm[Hg]Bailee Marbinz [employer]IAN Work Phone: [facility] HospitalWmacymsbor58-45-3093 09:16-0500Body ggjihn552.7 Ariisa Yeholz M[employer]IAN Work Phone: [facility] HospitalOndkdxbndy49-47-1968 09:16-0500Body mass index (BMI) [Ratio]34.45 kg/m2Lisa Yeholz M[employer]IAN Work Phone: [facility] HospitalVayuuqobap23-77-5873 09:16-0500Body temperature 97.11 [degF]Bailee Zazuetaz M[employer]IAN Work Phone: [address] [address]Ptsrcvsakw82-30-1831 09:16-0500Body uuvkpl229.78 kgLisa Yeholz M[employer] SERVICES [employer]IAN Work Phone: [phone] [place], [place] [address]Haglsxzusq64-88-0221 09:16-0500Diastolic blood twahuwtn02 mm[Hg]Bailee Bhakta [employer]IAN Work Phone: [facility] Efshxctydv13-35-7191 09:16-0500Heart rate63 /min Bailee Bhakta [employer] Work Phone: [facility] Ugrqwafcwu73-80-8448 09:16-0500Respiratory rate18 /minBailee Bhakta M[employer]IC[employer] SERVICES [employer]ARIAN Work Phone: [phone] County Memorial HospitalRenojwcdpb51-58-4112 09:16-4008YgB9% (BldA) [Mass fraction]97 %Bailee Bhakta [employer]IAN Work Phone: [facility] Abhctvtxyu72-18-5157 09:16-0500Systolic blood kbkaspmi247 mm[Hg]Bailee Bhakta [employer]IAN Work Phone: [facility] Encounters Encounter DateEncounter TypeCare ProviderFacilityStart: 03-30-2025 End: 41-60-2265Kgresp flowsheetBailee Bhakta [employer]IAN Work Phone: [facility] CWM FMStart: 03-30-2025 End: 56-15-4492Wjjsse flowsRadha Bhakta M[employer]IAN Work Phone: [facility] C[facility] FMStart: 03-30-2025 End: 74-09-9887Zxepqw outpatient visit 25 minutesLisa Bhakta M[employer]IC[employer]IAN Work Phone: noms CW FMComment on above:Stage 4 chronic kidney disease (HCC) (Primary Dx); Type 2 diabetes mellitus with diabetic neuropathy, without long-term current use of insulin (HCC); Asthma-COPD overlap syndrome (HCC); Essential (primary) hypertension ; Type 2 diabetes with complication (HCC); Insomnia, unspecified type; Polyneuropathy, unspecified; Chronic kidney disease, stage 3 unspecified (CMS-HCC); BMI 34.0-34.9,adult; Iron deficiency anemia, unspecified iron deficiency anemia typeStart: 03-30-2025 End: 90-83-8076kvnhkvooqeMJMW AICHHOLZNot AvailableStart: 03-25-2025 End: 54-92-9208Ktpukcsyc Result EncounterLisa Bhakta [employer]IAN Work Phone: n[facility] External Department UnsolicitedStart: 03-25-2025 End: 87-10-4290Ytnttosnz Result EncounterLisa Marbinz [employer]IAN Work Phone: [facility] External Department UnsolicitedStart: 02-18-2025 End: 96-09-5281RzydzfAeea Aichholz M[employer] LIB[employer]ARIAN Work Phone: [facility] CWM FMComment on above:Chronic kidney disease, stage 3 unspecified ([facility]-HCC); Type 2 diabetes mellitus with diabetic neuropathy, unspecified ([facility])Start: 01-25-2025 End: 83-65-7232AummalNron Aichholz M[employer]IAN Work Phone: NOOX CWM FMComment on above:Essential (primary) hypertension ; Lower extremity edema; Severe persistent asthma, uncomplicated (HCC)Start: 01-12-2025 End: 60-63-2510JpvfpgBlqs Aichholz M[employer]ARIAN Work Phone: [facility] CWM FMComment on above:Asthma-COPD overlap syndrome (CMS/HCC); Lower extremity edema; Insomnia, unspecified type; Essential (primary) hypertension (CMS/HCC)Start: 12-30-2024 End: 43-35-4575Qcebqk flowsheetLisa Aichholz M[employer] SERVICES LIB[employer]ARIAN Work Phone: [facility] C[facility] FMStart: 12-30-2024 End: 16-40-1565Iulomu flowsheetLisa Meenuhholz [employer]IAN Work Phone: NOAN CWM FMStart: 12-30-2024 End: 08-18-1694Svudpyc encounter procedureLisa Yeholz [employer]IAN Work Phone: [facility] CWM FMComment on above:Encounter for subsequent annual wellness visit (AWV) in Medicare patient (Primary Dx); Type 2 diabetes mellitus with diabetic neuropathy, without long-term current use of insulin (CMS/HCC); Asthma-COPD overlap syndrome (CMS/HCC); Essential (primary) hypertension (CMS/HCC); Pulmonary hypertension (CMS/HCC); Tricuspid valve insufficiency, unspecified etiology; Stage 4 chronic kidney disease (CMS/HCC); Lower extremity edema; Diabetic retinopathy associated with type 2 diabetes mellitus, macular edema presence unspecified, unspecified laterality, unspecified retinopathy severity (CMS/HCC); Type 2 diabetes with complication (CMS/HCC); Vitamin D deficiency; Iron deficiency anemia, unspecified iron deficiency anemia type; Mixed hyperlipidemia ([facility]); Gradual-onset memory impairmentStart: 12-30-2024 End: 30-04-5627ntjcukxkrkBPZA AICHVERONIKAot AvailableStart: 11-19-2024 End: 76-10-7842YgmsvvUjru Naderer MD Work Phone: [facility] CWM FMComment on above:Asthma-COPD overlap syndrome ([facility]/HCC)Start: 11-03-2024 End: 24-76-7766JarxilAyor Aichholz M[employer]IAN Work Phone: [facility] CWM FMComment on above:Polyneuropathy, unspecifiedStart: 07-24-2024 End: 21-76-4333RbjhblUwan Aichholz M[employer] LIB[employer]IAN Work Phone: [facility] CWM FMComment on above:Essential (primary) hypertension (CMS/HCC); Insomnia, unspecified type; Lower extremity edema; Type 2 diabetes mellitus with diabetic neuropathy, unspecified (CMS/HCC); Chronic kidney disease, stage 3 unspecified ([facility]) ([facility]); Severe persistent asthma, uncomplicated ([facility]/HCC)Start: 06-26-2024 End: 82-76-7125Otqclm flowsheetBailee Bhakta [employer]IAN Work Phone: [facility] CWM FMStart: 06-26-2024 End: 66-62-6762Efezwe flowsheetBailee Bhakta M[employer]IAN Work Phone: [facility] CWM FMStart: 06-26-2024 End: 77-45-7075Nwausi outpatient visit 25 minutesLisa Bhakta M[employer]IC[employer] SERVICES [employer]ARIAN Work Phone: [facility] CWM FMComment on above:Essential (primary) hypertension (CMS/HCC) (Primary Dx); Type 2 diabetes mellitus with diabetic neuropathy, without long-term current use of insulin ([facility]); Obstructive sleep apnea (adult) (pediatric); Asthma-COPD overlap syndrome ([facility]); Tricuspid valve insufficiency, unspecified etiology; Pulmonary hypertension ([facility]); Stage 4 chronic kidney disease ([facility]); Lower extremity edema; Type 2 diabetes with complication ([facility]); Diabetic retinopathy associated with type 2 diabetes mellitus, macular edema presence unspecified, unspecified laterality, unspecified retinopathy severity ([facility]); BMI 34.0-34.9,adult; Mixed hyperlipidemia ([facility])Start: 06-26-2024 End: 24-25-8923pyyxifmrjkZMZM AICHHOLZNot AvailableStart: 05-06-2024 End: 26-09-7770GwfseaCgfo Aichholz M[employer]IAN Work Phone: noms CWM FMComment on above:Lower extremity edema; Insomnia, unspecified type; Essential (primary) hypertension ([facility]); Severe persistent asthma, uncomplicated ([facility]); Type 2 diabetes mellitus with diabetic neuropathy, unspecified ([facility])Start: 04-25-2024 End: 94-80-5770Siwnodayv Result EncounterLisa Aichholz [employer]IAN Work Phone: noms External Department UnsolicitedStart: 04-25-2024 End: 93-35-7967Hwyfivcge Result EncounterLisa Aichholz [employer]IAN Work Phone: noms External Department UnsolicitedStart: 04-25-2024 End: 46-32-4350HxccnwNkht Aichholz M[employer]IAN Work Phone: NOWD CWM FMComment on above:Polyneuropathy, unspecifiedStart: 65-75-6608Cjbkicg encounter procedureLisa Aichholz [employer] LIB[employer]ARIAN Work Phone: NOLI HealthcareStart: 85-74-3947Kyylzd flowsheetLisa Aichholz [employer]IAN Work Phone: [facility] CWM FMStart: 34-23-2673Wlhove flowsheetLisa Aichholz M[employer] SERVICES LIB[employer]IAN Work Phone: noms CWM FMStart: 09-19-2023 End: 37-04-0729Tkrrid outpatient visit 25 minutesBailee Bhakta M[employer]IC[employer]ARIAN Work Phone: noms CWM FMComment on above:Type 2 diabetes mellitus with diabetic neuropathy, without long-term current use of insulin ([facility]) (Primary Dx); BMI 34.0-34.9,adult; Asthma-COPD overlap syndrome; Lower extremity edema; Polyneuropathy, unspecified; Essential (primary) hypertension ([facility]); Stage 4 chronic kidney disease ([facility])Start: 10-17-2022 End: 41-00-6052osltehsijrJGD BAILEE AICHHOLZFacility:O5Hzkob: 04-18-2022 End: 97-16-2312fdtoeeipoyHPI BAILEE AICHHOLZFacility:G2Shrxs: 11-14-2021 End: 47-04-6426iyizvxoutcSTH BAILEE AICHHOLZFacility:J0Jouwm: 10-05-2017 End: 64-82-6525YegzwnkuhoBWZQWDA PHYSICIANFacility:[facility] Procedures DateProcedureProcedure DetailPerforming ClinicianStart: 63-45-0094EWL CBC WITH AUTO DIFFLisa Marbinz [employer]IAN Work Phone: Start: 73-93-1469Nquontgapu glycosylated o5aPwsssa Bhakta M[employer] LIB[employer]ARIAN Work Phone: Start: 16-80-1717KYF CBC WITH AUTO DIFFLisa Marbinz [employer] LIB[employer]IAN Work Phone: Start: 09-19-2023H/O: surgeryH/O squamous cell carcinoma excisionLisa Bhakta M[employer]ARIAN Work Phone: Plan of Treatment DateCare ActivityDetailAuthorStart: 05-27-2026Medicare Annual Wellness (AWV) Medicare Annual Wellness (AWV)[facility] HealthcareStart: 41-90-4018Nunupkusgs A1c measurementDiabetes: Hemoglobin S6IUPCL HealthcareStart: 06-29-2025 End: 46-99-9214Warcwlc encounter xcxwwrugx52/24/2025 9:20 AM EST Office Visit [facility] [address] [place] [phone] Bailee Bhakta, [employer]IAN [address] [place] [phone] [facility] CW FMStart: 73-80-3450Hzndwjeut vaccinationInfluenza Vaccine (#1)[facility] HealthcareStart: 04-02-2025 End: 50-62-2086Mxgtdmb encounter kjnxijixh25/28/2025 9:00 AM EDT Office Visit [facility] [address] [place] [phone] Bailee Bhakta, [employer]IAN [address] [place] [phone] [facility] FMStart: 03-30-2025 End: 01-68-3896Rtskmgk encounter procedureNOMS CW FMComment on above:Type 2 diabetes mellitus with diabetic neuropathy, without long-term current use of insulin (HCC) (Primary Dx); Asthma-COPD overlap syndrome (HCC); Essential (primary) hypertension ; Stage 4 chronic kidney disease (HCC); Type 2 diabetes with complication (HCC)Start: 12-30-2024 End: 473599-dchtdghxylhoph D3 [Mass/volume] in Serum or PlasmaVitamin D 25 hydroxy Lab Routine Vitamin D deficiency Expected: 12/30/2024 (Approximate), Expires: 12/30/2025NOTN HealthcareComment on above:Expected: 12/30/2024 (Approximate), Expires: 12/30/2025Start: 12-30-2024 End: 26-77-2312LDY W Auto Differential panel - BloodCBC and differential Lab Routine Iron deficiency anemia, unspecified iron deficiency anemia type Exp ected: 12/30/2024 (Approximate), Expires: 12/30/2025[facility] Work Phone: Comment on above:Expected: 12/30/2024 (Approximate), Expires: 12/30/2025Start: 12-30-2024 End: 81-18-6503Fuoqxuffvxzhi metabolic 2000 panel - Serum or PlasmaComprehensive metabolic panel Lab Routine Essential (primary) hypertension (CMS/HCC) Stage 4 chronic kidney disease (CMS/HCC) Lower extremity edema Type 2 diabetes with complication (CMS/HCC) VitaminD deficiency Mixed hyperlipidemia (CMS/HCC) Expected: 12/30/2024 (Approximate), Expires: 12/30/2025[facility] HealthcareComment on above:Expected: 12/30/2024 (Approximate), Expires: 12/30/2025Start: 12-30-2024 End: 62-02-9737Ttadtcoi [Mass/volume] in Serum or PlasmaFerritin Lab Routine Stage 4 chronic kidney disease (CMS/HCC) Iron deficiency anemia, unspecified ir on deficiency anemia type Expected: 12/30/2024 (Approximate), Expires: 12/30/2025[facility] HealthcareComment on above:Expected: 12/30/2024 (Approximate), Expires: 12/30/2025Start: 12-30-2024 End: 44-73-2503Bqtt + transferrin + TIBCIron + transferrin + TIBC Lab Routine Stage 4 chronic kidney disease (CMS/HCC) Iron deficiency anemia, unspecified iron deficiency anemia type Expected: 12/30/2024 (Approximate), Expires: 12/30/2025[facility] HealthcareComment on above:Expected: 12/30/2024 (Approximate), Expires: 12/30/2025Start: 12-30-2024 End: 66-68-9878Fybbf 1996 panel - Serum or PlasmaLipid panel Lab Routine Mixed hyperlipidemia (CMS/HCC) Expected: 12/30/2024 (Approximate), Expires:12/30/2025 [facility] HealthcareComment on above:Expected: 12/30/2024 (Approximate), Expires: 12/30/2025Start: 12-30-2024 End: 22-34-3664Rrxrnnqusnbb/Creatinine panel in random UrineMicroalbumin / creatinine, urine ratio Lab Routine Essential (primary) hypertension (CMS/HCC) Type 2 diabetes with complication (CMS/HCC) Expected: 12/30/2024 (Approximate), Expires: 12/30/2025[facility] HealthcareComment on above:Expected: 12/30/2024 (Approximate), Expires: 12/30/2025Start: 12-30-2024 End: 63-74-7146Vvrkphjrra.intact [Mass/volume] in Serum or PlasmaPTH, intact Lab Routine Stage 4 chronic kidney disease ([facility]/HCC) Expected: 12/30/2024 (Approximate), Expires: 12/30/2025[facility] HealthcareComment on above:Expected: 12/30/2024 (Approximate), Expires: 12/30/2025Start: 12-30-2024 End: 48-06-6763Xjnkkwwhk [Moles/volume] in Serum or PlasmaPhosphorus Lab Routine Stage 4 chronic kidney disease ([facility]/HCC) Expected: 12/30/2024 (Approximate), Expires: 12/30/2025[facility] HealthcareComment on above:Expected: 12/30/2024 (Approximate), Expires: 12/30/2025Start: 12-30-2024 End: 87-20-6205Nlylypggxy complete panel - UrineUrinalysis with reflex microscopic (clean catch) Lab Routine Essential (primary) hypertension ([facility]) Type 2 diabetes with complication ([facility]) Expected: 12/30/2024 (Approximate), Expires: 12/30/2025[facility] HealthcareComment on above:Expected: 12/30/2024 (Approximate), Expires: 12/30/2025Start: 12-30-2024 End: 59-05-3321Zhgollx encounter procedureNOMS CWM FMComment on above:Type 2 diabetes mellitus with diabetic neuropathy, without long-term current use of insulin ([facility]) (Primary Dx); Asthma-COPD overlap syndrome ([facility]); Essential (primary) hypertension ([facility]); Pulmonary hypertension ([facility]); Tricuspid valve insufficiency, unspecified etiology; Stage 4 chronic kidney disease ([facility]); Lower extremity edema; Diabetic retinopathy associated with type 2 diabetes mellitus, macular edema presence unspecified, unspecified laterality, unspecified retinopathy severity ([facility]); Type 2 diabetes with complication ([facility]); Vitamin D deficiency; Iron deficiency anemia, unspecified iron deficiency anemia type; Mixed hyperlipidemia ([facility]/HCC)Start: 05-21-2025Medicare Annual Wellness (AWV) Medicare Annual Wellness (AWV)[facility] HealthcareStart: 35-90-3078Mrqqolyn screening Diabetes: Retinopathy ScreeningTIMPANOGOS REGIONAL [facility]OSPITAL HealthcareStart: 63-96-9064Ldzunhaffc A1c measurementDiabetes: Hemoglobin T0ZTMOG HealthcareStart: 77-12-2440Qsbsm screening for proteinDiabetes: Urine Protein ScreeningTIMPANOGOS REGIONAL [facility] HealthcareStart: 06-26-2024 End: 94-57-5436Eonoooj encounter procedureNOMS [facility] FMComment on above:Type 2 diabetes mellitus with diabetic neuropathy, without long-term current use of insulin ([facility]) (Primary Dx); Obstructive sleep apnea (adult) (pediatric); Asthma-COPD overlap syndrome ([facility]); Tricuspid valve insufficiency, unspecified etiology; Pulmonary hypertension ([facility]); Essential (primary) hypertension ([facility]); Stage 4 chronic kidney disease ([facility]); Lower extremity edema; Type 2 diabetes with complication ([facility]); Diabetic retinopathy associated with type 2 diabetes mellitus, macular edema presence unspecified, unspecified laterality, unspecified retinopathy severity ([facility]); BMI 34.0-34.9,adult; Mixed hyperlipidemia ([facility])Start: 89-97-4244Wkqzufffy vaccinationInfluenza Vaccine (#1)[facility] HealthcareStart: 56-30-3252Igeucysrhk A1c measurementDiabetes: Hemoglobin D8KVZKV HealthcareStart: 12-25-2023 End: 60-19-1283Bbhulww encounter kzhrwnrny86/21/2024 10:30 AM EDT Office Visit [facility] [address] [place] [address] Bailee Bhakta NP [address] [place] [address] [facility] FMStart: 97-09-2778Luqvbfwwsf A1c measurement Diabetes: Hemoglobin T2PGESZ HealthcareStart: 09-19-2023 End: 81-14-7892Ewwdjrf encounter qvqomijgp66/14/2024 9:00 AM EST Office Visit [facility] [address] [place] [address] Bailee Bhakta, [employer] LIBRARIAN [address] [place] [address] [facility] FMComment on above:ArrivedStart: 1950 Glaucoma screeningDiabetes: Retinopathy ScreeningTIMPANOGOS REGIONAL [facility] HealthcareStart: 1941Medicare Annual Wellness (AWV)Medicare Annual Wellness (AWV)[facility] Immunizations Immunization DateImmunizationNotesCare IzxbnzrrJvolcwgv53-89-2558msjwbsshv, high dose seasonal, preservative-freeLisa Aichholz MULTICULTURAL SERVICES LIBRARIAN Work Phone: [facility] HospitalUidnfrphcm11-29-5043mmvhchcld virus vaccine, unspecified formulationLisa Aichholz MULTICULTURAL SERVICES LIBRARIAN Work Phone: [facility] HospitalGpwkynppbi83-61-5101Ugottbfoa, High-dose Seasonal, Quadrivalent, Preservative FreeLisa Aichholz M[employer]ICULTURAL SERVICES LIBRARIAN Work Phone: [facility] HospitalXmnuifouck51-30-3884qkytwnwrz virus vaccine, unspecified formulationLisa Aichholz MULTICULTURAL SERVICES LIBRARIAN Work Phone: [facility] HospitalUvfoscopwc37-12-6702Aykcskled, High-dose Seasonal, Quadrivalent, Preservative FreeLisa Aichholz MULTICULTURAL SERVICES LIBRARIAN Work Phone: [facility] HospitalAiidteoawq28-77-0789Yrdlphfvx, High-dose Seasonal, Quadrivalent, Preservative FreeLisa Aichholz MULTICULTURAL SERVICES LIBRARIAN Work Phone: [facility] HospitalPizlxjsfrx16-97-3400rydzwofbfpgq conjugate vaccine, 13 valentLisa Aichholz MULTICULTURAL SERVICES LIBRARIAN Work Phone: [facility] HospitalTsnqpuakxt20-09-1148xlfhamsfg, high dose seasonal, preservative-freeLisa Aichholz MULTICULTURAL SERVICES LIBRARIAN Work Phone: [facility] HospitalJrssegtuam61-01-0216jhkvuqwtz, high dose seasonal, preservative-freeLisa Aichholz MULTICULTURAL SERVICES LIBRARIAN Work Phone: [facility] HospitalXfrifbsspi25-38-9472xlhcdouja, high dose seasonal, preservative-freeLisa Aichholz MULTICULTURAL SERVICES LIBRARIAN Work Phone: [phone] [place], [place] [address]Dacojcyeuv49-19-7516dbjmozgvd, high dose seasonal, preservative-freeLisa Aichholz MULTICULTURAL SERVICES LIBRARIAN Work Phone: [facility] HospitalKlixkinprm38-35-9367gfsynq vaccine, liveLisa Aichholz MULTICULTURAL SERVICES LIBRARIAN Work Phone: [facility] HospitalFcpqgcaqhd31-08-7953brsxzvwbc, high dose seasonal, preservative-freeLisa Aichholz MULTICULTURAL SERVICES LIBRARIAN Work Phone: [facility] HospitalIegmubgmog62-39-4646hniytdvwe virus vaccine, whole virusLisa Aichholz MULTICULTURAL SERVICES LIBRARIAN Work Phone: [facility] HospitalTqxgbburrc58-58-8545dwsvqwyoataq polysaccharide vaccine, 23 valentLisa Aichholz MULTICULTURAL SERVICES LIBRARIAN Work Phone: [facility] HospitalFmzmrmnjid80-12-8455vwimqgj toxoid, reduced diphtheria toxoid, and acellular pertussis vaccine, adsorbedLisa Aichholz MULTICULTURAL SERVICES LIBRARIAN Work Phone: [facility] Payers DatePayer CategoryPayerPolicy [id number] Health InsuranceUNITED HEALTHCARE MEDICAID Member Subscriber Plan / Payer (Effective 2024- Present) Name: Gina West Relation to Subscriber: Self Name: Gina West Payer ID: Not on file Group ID: Not on file Type: Not on file Address: [address] [id number] 2023Medicare (Managed Care)[id number] 2000Medicare [id number] [id number] 1960 [id number] [id number] [id number] Social History DateTypeDetailFacilityStart: 28-87-7522Dpawqtx smoking status NHISNever smoked tobaccoNOMS HealthcareStart: 77-67-9302Agepcnq use and exposureSmokeless tobacco non-userNOMS HealthcareStart: 09-19-2023 End: 09-57-4260Lsjwvyq intakeEx-drinker (finding)[facility] HealthcareStart: 09-14-2023 End: 39-12-8408Lcetyqk of Social functionNOMS HealthcareStart: 09-14-2023 End: 60-61-3807Zexvuxy use panelNOMS HealthcareStart: 23-86-4068Vtaexjw Comment caffeine more than 4 cups per dayNOMS HealthcareStart: 33-95-0841Nix Assigned At BirthNot on fileNOMS HealthcareHow often do you need to have someone help you when you read instructions, pamphlets, or other written material from your doctor or pharmacy [SILS]SometimesNOMS HealthcareDo you belong to any clubs or organizations such as latter-day groups, unions, fraternal or athletic groups, or school groups?NoNOMS HealthcareAre you now , , , , never or living with a partner?WidowedNOMS HealthcareHow often to you have a drink containing alcohol?NeverNOMS HealthcareDo you feel stress - tense, restless, nervous, or anxious, or unable to sleep at night because yourmind is troubled all the time - these days [OSQ]Not at [facility](I/We) worried whether (my/our) food would run out before (I/we) got money to buy more.Never trueNOMS HealthcareHow often do you need to have someone help you when you read instructions, pamphlets, or other written material from your doctor or pharmacy [SILS]SometimesNOTN Healthcare Functional Status RbbkVmxvnemxxtUbspkpLqmedqco99-66-0068Chfcxgh Health Questionnaire 2 item (PHQ- 2) [Reported][facility] HospitalVcvnglprwb34-72-9938Tyc difficult have these problems made it for you to do your work, take care of things at home, or get along with other people?Not difficult at all 12/30/2024 10:20 AM EDT POP GEE Not difficult at [facility] Clinical Notes 09-19-2023 to 03-30-2025 Note Date & WgmhUffgDrrtdsiz18-11-0593 History of Present illness Narrative* Bailee Bhakta NP - 03/30/2025 12:01 PM EDTAssociated Problem(s): Iron deficiency anemia Check labs yearly and prn changes in sxs Lower dose of ferrous sulfate from BID to daily * POP GEE - 03/30/2025 10:30 AM EDT Daughter would like to discuss the ferritin lab being high last week * Bailee Bhakta NP - 03/30/2025 10:30 AM EDT Images from the original note were not included. Gina West is a 85 y.o. female presents with chief complaint of Hypertension HPI: Breathing has been doing well, minimal use of albuterol Does Hypertension This is a chronic problem. The current episode started more than 1 year ago. The problem is unchanged. The problem is controlled. Associated symptoms include peripheral edema (intermittent) and shortness of breath. Pertinent negatives include no chest pain, headaches, neck pain, orthopnea or palpitations. There are no associated agents to hypertension. Risk factors for coronary artery disease include diabetes mellitus, dyslipidemia, obesity and sedentary lifestyle. Past treatments include PATRICIO inhibitors. The current treatment provides significant improvement. There are no compliance problems.Hypertensive end-organ damage includes kidney disease. There is no history of CAD/NV, heart failure, left ventricular hypertrophy or PVD. Identifiable causes of hypertension include chronic renal disease. SUBJECTIVE: MEDICATIONS: Current Outpatient Medications Medication Instructions albuterol HFA 90 mcg/act inhaler 2 puffs, Inhalation, Every 6 hours PRN ferrous sulfate (FEROSUL) 325 mg, Oral, Daily with breakfast Wayryghggdr-Hgqziucyx-Dgqkxu (Trelegy Ellipta) 100-62.5-25 MCG/ACT aerosol powder 1 puff, Inhalation, Daily, Rinse mouth after use. furosemide (LASIX) 20 mg, Oral, Daily gabapentin (NEURONTIN) 300 mg, Oral, Nightly hydrOXYzine HCl (ATARAX) 10 mg, Oral, Nightly PRN ipratropium-albuterol (Duo-Neb) 0.5-2.5 mg/3 mL nebulizer solution 3 mL, Daily PRN lisinopril 30 mg, Oral, Daily [...] breath. Negative for cough and wheezing. Cardiovascular: Negative for chest pain, palpitations, orthopnea and leg swelling (occ). Gastrointestinal: Negative for abdominal pain, blood in stool, constipation, diarrhea, nausea and vomiting. Genitourinary: Negative for difficulty urinating, dysuria and frequency. Musculoskeletal: Negative for arthralgias, back pain, joint swelling, myalgias and neck pain. Leg pain Skin: Negative for rash and wound. Neurological: Negative for dizziness, tremors, seizures, syncope and headaches. Psychiatric/Behavioral: Negative for behavioral problems, self-injury and suicidal ideas. The patient is not nervous/anxious. Hematological: Does not bruise/bleed easily. Endocrine: Negative for polydipsia, polyphagia and polyuria. Allergic/Immunologic: Negative for environmental allergies and food allergies. PAST MEDICAL HISTORY Past Medical History: Diagnosis Date Asthma-COPD overlap syndrome (HCC) Carotid bruit Chronic kidney disease, stage IV (severe) (HCC) Diabetic retinopathy (HCC) H/O squamous cell carcinoma excision nasal HLD (hyperlipidemia) Hyperkalemia Insomnia Iron deficiency anemia Lower extremity edema Memory loss Moderate persistent asthma in adult without complication (HCC) Obstructive sleep apnea (adult) (pediatric) Osteoarthritis Pulmonary hypertension (HCC) Rash of both feet Severe persistent asthma, uncomplicated (HCC) Skin lesion of face as of 04/03/23 pt is refusing to see dermatology for this skin lesion on nose Type 2 diabetes with complication (HCC) Vitamin D deficiency Past Surgical History: Procedure Laterality Date CATARACT EXTRACTION 2009 family history includes Diabetes in her mother; Heart attack (age of onset: 84) in her father; Hypertension in her mother. OBJECTIVE: Visit Vitals BP 138/68 (BP Location: Left arm, Patient Position: Sitting, BP Cuff Size: Large adult) Pulse 68 Temp 98.1 F (Temporal) Wt 225 lb SpO2 97% BMI 34.21 kg/m Smoking Status Never BSA 2.21 m Physical Exam Vitals and nursing note reviewed. Constitutional: General: She is not in acute distress. Appearance: Normal appearance. HENT: Head: Normocephalic and atraumatic. Right Ear: External ear normal. Left Ear: External ear normal. Nose: Nose normal. Mouth/Throat: Mouth: Mucous membranes are moist. Eyes: Extraocular Movements: Extraocular movements intact. Conjunctiva/sclera: Conjunctivae normal. Cardiovascular: Rate and Rhythm: Normal rate and regular rhythm. Pulses: Normal pulses. Heart sounds: Murmur heard. Pulmonary: Effort: Pulmonary effort is normal. Breath sounds: Normal breath sounds. No wheezing or rhonchi. Abdominal: General: Bowel sounds are normal. There is no distension. Palpations: Abdomen is soft. There is no mass. Tenderness: There is no abdominal tenderness. Musculoskeletal: Cervical back: Normal range of motion and neck supple. Right lower leg: No edema. Left lower leg: No edema. Comments: No tenderness to lower back MMT 5/5 bilat LE Patellar DTR absent, 1+ bilat achilles Skin: General: Skin is warm and dry. Capillary Refill: Capillary refill takes 2 to 3 seconds. Findings: No rash. Neurological: General: No focal deficit present. Mental Status: She is alert and oriented to person, place, and time. Psychiatric: Mood and Affect: Mood normal. Behavior: Behavior normal. Thought Content: Thought content normal. Judgment: Judgment normal. ASSESSMENT AND PLAN: Follow up in about 3 months (around 06/30/2025) for Recheck. Problem List Items Addressed This Visit Essential (primary) hypertension Continue current meds Please check blood pressure daily and record DASH diet Limit caffeine Take medication as directed Contact office if chest pain, pressure, dizziness, shortness of breath, swelling legs Recommend slow position changes Current meds: lisinopril Stage 4 chronic kidney disease (HCC) Long standing CKD, discussions in the past with pt (daughter as well) that she does not want to seeNephrology, she would not pursue dialysis if needed either Will continue to periodically monitor labs and control DM and HTN Recommend avoiding nephrotoxic drugs if possible and adequate control of DM and HTN Asthma-COPD overlap syndrome (HCC) Does well with Trelegy inhaler, and singulair Has duoneb if needed and albuterol, minimal use Relevant Medications Uyrnpzpoarx-Jtkxlyssi-Ysxaje (Trelegy Ellipta) 100-62.5-25 MCG/ACT aerosol powder Insomnia Relevant Medications hydrOXYzine HCl (Atarax) 10 MG tablet Type 2 diabetes with complication (HCC) Check blood sugars daily, notify if <70 or >200. Take medications (pills or insulin) as directed. Monitor for s/s of hypoglycemia (sweaty, dizziness, nausea, vomiting, or shakiness). Watch for increase in thirst, urination, or appetite. Inspect feet frequently monitoring for open wounds , andalso recommend yearly eye exam. Pt should attempt to remain as physically active as chronic conditions allow, as well as trying to follow a diet low in carbohydrates, and simple sugars. Continue current meds: pioglitazone A1c 5.8% in 12/30/24 Iron deficiency anemia Check labs yearly and prn changes in sxs Lower dose of ferrous sulfate from BID to daily Type 2 diabetes mellitus with diabetic neuropathy, without long-term current use of insulin (HCC) -Primary Continue with marcus, inspect feet regularly, recommend proper fitting shoes as well Blood glucose control OARRS reviewed BMI 34.0-34.9,adult Other Visit Diagnoses Polyneuropathy, unspecified Relevant Medications gabapentin (Neurontin) 300 MG capsule Chronic kidney disease, stage 3 unspecified ([facility]-HCC) Relevant Medications ferrous sulfate (FeroSul) 325 (65 Fe) MG tablet * Bailee Bhakta NP - 03/30/2025 6:35 AM EDTAssociated Problem(s): Type 2 diabetes with complication (HCC) Check blood sugars daily, notify if <70 or >200. Take medications (pills or insulin) as directed. Monitor for s/s of hypoglycemia (sweaty, dizziness, nausea, vomiting, or shakiness). Watch for increase in thirst, urination, or appetite. Inspect feet frequently monitoring for open wounds , andalso recommend yearly eye exam. Pt should attempt to remain as physically active as chronic conditions allow, as well as trying to follow a diet low in carbohydrates, and simple sugars. Continue current meds: pioglitazone A1c 5.8% in 12/30/24 * Bailee Bhakta NP - 03/30/2025 6:35 AM EDTAssociated Problem(s): Stage 4 chronic kidney disease (HCC) Long standing CKD, discussions in the past with pt (daughter as well) that she does not want to seeNephrology, she would not pursue dialysis if needed either Will continue to periodically monitor labs and control DM and HTN Recommend avoiding nephrotoxic drugs if possible and adequate control of DM and HTN * Bailee Bhakta NP - 03/30/2025 6:35 AM EDTAssociated Problem(s): Essential (primary) hypertension Continue current meds Please check blood pressure daily and record DASH diet Limit caffeine Take medication as directed Contact office if chest pain, pressure, dizziness, shortness of breath, swelling legs Recommend slow position changes Current meds: lisinopril * Bailee Bhakta NP - 03/30/2025 6:34 AM EDTAssociated Problem(s): Asthma-COPD overlap syndrome (HCC) Does well with Trelegy inhaler, and singulair Has duoneb if needed and albuterol, minimal use * Bailee Bhakta NP - 03/30/2025 6:34 AM EDTAssociated Problem(s): Type 2 diabetes mellitus with diabetic neuropathy, without long-term currentuse of insulin (HCC) Continue with marcus, inspect feet regularly, recommend proper fitting shoes as well Blood glucose control OARRS reviewed documented in this encounterLiberty HospitalUebhavzfwf57-83-3923 Instructions* Patient Instructions* Bailee Bhakta NP - 03/30/2025 10:30 AM EDT Farxia 5mg or 10mg Jardiance 10mg or 25mg documented in this encounterLiberty HospitalBygbmhtenl45-54-3104 History of Present illness Narrative* Bailee Bhakta NP - 12/30/2024 12:56 PM EDTAssociated Problem(s): Encounter for subsequent annual wellness visit (AWV) in Medicare patient Reviewed Ht/Wt/BMI Recommend eye exam yearly Recommend dental exams twice a year Exercises is recommended most days of the week (appropriate as chronic conditions allow) Follow up yearly and prn * Bailee Bhakta NP - 12/30/2024 12:54 PM EDTAssociated Problem(s): Gradual- onset memory impairment MOCA Lengthy discussion with pt and daughter Deborah Will refer to Neuro Psych * POP GEE - 12/30/2024 10:00 AM EDT Pt has been sick for 3-4 days [...] her shoulder aches but nothing else otc. * Bailee Bhakta NP - 12/30/2024 10:00 AM EDT Images from the original note were not [...] 325 mg, 2 times daily with meals Shvotleympp-Urdyyddvo-Gbozay (Trelegy Ellipta) 100-62.5-25 MCG/ACT aerosol powder 1 [...] well) that she does not want to seeNephrology, she would not pursue dialysis if needed [...] 25 hydroxy Type 2 diabetes with complication ([facility]) Check blood sugars daily, notify if <70 or >200. Take medications (pills or insulin) as directed. Monitor for s/s of hypoglycemia (sweaty, dizziness, nausea, vomiting, or shakiness). Watch for increase in thirst, urination, or appetite. Inspect feet frequently monitoring for open wounds , andalso recommend yearly eye exam. Pt should attempt to remain as physically active as chronic conditions allow, as well as trying to follow a diet low in carbohydrates, and simple sugars. Continue current meds: pioglitazone A1c Relevant Orders POCT glycosylated hemoglobin (Hb A1C) docked device (Completed) Comprehensive metabolic panel Urinalysis with reflex microscopic (clean catch) Microalbumin / creatinine, urine ratio Diabetic retinopathy ([facility]) Continue with annual eye exams Tight glucose control as well Iron deficiency anemia Check labs yearly and prn changes in sxs Relevant Orders CBC and differential Iron + transferrin + TIBC Ferritin HLD (hyperlipidemia) ([facility]) Relevant Orders Comprehensive metabolic panel Lipid panel Pulmonary hypertension ([facility] [facility]) Per ECHO findings Type 2 diabetes mellitus with diabetic neuropathy, without long-term current use of insulin ([facility]) - Primary Continue with marcus, inspect feet [...] Psych Relevant Orders Ambulatory referral to Neuropsychology * Bailee Bhakta NP - 12/30/2024 6:34 AM EDTAssociated Problem(s): Iron deficiency anemia Check labs yearly and prn changes in sxs * Bailee Bhakta NP - 12/30/2024 6:33 AM EDTAssociated Problem(s): Vitamin D deficiency Check labs * Bailee Bhakta NP - 12/30/2024 6:32 AM EDTAssociated Problem(s): Type 2 diabetes with complication ([facility]) Check blood sugars daily, notify if <70 or >200. Take medications (pills or insulin) as directed. Monitor for s/s of hypoglycemia (sweaty, dizziness, nausea, vomiting, or shakiness). Watch for increase in thirst, urination, or appetite. Inspect feet frequently monitoring for open wounds , andalso recommend yearly eye exam. Pt should attempt to remain as physically active as chronic conditions allow, as well as trying to follow a diet low in carbohydrates, and simple sugars. Continue current meds: pioglitazone A1c * Bailee Bhakta NP - 12/30/2024 6:32 AM EDTAssociated Problem(s): Diabetic retinopathy ([facility]) Continue with annual eye exams Tight glucose control as well * Bailee Bhakta NP - 12/30/2024 6:31 AM EDTAssociated Problem(s): Lower extremity edema Stable on lasix, elevate feet above heart level a few times daily Monitor sodium intake Periodic labs to monitor renal function * Bailee Bhakta NP - 12/30/2024 6:31 AM EDTAssociated Problem(s): Stage 4 chronic kidney disease (CMS/HCC) Long standing CKD, discussions in the past with pt (daughter as well) that she does not want to seeNephrology, she would not pursue dialysis if needed either Will continue to periodically monitor labs and control DM and HTN Recommend avoiding nephrotoxic drugs if possible and adequate control of DM and HTN * Bailee Bhakta NP - 12/30/2024 6:30 AM EDTAssociated Problem(s): Tricuspid regurgitation Per ECHO findings Murmur present Continue to monitor Prior discussions with daughter and patient does not want any surgical intervention for this * Bailee Bhakta NP - 12/30/2024 6:30 AM EDTAssociated Problem(s): Pulmonary hypertension (CMS/HCC) Per ECHO findings * Bailee Bhakta NP - 12/30/2024 6:30 AM EDTAssociated Problem(s): Essential (primary) hypertension (CMS/HCC) Continue current meds Please check blood pressure daily and record DASH diet Limit caffeine Take medication as directed Contact office if chest pain, pressure, dizziness, shortness of breath, swelling legs Recommend slow position changes Current meds: lisinopril * Bailee Bhakta NP - 12/30/2024 6:30 AM EDTAssociated Problem(s): Asthma-COPD overlap syndrome (CMS/HCC) Does well with Trelegy inhaler, and singulair Has duoneb if needed and albuterol, minimal use Samples #4: trelegy 100's lot;WN7G, exp 12/2025 * Bailee Bhakta NP - 12/30/2024 6:29 AM EDTAssociated Problem(s): Type 2 diabetes mellitus with diabetic neuropathy, without long-term currentuse of insulin ([facility]) Continue with marcus, inspect feet regularly, recommend proper fitting shoes as well Blood glucose control OARRS reviewed documented in this encounterLiberty [id number] History of Present illness Narrative* POP GEE - 06/26/2024 8:40 AM EST Some swelling in the feet/legs, pt has been having a lot of pain in her feet/legs. Feet does have aburning sensation. Pt is asking for an albuterol inhaler to carry in her purse for winter. * Bailee Bhakta NP - 06/26/2024 8:40 AM EST Gina West is a 84 y.o. female [...] symptoms include peripheral edema and shortness of breath.Pertinent negatives include no blurred vision, chest pain, [...] has type 2 diabetes mellitus. Her disease coursehas been stable. There are no hypoglycemic associated symptoms. Pertinent negatives for hypoglycemia include no dizziness, headaches, nervousness/anxiousness, seizures or tremors. Associated symptomsinclude fatigue and foot paresthesias. Pertinent negatives for [...] the time. An PATRICIO inhibitor/angiotensin II receptor blockeris being taken. She does not see a certified wellness program coordinator.Eye exam is current. Edema Presents with chronic [...] 325 mg, 2 times daily before meals Txmszxiraaq-Bnibbroki-Wsbhje (Trelegy Ellipta) 100-62.5-25 MCG/ACT aerosol powder 1 [...] Addressed This Visit Essential (primary) hypertension (CMS/HCC) - Primary Continue current meds Please check blood pressure daily and record DASH diet Limit caffeine Take medication as directed Contact office if chest pain, pressure, dizziness, shortness of breath, swelling legs Recommend slow position changes Relevant Medications aspirin 81 MG EC tablet Stage 4 chronic kidney disease (CMS/HCC) Long standing CKD, discussions in the past with pt (daughter as well) that she does not want to seeNephrology, she would not pursue dialysis if needed either Will continue to periodically monitor labs and control DM and HTN Asthma-COPD overlap syndrome ([facility]) Does well with Trelegy inhaler, and lainey Has duoneb if needed and albuterol, minimal use Trelegy 100, lot [id number], exp 08/31 #2 samples Relevant Medications Tyxdprkysme-Jzdmlrixh-Orhuyd (Trelegy Ellipta) 100-62.5-25 MCG/ACT aerosol powder albuterol HFA 90 mcg/act inhaler Obstructive sleep apnea (adult) (pediatric) Hx of PRETTY PAP use: does not wear PAP Lower extremity edema Stable on lasix, elevate feet above heart level a few times daily Monitor sodium intake Periodic labs to monitor renal function Type 2 diabetes with complication ([facility]) Check blood sugars daily, notify if <70 or >200. Take medications (pills or insulin) as directed. Monitor for s/s of hypoglycemia (sweaty, dizziness, nausea, vomiting, or shakiness). Watch for increase in thirst, urination, or appetite. Inspect feet frequently monitoring for open wounds , andalso recommend yearly eye exam. Pt should attempt to remain as physically active as chronic conditions allow, as well as trying to follow a diet low in carbohydrates, and simple sugars. Continue current meds A1c 5.7% 04/2024 Diabetic retinopathy ([facility]) Continue with annual eye exams Tight glucose control as well HLD (hyperlipidemia) ([facility]) Pulmonary hypertension ([facility]) Per ECHO findings Type 2 diabetes mellitus with diabetic neuropathy, without long-term current use of insulin ([facility]) Continue with marcus, inspect feet regularly Blood glucose control OARRS reviewed Relevant Medications aspirin 81 MG EC tablet Tricuspid regurgitation Per ECHO findings Murmur present Continue to monitor Prior discussions with daughter and patient does not want any surgical intervention for this BMI 34.0-34.9,adult * Bailee Bhakta NP - 06/26/2024 6:32 AM ESTAssociated Problem(s): Diabetic retinopathy ([facility]) Continue with annual eye exams Tight glucose control as well * Bailee Bhakta NP - 06/26/2024 6:32 AM ESTAssociated Problem(s): Type 2 diabetes with complication (CMS/HCC) Check blood sugars daily, notify if <70 or >200. Take medications (pills or insulin) as directed. Monitor for s/s of hypoglycemia (sweaty, dizziness, nausea, vomiting, or shakiness). Watch for increase in thirst, urination, or appetite. Inspect feet frequently monitoring for open wounds , andalso recommend yearly eye exam. Pt should attempt to remain as physically active as chronic conditions allow, as well as trying to follow a diet low in carbohydrates, and simple sugars. Continue current meds A1c 5.7% 04/2024 * Bailee Bhakta NP - 06/26/2024 6:31 AM ESTAssociated Problem(s): Lower extremity edema Stable on lasix, elevate feet above heart level a few times daily Monitor sodium intake Periodic labs to monitor renal function * Bailee Bhakta NP - 06/26/2024 6:30 AM ESTAssociated Problem(s): Stage 4 chronic kidney disease (CMS/HCC) Long standing CKD, discussions in the past with pt (daughter as well) that she does not want to seeNephrology, she would not pursue dialysis if needed either Will continue to periodically monitor labs and control DM and HTN * Bailee Bhakta NP - 06/26/2024 6:29 AM ESTAssociated Problem(s): Essential (primary) hypertension (CMS/HCC) Continue current meds Please check blood pressure daily and record DASH diet Limit caffeine Take medication as directed Contact office if chest pain, pressure, dizziness, shortness of breath, swelling legs Recommend slow position changes * Bailee Bhakta NP - 06/26/2024 6:29 AM ESTAssociated Problem(s): Pulmonary hypertension (CMS/HCC) Per ECHO findings * Bailee Bhakta NP - 06/26/2024 6:28 AM ESTAssociated Problem(s): Tricuspid regurgitation Per ECHO findings Murmur present Continue to monitor Prior discussions with daughter and patient does not want any surgical intervention for this * Bailee Bhakta NP - 06/26/2024 6:28 AM ESTAssociated Problem(s): Asthma-COPD overlap syndrome (CMS/HCC) Does well with Trelegy inhaler, and singulair Has duoneb if needed and albuterol, minimal use Trelegy 100, lot MV9W, exp 08/31 #2 samples * Bailee Bhakta NP - 06/26/2024 6:27 AM ESTAssociated Problem(s): Obstructive sleep apnea (adult) (pediatric) Hx of PRETTY PAP use: does not wear PAP * Bailee Bhakta NP - 06/26/2024 6:26 AM ESTAssociated Problem(s): Type 2 diabetes mellitus with diabetic neuropathy, without long-term currentuse of insulin ([facility]) Continue with marcus, inspect feet regularly Blood glucose control OARRS reviewed documented in this [id number] Instructions* Patient Instructions* Bailee Bhakta NP - 06/26/2024 8:40 AM EST No med changes Next appt will be Medicare Wellness appt No labs today documented in this [id number] History of Present illness Narrative* Bailee Bhakta NP - 09/19/2023 9:57 AM ESTAssociated Problem(s): Stage 4 chronic kidney disease ([facility]) Reviewed labs, pt in the past and still today do not want to see Nephrology does not want to do dialysis if gets to that * Bailee Bhakta NP - 09/19/2023 9:56 AM ESTAssociated Problem(s): Lower extremity edema stable * Bailee Bhakta NP - 09/19/2023 9:54 AM ESTAssociated Problem(s): Essential (primary) hypertension ([facility]/HCC) Labs stable * Bailee Bhakta NP - 09/19/2023 9:54 AM ESTAssociated Problem(s): Polyneuropathy, unspecified Elie only taking 1 gabapentin at HS * Bailee Bhakta NP - 09/19/2023 9:53 AM ESTAssociated Problem(s): Type 2 diabetes mellitus with diabetic neuropathy, without long-term currentuse of insulin ([facility]) Reviewed labs Recommend eye exam, and freq foot checks No changes in meds * Bailee Bhakta NP - 09/19/2023 9:32 AM ESTAssociated Problem(s): Asthma-COPD overlap syndrome Stable on current meds, no changes * POP GEE - 09/19/2023 9:00 AM EST Gabapentin needs to be a 90 day supply instead of 180 day supply- daughter said you had decreased the medication to once a day instead of twice * Bailee Bhakta NP - 09/19/2023 9:00 AM EST Images from the original note were not [...] bruit Chronic kidney disease, stage IV (severe) ([facility]/HCC) Diabetic retinopathy ([facility]) MUJICA (dyspnea on exertion) Extrinsic asthma ([facility]/HCC) unspecified H/O squamous cell carcinoma excision nasal [...] in meds BMI 34.0-34.9,adult [facility]* Diagnosis Type 2 diabetes mellitus with diabetic neuropathy, without long-term current use of insulin (CMS/HCC)- Primary BMI 34.0-34.9,adult Asthma-COPD overlap syndrome Lower extremity edema Edema Polyneuropathy, unspecified Essential (primary) hypertension (CMS/HCC) Unspecified essential hypertension Stage 4 chronic kidney disease (CMS/HCC) documented [facility] encounter [facility]* Diagnosis Lower extremity edema Edema Insomnia, unspecified type Essential (primary) hypertension (CMS/HCC) Unspecified essential hypertension Severe persistent asthma, uncomplicated (CMS/HCC) Type 2 diabetes mellitus with diabetic neuropathy, unspecified (CMS/HCC) [facility]* [...] BMI 34.0-34.9,adult Mixed hyperlipidemia (CMS/HCC) Mixed hyperlipidemia [facility]* Diagnosis Polyneuropathy, unspecified [facility]* Diagnosis Type 2 diabetes mellitus with diabetic neuropathy, without long-term current use of insulin (CMS/HCC)- Primary BMI 34.0-34.9,adult Asthma-COPD overlap syndrome (CMS/HCC) Lower extremity edema Edema Polyneuropathy, unspecified Essential (primary) hypertension (CMS/HCC) Unspecified essential hypertension Stage 4 chronic kidney disease ([facility]) Encounter for subsequent annual wellness visit (AWV) in Medicare patient- Primary Asthma-COPD overlap syndrome (CMS/HCC) Essential (primary) hypertension (CMS/HCC) Unspecified essential hypertension Stage 4 chronic kidney disease (CMS/HCC) Type 2 diabetes with complication (CMS/HCC) Type 2 diabetes mellitus with diabetic neuropathy, without long-term current use of insulin ([facility]) Essential (primary) hypertension (CMS/HCC)- Primary Unspecified essential hypertension Type 2 diabetes mellitus with diabetic neuropathy, without long-term current use of insulin ([facility]) Obstructive sleep apnea (adult) (pediatric) Asthma-COPD overlap syndrome ([facility]/HCC) Tricuspid valve insufficiency, unspecified etiology Pulmonary hypertension (CMS/HCC) Other chronic pulmonary heart diseases Stage 4 chronic kidney disease ([facility]) Lower extremity edema Edema Type 2 diabetes with complication (CMS/HCC) Diabetic retinopathy associated with type 2 diabetes mellitus, macular edema presence unspecified, unspecified laterality, unspecified retinopathy severity (CMS/HCC) BMI 34.0-34.9,adult Mixed hyperlipidemia (CMS/HCC) Mixed hyperlipidemia Essential (primary) hypertension ([facility]) Unspecified essential hypertension Insomnia, unspecified type Lower extremity edema Edema Type 2 diabetes mellitus with diabetic neuropathy, unspecified (CMS/HCC) Chronic kidney disease, stage 3 unspecified (HCC) ([facility]) Severe persistent asthma, uncomplicated ([facility]) documented [facility]* Diagnosis Type 2 diabetes mellitus with diabetic neuropathy, without long-term current use of insulin ([facility])- Primary BMI 34.0-34.9,adult Asthma-COPD overlap syndrome (CMS/HCC) Lower extremity edema Edema Polyneuropathy, unspecified Essential (primary) hypertension ([facility]/HCC) Unspecified essential hypertension Stage 4 chronic kidney disease ([facility]) Encounter for subsequent annual wellness visit (AWV) in Medicare patient- Primary Asthma-COPD overlap syndrome ([facility]/HCC) Essential (primary) hypertension (CMS/HCC) Unspecified essential hypertension Stage 4 chronic kidney disease ([facility]) Type 2 diabetes with complication ([facility]) Type 2 diabetes mellitus with diabetic neuropathy, without long-term current use of insulin ([facility]) Essential (primary) hypertension ([facility])- Primary Unspecified essential hypertension Type 2 diabetes mellitus with diabetic neuropathy, without long-term current use of insulin ([facility]) Obstructive sleep apnea (adult) (pediatric) Asthma-COPD overlap syndrome ([facility]) Tricuspid valve insufficiency, unspecified etiology Pulmonary hypertension ([facility]) Other chronic pulmonary heart diseases Stage 4 chronic kidney disease ([facility]) Lower extremity edema Edema Type 2 diabetes with complication ([facility]) Diabetic retinopathy associated with type 2 diabetes mellitus, macular edema presence unspecified, unspecified laterality, unspecified retinopathy severity ([facility]) BMI 34.0-34.9,adult Mixed hyperlipidemia ([facility]) Mixed hyperlipidemia Polyneuropathy, unspecified [facility]* Diagnosis Type 2 diabetes mellitus with diabetic neuropathy, without long-term current use of insulin ([facility])- Primary BMI 34.0-34.9,adult Asthma-COPD overlap syndrome ([facility]/HCC) Lower extremity edema Edema Polyneuropathy, unspecified Essential (primary) hypertension ([facility]/HCC) Unspecified essential hypertension Stage 4 chronic kidney disease ([facility]) Encounter for subsequent annual wellness visit (AWV) in Medicare patient- Primary Asthma-COPD overlap syndrome ([facility]/HCC) Essential (primary) hypertension ([facility]/HCC) Unspecified essential hypertension Stage 4 chronic kidney disease ([facility]) Type 2 diabetes with complication ([facility]) Type 2 diabetes mellitus with diabetic neuropathy, without long-term current use of insulin ([facility]) Essential (primary) hypertension ([facility]/HCC)- Primary Unspecified essential hypertension Type 2 diabetes [...] BMI 34.0-34.9,adult Mixed hyperlipidemia (CMS/HCC) Mixed hyperlipidemia Asthma-COPD overlap syndrome (CMS/HCC) documented in [facility]* Diagnosis Type 2 diabetes mellitus with diabetic neuropathy, without long-term current use of insulin (CMS/HCC)- Primary BMI 34.0-34.9,adult Asthma-COPD overlap syndrome (CMS/HCC) Lower extremity edema Edema Polyneuropathy, unspecified Essential (primary) hypertension (CMS/HCC) Unspecified essential hypertension Stage 4 chronic kidney disease ([facility]/HCC) Encounter for subsequent annual wellness visit (AWV) [...] neuropathy, without long-term current use of insulin (CMS/[facility]) Obstructive sleep apnea (adult) (pediatric) Asthma-COPD overlap syndrome (CMS/HCC) Tricuspid valve insufficiency, unspecified etiology Pulmonary hypertension (CMS/HCC) Other chronic pulmonary heart diseases Stage 4 chronic kidney disease (CMS/HCC) Lower extremity edema Edema Type 2 diabetes with complication (CMS/HCC) Diabetic retinopathy associated with type 2 diabetes mellitus, macular edema presence unspecified, unspecified laterality, unspecified retinopathy severity (CMS/HCC) BMI 34.0-34.9,adult Mixed hyperlipidemia ([facility]/HCC) Mixed hyperlipidemia Encounter for subsequent annual wellness visit (AWV) in Medicare patient- Primary Type 2 diabetes mellitus with diabetic neuropathy, without long-term current use of insulin ([facility]) Asthma-COPD overlap syndrome (CMS/HCC) Essential (primary) hypertension (CMS/HCC) Unspecified essential hypertension Pulmonary hypertension (CMS/HCC) Other chronic pulmonary heart diseases Tricuspid valve insufficiency, unspecified etiology Stage 4 chronic kidney disease (CMS/HCC) Lower extremity edema Edema Diabetic retinopathy associated with type 2 diabetes mellitus, macular edema presence unspecified, unspecified laterality, unspecified retinopathy severity (CMS/HCC) Type 2 diabetes with complication (CMS/HCC) Vitamin D deficiency Iron deficiency anemia, unspecified iron deficiency anemia type Mixed hyperlipidemia (CMS/HCC) Mixed hyperlipidemia Gradual-onset memory impairment documented in this encounter [facility]* Diagnosis Type 2 diabetes mellitus with diabetic neuropathy, without long-term current use of insulin (CMS/HCC)- Primary BMI 34.0-34.9,adult Asthma-COPD overlap syndrome (CMS/HCC) Lower extremity edema Edema Polyneuropathy, unspecified Essential (primary) hypertension (CMS/HCC) Unspecified essential hypertension Stage 4 chronic kidney disease ([facility]/HCC) Encounter for subsequent annual wellness visit (AWV) in Medicare patient- Primary Asthma-COPD overlap syndrome ([facility]) Essential (primary) hypertension ([facility]) Unspecified essential hypertension Stage 4 chronic kidney disease (CMS/HCC) Type 2 diabetes with complication (CMS/HCC) Type 2 diabetes mellitus with diabetic neuropathy, without long-term current use of insulin ([facility]) Essential (primary) hypertension ([facility]/HCC)- Primary Unspecified essential hypertension Type 2 diabetes mellitus with diabetic neuropathy, without long-term current use of insulin ([facility]) Obstructive sleep apnea (adult) (pediatric) Asthma-COPD overlap syndrome ([facility]) Tricuspid valve insufficiency, unspecified etiology Pulmonary hypertension (CMS/HCC) Other chronic pulmonary heart diseases Stage 4 chronic kidney disease ([facility]) Lower extremity edema Edema Type 2 diabetes with complication (CMS/HCC) Diabetic retinopathy associated with type 2 diabetes mellitus, macular edema presence unspecified, unspecified laterality, unspecified retinopathy severity (CMS/HCC) BMI 34.0-34.9,adult Mixed hyperlipidemia ([facility]) Mixed hyperlipidemia Encounter for subsequent annual wellness visit (AWV) in Medicare patient- Primary Type 2 diabetes mellitus with diabetic neuropathy, without long-term current use of insulin ([facility]) Asthma-COPD overlap syndrome (CMS/HCC) Essential (primary) hypertension (CMS/HCC) Unspecified essential hypertension Pulmonary hypertension (CMS/HCC) Other chronic pulmonary heart diseases Tricuspid valve insufficiency, unspecified etiology Stage 4 chronic kidney disease (CMS/HCC) Lower extremity edema Edema Diabetic retinopathy associated with type 2 diabetes mellitus, macular edema presence unspecified, unspecified laterality, unspecified retinopathy severity (CMS/HCC) Type 2 diabetes with complication (CMS/HCC) Vitamin D deficiency Iron deficiency anemia, unspecified iron deficiency anemia type Mixed hyperlipidemia (CMS/HCC) Mixed hyperlipidemia Gradual-onset memory impairment Asthma-COPD overlap syndrome (CMS/HCC) Lower extremity edema Edema Insomnia, unspecified type Essential (primary) hypertension (CMS/HCC) Unspecified essential hypertension documented in this encounter [facility]* Diagnosis Type 2 diabetes mellitus with diabetic neuropathy, without long-term current use of insulin (HCC)- Primary BMI 34.0-34.9,adult Asthma-COPD overlap syndrome (HCC) Lower extremity edema Edema Polyneuropathy, unspecified Essential (primary) hypertension Unspecified essential hypertension Stage 4 chronic kidney disease ([facility] [facility] Encounter for subsequent annual wellness visit (AWV) [...] asthma, uncomplicated (HCC) documented in this encounter [facility] HealthcareEvaluation note* Diagnosis Type 2 diabetes mellitus [...] impairment Chronic kidney disease, stage 3 unspecified ([facility]) Type 2 diabetes mellitus with diabetic neuropathy, unspecified (HCC) documented in this encounter [facility] HealthcareEvaluation note* Diagnosis Type 2 diabetes mellitus [...] presence unspecified, unspecified laterality, unspecified retinopathy severity ([facility]) BMI 34.0-34.9,adult Mixed hyperlipidemia Mixed hyperlipidemia Encounter [...] Mixed hyperlipidemia Mixed hyperlipidemia Gradual-onset memory impairment Stage 4 chronic kidney disease (HCC)- Primary Type 2 diabetes mellitus with diabetic neuropathy, without long-term current use of insulin (HCC) Asthma-COPD overlap syndrome (HCC) Essential (primary) hypertension Unspecified essential hypertension Type 2 diabetes with complication (HCC) Insomnia, unspecified type Polyneuropathy, unspecified Chronic kidney disease, stage 3 unspecified ([facility]) BMI 34.0-34.9,adult Iron deficiency anemia, unspecified iron deficiency anemia type documented in this encounter [facility] Summary Purpose Family History No Family History Records FoundNo Family History Records FoundNo Family History Records Found Advance Directives No Advanced Directives Records FoundNo Advanced Directives Records FoundNo Advanced Directives Records Found Additional Source Comments INFORMATION SOURCE (unrecogn ized section and content) DATE CREATED AUTHOR 01/25/2018 [facility] DATE CREATED AUTHOR AUTHOR'S ORGANIZ ATION 10/24/2022 [facility] DATE CREATED AUTHOR AUTHOR'S ORGANIZ ATION 03/31/2025 [facility] EPIC Care Teams (unrecognized sec tion and content) Team MemberRelationshipSpecialtyStart DateEnd Date Krishna Headley MD [address] [place] [address] PCP - [facility]09/14/23 Bailee Bhakta NP [address] [place] [address] Referring PhysicianNurse Practitioner02/21/23Team MemberRelationshipSpecialty Start DateEnd Date Krishna Headley MD [address] [place] [address] PCP - [facility]09/14/23 Bailee Bhakta NP [address] [place] [address] Referring PhysicianNurse Practitioner02/21/23Team MemberRelationshipSpecialty Start DateEnd Date Krishna Headley MD [address] [place] [address] PCP - [facility]09/14/23 Bailee Bhakta NP [address] [place] [address] PCP - [facility] Bailee Bhakta NP [address] [place] [address] Referring PhysicianNurse Practitioner02/21/23Team MemberRelationshipSpecialty Start DateEnd Date Krishna Headley MD [address] [place] [address] PCP - [facility]09/14/23 Bailee Bhakta NP [address] [place] [address] [place] [address] Bailee Bhakta NP [address] [place] [address] Referring PhysicianNurse Practitioner02/21/23Te MemberRelationshipSpecialty Start DateEnd Date Krishna Headley MD [address] [place] [address] PCP - [facility]09/14/23 Bailee Bhakta NP [address] [place] [address] [place] [address] Bailee Bhakta NP [address] [place] [address] Referring PhysicianNurse Practitioner02/21/23Te MemberRelationshipSpecialty Start DateEnd Date Krishna Headley MD [address] [place] [address] PCP - [facility]09/14/23 Bailee Bhakta NP [address] [place] [address] [facility] Bailee Bhakta NP [address] [place] [address] Referring PhysicianNurse Practitioner02/21/23Team MemberRelationshipSpecialty Start DateEnd Date Krishna Headley MD [address] [place] [address] PCP - [facility]09/14/23 Bailee Bhakta NP [address] [place] [address] [place] [address] Bailee Bhakta NP [address] [place] [address] Referring PhysicianNurse Practitioner02/21/23Team MemberRelationshipSpecialty Start DateEnd Date Krishna Headley MD [address] [place] [address] PCP - [facility]09/14/23 Bailee Bhakta NP [address] [place] [address] PCP - [facility]/ Bailee Bhakta NP [address] [place] [address] Referring PhysicianNurse Practitioner02/21/23Te MemberRelationshipSpecialty Start DateEnd Date Krishna Headley MD [address] [place] [address] PCP - [facility]09/14/23 Bailee Bhakta NP [address] [place] [address] [facility]/ Bailee Bhakta NP [address] [place] [address] Referring PhysicianNurse Practitioner02/21/23Te MemberRelationshipSpecialty Start DateEnd Date Krishna Headley MD [address] [place] [address] PCP - [facility]09/14/23 Bailee Bhakta NP [address] [place] [address] [place] [address]/ Bailee Bhakta NP [address] [place] [address] Referring PhysicianNurse Practitioner02/21/23Te MemberRelationshipSpecialty Start DateEnd Date Krishna Headley MD [address] [place] [address] PCP - [facility]09/14/23 Bailee Bhakta NP [address] [place] [address] PCP - [facility] Bailee Bhakta NP [address] [place] [address] Referring PhysicianNurse Practitioner02/21/23Te MemberRelationshipSpecialty Start DateEnd Date Krishna Headley MD [address] [place] [address] PCP - [facility]09/14/23 Bailee Bhakta NP [address] [place] [address] [facility] Bailee Bhakta NP [address] [place] [address] Referring PhysicianNurse Practitioner02/21/23Te MemberRelationshipSpecialty Start DateEnd Date Krishna Headley MD [address] [place] [address] PCP - [facility]09/14/23 Bailee Bhakta NP [address] [place] [address] [facility]/ Bailee Bhakta NP [address] [place] [address] Referring PhysicianNurse Practitioner02/21/23Team MemberRelationshipSpecialty Start DateEnd Date Krishna Headley MD [address] [place] [address] PCP - [facility]09/14/23 Bailee Bhakta NP [address] [place] [address] [place] [address] Bailee Bhakta NP [address] [place] [address] Referring PhysicianNurse Practitioner02/21/23Te MemberRelationshipSpecialty Start DateEnd Date Krishna Headley MD [address] [place] [address] PCP - [facility]09/14/23 Bailee Bhakta NP [address] [place] [address] [place] [address] Bailee Bhakta NP [address] [place] [address] Referring PhysicianNurse Practitioner02/21/23Te MemberRelationshipSpecialty Start DateEnd Date Krishna Headley MD [address] [place] [address] PCP - [facility]09/14/23 Bailee Bhakta NP [address] [place] [address] [facility] Bailee Bhakta NP [address] [place] [address] Referring PhysicianNurse Practitioner02/21/23Te MemberRelationshipSpecialty Start DateEnd Date Krishna Headley MD [address] [place] [address] PCP - [facility]09/14/23 Bailee Bhakta NP [address] [place] [address] [place] [address] Bailee Bhakta NP [address] [place] [address] Referring PhysicianNurse Practitioner02/21/23Te MemberRelationshipSpecialty Start DateEnd Date Krishna Headley MD [address] [place] [address] [facility] Bailee Bhakta NP [address] [place] [address] PCP - [facility] Bailee Bhakta NP [address] [place] [address] Referring PhysicianNurse Practitioner02/21/23 Reason for Visit (unrecogniz ed section and content) ReasonOnset DateCommentsMed [id number] RefillReasonOnset DateCommentsMed [id number]/19/2024ReasonCommentsMedicare Annual Wellness Visit InitialReasonCommentsHypertension FOR RECORDS PERTAINING TO PATIENTS WHO ARE [...] BE BASED ON THE PRIMARY CLINICAL RECORDS. [facility] [employer] [facility]. provides no warranty or guarantee of the accuracy or completeness of information in this document.
--- OUTSIDE RECORDS SUMMARY | 2025-06-13 12:03 | XMS_ITS | Clinical Summary ---
Author Organization [facility] Address [address] [place] [address] Care Team Providers Care Custodial Laborer Name Role Phone Bailee Bhakta OPTICIANRY TEACHER Unavailable [phone] Krishna Headley MD Primary Care Provider [phone] Bailee Bhakta OPTICIANRY TEACHER Unavailable [phone] Allergies Active AllergyReactionsCriticalityNoted DateCommentsFluticasone Furoate-ZdpygroowrNpnhxomp41/12/8290Lkryuormtxtpia43/12/4167Qzzjzstoen01/12/2024 Admvvufsx40/12/2024 Medications MedicationSigDispense QuantityRefillsLast FilledStart DateEnd DateStatus ipratropium-albuterol (Duo-Neb) 0.5-2.5 mg/3 mL nebulizer solution Take 3 mL by nebulization Daily as needed for wheezing or shortness of breath Active albuterol HFA 90 mcg/act inhaler Indications:Asthma-COPD overlap syndrome (HCC)Inhale 2 puffs every 6 (six) hours if needed for shortness of breath or wheezing 18 g 5Active lisinopril 30 MG tablet Indications:Essential (primary) hypertensionTake 1 tablet (30 mg) by mouth Daily 90 tablet 5Active furosemide (Lasix) 20 MG tablet Indications:Lower extremity edemaTake 1 tablet (20 mg) by mouth Daily 90 tablet 5Active montelukast (Singulair) 10 MG tablet Indications:Severe persistent asthma, uncomplicated (HCC)Take 1 tablet (10 mg) by mouth at bedtime 90 tablet 5Active pioglitazone (Actos) 15 MG tablet Indications:Type 2 diabetes mellitus with diabetic neuropathy, unspecified (HCC) Take 1 tablet (15 mg) by mouth Daily 90 tablet 5Active hydrOXYzine HCl (Atarax) 10 MG tablet Indications:Insomnia, unspecified typeTake 1 tablet (10 mg) by mouth as needed at bedtime for anxiety or itching 90 tablet 5Active gabapentin (Neurontin) 300 MG capsule Indications:Polyneuropathy, unspecifiedTake 1 capsule (300 mg) by mouth at bedtime 90 capsule 5Active Xpcjcoawqyt-Jcpcdaogk-Vuhzcm (Trelegy Ellipta) 100-62.5-25 MCG/ACT aerosol powder Indications:Asthma-COPD overlap syndrome (HCC)Inhale 1 puff Daily Rinse mouth after use. 60 each 505Active ferrous sulfate (FeroSul) 325 (65 Fe) MG tablet Indications:Chronic kidney disease, stage 3 unspecified (CMS-HCC)Take 1 tablet (325 mg) by mouth in the morning. Take with meals. 90 tablet 5Active Active Problems ProblemNoted DateDiagnosed DateGradual-onset memory rhtnoltoya05/27/2025 Assessment & Plan (12/30/2024 12:54 PM EDT): MOCA Lengthy discussion with pt and daughter Deborah Will refer to Neuro Psych Encounter for subsequent annual wellness visit (AWV) in Medicare patient 12/25/2023 [...] yearly and prn Obstructive sleep apnea (adult) (pediatric)09/19/2023 Assessment & Plan (06/26/2024 9:01 AM EST): Hx of PRETTY PAP use: does not wear PAP Bfozsfns19/14/6058Hydguamwyebxcm14/14/2024Lower extremity edema09/19/2023 Assessment & Plan (12/30/2024 6:31 AM EDT): [...] (09/19/2023 9:56 AM EST): stable Vitamin D nzzhtyjimm47/14/2024 Assessment & Plan (12/30/2024 6:33 AM EDT): Check labs Type 2 diabetes with /14/2024 Assessment & Plan (03/30/2025 6:36 AM EDT): Check blood sugars daily, notify [...] current meds: pioglitazone A1c 5.8% in 12/30/24 Assessment & Plan (12/30/2024 6:32 AM EDT): [...] (12/25/2023 11:42 AM EDT): Check a1c Diabetic zrnbadnqpcr83/14/2024 Assessment & Plan (12/30/2024 6:32 AM EDT): Continue with annual eye exams Tight glucose control as well Assessment & Plan (06/26/2024 6:32 AM EST): Continue with annual eye exams Tight glucose control as well Iron deficiency frwrrm6309/19/2023 Assessment & Plan (03/30/2025 12:01 PM EDT): Check labs yearly and prn changes in sxs Lower dose of ferrous sulfate from BID to daily Assessment & Plan (12/30/2024 6:34 AM EDT): Check labs yearly and prn changes in sxs Skin lesion of face09/19/2023 Overview (09/19/2023): as of 04/03/23 pt is refusing to see dermatology for this skin lesion on nose Ufrrrqlnnkpa68/14/2024HLD (hyperlipidemia)09/19/2023H/O squamous cell carcinoma ykqotlls70/14/2024 Overview (09/19/2023): nasal Pulmonary tfxidzgrlcuv64/14/2024 Assessment & Plan (12/30/2024 6:30 AM EDT): Per ECHO findings Assessment & Plan (06/26/2024 6:29 AM EST): Per ECHO findings Type 2 diabetes mellitus with diabetic neuropathy, without long-term current use of uumhcdn3109/19/2023 Assessment & Plan (03/30/2025 6:34 AM EDT): Continue with marcus, inspect feet regularly, recommend proper fitting shoes as well Blood glucose control OARRS reviewed Assessment & Plan (12/30/2024 6:29 AM EDT): [...] foot checks No changes in meds Tricuspid ezlobybpynecx70/14/2024 Assessment & Plan (12/30/2024 6:30 AM EDT): Per ECHO findings Murmur present Continue to monitor Prior discussions with daughter and patient does not want any surgical intervention for this Assessment & Plan (06/26/2024 6:28 AM EST): Per ECHO findings Murmur present Continue to monitor Prior discussions with daughter and patient does not want any surgical intervention for this BMI 34.0-34.9,adult09/19/2023Stage 4 chronic kidney qhfhvjm7408/17/2023 Assessment & Plan (03/30/2025 6:35 AM EDT): Long standing CKD, discussions in the past with pt (daughter as well) that she does not want to seeNephrology, she would not pursue dialysis if needed either Will continue to periodically monitor labs and control DM and HTN Recommend avoiding nephrotoxic drugs if possible and adequate control of DM and HTN Assessment & Plan (12/30/2024 6:31 AM EDT): [...] dialysis if gets to that Asthma-COPD overlap ljgnweut64/12/2024 Assessment & Plan (03/30/2025 12:00 PM EDT): Does well with Trelegy inhaler, and singulair Has duoneb if needed and albuterol, minimal use Assessment & Plan (12/30/2024 10:40 AM EDT): [...] on current meds, no changes Essential (primary) yhxllwkwwods97/03/2024 Assessment & Plan (03/30/2025 6:35 AM EDT): Continue current meds Please check blood pressure daily and record DASH diet Limit caffeine Take medication as directed Contact office if chest pain, pressure, dizziness, shortness of breath, swelling legs Recommend slow position changes Current meds: lisinopril Assessment & Plan (12/30/2024 6:30 AM EDT): [...] 9:54 AM EST): Labs stable Resolved Problems ProblemNoted DateDiagnosed DateResolved DateRash of both feet09/19/2023 09/19/2023Memory loss/Moderate persistent asthma in adult without onthkvdciima23Severe persistent asthma, uncomplicated /olyneuropathy, znwnewrwfpk74 Assessment & Plan (09/19/2023 9:54 AM EST): Stable, only taking 1 gabapentin at HS Type 2 diabetes mellitus with diabetic neuropathy, qpnkiljezce56/03/2024 06/26/2024 Encounters DateTypeDepartmentCare XocaErgjekehwud22/25/2025 10:30 AM EDTOffice Visit [facility] [address] [place] [address] Bailee Bhakta NP Stage 4 chronic kidney disease (HCC) (Primary Dx); Type 2 diabetes mellitus with diabetic neuropathy, without long-term current use of insulin (HCC); Asthma-COPD overlap syndrome (HCC); Essential (primary) hypertension ; Type 2 diabetes with complication (HCC); Insomnia, unspecified type; Polyneuropathy, unspecified; Chronic kidney disease, stage 3 unspecified ([facility]-HCC); BMI 34.0-34.9,adult; Iron deficiency anemia, unspecified iron deficiency anemia type03/30/2025amboo flowsheet [facility] [address] [place] [address] Bailee Bhakta NP 03/25/2025linisync Result Encounter [facility] External Department Unsolicited Bailee Bhakta NP 2025Travelfrom Last 3 Months Immunizations ImmunizationAdministration DatesNext DueInfluenza Whole12/08/2011Influenza, High Dose Seasonal, Preservative Free06/11/2024,04/29/2018,04/12/2017,05/16/2016, 04/17/2014,07/15/2013Influenza, High-dose Seasonal, Quadrivalent, Preservative Free08/11/2023,05/30/2022,05/16/2021neumococcal Conjugate PCV 131 Pneumococcal Polysaccharide ALKQ4267/04/7010Xbvt90Zoster, live08/06/2013 Family History Medical HistoryRelationNameCommentsHeart attackFatherDiabetesMotherHypertension MotherRelationNameStatusCommentsFatherDeceasedMother Social History Tobacco UseTypesPacks/DayYears UsedDateSmoking Tobacco: NeverSmokeless Tobacco: Never Tobacco Cessation:Counseling Given: Not Answered Alcohol UseStandard Drinks/WeekCommentsNot Currently0 (1 standard drink = 0.6 oz pure alcohol)caffeine more than 4 cups per dsvC3095 Health LiteracyAnswerDate RecordedHow often do you need to have someone help you when you read instructions, pamphlets, or other written material from your doctor or pharmacy? Frrkkfkod49/20/2024Social Connection and Isolation PanelAnswerDate RecordedIn a typical week, how many times do you talk on the phone with family, friends, or neighbors?More than three times a week06/25/2024How often do you get together with friends or relatives?More than three times a week06/25/2024How often do you attend yazidi or mosque services?More than 4 times per year06/25/2024o you belong to any clubs or organizations such as yazidi groups, unions, fraternal or athletic groups, or school groups?No06/25/2024How often do you attend meetings of the clubs or organizations you belong to?Never06/25/2024re you , , , , never , or living with a partner? 06/25/2024UDIT-CAnswerDate RecordedQ1: How often do you have a drink containing alcohol?Never06/25/2024Q2: How many drinks containing alcohol do you have on a typical day when you are drinking?Patient does not drink06/25/2024Q3: How often do you have six or more drinks on one occasion?Never06/25/2024Overall Financial Resource Strain (CARDIA)AnswerDate RecordedHow hard is it for you to pay for the very basics like food, housing, medical care, and heating?Not hard at all 06/25/2024HQ-2AnswerDate RecordedPatient Health Questionnaire-2 Score0 12/30/2024[employer] - Occupational Stress QuestionnaireAnswerDate RecordedDo you feel stress - tense, restless, nervous, or anxious, or unable to sleep at night because yourmind is troubled all the time - these days?Not at all06/25/2024Exercise Vital SignAnswerDate RecordedOn average, how many days per week do you engage in moderate to strenuous exercise (like a brisk walk)?0 days06/25/2024On average, how many minutes do you engage in exercise at this level?0 min06/25/2024Hunger Vital SignAnswerDate Recorded Within the past 12 months, you worried that your food would run out before you got the money to buymore.Never true06/25/2024Within the past 12 months, the food you bought just didn't last and you didn't have money to get more.Never true 06/25/2024RAPARE - TransportationAnswerDate RecordedIn the past 12 months, has lack of transportation kept you from medical appointments or from getting medications?No06/25/2024In the past 12 months, has lack of transportation kept you from meetings, work, or from getting things needed for daily living?No 06/25/2024Housing Stability Vital SignAnswerDate RecordedIn the last 12 months, was there a time when you were not able to pay the mortgage or rent on time?No 06/25/2024Number of Times Moved in the Last YearNot on file06/25/2024t any time in the past 12 months, were you homeless or living in a fpc (including now)? No06/25/2024CommentsUnknownSex and Gender InformationValueDate Recorded Sex Assigned at BirthNot on fileLegal BfbSkdxbp41/15/2023 6:49 PM EDTGender IdentityNot on fileSexual OrientationNot on file Last Filed Vital Signs Vital SignReadingTime TakenCommentsBlood Ooipayln599/68003/30/2025 10:42 AM EDT Fotsd431903/30/2025 10:42 AM BYBRsniwlkbwrq78.7 ??C (98.1 ??F)03/30/2025 10:42 AM EDTRespiratory Kjya175212/30/2024 10:12 AM EDTOxygen Lbgwnghelb52%03/30/2025 10:42 AM EDTInhaled Oxygen Concentration--Tyltxg897 kg (225 lb)03/30/2025 10:42 AM EDT Zvykmy162.7 cm (5' 8 )06/26/2024 8:35 AM ESTBody Mass Index34. 8:35 AM EST Plan of Treatment Health MaintenanceDue DateLast DoneCommentsDiabetes: Urine Protein Screening iabetes: Retinopathy Sqmunatrz10OVID-19 Vaccine ( season)/, 09/15/2020, 08/25/2020 Influenza Vaccine (#1)/01/2024, 08/11/2023, 05/30/2022, Additional history existsDiabetes: Hemoglobin A1C/, 04/25/2024, 08/16/2023Medicare Annual Wellness (AWV)6012/30/2024, 12/30/2024, 12/25/2023, Additional history existsPneumococcal Vaccine: 65+ YearsCompleted 05/16/2021, 12/08/2011 Procedures Procedure NamePriorityDate/TimeAssociated DiagnosisCommentsHMHP PTH, XJTNQLMHVMPZTKTywcnhg36/20/2025 8:06 AM EDT AEEACLXOGELYwmddwx87/20/2025 8:06 AM EDT [facility] VITAMIN D 25 IQWmzcqqn69/20/2025 8:06 AM EDT [facility] ILWVVYEHDtcramj59/20/2025 8:06 AM EDT ALL LIPID PROFILE (FASTING)Mslvhlj2103/25/2025 8:06 AM EDT ALL FYZAUOLBOSJFvjhlpt02/20/2025 8:06 AM EDT [facility] CMP (CMP) (FOR REMOTE [facility] USE)Nqzhsdv2203/25/2025 8:06 AM EDT [facility] YINTNyzkqpk63/20/2025 8:06 AM EDT ALL CBC WITH AUTO WSOFRpyljgp51/20/2025 8:06 AM EDT [facility] URINE MICROSCOPIC EJUOCkozgjq53/20/2025 7:56 AM EDT [facility] UA (CLEAN/CATCH) MICROSCOPIC IF FLPJYMOSRocotwj98/20/2025 7:56 AM EDT [facility] MICROALB CREAT RATIO MLUHFDVsdaldx89/20/2025 7:56 AM EDT POCT GLYCOSYLATED HEMOGLOBIN (HGB A1C)Jdvlaqd2612/30/2024 10:44 AM EDT Type 2 diabetes with complication (HCC) from Last 3 Months or Most Recently Relevant to Health Maintenance Results * TRANSFERRIN (03/25/2025 8:06 AM EDT)ComponentValueRef RangeTest MethodAnalysis TimePerformed AtPathologist JvhhtiifeAXWDCKZGKSG039989 - 313 mg/dLTBHComment: Performed at: ?? - [facility] [address] ??[id number] Ball Truing Machine Operator: Nicholas Luna PhD, Phone: ??[phone] Specimen (Source)Anatomical Location / LateralityCollection Method / Volume Collection TimeReceived Time03/25/2025 8:06 AM EDT03/25/2025 8:09 AM EDT Narrative [facility] - 03/26/2025 8:09 AM EDT Authorizing ProviderResult TypeResult StatusLisa Aichholz NPLAB BLOOD ORDERABLES Final ResultPerforming OrganizationAddressCity/State/ZIP CodePhone Number [facility] * [facility] VITAMIN D 25 [place] (03/25/2025 8:06 AM EDT)ComponentValueRef RangeTest Method Analysis TimePerformed AtPathologist SignatureVITAMIN D41.2ng/mLTBHComment: <20 ng/mL Vit D deficient 20-<30 ng/mL Vit D insufficient 30-100 ng/mL ??Vit D sufficient >100 ng/mL Potential Toxicity Specimen (Source)Anatomical Location / LateralityCollection Method / Volume Collection TimeReceived Time03/25/2025 8:06 AM EDT03/25/2025 8:09 AM EDT Narrative [facility] - 03/25/2025 11:27 AM EDT Authorizing ProviderResult TypeResult StatusLiLankenau Medical CenterLINISYNCFinal ResultPerforming OrganizationAddressCity/State/ZIP CodePhone Number [facility] * [facility] TI[facility] (03/25/2025 8:06 AM EDT)ComponentValueRef RangeTest Method Analysis TimePerformed AtPathologist SignatureTBH IRON95.050.0 - 170.0 ug/dL TBHTBH TOTAL IRON BINDING CJZBPCNE847.0250.0 - 450.0 ug/dLTBHTBH PERCENT IRON NONRBVRCVD17.9%TBHSpecimen (Source)Anatomical Location / LateralityCollection Method / VolumeCollection TimeReceived Time03/25/2025 8:06 AM EDT03/25/2025 8:09 AM EDT Narrative [facility] - 03/25/2025 9:38 AM EDT Authorizing ProviderResult TypeResult StatusEllis Island Imm[facility] NPCLINISYNCFinal ResultPerforming OrganizationAddressty/State/ZIP CodePhone Number [facility] * (ABNORMAL) HMHP PTH, INTRAOPERATIVE (03/25/2025 8:06 AM EDT)ComponentValueRef RangeTest MethodAnalysis TimePerformed AtPathologist SignaturePTH, ZNYIRP143 (A)15 - 65 pg/mLTBHComment: Performed at: ?? - [facility] [address] ??[id number] Ball Truing Machine Operator: Nicholas Luna PhD, Phone: ??[phone] Specimen (Source)Anatomical Location / LateralityCollection Method / Volume Collection TimeReceived Time03/25/2025 8:06 AM EDT03/25/2025 8:09 AM EDT Narrative [facility] - 03/26/2025 11:09 AM EDT Authorizing ProviderResult TypeResult StatusLisa Aickamleshholz NPCLINISYNCFinal ResultPerforming OrganizationAddressCity/State/ZIP CodePhone Number [facility] * (ABNORMAL) [facility] FERRITIN (03/25/2025 8:06 AM EDT)ComponentValueRef RangeTest MethodAnalysis TimePerformed AtPathologist QqndqecdbRKBKTQWO219.0(H)8.0 - 252.0 ng/mLTBHSpecimen (Source)Anatomical Location / LateralityCollection Method / VolumeCollection TimeReceived Time03/25/2025 8:06 AM EDT03/25/2025 8:09 AM EDT Narrative [facility] - 03/25/2025 11:27 AM EDT Authorizing ProviderResult TypeResult StatusLisa Yeholz NPCLINISYNCFinal ResultPerforming OrganizationAddressCity/State/ZIP CodePhone Number [facility] * (ABNORMAL) [facility] CMP (CMP) (FOR REMOTE [facility] USE) (03/25/2025 8:06 AM EDT) ComponentValueRef RangeTest MethodAnalysis TimePerformed AtPathologist GvemoefjlZPKJBI561822 - 145 mmol/LTBHPOTASSIUM4.83.5 - 5.1 mmol/LTBHCHLORIDE 34449 - 107 mmol/LTBHCARBON YSPXUQQ27.421.0 - 32.0 mmol/LTBHANION GAP13.4TBH PQFPFRC474(H)74 - 106 mg/dLTBHBLOOD UREA FMHTBRUN21.0(H)7.0 - 18.0 mg/dLTBH CREATININE2.03(H)0.55 - 1.02 mg/dLTBHTBH EGFR-AF XHAESRKA54(L)>=60 mL/min/1.73m 2TBHTBH EGFR-NON AF BFEPNYBM12(L)>=60 mL/min/1.73m 2TBHBUN CREATININE RATIO18.6TOMWGVLFXM5.4(L)8.5 - 10.1 mg/dLTBHBILIRUBIN TOTAL0.30.2 - 1.0 mg/dLTBHASPARTATE AMINO HDOCFZYQNTZ6093 - 37 U/LTBHALANINE MXTBKOGXAWRLMPXD3435 - 59 U/LTBHALKALINE VADKCWFZWMQ140(H)46 - 116 U/LTBHTOTAL PROTEIN7.76.4 - 8.2 g/dLTBHALBUMIN LEVEL3.53.4 - 5.0 g/dLTBHGLOBULIN4.2g/dLTBH ALBUMIN GLOBULIN RATIO0.8TBHSpecimen (Source)Anatomical Location / Laterality Collection Method / VolumeCollection TimeReceived Time03/25/2025 8:06 AM EDT 03/25/2025 8:09 AM EDT [facility] - 03/25/2025 10:13 AM EDT Authorizing ProviderResult TypeResult StatusLi Meenudepartment of veterans affairs [facility] barrecayla [facility]OCKINGHAMLINISYNCFinal ResultPerforming OrganizationAddressty/State/ZIP CodePhone Number [facility] * (ABNORMAL) ALL PHOSPHOROUS (03/25/2025 8:06 AM EDT)ComponentValueRef RangeTest MethodAnalysis TimePerformed AtPathologist SignaturePHOSPHORUS4.9(H)2.6 - 4.7 mg/dLTBHSpecimen (Source)Anatomical Location / LateralityCollection Method / VolumeCollection TimeReceived Time03/25/2025 8:06 AM EDT03/25/2025 8:09 AM EDT [facility] - 03/25/2025 10:13 AM EDT Authorizing ProviderResult TypeResult [facility] MeenuLouis Stokes Cleveland VA Medical CenterLINISYNCFinal ResultPerforming OrganizationAddressCity/State/ZIP CodePhone Number [facility] * ALL LIPID PROFILE (FASTING) (03/25/2025 8:06 AM EDT)ComponentValueRef Range Test MethodAnalysis TimePerformed AtPathologist HgeqsthzuXVVVVLYCOHFUU072<=150 mg/qNDQDKOMZCHFDPGG682<=200 mg/dLTBHHDL BKIGSONRMJC5635 - 60 mg/dLTBHComment: > or =60 mg/dl - LOW CARDIOVASCULAR RISK <40 mg/dl - HIGH CARDIOVASCULAR RISK LDL CHOLESTEROL DIEXDNTJLE611.6mg/dLTBHComment: <100 mg/dl OPTIMAL 100-129 mg/dl NEAR OR ABOVE OPTIMAL 130-159 mg/dl BORDERLINE HIGH 160-189 mg/dl HIGH >190 mg/dl VERY HIGH VLDL FFDZPHNZNUV78.4mg/dLTBHCHOL HDL RATIO4.5TBHComment: 3.3 - 4.4 ?? LOW RISK 4.4 - 7.1 ?? AVERAGE RISK 7.1 - 11.0 ??MODERATE RISK >11.0 HIGH RISK Specimen (Source)Anatomical Location / LateralityCollection Method / Volume Collection TimeReceived Time03/25/2025 8:06 AM EDT03/25/2025 8:09 AM EDT Narrative [facility] - 03/25/2025 10:13 AM EDT Authorizing ProviderResult TypeResult StatusLisa Aichholz NPCLINISYNCFinal ResultPerforming OrganizationAddressCity/State/ZIP CodePhone Number [facility] * (ABNORMAL) ALL CBC WITH AUTO DIFF (03/25/2025 8:06 AM EDT)ComponentValueRef RangeTest MethodAnalysis TimePerformed AtPathologist SignatureTBH WBC5.54.0 - 11.0 10 3/uLTBHTBH RBC4.01(L)4.20 - 5.40 10 6/uLTBHTBH HGB11.2(L)12.0 - 16.0 g/dLTBHTBH HCT36.136.0 - 48.0 %TBHTBH MCV90.081.0 - 99.0 fLTBHTBH MCH27.926.7 - 34.0 pgTBHTBH MCHC31.029.9 - 35.2 g/dLTBHTBH RDW14.011.0 - 15.0 %TBHTBH PLT 514859 - 450 10 3/uLTBHTBH MPV10.89.5 - 13.5 fLTBHNEUTROPHILS PERCENT AUTO46.3 43.0 - 75.0 %TBHLYMPHOCYTES PERCENT AUTO31.820.5 - 60.0 %TBHMONOCYTES PERCENT AUTO13.5(H)1.7 - 12.0 %TBHTBH EO %7.1(H)0.9 - 7.0 %TBHBASOPHILS PERCENT AUTO 0.90.2 - 2.0 %TBHIMMATURE GRANULOCYTES PCT AUTO0.40.0 - 0.5 %TBHNEUTROPHILS ABSOLUTE AUTO2.51.4 - 6.5 10 3/uLTBHLYMPHOCYTES ABSOLUTE AUTO1.71.2 - 3.8 10 3/uLTBHMONOCYTES ABSOLUTE AUTO0.70.3 - 0.8 10 3/uLTBHTBH EO #0.40.0 - 0.7 10 3/uLTBHBASOPHILS ABSOLUTE AUTO0.10.0 - 0.1 10 3/uLTBHIMMATURE GRANULOCYTES ABS AUTO0.020.00 - 0.03 10 3/uLTBHSpecimen (Source)Anatomical Location / LateralityCollection Method / VolumeCollection TimeReceived Time03/25/2025 8:06 AM EDT03/25/2025 8:09 AM EDT Narrative CLIN[facility] - 03/25/2025 8:56 AM EDT Authorizing ProviderResult TypeResult StatusLiMultiCare [facility] NPCLINISYNCFinal ResultPerforming OrganizationAddressCity/State/ZIP CodePhone Number [facility] * (ABNORMAL) [facility] URINE MICROSCOPIC ONLY (03/25/2025 7:56 AM EDT)ComponentValue Ref RangeTest MethodAnalysis TimePerformed AtPathologist SignatureTBH WBC0-2 (A)NONE SEEN #/HPFTBHTBH RBC0-20 - 2 #/HPFTBHBACTERIA URINESMALL(A)NONE SEEN #/HPFTBHMUCUS URINENONE SEENNONE SEENTBHSQUAMOUS EPITHELIAL CELL URINEFEW(A) NONE/RARE #/LPFTBHCRYSTALS SEEN?None SeenNone Seen #/HPFTBHCAST SEEN?NONE SEEN NONE SEEN #/LPFTBHSpecimen (Source)Anatomical Location / LateralityCollection Method / VolumeCollection TimeReceived Time03/25/2025 7:56 AM EDT03/25/2025 8:09 AM EDT Narrative CL[facility] - 03/25/2025 10:12 AM EDT Authorizing ProviderResult TypeResult StatusEllis [facility] NPCLINISYNCFinal ResultPerforming OrganizationAddressCity/State/ZIP CodePhone Number [facility] * (ABNORMAL) [facility] UA (CLEAN/CATCH) MICROSCOPIC IF INDICATE (03/25/2025 7:56 AM EDT)ComponentValueRef RangeTest MethodAnalysis TimePerformed AtPathologist SignatureCOLOR URINELT. YELLOWYELLOWTBHCLARITY URINECLEARCLEARTBHSPECIFIC GRAVITY URINE<=1.005(A)1.005 - 1.025TBHPH URINE5.55.0 - 9.0TBHPROTEIN URINE NEGATIVENEG/TRACE mg/dLTBHGLUCOSE URINE UANEGATIVENEGATIVE mg/dLTBHBILIRUBIN URINENEGATIVENEGATIVETBHKETONES URINENEGATIVENEGATIVE mg/dLTBHBLOOD URINE NEGATIVENEGATIVETBHNITRITE URINENEGATIVENEGATIVETBHUROBILINOGEN URINE0.20.2 - 1.0 EU/dLTBHLEUKOCYTE ESTERASE URINEMODERATE(A)NEGATIVETBHURINE MICROSCOPIC INDICATEDYESTBHSpecimen (Source)Anatomical Location / LateralityCollection Method / VolumeCollection TimeReceived Time03/25/2025 7:56 AM EDT03/25/2025 8:09 AM EDT Narrative [facility] - 03/25/2025 10:12 AM EDT Authorizing ProviderResult TypeResult StatusLisa Yecheyenne NPCLINISYNCFinal ResultPerforming OrganizationAddressCity/State/ZIP CodePhone Number [facility] * [facility]H MICROALB CREAT RATIO RANDOM (03/25/2025 7:56 AM EDT)ComponentValueRef RangeTest MethodAnalysis TimePerformed AtPathologist SignatureMICROALBUMIN URINE RANDOM<1.3<=30.0 mg/dLTBHCREATININE URINE SMLIQP78.7220.00 - 300.00 mg/dLTBHSpecimen (Source)Anatomical Location / LateralityCollection Method / VolumeCollection TimeReceived Time03/25/2025 7:56 AM EDT03/25/2025 8:09 AM EDT Narrative [facility] - 03/25/2025 9:17 AM EDT Authorizing ProviderResult TypeResult StatusLisa Yecheyenne NPCLINISYNCFinal ResultPerforming OrganizationAddressCity/State/ZIP CodePhone Number [facility] * POCT glycosylated hemoglobin (Hb A1C) docked device (12/30/2024 10:44 AM EDT) ComponentValueRef RangeTest MethodAnalysis TimePerformed AtPathologist SignatureHemoglobin A1C5.8Specimen (Source)Anatomical Location / Laterality Collection Method / VolumeCollection TimeReceived TimeBloodVenous blood specimen / Cgswfsk4012/30/2024 10:44 AM EDT Narrative Authorizing ProviderResult TypeResult StatusLisa Meenukamleshcheyenne NPPOINT OF CARE TEST ENTER/EDIT ORDERABLESFinal Result from Last 3 Months or Most Recently Relevant to Health Maintenance Insurance Care Teams Team MemberRelationshipSpecialtyStart DateEnd Date Krishna Headley MD [facility] - [facility] Bailee Bhakta NP [address] [facility] [place] [address] PCP - [facility] Bailee Bhakta NP Referring PhysicianNurse Practitioner02/21/23
[2025-06-13 12:17] LABS: Potassium 5.6 mmol/L (3.5-5.1)
--- NOTE | 2025-06-13 13:15 | ED.GENADUL1 ---
HPI HPI - General Adult General Chief complaint: Shortness of Breath/Dyspnea Stated complaint: SHORTNESS OF BREATH Time Seen by Provider: 06/13/25 10:26 Source: patient Mode of arrival: Wheelchair History of Present Illness HPI narrative: Patient is an 85-year-old female, history significant for COPD/asthma, presenting to the emergency department for concerns of shortness of breath over the last 24 hours. Patient states she gets episodes like this every year with the weather changes. She states that she has been wheezing, using her nebulizer/inhalers at home. However, this only minimally helps her symptoms. She denies URI symptoms of cough, congestion, fevers, or chills. She denies history of DVT/PE, leg swelling, CHF, previous [place] or coronary stents. She has no chest pain. No abdominal pain, nausea, or vomiting. Related Data Home Medications ?Medication ?Instructions ?Recorded ?Confirmed albuterol sulfate 90 mcg/actuation 2 puff inhalation QID PRN 06/13/25 06/13/25 aerosol inhaler shortness of breath or wheezing ferrous sulfate 325 mg (65 mg 325 mg PO BID 06/13/25 06/13/25 iron) tablet (FeroSul) furosemide 20 mg tablet 20 mg PO DAILY 06/13/25 06/13/25 gabapentin 300 mg capsule 300 mg PO QPM 06/13/25 06/13/25 hydroxyzine HCl 10 mg tablet 10 mg PO QPM PRN sleep 06/13/25 06/13/25 lisinopril 30 mg tablet 30 mg PO DAILY 06/13/25 06/13/25 montelukast 10 mg tablet 10 mg PO QPM 06/13/25 06/13/25 pioglitazone 15 mg tablet 15 mg PO DAILY 06/13/25 06/13/25 Previous Rx's ?Medication ?Instructions ?Recorded prednisone 20 mg tablet 40 mg (2 x 20 mg) PO DAILY 4 days 06/13/25 #8 tabs Allergies Allergy/AdvReac Type Severity Reaction Status Date / Time No Known Drug Allergies Allergy Verified 06/13/25 10:30 Review of Systems ROS Status of ROS 10 or more systems reviewed and unremarkable except as noted in history and below [facility] Medical History (Updated 06/13/25 @ 13:16 by Spike Patton DO) Chronic kidney disease ?N18.9 - Chronic kidney disease, unspecified (ICD-10) Anemia ?D64.9 - Anemia, unspecified (ICD-10) Type 2 diabetes mellitus ?E11.9 - Type 2 diabetes mellitus without complications (ICD-10) HTN (hypertension) ?I10 - Essential (primary) hypertension (ICD-10) Asthma ?J45.909 - Unspecified asthma, uncomplicated (ICD-10) Exam Narrative Exam Narrative: CONSTITUTIONAL: No acute distress, speaking in full sentences, answering questions and following commands appropriately SKIN: Was warm and dry. EYES: Sclerae white. No conjunctival pallor. EARS, NOSE, THROAT: Moist oral mucosa. RESPIRATORY: There is bilateral expiratory wheezing with mild use accessory muscles. No crackles. CARDIOVASCULAR: Normal rate and regular rhythm. There is no S3, S4, murmur, rub. GASTROINTESTINAL: Abdomen is soft, nontender, nondistended. MUSCULOSKELETAL: No peripheral edema. NEUROLOGIC: Patient is awake and alert. Facies were symmetrical. Constitutional Vital Signs, click to edit/add: Last Vital Signs Temp 97.9 F 06/13/25 10:24 Pulse 98 H 06/13/25 12:40 Resp 18 06/13/25 12:40 BP 124/95 H 06/13/25 11:37 Pulse Ox 96 06/13/25 12:20 O2 Del Method Room Air 06/13/25 11:39 Course Vital Signs Vital signs: Vital Signs Temperature 97.9 F 06/13/25 10:24 Pulse Rate 85 06/13/25 10:24 Respiratory Rate 28 H 06/13/25 10:24 Blood Pressure 139/70 06/13/25 10:24 Pulse Oximetry 99 06/13/25 10:24 Oxygen Delivery Method Room Air 06/13/25 10:24 Temperature 97.9 F 06/13/25 10:24 Pulse Rate 98 H 06/13/25 12:40 Respiratory Rate 18 06/13/25 12:40 Blood Pressure 124/95 H 06/13/25 11:37 Pulse Oximetry 96 06/13/25 12:20 Oxygen Delivery Method Room Air 06/13/25 11:39 Medical Decision Making MDM Narrative Medical decision making narrative: Patient is an 85-year-old female, history significant for COPD and asthma, presenting to the emergency department for evaluation of shortness of breath and wheezing over the last 24 hours. Vital signs arrival are within normal limits. She is afebrile and hemodynamically stable. She is breathing comfortably and 96% room air. Her examination was notable for bilateral expiratory wheezing with mild use of accessory muscles. My clinical impression is that the patient's symptoms are secondary to COPD/asthma exacerbation. Other potential etiologies include ACS, arrhythmia, CHF, pneumothorax, or pneumonia. IV was established and laboratory studies were obtained. She was treated symptomatically with nebulized albuterol/ipratropium, IV Solu-Medrol, and IV magnesium sulfate. Laboratory studies were unremarkable. No significant electrolyte or metabolic derangement. No evidence of acute kidney injury. No significant anemia, leukocytosis, or thrombocytopenia. BNP and troponin nonelevated. Chest x-ray independently reviewed/interpreted by myself demonstrated no acute cardiopulmonary process. Radiology did note possible CHF/pulmonary edema - however, given her normal BNP and no history of CHF/CAD this is of lower likelihood. 12 Lead EKG: Normal sinus rhythm at a rate of 83. Normal axis. No ST segment elevations. QRS, MA, and QTc interval within normal limits. Final impression: normal sinus rhythm without evidence of acute myocardial ischemia On reevaluation, patient states she feels 100% improved. She is no longer wheezing on repeat lung auscultation. Her presentation is likely related to COPD/asthma. They were instructed to follow up with PCP for further care. Return precautions were given including any new or worsening symptoms. They were given a prescription for prednisone 40 mg daily x 4 days. Patient understands and agrees to the plan. FINAL IMPRESSION: #Acute COPD exacerbation DISPOSITION: Discharged home CONDITION: Good Medical Records Medical records reviewed: Yes I reviewed the patient's medical records Lab Data Lab results reviewed: Yes I reviewed the patient's lab results Labs: Lab Results 06/13/25 06/13/25 06/13/25 Range/Units 10:55 11:18 12:06 WBC 6.6 (4.0-11.0) 10^3/uL RBC 3.78 L (4.20-5.40) 10^6/uL Hgb 10.8 L (12.0-16.0) g/dL Hct 33.7 L (36.0-48.0) % MCV 89.2 (81.0-99.0) fL MCH 28.6 (26.7-34.0) pg MCHC 32.0 (29.9-35.2) g/dL RDW 12.8 (11.0-15.0) % Plt Count 203 (150-450) 10^3/uL MPV 10.2 (9.5-13.5) fL Neut % (Auto) 76.2 H (43.0-75.0) % Lymph % (Auto) 12.5 L (20.5-60.0) % [place] % (Auto) 8.4 (1.7-12.0) % Eos % (Auto) 1.7 (0.9-7.0) % Baso % (Auto) 0.9 (0.2-2.0) % Neut # (Auto) 5.0 (1.4-6.5) 10^3/uL Lymph # (Auto) 0.8 L (1.2-3.8) 10^3/uL [place] # (Auto) 0.6 (0.3-0.8) 10^3/uL Eos # (Auto) 0.1 (0.0-0.7) 10^3/uL Baso # (Auto) 0.1 (0.0-0.1) 10^3/uL Abs Immat Gran (auto) 0.02 (0.00-0.03) 10^3/uL Imm/Tot Granulo (auto) 0.3 (0.0-0.5) % Sodium 132 L (136-145) mmol/L Potassium 6.0 H 5.6 H (3.5-5.1) mmol/L Chloride 101 (98-107) mmol/L Carbon Dioxide 26.0 (21.0-32.0) mmol/L Anion Gap 11.0 BUN 25.0 H (7.0-18.0) mg/dL Creatinine 1.67 H (0.55-1.02) mg/dL Est GFR ( Amer) 35 L (>=60 mL/min/1.73m^2) Est GFR (Non-Af Amer) 29 L (>=60 mL/min/1.73m^2) BUN/Creatinine Ratio 15.0 Glucose 120 H (74-106) mg/dL Calcium 8.9 (8.5-10.1) mg/dL Troponin I High Sens 9.1 (4.0-51.3) pg/mL NT-Pro-B Natriuret Pep 746.0 (<=1800.0) pg/mL Imaging Data Chest x-ray: Attestation: I personally reviewed and interpreted this imaging study as follows: Radiologist's impression: ITS Impressions Chest X-Ray 06/13/25 10:42 IMPRESSION: Findings suggest congestive heart failure with pulmonary edema. Impression dictated by: Dick Whipple M.D. 06/13/2025 11:46 AM Dictation Location: [place] [address] Electronically authenticated by: [id number] Y Date: 06/13/2025 11:46 ECG Data Attestation: I personally reviewed and interpreted this ECG as follows: Discharge Plan Discharge Chief Complaint: Shortness of Breath/Dyspnea Clinical Impression: COPD exacerbation Patient Disposition: Home, Self-Care Time of Disposition Decision: 12:38 Condition: Good Mode of Transportation: Private Vehicle Prescriptions / Home Meds: New prednisone 20 mg tablet 40 mg PO DAILY 4 Days Qty: 8 0RF No Action albuterol sulfate 90 mcg/actuation HFA aerosol inhaler 2 puff INHALATION QID PRN (Reason: shortness of breath or wheezing) ferrous sulfate [FeroSul] 325 mg (65 mg iron) tablet 325 mg PO BID furosemide 20 mg tablet 20 mg PO DAILY gabapentin 300 mg capsule 300 mg PO QPM hydroxyzine HCl 10 mg tablet 10 mg PO QPM PRN (Reason: sleep) lisinopril 30 mg tablet 30 mg PO DAILY montelukast 10 mg tablet 10 mg PO QPM pioglitazone 15 mg tablet 15 mg PO DAILY Print Language: Bulgarian Instructions: Asthma (ED), COPD (Chronic Obstructive Pulmonary Disease) (ED) Additional Instructions: Follow up with your family DR and return to ER for any problems or concerns Referrals: Bailee Bhakta NP [Primary Care Provider, Family Practice] - 1 week Discharge Date/Time: 06/13/25 12:57
== END 2025-06-13 12:57 | disposition home or self-care (01) ==
PROVIDERS: Emergency Provider Student in an Organized Health Care Education/Training Program; PCP Nurse Practitioner
DX: J44.1 Chronic obstructive pulmonary disease with (acute) exacerbation (principal); R06.02 Shortness of breath
CPT/HCPCS: 36415; 71046; 80048; 83880; 84132; 84484; 85025; 93005; 94640; 96365; 96375; 99285; J2919; J3475

== ENCOUNTER 2025-06-29 10:14 | Outpatient (OUT) | payer MEDICARE, SELFPAY ==
--- OUTSIDE RECORDS SUMMARY | 2025-06-29 04:55 | XMS_ITS | Continuity of Care Document ---
Author Organization [facility] Address [address] [place] [address] Phone Care Team Providers Care Blow Torch Operator Name Role Phone Spike Patton DO Attending Provider Bailee Bhakta NP-C Primary Care Provider Bailee Bhakta NP-C Attending Provider Care Teams Patient Care Team Team Status: Active Member Role/Relationship Status Dates Bailee Bhakta NP-C Primary Care Provider Active Patient Care Team Team Status: Active Member Role/Relationship Status Dates Spike Patton DO Attending Provider Active Sta rt: June 13, 2025 Patient Care Team Team Status: Inactive Member Role/Relationship Status Dates Bailee Bhakta NP-Jarod Primary Care Provider Active Start: June 29, 2025 End: June 29, 2025Bailee Bhakta NP-CAttending ProviderActiveStart: June 29, 2025 End: June 29, 2025 Chief Complaint and Reason for Visit Chief Complaint Admit Date 3M June 29, 2025 9:06am Reason for Visit Admit Date Asthma-COPD overlap syndrome June 292024 9:06am CKD (chronic kidney disease) stage 4, GF R 15-29 ml/min June 29, 2025 9:06am Essential hypertension June 29 9:06am Hyperkalemia June 29, 2025 9:06am Lower extremity edema June 29 9:06am Mixed hyperlipidemia November 24th, 2025 9:06am Obesity due to excess calories June 29, 2025 9:06am Type 2 diabetes mellitus wit h diabetic neuropathy, without long-term curren June 29, 2025 9:06am Allergies, Adverse Reactions, Alerts Allergen Type Severity Reaction Last Updated Verified Status clarithromycin Allergy Unknown Unknown Reaction Novcassandra mber 2024 6:09am Yes Active diclofenac Allergy Unknown Unknown Reaction June 29, 2025 6:09am Yes Active fluticasone furoate Allergy Unknown Headache Novem 2024 6:09am Yes Active metformin Allergy Unknown Unknown Reaction June 29, 2025 6:09am Yes Active vilanterol Allergy Unknown Headache June 29, 2025 6:09am Yes Active Social History Smoking Status Unknown if ever smoked Observation Status Observation Response Date of Response Legal Sex Female (finding) [facility] Problems Active Problems Problem Diagnosis/Recorded Date Onset Date Stat us Encounter for subsequent [facility] (AWV) in Medicare patient June 29, 2025 6:12am Unknown A ctive Lower extremity edema June 29, 2025 6:10am Unkno wn Active Insomnia June 29, 2025 6:10am Unknown A ctive PRETTY (obstructive sleep apnea) June 29, 2025 6:10 am Unknown Active CKD (chronic kidney disease) stage 4, GFR 15-29 ml/min June 29, 2025 6:10am Unknown Active Tricuspid regurgitation June 29, 2025 6:12am Unk nown Active Pulmonary hypertension June 29, 2025 6:11am Unkn own Active Memory impairment of gradual onset June 29, 2025 6:12am Unknown Active Mixed hyperlipidemia June 29, 2025 6:11am Unknow n Active Osteoarthritis June 29, 2025 6:10am Unknown Active Essential hypertension June 29, 2025 6:10am Unkn own Active Asthma-COPD overlap syndrome May 11, 2025 4:51pm Unknown Active Type 2 diabetes mellitus wit h diabetic neuropathy, without long-term current use of insulin June 29, 2025 6:11am Unknown Active LUNA (iron deficiency anemia) June 29, 2025 6:11a m Unknown Active Vitamin D deficiency June 29, 2025 6:11am Unknow n Active Hyperkalemia June 29, 2025 9:44am Unknown A ctive Obesity due to excess calories June 29, 2025 6:1 2am Unknown Active Medications Medication Status Dose Units Route Directions Qty Days Refills S tart Date Stop Date End Date Reason(s) Instructions Adherence Albuterol Sulfate 90 mcg/actuation HFA aerosol inhaler Discontinued 2 PUFF INHALATION EVERY 4-6 HOURS as needed for shortness of breath or wheezing 8.5 0[facility] 2024 [facility] 3:10pmAsthma-chronic obstructive pulmonary disease overlap syndrome Other specified chronic obstructive pulmonary diseaseAlbuterol Sulfate 90 mcg/actuation HFA aerosol figzkdzEvfjmlymqujg3VQRONTXICASGAOULGLB 4-6 HOURS as needed for shortness of breath or wheezing8.51Nov2024 3:10pm[facility]20[facility] 3:43pmAsthma-chronic obstructive pulmonary disease overlap syndrome Other specified chronic obstructive pulmonary diseaseAlbuterol Sulfate 90 mcg/actuation HFA aerosol lorowcfEmrbdr5PHBORBOPNVZUHJVpky times daily as needed for shortness of breath or wheezing8.51June 09, 2025 12:00amAsthma-chronic obstructive pulmonary disease overlap syndrome Other specified chronic obstructive pulmonary diseaseComplies with drug therapy Pioglitazone 15 mg klytpdRwllvd10AEUXLvuetNdmwckfx 21st, 2025 12:00amComplies with drug therapyIpratropium-Albuterol 0.5 mg-3 mg(2.5 mg base)/3 mL solution for qxwbqfkynvjfJykhvd5ALNDMMCIJMGEYaed times daily as neededNorth [facility]2024 12:00amComplies with drug therapyFerrous Sulfate 325 mg (65 mg iron) tablet Kithog592SRCOIstsq dailyNorth [facility]2024 12:00amComplies with drug therapy Lisinopril 30 mg mmxwdeGbjhzd97YUGFNztojLduuhvrf 21st, 2025 12:00amComplies with drug therapyGabapentin 300 mg whovzqlEmwufd074TONYJjjap at bedtimeNorth [facility]2024 12:00amComplies with drug therapyMontelukast 10 mg ididlyUtklnx67IKSFKcwvc at bedtimeNorth [facility]2024 12:00amComplies with drug therapyFurosemide 20 mg wfwbhnRjyjin39BWZHXxhydAkncbghp 2024 12:00amComplies with drug therapy Hydroxyzine Hcl 10 mg belxcrQtzsya65ZHWBQvigt at bedtime as neededJune 26, 2025 12:00amComplies with drug sshivouTfvytmvytdl-Tipbxdrae-Refjxhoi (Trelegy Ellipta) 100-62.5-25 mcg blister with wfkmstPymaxk8LJMEJUFYQAODXRceemZtdukqur 21st, 2025 12:00amComplies with drug therapy Relevant Diagnostic Tests and/or Laboratory Data Laboratory Results Test Collection Date/Time Result Date/Time Result Interpretation Reference Range Result Comment Performing Site B-Type Natriuretic Peptide June 13, 2025 10:55am June 13, 2025 10:55am 746.0 pg/mL <=1800.0Troponin I High SensitivityJune 13, 2025 10:55amNove2024 10:55am9.1 pg/mL4.0-51.3CUT-OFF POINTS HAVE BEEN ESTABLISHED BASED ON THE FOURTHUNIVERSAL DEFINITION OF MYOCARDIAL INFARCTION. THE UPPERREFERENCE LIMIT (URL) OF TROPONIN, DEFINED THE 99THPERCENTILE OF cTnI DISTRIBUTION IN A REFERENCE POPULATION,HAS BEEN CONFIRMED THE DECISION THRESHOLD FOR MIDIAGNOSIS.99TH PERCENTILE = 51.4 PG/MLNOTE: HIGH-SENSITIVITY TROPONIN ASSAY IS NOT INTENDED TO BEUSED IN ISOLATION BUT SHOULD BE INTERPRETED IN CONJUNCTIONWITH OTHER DIAGNOSTIC AND CLINICAL INFORMATION.Anion GapJune 13, 2025 10:55am June 13, 2025 10:55am11.0Basophils # (Auto)June 13, 2025 11:18am June 13, 2025 11:18am0.1 10 3/uL0.0-0.1Potassium LevelJune 13, 2025 12:06pmJune 13, 2025 12:06pm5.6 mmol/LAbove high normal3.5-5.1 BUN/Creatinine RatioNove2024 10:55amNovemb2024 10:55am15.0 Basophils (%) (Auto)June 13, 2025 11:18amNove2024 11:18am0.9 % 0.2-2.0Blood Urea NitrogenJune 13, 2025 10:55amNove2024 10:55am 25.0 mg/dLAbove high normal7.0-18.0Eosinophils # (Auto)June 13, 2025 11:18amNovember 2024 11:18am0.1 10 3/uL0.0-0.7Calcium LevelNovember 2024 10:55amNovember 2024 10:55am8.9 mg/dL8.5-10.1Eosinophils (%) (Auto) June 13, 2025 11:18amNovember 2024 11:18am1.7 %0.9-7.0Chloride Level June 13, 2025 10:55amNovemb2024 10:59ri226 mmol/J64-231Cpqkugpsjn June 13, 2025 11:18amNovemb2024 11:18am33.7 %Below low normal 36.0-48.0Carbon Dioxide LevelNovember 2024 10:55amNovemb2024 10:55am26.0 mmol/L21.0-32.0HemoglobinNovember 2024 11:18amNovemb2024 11:18am10.8 g/dLBelow low slykza11.0-16.0CreatinineNovember 2024 10:55amNovember 2024 10:55am1.67 mg/dLAbove high normal0.55-1.02Immature Granulocyte # (Auto)June 13, 2025 11:18amNovemb2024 11:18am0.02 10 3/uL0.00-0.03Estimated GFR ()June 13, 2025 10:55amNovemb2024 10:65ii89Ocmvq low normal>=60 mL/min/1.73m 2Immature Granulocyte % (Auto)June 13, 2025 11:18amNovemb2024 11:18am0.3 %0.0-0.5Estimated GFR (Non- AmericanNov2024 10:55amNovemb2024 10:55am29 Below low normal>=60 mL/min/1.73m 2Lymphocytes # (Auto)June 13, 2025 11:18amNovemb2024 11:18am0.8 10 3/uLBelow low normal1.2-3.8Glucose Level June 13, 2025 10:55amNovember 2024 10:68nm142 mg/dLAbove high normal 74-106Lymphocytes (%) (Auto)June 13, 2025 11:18amNovember 2024 11:18am 12.5 %Below low evocvk53.5-60.0Mean Corpuscular HemoglobinNov2024 11:18amNovember 2024 11:18am28.6 pg26.7-34.0Sodium LevelJune 13, 2025 10:55amNovember 2024 10:68nt735 mmol/LBelow low -435Xnjs Corpuscular Hemoglobin ConcentNov2024 11:18amNovemb2024 11:18am32.0 g/dL29.9-35.2Mean Corpuscular VolumeJune 13, 2025 11:18am June 13, 2025 11:18am89.2 fL81.0-99.0Monocytes # (Auto)June 13, 2025 11:18amNovember 2024 11:18am0.6 10 3/uL0.3-0.8Monocytes (%) (Auto)June 13, 2025 11:18amNovember 2024 11:18am8.4 %1.7-12.0Mean Platelet Volume June 13, 2025 11:18amNovember 2024 11:18am10.2 fL9.5-13.5Neutrophils # (Auto)June 13, 2025 11:18amNovember 2024 11:18am5.0 10 3/uL1.4-6.5 Neutrophils (%) (Auto)June 13, 2025 11:18amNovemb2024 11:18am76.2 % Above high vzciuk63.0-75.0Platelet CountJune 13, 2025 11:18amNovember 2024 11:90bp756 10 3/zU265-811Fny Blood CountNov2024 11:18amNove2024 11:18am3.78 10 6/uLBelow low normal4.20-5.40Red Cell Distribution WidthJune 13, 2025 11:18amNove2024 11:18am12.8 %11.0-15.0 Corrected White Blood CountJune 13, 2025 11:18amNove2024 11:18am 6.6 10 3/uL4.0-11.0 Vital Signs Vital Reading Result Reference Range Collection Date/Time Height 64 [in_i] June 29, 2025 9:81gcSutydn33.90 kgJune 29, 2025 9:11amBody Fjnugjvjcra94.1 [degF]97.6-99.0June 29, 2025 9:11amHeart Rate92 /igg24-455 June 29, 2025 9:11amRespiratory rate18 /dti08-84JzvpjkpzJune 29, 2025 9:11am Oxygen saturation by Pulse thlxbuas28 %95-100June 29, 2025 9:11amBP Nctyveqi645 mm[Hg]100-140June 29, 2025 9:11amBP Rtvkevkyn91 mm[Hg]60-100 June 29, 2025 9:11amBMI (Body Mass Index)37.8 kg/n1NkanngasJune 29, 2025 9:11am Advance Directives Advance Directive Response Recorded Date/ Time Advance Directives No April 4:47pm Insurance Providers Guarantor Gina West Address [address] [facility] [address]Hzythgd Info.Home Phone: Coverage Status Update:2025 Payer Group Member ID Coverage Type Subscriber Relationship to Subscriber Effective Date Expiration Date [employer] Medicare Advantage PFFS [id number] E Chapman Id: [id number] [address] [facility] [address] Home Phone: Email: [email or web address] Encounters Encounter Location(s) Arrival/Admit Date Discharge/Departure Date Discharge/Departure Disposition Provider(s) Non-patient / Non-visit -[facility] N ov2024 11:18am Alicia Santillan DODeparted Physician/Provider Office Visit-[facility] Family Medicine [facility] 2024 9:06amNovember 2024 9:47amDischarged to home care or self care (routine discharge)Bailee Bhakta , VENEER CLIPPER-C Recent Diagnosis Onset Date Admit Date Asthma-COPD overlap syndrome Unknown Jun 9:06am CKD (chronic kidney disease) stage 4, GFR 15-29 ml/min Unknown June 29, 2025 9:06am Essential hypertension Unknown June 29, 2025 9:06am Hyperkalemia Unknown June 29, 9:06am Lower extremity edema Unknown June 072024 9:06am Mixed hyperlipidemia Unknown June 292024 9:06am Obesity due to excess calories Unknown N ov2024 9:06am Type 2 diabetes mellitus wit h diabetic neuropathy, without long-term curren Unknown June 29 9:06am Assessments Diagnosis Onset Date Resolution Status Admit Date Asthma-COPD overlap syndrome acuteNov2024 9:06amCKD (chronic kidney disease) stage 4, GFR 15-29 ml/minacuteJune 29, 2025 9:06amEssential hypertensionacuteJune 29, 2025 9:06amHyperkalemiaacuteJune 29, 2025 9:06amLower extremity edemaacute June 29, 2025 9:06amMixed hyperlipidemiaacuteJune 29, 2025 9:06am Obesity due to excess caloriesacuteJune 29, 2025 9:06amType 2 diabetes mellitus with diabetic neuropathy, without long-term currenacuteNovember 2024 9:06am Plan of Treatment Author [facility]akta [facility] centerJune 29, 2025 6:17amcurrent meds: trelegy, and duoneb prn, albuterol prn recommend keeping UTD on immunizations: flu, pneumonia, covid, RSV Please check blood pressure daily and record DASH diet Limit caffeine Take medication as directed Contact office if chest pain, pressures, dizziness, shortness of breath, swelling in the legs Recommend slow position changes if you develop dizziness with position changes current meds: lisinopril control DM, HTN it has been discussed for several years that pt does not want to due dialysis when time would come, does not want to see nephrology either avoid nephrotoxic drugs if possible on lasix check labs yearly and prn recommend compression stockings as well as limit sodium , and elevated legs if possible Check blood sugars daily, notify the office if <70 or > 200. Take medications (pills or insulin) as directed. Monitor for s/s of low blood sugar (sweaty, dizziness, nausea, vomiting, or shakiness). Watch for increase thirst, urination, and appetite as these can be signs of high blood sugar. Inspect your feet frequently monitor for open wounds, wear proper fitting shoes as well. Pt should attempt to remain as physical active as chronic conditions allow, as well as trying to follow a diet lower in carbohydrates, and simple sugars. current meds: pioglitzaone, kathrin a1c: not on statin recommend diet low if fat and processed foods Discussed with patient their BMI (actual vs recommended). We have discussed lifestyle modifications: attempts to perform phsyical activity as chronic conditions allow, monitor dietary intake: increasing protein/fruits/veggies and lowering carb intake (unless contraindicated). Limit sodas, juices, sugary drinks, as well as alcohol consumption. Future Tests Future scheduled test information is unavailable Pending Tests Pending diagnostic test information is unavailable Future Visits Future appointment information is unavailable Future Procedures Procedure Name Ordered Date Scheduled Date Potassium June 29, 2025 9:44am Future Medications Future medication information is unavailable Patient Instructions Patient instructions are unavailable
--- OUTSIDE RECORDS SUMMARY | 2025-06-29 10:18 | XMS_ITS | Clinical Summary ---
Author Organization [facility] Address [address] [place] [address] Care Team Providers Care Shredder Tender Peat Name Role Phone Bailee Bhakta HEAD OF SCIENCE Unavailable [phone] Krishna Headley MD Primary Care Provider [phone] Bailee Bhakta HEAD OF SCIENCE Unavailable [phone] Allergies Active AllergyReactionsCriticalityNoted DateCommentsFluticasone Furoate-XbeeqvhdwgWsdxsuxc76/12/8749Bnzzpxkxqqaosu02/12/2605Flrwjnjvok26/12/2024 Ifjnaiwpx97/12/2024 Medications MedicationSigDispense QuantityRefillsLast FilledStart DateEnd DateStatus ipratropium-albuterol [...] by mouth at bedtime 90 capsule 5Active Etapveapqbf-Qqncplhjr-Pnrcuh (Trelegy Ellipta) 100-62.5-25 MCG/ACT aerosol powder Indications:Asthma-COPD overlap syndrome (HCC)Inhale 1 puff Daily Rinse mouth after use. 60 each 505Active ferrous sulfate (FeroSul) 325 (65 Fe) MG tablet Indications:Chronic kidney disease, stage 3 unspecified (CMS-HCC)Take 1 tablet (325 mg) by mouth in the morning. Take with meals. 90 tablet Expired Active Problems ProblemNoted DateDiagnosed DateGradual-onset memory eygdnoajzz65/27/2025 Assessment & Plan (12/30/2024 12:54 PM EDT): [...] PRETTY PAP use: does not wear PAP Wkkpysca94/14/5428Plpazrrdmzmawn58/14/2024Lower extremity edema09/19/2023 Assessment & Plan (12/30/2024 6:31 [...] (09/19/2023 9:56 AM EST): stable Vitamin D mffiprfmpb99/14/2024 Assessment & Plan (12/30/2024 6:33 AM EDT): Check labs Type 2 diabetes with qxkzbefgvgam21/14/2024 Assessment & Plan (03/30/2025 6:36 AM EDT): [...] (12/25/2023 11:42 AM EDT): Check a1c Diabetic catinhzyszq12/14/2024 Assessment & Plan (12/30/2024 6:32 AM EDT): Continue with annual eye exams Tight glucose control as well Assessment & Plan (06/26/2024 6:32 AM EST): Continue with annual eye exams Tight glucose control as well Iron deficiency ttteea7109/19/2023 Assessment & Plan (03/30/2025 12:01 PM EDT): Check labs yearly and prn changes in sxs Lower dose of ferrous sulfate from BID to daily Assessment & Plan (12/30/2024 6:34 AM EDT): Check labs yearly and prn changes in sxs Skin lesion of face09/19/2023 Overview (09/19/2023): as of 04/03/23 pt is refusing to see dermatology for this skin lesion on nose Kyiwngngpsuy22/14/2024HLD (hyperlipidemia)09/19/2023H/O squamous cell carcinoma ekxkrrin50/14/2024 Overview (09/19/2023): nasal Pulmonary fdltqnlekcei82/14/2024 Assessment & Plan (12/30/2024 6:30 AM EDT): Per ECHO findings Assessment & Plan (06/26/2024 6:29 AM EST): Per ECHO findings Type 2 diabetes mellitus with diabetic neuropathy, without long-term current use of qlxglao2709/19/2023 Assessment & Plan (03/30/2025 6:34 AM EDT): [...] foot checks No changes in meds Tricuspid feyjrehfwtfcw88/14/2024 Assessment & Plan (12/30/2024 6:30 AM EDT): Per ECHO findings Murmur present Continue to monitor Prior discussions with daughter and patient does not want any surgical intervention for this Assessment & Plan (06/26/2024 6:28 AM EST): Per ECHO findings Murmur present Continue to monitor Prior discussions with daughter and patient does not want any surgical intervention for this BMI 34.0-34.9,adult09/19/2023Stage 4 chronic kidney fbyegcv3608/17/2023 Assessment & Plan (03/30/2025 6:35 AM EDT): [...] dialysis if gets to that Asthma-COPD overlap sihckefj17/12/2024 Assessment & Plan (03/30/2025 12:00 PM EDT): [...] EST): Does well with Trelegy inhaler, and lainey Has duoneb if needed and albuterol, minimal use Trelegy 100, lot [id number], exp 08/31 #2 samples Assessment & Plan (12/25/2023 11:42 AM EDT): Stable on current meds, no changes #2 trelegy samples Lot [id number], exp 03/2025 Doing well on current meds Assessment & Plan (09/19/2023 9:32 AM EST): Stable on current meds, no changes Essential (primary) qgyeiicishaz89/03/2024 Assessment & Plan (03/30/2025 6:35 AM EDT): [...] 09/19/2023Memory loss/Moderate persistent asthma in adult without eyhryjuibyvd69Severe persistent asthma, uncomplicated /olyneuropathy, pqtkntxleww51 Assessment & Plan (09/19/2023 9:54 AM EST): Stable, only taking 1 gabapentin at HS Type 2 diabetes mellitus with diabetic neuropathy, /03/2024 06/26/2024 Encounters DateTypeDepartmentCare VojuDytxvqzyjdz73/25/2025 10:30 AM EDTOffice Visit [facility] [address] [address] Bailee Bhakta NP Stage 4 chronic kidney disease (HCC) (Primary Dx); Type 2 diabetes mellitus with diabetic neuropathy, without long-term current use of insulin (HCC); Asthma-COPD overlap syndrome (HCC); Essential (primary) hypertension ; Type 2 diabetes with complication (HCC); Insomnia, unspecified type; Polyneuropathy, unspecified; Chronic kidney disease, stage 3 unspecified ([facility]-HCC); BMI 34.0-34.9,adult; Iron deficiency anemia, unspecified iron deficiency anemia type03/30/2025amboo flowsheet [facility] [address] [place] [address] Bailee Bhakta NP from Last 3 Months Immunizations ImmunizationAdministration DatesNext DueInfluenza Whole12/08/2011Influenza, High Dose Seasonal, Preservative Free06/11/2024,04/29/2018,04/12/2017,05/16/2016, 04/17/2014,07/15/2013Influenza, High-dose Seasonal, Quadrivalent, Preservative Free08/11/2023,05/30/2022,05/16/2021neumococcal Conjugate PCV 131 Pneumococcal Polysaccharide XZZA1434Tdap12/08/2011Zoster, live08/06/2013 Family History Medical HistoryRelationNameCommentsHeart attackFatherDiabetesMotherHypertension MotherRelationNameStatusCommentsFatherDeceasedMother Social History Tobacco UseTypesPacks/DayYears UsedDateSmoking Tobacco: NeverSmokeless Tobacco: Never Tobacco Cessation:Counseling Given: Not Answered Alcohol UseStandard Drinks/WeekCommentsNot Currently0 (1 standard drink = 0.6 oz pure alcohol)caffeine more than 4 cups per qaoL8824 Health LiteracyAnswerDate RecordedHow often do you need to have someone help you when you read instructions, pamphlets, or other written material from your doctor or pharmacy? Imsjgogcc49/20/2024Social Connection and Isolation PanelAnswerDate RecordedIn a typical week, how many times do you talk on the phone with family, friends, or neighbors?More than three times a week06/25/2024How often do you get together with friends or relatives?More than three times a week06/25/2024How often do you attend sikh or alevism services?More than 4 times per year06/25/2024o you belong to any clubs or organizations such as sikh groups, unions, fraternal or athletic groups, or [...] at all 06/25/2024HQ-2AnswerDate RecordedPatient Health Questionnaire-2 Score0 12/30/2024[facility] [place] [facility] - Occupational Stress QuestionnaireAnswerDate [...] were you homeless or living in a senior care (including now)? No06/25/2024CommentsUnknownSex and Gender InformationValueDate Recorded Sex Assigned at BirthNot on fileLegal DboIavuas12/15/2023 6:49 PM EDTGender IdentityNot on fileSexual OrientationNot on file Last Filed Vital Signs Vital SignReadingTime TakenCommentsBlood Bnrurpvv600/6808 10:42 AM EDT Gnmae560603/30/2025 10:42 AM PCIYkgwufmoepf64.7 ??C (98.1 ??F)03/30/2025 10:42 AM EDTRespiratory Cdyx580012/30/2024 10:12 AM EDTOxygen Zhyqohmktk12%03/30/2025 10:42 AM EDTInhaled Oxygen Concentration--Vajefy780 kg (225 lb)03/30/2025 10:42 AM EDT Qtfrke340.7 cm (5' 8 )06/26/2024 8:35 AM ESTBody Mass Index34.21108/26/2023 8:35 AM EST Plan of Treatment Health MaintenanceDue DateLast DoneCommentsDiabetes: Urine Protein Screening 5008/16/2023iabetes: Retinopathy Zgyxcbjyd83OVID-19 Vaccine ( season)/, 09/15/2020, 08/25/2020 Influenza Vaccine (#1)/01/2024, 08/11/2023, 05/30/2022, Additional history existsDiabetes: Hemoglobin A1C/, 04/25/2024, 08/16/2023Medicare Annual Wellness (AWV)/, 12/30/2024, 12/25/2023, Additional history existsPneumococcal Vaccine: 65+ YearsCompleted 05/16/2021, 12/08/2011 Procedures Procedure NamePriorityDate/TimeAssociated DiagnosisCommentsPOCT GLYCOSYLATED HEMOGLOBIN (HGB A1C)Nrbvcxd5712/30/2024 10:44 AM EDT Type 2 diabetes with complication (HCC) from Last 3 Months or Most Recently Relevant to Health Maintenance Results * POCT glycosylated hemoglobin (Hb A1C) docked device (12/30/2024 10:44 AM EDT) ComponentValueRef RangeTest MethodAnalysis TimePerformed AtPathologist SignatureHemoglobin A1C5.8Specimen (Source)Anatomical Location / Laterality Collection Method / VolumeCollection TimeReceived TimeBloodVenous blood specimen / Jtmdqmg2012/30/2024 10:44 AM EDT Narrative Authorizing ProviderResult TypeResult StatusLisa Meenucheyenne NPPOINT OF CARE TEST ENTER/EDIT ORDERABLESFinal Result from Last 3 Months or Most Recently Relevant to Health Maintenance Insurance Care Teams Team MemberRelationshipSpecialtyStart DateEnd Date Krishna Headley MD PCP - [facility]09/14/23 Bailee Bhakta NP [address] [place] [address] PCP - [facility] Bailee Bhakta NP Referring PhysicianNurse Practitioner02/21/23
--- OUTSIDE RECORDS SUMMARY | 2025-06-29 10:39 | XMS_ITS | CCD ---
Author Organization [facility] Care Team Providers Care Handle Rounder Operator Name Role Phone PHYSICIAN, DEFAULT Unavailable Unavailable PHYSICIAN, DEFAULT Unavailable Unavailable AMBURN, JOSE CARLOS Unavailable Unavailable AICHHOLZ, WEB CONTENT EXECUTIVE BAILEE Consulting Unavailable AICHHOLZ, WEB CONTENT EXECUTIVE BAILEE Primary Care Unavailable AICHHOLZ, WEB CONTENT EXECUTIVE BAILEE Admitting Unavailable AICHHOLZ, WEB CONTENT EXECUTIVE BAILEE Attending Unavailable AICHHOLZ, WEB CONTENT EXECUTIVE BAILEE Consulting Unavailable AICHHOLZ, WEB CONTENT EXECUTIVE BAILEE Primary Care Unavailable AICHHOLZ, WEB CONTENT EXECUTIVE BAILEE Admitting Unavailable AICHHOLZ, WEB CONTENT EXECUTIVE BAILEE Attending Unavailable AICHHOLZ, WEB CONTENT EXECUTIVE BAILEE Consulting Unavailable AICHHOLZ, WEB CONTENT EXECUTIVE BAILEE Primary Care Unavailable AICHHOLZ, WEB CONTENT EXECUTIVE BAILEE Admitting Unavailable AICHHOLZ, WEB CONTENT EXECUTIVE BAILEE Attending Unavailable Aichholz ELECTRICAL TECHNICIAN INSTRUCTOR, Bailee Unavailable Krishna Headley MD Primary Care Provider Aichholz ELECTRICAL TECHNICIAN INSTRUCTOR, Bailee Unavailable Aichholz ELECTRICAL TECHNICIAN INSTRUCTOR, Bailee Unavailable AICHHOLZ, BAILEE Attending Unavailable AICHHOLZ, BAILEE Attending Unavailable AICHHOLZ, BAILEE Attending Unavailable Allergies Allergy ClassificationReported Allergen(s)Allergy TypeDate of OnsetReaction(s) Facility (1 source)Misc-Other; Translations: [Misc-Other]Propensity to adverse reactions (disorder)20-46-1581Fqa [facility] Repository (20 sources)ClarithromycinPropensity to adverse nxyjmhmpu67-15-0971[facility] (20 sources)DiclofenacDrug Swbribt17-73-7214XUR[facility] (20 sources)metFORMINDrug Xssklnc59-26-5350PXGY [facility] (20 sources)Fluticasone Furoate-VilanterolPropensity to adverse reactions 15-98-5504FhqovkxgMHLZCarolina Pines Regional [facility] Center Work Phone: Medications Current Medications MedicationDrug Class(es)DatesSig (Normalized)Sig (Original)[id number] 200 actuat albuterol 0.09 mg/actuat metered dose inhaler (16 sources)beta2-Adrenergic AgonistStart: 06-26-2024 End: 43-33-6128jgjr 2 puff(s) by inhalation every six hours [...] Inhibitor, Nonsteroidal Anti-inflammatory Drug Start: 06-26-2024 End: 84-81-6592mwpe 1 tablet by mouth once dailyaspirin 81 MG EC tablet Indications: Type 2 diabetes mellitus with diabetic neuropathy, without long- term current use of insulin ([facility]) , Essential (primary) hypertension ([facility]) Take 1 tablet (81 mg) by mouth Daily 90 tablet 1 06/26/2024 09/24/2024 Activetake 1 tablet by mouth in the morningaspirin 81 MG EC tablet Take 1 tablet by mouth in the morning. 0 Activeferrous sulfate 325 mg oral tablet (20 sources)Start: 11-07-2024 End: 31-83-8511zbux 1 tablet by mouth at mealtimeferrous sulfate (FeroSul) 325 (65 Fe) MG tablet Indications: Chronic kidney disease, stage 3 unspecified ([facility]) Take 1 tablet (325 mg) by mouth in the morning. Take with meals. 90 tablet 1 03/30/2025 06/28/2025 ActiveStart: 05-05-2024 End: 53-73-6147jlek 1 tablet by mouth in the morningferrous sulfate (FeroSul) 325 (65 Fe) MG tablet Indications: Chronic kidney disease, stage 3 unspecified (HCC) (CMS/HCC) Take 1 tablet (325 mg) by mouth in the morning and 1 tablet (325 mg) in the evening. Take with meals. 180 tablet 1 07/24/2024 10/22/2024 Active Start: 08-08-2023 End: 54-61-9708wsul 1 tablet by mouth in the morningferrous sulfate (FeroSul) 325 (65 Fe) MG tablet Indications: Chronic kidney disease, stage 3 unspecified (HCC) (CMS/HCC) Take 1 tablet (325 mg) by mouth in the morning and 1 tablet (325 mg) before bedtime. 180 tablet 1 08/08/2023 11/06/2023 Hwwzcd30 actuat fluticasone furoate 0.1 mg/actuat / umeclidinium 0.0625 mg/actuat / vilanterol 0.025 mg/actuat dry powder inhaler (20 sources)Anticholinergic, Corticosteroid, beta2-Adrenergic AgonistStart: 06-26-2024 End: 68-27-4881ttvc 1 puff(s) by mouth once itayjEyrsntyjtsh-Gmysaqfwp-Zlrlcc (Trelegy Ellipta) 100-62.5-25 MCG/ACT aerosol powder Indications: Asthma-COPD overlap syndrome (HCC) Inhale 1 puff Daily Rinse mouth after use. 60 each 5 03/30/2025 04/29/2025 ActiveStart: 06-04-2023 End: 60-50-8485ckbe 1 puff(s) by mouth in the morningTrelegy Ellipta 100-62.5-25 MCG/ACT aerosol powder Inhale 1 puff in the morning. Rinse mouth after use.. 06/04/2023 06/26/2024 Discontinued (Reorder)furosemide 20 mg oral tablet (20 sources)Loop DiureticStart: 01-26-2025 End: 06-96-6664hxyc 1 tablet by mouth once dailyfurosemide (Lasix) 20 MG tablet Indications: Lower extremity edema Take 1 tablet (20 mg) by mouth Daily 90 tablet 1 01/26/2025 04/26/2025 ActiveStart: 11-08-2023 End: 40-09-1113wutw 1 tablet by mouth once dailyfurosemide (Lasix) 20 MG tablet Indications: Lower extremity edema Take 1 tablet (20 mg) by mouth Daily 90 tablet 1 07/24/2024 ActiveStart: 59-43-2162zfcx 1 tablet by mouth in the morning furosemide (Lasix) 20 MG tablet Take 1 tablet by mouth in the morning. 0 08/08/2023 Activegabapentin 300 mg oral capsule (20 sources)Anti-epileptic AgentStart: 11-04-2024 End: 24-17-4972ouen 1 capsule by mouth at bedtimegabapentin (Neurontin) 300 MG capsule Indications: Polyneuropathy, unspecified Take 1 capsule (300 mg) by mouth at bedtime 90 capsule 1 03/30/2025 06/28/2025 ActiveStart: 11-08-2023 End: 66-24-3510dejz 1 capsule by mouth at bedtimegabapentin (Neurontin) 300 MG capsule Indications: Polyneuropathy, unspecified Take 1 capsule (300 mg) by mouth at bedtime 90 capsule 1 04/25/2024 ActiveStart: 08-08-2023 End: 21-49-9924hegy 2 capsules by mouth at bedtimegabapentin (Neurontin) 300 MG capsule Indications: Polyneuropathy, unspecified Take 2 capsules (600mg) by mouth at bedtime 180 capsule 1 08/08/2023 11/06/2023 ActivehydrOXYzine hydrochloride 10 mg oral tablet (20 sources)AntihistamineStart: 11-08-2023 End: 32-74-5965bsoeIINbizg HCl (Atarax) 10 MG tablet Indications: Insomnia, unspecified type Take 1 tablet (10 mg)by mouth as needed at bedtime for anxiety or itching 90 tablet 1 03/30/2025 06/28/2025 Activetake 1 tablet by mouth at bedtimehydrOXYzine HCl (Atarax) 10 MG tablet Take 1 tablet by mouth at bedtime 0 Activelisinopril 30 mg oral tablet (20 sources)Angiotensin Converting Enzyme InhibitorStart: 01-26-2025 End: 17-37-6646fixl 1 tablet by mouth once dailylisinopril 30 MG tablet Indications: Essential (primary) hypertension Take 1 tablet (30 mg) by mouth Daily 90 tablet 1 01/26/2025 04/26/2025 ActiveStart: 11-08-2023 End: 95-43-9310nqio 1 tablet by mouth once dailylisinopril 30 MG tablet Indications: Essential (primary) hypertension (CMS/HCC) Take 1 tablet (30 mg) by mouth Daily 90 tablet 1 07/24/2024 ActiveStart: 08-08-2023 End: 77-29-9239jcpq 1 tablet by mouth in the morninglisinopril 30 MG tablet Indications: Essential (primary) hypertension (CMS/HCC) Take 1 tablet (30 mg) by mouth in the morning. 90 tablet 1 08/08/2023 11/06/2023 Activemontelukast 10 mg oral tablet (20 sources)Leukotriene Receptor AntagonistStart: 01-26-2025 End: 18-83-9228xgej 1 tablet by mouth at bedtimemontelukast (Singulair) 10 MG tablet Indications: Severe persistent asthma, uncomplicated (HCC) Take 1 tablet (10 mg) by mouth at bedtime 90 tablet 1 01/26/2025 04/26/2025 ActiveStart: 11-08-2023 End: 48-89-8966yllf 1 tablet by mouth at bedtimemontelukast (Singulair) 10 MG tablet Indications: Severe persistent asthma, uncomplicated (CMS/HCC)Take 1 tablet (10 mg) by mouth at bedtime 90 tablet 1 07/24/2024 ActiveStart: 08-08-2023 End: 81-50-4892ddkb 1 tablet by mouth at bedtimemontelukast (Singulair) 10 MG tablet Indications: Severe persistent asthma, uncomplicated (CMS/HCC)Take 1 tablet (10 mg) by mouth at bedtime 90 tablet 1 08/08/2023 11/06/2023 Active pioglitazone 15 mg oral tablet (20 sources)Peroxisome Proliferator Receptor alpha Agonist, Peroxisome Proliferator Receptor gamma Agonist, ThiazolidinedioneStart: 11-08-2023 End: 28-36-8056begt 1 tablet by mouth once dailypioglitazone (Actos) 15 MG tablet Indications: Type 2 diabetes mellitus with diabetic neuropathy, un specified (HCC) Take 1 tablet (15 mg) by mouth Daily 90 tablet 1 02/18/2025 05/19/2025 ActiveStart: 08-08-2023 End: 13-53-5945dlci 1 tablet by mouth in the morningpioglitazone [...] Translations: [Severe persistent asthma, uncomplicated]Onset: 08-08-2023 Resolved: 084584-73-1772MraggunOzwoeel kidney disease (20 sources)Chronic kidney disease stage 4; Translations: [Chronic kidney disease, stage 4 (severe)]Onset: 354023-49-1377OjveryaUwaeiwxvkr and other anemia (20 sources)Iron deficiency anemia; Translations: [Iron deficiency anemia, unspecified]Onset: 587901-31-4915ItoqavwyWkspbvcw mellitus with complications (20 sources)Type 2 diabetes mellitus with diabetic chronic kidney disease; Translations: [Neuropathy due to type 2 diabetes mellitus]Onset: 10-17-2022 Resolved: 23-03-3331OphfjeqJzhhoowzf of lipid metabolism (20 sources)Hyperlipidemia; Translations: [Hyperlipidemia, unspecified]Onset: 748652-19-2546KewzynyGnpagbbiw hypertension (20 sources)Essential hypertension; Translations: [Essential (primary) hypertension]Onset: 874401-17-8710QtvfcigRnbfd valve disorders (20 sources)Tricuspid valve regurgitation; Translations: [Rheumatic tricuspid insufficiency]Onset: 207443-82-2662VludrybBtlunqodrow deficiencies (20 sources)Vitamin D deficiency; Translations: [Vitamin D deficiency, unspecified]Onset: 279726-42-8974RfcdqenBzgwhyusiafaax (20 sources)Osteoarthritis; Translations: [Unspecified osteoarthritis, unspecified site]Onset: 443470-10-8712JnzglgqXnviv nervous system disorders (20 sources)Polyneuropathy; Translations: [Polyneuropathy, unspecified]Onset: 08-08-2023 Resolved: 441147-34-6163VbxynekWdhra nutritional; endocrine; and metabolic disorders (20 sources)Body mass index 30+ - obesity; Translations: [Body mass index (BMI) 34.0-34.9, adult]Onset: 322293-90-4999NvlbfjoCfajwnzfk heart disease (20 sources)Pulmonary hypertension; Translations: [Pulmonary hypertension, unspecified]Onset: 370596-38-7519SmlznjsFpyuzqwr codes; unclassified (20 sources)Obstructive sleep apnea syndrome; Translations: [Obstructive sleep apnea (adult) (pediatric)]Onset: 413803-61-9896QutiaskCwzrdygo codes; unclassified (20 sources)Insomnia; Translations: [Insomnia, unspecified]Onset: 09-19-2023 03-68-9332IixsscmkCjipgmwvjhig (1 source)CHRN KIDNEY DISEASE STG 3 UNSP; Translations: [CHRN KIDNEY DISEASE STG 3 UNSP]Onset: 63-53-2270Eropsag tract infections (1 source)Urinary tract infectious disease; Translations: [Urinary tract infection, site not specified]Onset: 537656-82-2141Zgkoyygm Past or Other Problems Problem ClassificationProblemDateDocumented DateEpisodic/ChronicDeficiency and other anemia (4 sources)Iron deficiency anemia, unspecified; Translations: [IRON DEFICIENCY ANEMIA UNSPECIFIED]Onset: 29-71-5266QwmstzwzGknbl and electrolyte disorders (20 sources)Hyperkalemia; Translations: [Hyperkalemia]Onset: 09-19-2023 51-35-1919CdpcvwzhJalm disorders (19 sources)Mood disordersOnset: 12-25-2023 Resolved: Other skin disorders (20 sources)Lesion of skin of face; Translations: [Disorder of the skin and subcutaneous tissue, unspecified]Onset: 778060-56-0787ZcmerxjjCivcj skin disorders (20 sources)Eruption; Translations: [Rash and other nonspecific skin eruption] Onset: 09-19-2023 Resolved: 342081-72-6921PqpffascBrrkcowe codes; unclassified (20 sources)Edema of lower extremity; Translations: [Localized edema]Onset: 390441-64-3911KhujmwtuEkncwzbr codes; unclassified (20 sources)Amnesia; Translations: [Other amnesia]Onset: 09-19-2023 Resolved: 217449-57-4894RwyeybymAvhqixtg codes; unclassified (13 sources)Memory impairment; Translations: [Other amnesia]Onset: 12-30-2024 86-77-5020Jcviqvmu Results Test NameValueInterpretationReference RangeFacilityALL CBC WITH AUTO DIFFon 46-17-3451OSSTSPXVK ABSOLUTE AUTO0.1NOMS HealthcareBasophils/100 WBC (Bld)0.9 % 0.2 - 2.0 %NOMS HealthcareEosinophils/100 WBC (Bld)7.1 %High0.9 - 7.0 %NOM HealthcareErythrocyte distribution width (RBC) [Ratio]14 %11.0 - 15.0 %NOMS HealthcareHematocrit (Bld) [Volume fraction]36.1 %36.0 - 48.0 %[facility]OM[facility] Hemoglobin (Bld) [Mass/Vol]11.2 g/dLLow12.0 - 16.0 g/dLNOCT HealthcareIMMATURE GRANULOCYTES ABS AUTO0.02NOCT HealthcareImmature granulocytes/100 WBC (Bld)0.4 % 0.0 - 0.5 %NOM HealthcareInterpretation and review of laboratory results AbnormalNOCT HealthcareLYMPHOCYTES ABSOLUTE AUTO1.7[facility] Lymphocytes/100 WBC (Bld)31.8 %20.5 - 60.0 %NOMKindred HospitalMCH (RBC) [Entitic mass]27.9 pg26.7 - 34.0 pgNOMercy hospital springfieldMCHC (RBC) [Mass/Vol]31 g/dL29.9 - 35.2 g/dLNOMercy hospital springfieldMCV (RBC) [Entitic vol]90 fL81.0 - 99.0 fLUniversity Health [facility]wood [facility] MONOCYTES ABSOLUTE AUTO0.7NOMercy hospital springfieldMonocytes/100 WBC (Bld)13.5 %High1.7 - 12.0 %NOMKindred HospitalNEUTROPHILS ABSOLUTE AUTO2.5NOCT HealthcareNeutrophils/100 WBC (Bld)46.3 %43.0 - 75.0 %[facility] Medical CenterPlatelet mean volume (Bld) [Entitic vol]10.8 fL9.5 - 13.5 fLUniversity Health Lakewood Medical CenterTBH EO #0.4NOMercy [facility] [id number] [facility] RBC4.01LowNOMercy [facility] WBC5.5NOMercy hospital springfieldCLINISYNCNRanken Jordan Pediatric Specialty HospitalMiiygetsyqPbA0o (Bld) [Mass fraction]on 73-56-8360Qofbjjwaxjctrz and review of laboratory resultsNoAurora Health Care Health CenterLaboratory - Hematology and Cell countson 71-78-0278KsD0k (Bld) [Mass fraction]5.8 %[facility] CBC WITH AUTO DIFFon 80-38-0841XSLDCFSOT ABSOLUTE AUTO0.1NOMS [facility] Basophils/100 WBC (Bld)1.5 %0.2 - 2.0 %[facility] CenterEosinophils/100 WBC (Bld) 7.2 %High0.9 - 7.0 %[facility] Medical CenterErythrocyte distribution width (RBC) [Ratio] 13.4 %11.0 - 15.0 %[facility] Medical CenterHematocrit (Bld) [Volume fraction]36.9 %36.0 - 48.0 %[facility] CenterHemoglobin (Bld) [Mass/Vol]11.2 g/dLLow12.0 - 16.0 g/dLWashington County Memorial HospitalMATURE GRANULOCYTES ABS AUTO0.02NOMercy hospital springfieldImmature granulocytes/100 WBC (Bld)0.4 %0.0 - 0.5 %[facility] Medical CenterInterpretation and review of laboratory resultsAbApex Medical CenterLYMPHOCYTES ABSOLUTE AUTO1.6 NOMKindred HospitalLymphocytes/100 WBC (Bld)35.0 %20.5 - 60.0 %[facility] (RBC) [Entitic mass]28.0 pg26.7 - 34.0 pgNOMS HealthcareMCHC (RBC) [Mass/Vol] 30.4 g/dL29.9 - 35.2 g/dLProgress West HospitalV (RBC) [Entitic vol]92.3 fL81.0 - 99.0 fLUNIVERSITY OF UTAH HOSPITAL HealthcareMONOCYTES ABSOLUTE AUTO0.5NOCT HealthcareMonocytes/100 WBC (Bld)11.8 %1.7 - 12.0 %NOMS HealthcareNEUTROPHILS ABSOLUTE AUTO2.0NOCT HealthcareNeutrophils/100 WBC (Bld)44.1 %43.0 - 75.0 %NOMS HealthcarePlatelet mean volume (Bld) [Entitic vol]10.8 fL9.5 - 13.5 fLUniversity Health Lakewood Medical CenterTBH EO #0.3 [facility] CenterTBH [id number] McCune-[facility] Hospital RBC4.00LowFreeman Orthopaedics & Sports Medicine WBC4.6 [facility] Medical CenterCLINISYNCNOMS [facility] CenterCBC AUTO DIFFon [id number] #0.0 103/ulNormal0.0-0.1The [facility] CenterComment on above:Performed By: #### CBC #### [facility] [address] [place] [address] Dr. Juan Manuel McintoshBasophils/100 WBC (Bld)0.4 %Normal0.2-2.0[facility] Comment on above:Performed By: #### CBC #### [facility] [address] [place] [address] Dr. Juan Manuel Wills #0.4 103/ulNormal0.0-0.7The [facility] CenterComment on above: Performed By: #### CBC #### [facility] [address] [place] [address] Dr. Juan Manuel Leeosinophils/100 WBC (Bld)4.1 %Normal0.9-7.0[facility] Comment on above:Performed By: #### CBC #### [facility] [address] [place] [address] Dr. Juan Manuel Leerythrocyte distribution width (RBC) [Ratio]14.0 %Assiwl82.0-15.0 [facility] HospitalComment on above:Performed By: #### CBC #### [facility] [address] [address] [address] Juan Manuel McintoshHematocrit (Bld) [Volume fraction]35.3 %Critically low36.0-48.0 The [facility] CenterComment on above:Performed By: #### CBC #### [facility] [address] [place] [address] Dr. Juan Manuel McintoshHemoglobin (Bld) [Mass/Vol]10.9 g/dLCritically low12.0-16.0The [facility] HospitalComment on above:Performed By: #### CBC #### [facility] [address] [place] [address] Dr. Juan Manuel McintoshIG #0.04 10e3/ulCritically high0.00-0.03The [facility] Comment on above:Performed By: #### CBC #### [facility] [address] [place] [address] Dr. Juan Manuel McintoshIG %0.4 %Normal0.0-0.5The [facility] CenterComment on above: Performed By: #### CBC #### [facility] [address] [place] [address] Dr. Juan Manuel Castillo #1.7 103/ulNormal1.2-3.8The [facility] CenterComment on above:Performed By: #### CBC #### [facility] [address] [place] [address] Dr. Juan Manuel Faulknermphocytes/100 WBC (Bld)16.8 %Critically low20.5-60.0The [facility] CenterComment on above:Performed By: #### CBC #### [facility] [address] [place] [address] Dr. Juan Manuel McintoshMANUAL DIFF REQNONormalThe [facility] Medical CenterComment on above: Performed By: #### CBC #### [facility] [address] [place] [address] Dr. Juan Manuel Silva (RBC) [Entitic mass]26.9 rmItypkn29.7-34.0The [facility] CenterComment on above:Performed By: #### CBC #### [facility] [address] [address] [address] Juan Manuel ParkHC (RBC) [Mass/Vol]30.9 g/bELthzfy12.9-35.2The [facility] CenterComment on above:Performed By: #### CBC #### [facility] [address] [address] [address] Juan Manuel ParkV (RBC) [Entitic vol]87.2 cBVxcivv71.0-99.0The [facility] CenterComment on above:Performed By: #### CBC #### [facility] [address] [place] [address] Dr. Juan Manuel Thompson #1.1 103/ulCritically high0.3-0.8The [facility] Comment on above:Performed By: #### CBC #### [facility] [address] [place] [address] Dr. Juan Manuel Chaseocytes/100 WBC (Bld)10.7 %Normal1.7-12.0[facility] Comment on above:Performed By: #### CBC #### [facility] [address] [place] [address] Dr. Juan Manuel Alvarado #6.9 103/ulCritically high1.4-6.5The [facility] Comment on above:Performed By: #### CBC #### [facility] [address] [place] [address] Dr. Juan Manuel Priceutrophils/100 WBC (Bld)67.6 %Ruqnww57.0-75.0The [facility] CenterComment on above:Performed By: #### CBC #### [facility] [address] [place] [address] Dr. Juan Manuel Guzmanlet mean volume (Bld) [Entitic vol]11.2 fLNormal9.5-13.5The [facility] CenterComment on above:Performed By: #### CBC #### [facility] [address] [place] [address] Dr. Juan Manuel McintoshPLT186 103/cuCvtmvt521-058Dby [facility] HospitalComment on above: Performed By: #### CBC #### [facility] [address] [address] [address] Juan Manuel McintoshRBC4.05 106/ulCritically low4.20-5.40The [facility] CenterCommymichigan medical center [facility] on above:Performed By: #### CBC #### [facility] [address] [place] [address] Dr. Juan Manuel McintoshWBC10.2 103/ulNormal4.0-11.0The [facility] CenterComment on above:Performed By: #### CBC #### [facility] [address] [place] [address] Dr. Juan Manuel McintoshGLYCOHEMOGLOBIN A1Con 99-40-3457RUH RECOMMENDATIONSEE BELOWNormal The [facility] CenterCommymichigan medical center [facility] on above:Result Comment: ADA RECOMMENDED LIMIT 4.0 - 6.0 ADA THERAPEUTIC TARGET < 7.0 ACTION SUGGESTED > 7.0Performed By: #### A1C #### [facility] [address] [place] [address] Dr. Juan Manuel McintoshGlucose [Mass/Vol]128 mg/dLNormalThe [facility] CenterComment on above:Performed By: #### A1C #### [facility] [address] [place] [address] Dr. Juan Manuel McintoshHbA1c (Bld) [Mass fraction]6.1 %Normal4.5-6.2The [facility] on above:Performed By: #### A1C #### [facility] [address] [place] [address] Dr. Juan Manuel McintoshPROF CHEM 8 (BAS METB)on 00-02-8517Aoyxt gap [Moles/Vol]15.5 mmol/LNormalThe [facility] on above:Performed By: #### BMP #### [facility] [address] [place] [address] Dr. Juan Manuel McintoshCalcium [Mass/Vol]9.0 mg/dLNormal8.5-10.1The [facility] Comment on above:Performed By: #### BMP #### [facility] [address] [place], [place] [id number] Dr. Juan Manuel McintoshChloride [Moles/Vol]106 mmol/HMzvsoe06-606Iou [facility] Comment on above:Performed By: #### BMP #### [facility] [address] [address] [address] Juan Manuel McintoshCO2 [Moles/Vol]21.1 mmol/ZAlwmnv87.0-32.0The [facility] Comment on above:Performed By: #### BMP #### [facility] [address] [address] [address] Juan Manuel McintoshCreatinine [Mass/Vol]1.78 mg/dLCritically high0.55-1.02The [facility] CenterComment on above:Performed By: #### BMP #### [facility] [address] [place] [address] Dr. Zambrano ChangEGFR-AF VANBUDDM30 mL/min/1.26y4Jeouvnjmps low>=60The [facility] CenterComment on above:Performed By: #### BMP #### [facility] [address] [place] [address] Dr. Juan Manuel LeeGFR-NON AF RFGRFFSV62 mL/min/1.21w7Zifpokuzow low>=60The [facility] CenterComment on above:Performed By: #### BMP #### [facility] [address] [place] [address] Dr. Juan Manuel McintoshGlucose [Mass/Vol]108 mg/dLCritically qnly06-257Zmw [facility] CenterComment on above:Performed By: #### BMP #### [facility] [address] [place] [address] Dr. Juan Manuel McintoshPotassium [Moles/Vol]4.6 mmol/LNormal3.5-5.1The [facility] Comment on above:Performed By: #### BMP #### [facility] [address] [place] [address] Dr. Juan Manuel McintoshSodium [Moles/Vol]138 mmol/JGcdmgi971-160Drl [facility] Comment on above:Performed By: #### BMP #### [facility] [address] [place] [address] Dr. Juan Manuel Reis nitrogen [Mass/Vol]40.0 mg/dLCritically high7.0-18.0The [facility] CenterComment on above:Performed By: #### BMP #### [facility] [address] [address] [address] Juan Manuel Reis nitrogen/Creatinine [Mass ratio]22.5 mg/mgNoTuscarawas HospitalComment on above:Performed By: #### BMP #### [facility] [address] [address] [address] Juan Manuel McintoshGLYCOHEMOGLOBIN A1Con 02-68-7413KHA RECOMMENDATIONSEE BELOWNormal The [facility] CenterCommymichigan medical center [place] on above:Result Comment: ADA RECOMMENDED LIMIT 4.0 - 6.0 ADA THERAPEUTIC TARGET < 7.0 ACTION SUGGESTED > 7.0Performed By: #### A1C #### [facility] [address] [place] [address] Dr. Juan Manuel McintoshGlucose [Mass/Vol]126 mg/dLNoTuscarawas HospitalComment on above:Performed By: #### A1C #### [facility] [address] [place] [address] Dr. Juan Manuel McintoshHbA1c (Bld) [Mass fraction]6.0 %Normal4.5-6.2The [facility] CenterCommymichigan medical center [facility] on above:Performed By: #### A1C #### [facility] [address] [place] [address] Dr. Juan Manuel McintoshHEMOGRAM AND PLATELon 35-35-0316Jnnjbycncc (Bld) [Volume fraction]34.5 %Critically low36.0-48.0The [facility] CenterComment on above: Performed By: #### HH #### [facility] [address] [place] [address] Dr. Juan Manuel McintoshHemoglobin (Bld) [Mass/Vol]10.4 g/dLCritically low12.0-16.0The [facility] CenterComment on above:Performed By: #### HH #### [facility] [address] [place] [address] Dr. Juan Manuel McintoshMAIMONID[facility] (RBC) [Entitic mass]27.8 fjDsxyvy95.7-34.0The [facility] CenterComment on above:Performed By: #### HH #### [facility] [address] [place] [address] Dr. Juan Manuel [place] (RBC) [Mass/Vol]30.1 g/rDAetacv36.9-35.2The [facility] CenterComment on above:Performed By: #### HH #### [facility] [address] [place] [address] Dr. Juan Manuel [facility] [place] ([facility]BC) [Entitic vol]92.2 qUUtvhwz11.0-99.0The [facility] CenterComment on above:Performed By: #### HH #### [facility] [address] [place] [address] Dr. Juan Manuel McintoshPLT216 103/vaAszkku387-857Tms [facility] CenterComment on above: Performed By: #### HH #### [facility] [address] [place] [address] Dr. Juan Manuel McintoshRBC3.74 106/ulCritically low4.20-5.40The [facility] CenterComment on above:Performed By: #### HH #### [facility] [address] [place] [address] Dr. Juan Manuel McintoshWBC5.6 103/ulNormal4.0-11.0The [facility] CenterComment on above: Performed By: #### HH #### [facility] [address] [place] [address] Dr. Juan Manuel McintoshPROF CHEM 8 (BAS METB)on 29-66-5707Suvqm gap [Moles/Vol]14.2 mmol/LNormalThe [facility] CenterComment on above:Performed By: #### BMP #### [facility] [address] [place] [address] Dr. Juan Manuel McintoshCalcium [Mass/Vol]8.9 mg/dLNormal8.5-10.1The [facility] Comment on above:Performed By: #### BMP #### [facility] [address] [address] [address] Juan Manuel McintoshChloride [Moles/Vol]107 mmol/XQowrqp63-907Xou [facility] Comment on above:Performed By: #### BMP #### [facility] [address] [address] [address] Juan Manuel McintoshCO2 [Moles/Vol]25.1 mmol/VZlbjvs23.0-32.0The [facility] Comment on above:Performed By: #### BMP #### [facility] [address] [address] [address] Juan Manuel McintoshCreatinine [Mass/Vol]1.55 mg/dLCritically high0.55-1.02The [facility] CenterComment on above:Performed By: #### BMP #### [facility] [address] [place] [address] Dr. Zambrano ChangEGFR-AF FVECJFPQ31 mL/min/1.70f8Jgdxtdvtky low>=60The [facility] CenterComment on above:Performed By: #### BMP #### [facility] [address] [place] [address] Dr. Juan Manuel LeeGFR-NON AF ZVBHPIGL30 mL/min/1.40l9Owoipzweiw low>=60The [facility] CenterComment on above:Performed By: #### BMP #### [facility] [address] [address] [address] Juan Manuel McintoshGlucose [Mass/Vol]103 mg/qIFsdsha13-397Jni [facility] Comment on above:Performed By: #### BMP #### [facility] [address] [address] [address] Juan Manuel McintoshPotassium [Moles/Vol]5.3 mmol/LCritically high3.5-5.1The [facility] CenterComment on above:Performed By: #### BMP #### [facility] [address] [place] [address] Dr. Juan Manuel McintoshSodium [Moles/Vol]141 mmol/AKkjojg477-929Ijc [facility] Comment on above:Performed By: #### BMP #### [facility] [address] [address] [address] Juan Manuel Reis nitrogen [Mass/Vol]34.0 mg/dLCritically high7.0-18.0The [facility] CenterComment on above:Performed By: #### BMP #### [facility] [address] [place] [address] Dr. Juan Manuel Reis nitrogen/Creatinine [Mass ratio]21.9 mg/mgNormalThe [facility] CenterComment on above:Performed By: #### BMP #### [facility] [address] [place] [address] Dr. Juan Manuel MckeonC AUTO DIFFon 54-68-1651EYDT #0.1 103/ulNormal0.0-0.1The [facility] on above:Performed By: #### CBC #### [facility] [address] [place] [address] Dr. Juan Manuel McintoshBasophils/100 WBC (Bld)1.3 %Normal0.2-2.0The [facility] Comment on above:Performed By: #### CBC #### [facility] [address] [place] [address] Dr. Juan Manuel Wills #0.4 103/ulNormal0.0-0.7The [facility] Hospitalment on above: Performed By: #### CBC #### [facility] [address] [place] [address] Dr. Juan Manuel Leeosinophils/100 WBC (Bld)8.7 %Critically high0.9-7.0The [facility] Hospitalment on above:Performed By: #### CBC #### [facility] [address] [place] [address] Dr. Juan Manuel Leerythrocyte distribution width (RBC) [Ratio]14.6 %Sjlteo99.0-15.0 [facility] Hospitalment on above:Performed By: #### CBC #### [facility] [address] [place] [address] Dr. Juan Manuel McintoshHematocrit (Bld) [Volume fraction]35.7 %Critically low36.0-48.0 The [facility] CenterComment on above:Performed By: #### CBC #### [facility] [address] [address] [address] Juan Manuel McintoshHemoglobin (Bld) [Mass/Vol]10.6 g/dLCritically low12.0-16.0The [facility] on above:Performed By: #### CBC #### [facility] [address] [place] [address] Dr. Juan Manuel Rueda #0.02 10e3/ulNormal0.00-0.03The [facility] on above:Performed By: #### CBC #### [facility] [address] [place] [address] Dr. Juan Manuel Rueda %0.4 %Normal0.0-0.5The [facility] on above: Performed By: #### CBC #### [facility] [address] [place] [address] Dr. Juan Manuel Castillo #1.8 103/ulNormal1.2-3.8The [facility] on above:Performed By: #### CBC #### [facility] [address] [place] [address] Dr. Juan Manuel Arguetahocytes/100 WBC (Bld)39.5 %Wvsfet01.5-60.0The [facility] on above:Performed By: #### CBC #### [facility] [address] [place] [address] Dr. Juan Manuel SpicerUAL DIFF REQNONormalThe [facility] CenterCommymichigan medical center [facility] on above: Performed By: #### CBC #### [facility] [address] [place] [address] Dr. Juan Manuel Silva (RBC) [Entitic mass]27.4 duTmatzi46.7-34.0The [facility] on above:Performed By: #### CBC #### [facility] [address] [place] [address] Dr. Juan Manuel Park (RBC) [Mass/Vol]29.7 g/dLCritically low29.9-35.2The [facility] HospitalComment on above:Performed By: #### CBC #### [facility] [address] [place] [address] Dr. Juan Manuel Peralta (RBC) [Entitic vol]92.2 kPLqmdyj11.0-99.0The [facility] CenterComment on above:Performed By: #### CBC #### [facility] [address] [place] [address] Dr. Juan Manuel Thompson #0.6 103/ulNormal0.3-0.8The [facility] CenterComment on above:Performed By: #### CBC #### [facility] [address] [place] [address] Dr. Juan Manuel Chaseocytes/100 WBC (Bld)14.3 %Critically high1.7-12.0The [facility] CenterComment on above:Performed By: #### CBC #### [facility] [address] [place] [address] Dr. Juan Manuel Alvarado #1.6 103/ulNormal1.4-6.5The [facility] CenterComment on above:Performed By: #### CBC #### [facility] [address] [place] [address] Dr. Juan Manuel Priceutrophils/100 WBC (Bld)35.8 %Critically low43.0-75.0The [facility] CenterComment on above:Performed By: #### CBC #### [facility] [address] [place] [address] Dr. Juan Manuel Guzmanlet mean volume (Bld) [Entitic vol]11.6 fLNormal9.5-13.5The [facility] CenterComment on above:Performed By: #### CBC #### [facility] [address] [place] [address] Dr. Juan Manuel McintoshPLT184 103/fiEspyca053-665Ndr [facility] CenterComment on above: Performed By: #### CBC #### [facility] [address] [place] [address] Dr. Juan Manuel McintoshRBC3.87 106/ulCritically low4.20-5.40The [facility] CenterComment on above:Performed By: #### CBC #### [facility] [address] [place] [address] Dr. Juan Manuel McintoshWBC4.5 103/ulNormal4.0-11.0The [facility] CenterComment on above: Performed By: #### CBC #### [facility] [address] [place] [address] Dr. Juan Manuel McintoshFERRITINon 23-98-3382Tzvaoatu [Mass/Vol]121.0 ng/mLNormal 11.1-264.0The [facility] CenterComment on above:Performed By: #### FERR, IRON #### [facility] [address] [place] [address] Dr. Juan Manuel McintoshIRODonna 07-19-1630Gqkg [Mass/Vol]113.0 ug/vNMuifps34.0-170.0The [facility] CenterComment on above:Performed By: #### FERR, IRON #### [facility] [address] [place] [address] Dr. Juan Manuel Mcintosh Vital Signs Date TimeVital SignValuePerforming VudyrqkavLyuugido65-21-8205 10:42-0400Body mass index (BMI) [Ratio]34.21 kg/m2Karinasa Bhakta ELECTRICAL TECHNICIAN INSTRUCTOR Work Phone: [facility] CenterKdngokdzsq50-01-3151 10:42-0400Body temperature 98.1 [degF]Bailee Bhakta ELECTRICAL TECHNICIAN INSTRUCTOR Work Phone: [facility] CenterGgbvzeactr64-20-7072 10:42-0400Body siarib744.06 kgKarina Yony ELECTRICAL TECHNICIAN INSTRUCTOR Work Phone: [facility] CenterUegvirqqkc15-40-5262 10:42-0400Diastolic blood lwyvoghm75 mm[Hg]Bailee Bhakta ELECTRICAL TECHNICIAN INSTRUCTOR Work Phone: [facility] CenterHcvcqiwoyd98-62-3883 10:42-0400Heart rate68 /min Bailee Bhakta ELECTRICAL TECHNICIAN INSTRUCTOR Work Phone: [facility] CenterEwvduybgcl86-19-6049 10:42-9068MoY6% (BldA) [Mass fraction]97 %Bailee Marbinz ELECTRICAL TECHNICIAN INSTRUCTOR Work Phone: [facility] CenterRnsannxiev26-46-7429 10:42-0400Systolic blood llsodzwm893 mm[Hg]Bailee Yeholz ELECTRICAL TECHNICIAN INSTRUCTOR Work Phone: [facility] CenterDauvnlujnr15-53-2795 10:12-0400Body mass index (BMI) [Ratio]34.21 kg/m2Lisa Yeholz ELECTRICAL TECHNICIAN INSTRUCTOR Work Phone: [facility] CenterLcvfbdibwg50-60-7081 10:12-0400Body temperature 98.49 [degF]Bailee Yeholz ELECTRICAL TECHNICIAN INSTRUCTOR Work Phone: [facility] CenterBugkwytlui10-19-8598 10:12-0400Body kumzjn080.06 kgLisa Belcherholz ELECTRICAL TECHNICIAN INSTRUCTOR Work Phone: [facility] CenterLcxmwlyqyb38-39-4065 10:12-0400Diastolic blood ydssakhc72 mm[Hg]Bailee Marbinz ELECTRICAL TECHNICIAN INSTRUCTOR Work Phone: [facility] CenterOleklyewrz59-69-0689 10:12-0400Heart rate63 /min Bailee Yeholz ELECTRICAL TECHNICIAN INSTRUCTOR Work Phone: [facility] CenterAkvugpjnfr43-68-2083 10:12-0400Respiratory rate20 /minLisa Belcherholz ELECTRICAL TECHNICIAN INSTRUCTOR Work Phone: [facility] CenterOfnskzsjvg15-71-8598 10:12-9941WqX6% (BldA) [Mass fraction]99 %Bailee Yeholz ELECTRICAL TECHNICIAN INSTRUCTOR Work Phone: [facility] CenterIehltbhxpk95-08-4050 10:12-0400Systolic blood eucefnbi946 mm[Hg]Bailee Yeholz ELECTRICAL TECHNICIAN INSTRUCTOR Work Phone: [facility] CenterMpbpbsudvp15-17-9216 08:35-0500Body yjfpwf650.7 Orville Corriganhholz ELECTRICAL TECHNICIAN INSTRUCTOR Work Phone: [facility] CenterPjyittrpol40-39-8357 08:35-0500Body mass index (BMI) [Ratio]34.76 kg/m2Lisa Meenuhholz ELECTRICAL TECHNICIAN INSTRUCTOR Work Phone: [address] [phone] 08:35-0500Body temperature 98.1 [degF]Bailee Zazuetaz ELECTRICAL TECHNICIAN INSTRUCTOR Work Phone: [address] [phone] 08:35-0500Body yuxdoa774.69 kgLisa Yeholz ELECTRICAL TECHNICIAN INSTRUCTOR Work Phone: [address] [phone] 08:35-0500Diastolic blood klaotxre56 mm[Hg]Bailee Zazuetaz ELECTRICAL TECHNICIAN INSTRUCTOR Work Phone: [address] [phone] 08:35-0500Heart rate66 /min Bailee Yeholz ELECTRICAL TECHNICIAN INSTRUCTOR Work Phone: [address] [phone] 08:35-0500Respiratory rate19 /minLisa Belcherholz ELECTRICAL TECHNICIAN INSTRUCTOR Work Phone: [address] [phone] 08:35-7475SnN3% (BldA) [Mass fraction]99 %Bailee Zazuetaz ELECTRICAL TECHNICIAN INSTRUCTOR Work Phone: [address] [phone] 08:35-0500Systolic blood lovdlnqu541 mm[Hg]Bailee Marbinz ELECTRICAL TECHNICIAN INSTRUCTOR Work Phone: [facility] CenterRdlhaarclo92-84-7484 09:16-0500Body .7 Ariisa Yeholz ELECTRICAL TECHNICIAN INSTRUCTOR Work Phone: [facility] CenterAwlqfmehpf52-84-8744 09:16-0500Body mass index (BMI) [Ratio]34.45 kg/m2Lisa Yeholz ELECTRICAL TECHNICIAN INSTRUCTOR Work Phone: [facility] CenterLdeqjwxves26-09-1269 09:16-0500Body temperature 97.11 [degF]Bailee Zazuetaz ELECTRICAL TECHNICIAN INSTRUCTOR Work Phone: [address] [phone] 09:16-0500Body rnoznn976.78 kgLisa Yeholz ELECTRICAL TECHNICIAN INSTRUCTOR Work Phone: [phone] [place], [place] [address]Wlustjgyki16-33-3807 09:16-0500Diastolic blood gxepcbxj35 mm[Hg]Bailee Bhakta ELECTRICAL TECHNICIAN INSTRUCTOR Work Phone: [facility] Bulypqvqbq17-23-4431 09:16-0500Heart rate63 /min Bailee Bhakta ELECTRICAL TECHNICIAN INSTRUCTOR Work Phone: [facility] Hibvdnlvtr00-46-6247 09:16-0500Respiratory rate18 /minBailee Bhakta ELECTRICAL TECHNICIAN INSTRUCTOR Work Phone: [phone] hospital springfieldUeaxsewryq29-09-0019 09:16-9090PfN0% (BldA) [Mass fraction]97 %Bailee Bhakta ELECTRICAL TECHNICIAN INSTRUCTOR Work Phone: [facility] Tmdhmvnkwu50-51-0488 09:16-0500Systolic blood ahtlvlsm904 mm[Hg]Bailee Bhakta ELECTRICAL TECHNICIAN INSTRUCTOR Work Phone: [facility] Encounters Encounter DateEncounter TypeCare ProviderFacilityStart: 03-30-2025 End: 02-06-2736Rojkjq flowsheetBailee Bhakta ELECTRICAL TECHNICIAN INSTRUCTOR Work Phone: [facility] CWM FMStart: 03-30-2025 End: 46-17-2684Udcfdv flowsRadha Bhakta ELECTRICAL TECHNICIAN INSTRUCTOR Work Phone: [facility] FMStart: 03-30-2025 End: 63-76-5087Ugrkri outpatient visit 25 minutesLisa Bhakta ELECTRICAL TECHNICIAN INSTRUCTOR Work Phone: [facility] CW FMComment on above:Stage [...] unspecified iron deficiency anemia typeStart: 03-30-2025 End: 94-72-7310exslrvkofsAUPF AICHHOLZNot AvailableStart: 03-25-2025 End: 25-99-0002Pruooethw Result EncounterLisa Bhakta ELECTRICAL TECHNICIAN INSTRUCTOR Work Phone: [facility] External Department UnsolicitedStart: 03-25-2025 End: 05-58-3930Cackgjrtg Result EncounterLisa Marbinz ELECTRICAL TECHNICIAN INSTRUCTOR Work Phone: [facility] External Department UnsolicitedStart: 02-18-2025 End: 39-29-1191TpemhmWwgk Aichholz ELECTRICAL TECHNICIAN INSTRUCTOR Work Phone: [facility] C[facility] FMComment on above:Chronic kidney disease, stage 3 unspecified ([facility]-HCC); Type 2 diabetes mellitus with diabetic neuropathy, unspecified ([facility])Start: 01-25-2025 End: 62-83-2411DgyrapHxdc Aichholz ELECTRICAL TECHNICIAN INSTRUCTOR Work Phone: [facility] CWM FMComment on above:Essential (primary) hypertension ; Lower extremity edema; Severe persistent asthma, uncomplicated (HCC)Start: 01-12-2025 End: 97-44-0315FfdbhbXexc Aichholz ELECTRICAL TECHNICIAN INSTRUCTOR Work Phone: [facility] FMComment on above:Asthma-COPD overlap syndrome (CMS/HCC); Lower extremity edema; Insomnia, unspecified type; Essential (primary) hypertension (CMS/HCC)Start: 12-30-2024 End: 91-28-5734Nsuxhg flowsheetLisa Aichholz ELECTRICAL TECHNICIAN INSTRUCTOR Work Phone: [facility] FMStart: 12-30-2024 End: 01-33-8440Uxgljl flowsheetLisa Meenuhholz ELECTRICAL TECHNICIAN INSTRUCTOR Work Phone: NOGW CWM FMStart: 12-30-2024 End: 47-60-1253Yaabxyu encounter procedureLisa Yeholz ELECTRICAL TECHNICIAN INSTRUCTOR Work Phone: [facility] CWM FMComment on above:Encounter [...] unspecified iron deficiency anemia type; Mixed hyperlipidemia ([facility]); Gradual-onset memory impairmentStart: 12-30-2024 End: 54-43-1532mwnwrgrpbzCDES AICHVERONIKAot AvailableStart: 11-19-2024 End: 50-54-4121LrfjtlLhrw Naderer MD Work Phone: [facility] CWM FMComment on above:Asthma-COPD overlap syndrome ([facility]/HCC)Start: 11-03-2024 End: 74-18-7701FbtokfMlik Aichholz ELECTRICAL TECHNICIAN INSTRUCTOR Work Phone: [facility] C[facility] FMComment on above:Polyneuropathy, unspecifiedStart: 07-24-2024 End: 27-26-0837UobvggZwtl Aichholz ELECTRICAL TECHNICIAN INSTRUCTOR Work Phone: [facility] C[facility] FMComment on above:Essential (primary) hypertension (CMS/HCC); Insomnia, unspecified type; Lower extremity edema; Type 2 diabetes mellitus with diabetic neuropathy, unspecified (CMS/HCC); Chronic kidney disease, stage 3 unspecified ([facility]) ([facility]); Severe persistent asthma, uncomplicated ([facility]/HCC)Start: 06-26-2024 End: 72-63-6123Xtswnt flowsheetBailee Bhakta ELECTRICAL TECHNICIAN INSTRUCTOR Work Phone: [facility] FMStart: 06-26-2024 End: 34-59-8513Xsklnr flowsheetBailee Bhakta ELECTRICAL TECHNICIAN INSTRUCTOR Work Phone: [facility] FMStart: 06-26-2024 End: 61-99-2274Tlstua outpatient visit 25 minutesLisa Bhakta ELECTRICAL TECHNICIAN INSTRUCTOR Work Phone: [facility] CWM FMComment on above:Essential (primary) hypertension (CMS/HCC) (Primary Dx); Type 2 diabetes mellitus with diabetic neuropathy, without long-term current use of insulin ([facility]); Obstructive sleep apnea (adult) (pediatric); Asthma-COPD overlap syndrome ([facility]); Tricuspid valve insufficiency, unspecified etiology; Pulmonary hypertension ([facility]); Stage 4 chronic kidney disease ([facility]); Lower extremity edema; Type 2 diabetes with complication ([facility]); Diabetic retinopathy associated with type 2 diabetes mellitus, macular edema presence unspecified, unspecified laterality, unspecified retinopathy severity ([facility]); BMI 34.0-34.9,adult; Mixed hyperlipidemia ([facility])Start: 06-26-2024 End: 52-06-3790yjxhsrmhqeUUSN AICHHOLZNot AvailableStart: 05-06-2024 End: 66-27-2414EngqkmZkho Aichholz ELECTRICAL TECHNICIAN INSTRUCTOR Work Phone: [facility] CWM FMComment on above:Lower extremity edema; Insomnia, unspecified type; Essential (primary) hypertension ([facility]); Severe persistent asthma, uncomplicated ([facility]); Type 2 diabetes mellitus with diabetic neuropathy, unspecified ([facility])Start: 04-25-2024 End: 07-22-6860Dybyunoxk Result EncounterLisa Aichholz ELECTRICAL TECHNICIAN INSTRUCTOR Work Phone: [facility] External Department UnsolicitedStart: 04-25-2024 End: 75-03-7581Zgvdxyyla Result EncounterLisa Aichholz ELECTRICAL TECHNICIAN INSTRUCTOR Work Phone: [facility] External Department UnsolicitedStart: 04-25-2024 End: 80-90-2328WgcmruFjqx Aichholz ELECTRICAL TECHNICIAN INSTRUCTOR Work Phone: NO[facility] CWM FMComment on above:Polyneuropathy, unspecifiedStart: 55-42-6033Nglgool encounter procedureLisa Aichholz ELECTRICAL TECHNICIAN INSTRUCTOR Work Phone: NO[facility] HealthcareStart: 35-54-1259Fnxjjq flowsheetLisa Aichholz ELECTRICAL TECHNICIAN INSTRUCTOR Work Phone: [facility] CWM FMStart: 83-37-2369Qencvm flowsheetLisa Aichholz ELECTRICAL TECHNICIAN INSTRUCTOR Work Phone: [facility] CWM FMStart: 09-19-2023 End: 45-31-7294Ujwurb outpatient visit 25 minutesBailee Bhakta ELECTRICAL TECHNICIAN INSTRUCTOR Work Phone: [facility] CWM FMComment on above:Type 2 diabetes mellitus with diabetic neuropathy, without long-term current use of insulin ([facility]) (Primary Dx); BMI 34.0-34.9,adult; Asthma-COPD overlap syndrome; Lower extremity edema; Polyneuropathy, unspecified; Essential (primary) hypertension (CMS/[facility]); Stage 4 chronic kidney disease ([facility])Start: 10-17-2022 End: 30-49-5338kmpxahdqouEEF BAILEE AICHHOLZFacility:R5Fvtke: 04-18-2022 End: 23-67-6610bvcqqbrubdKGM BAILEE AICHHOLZFacility:Q7Utxow: 11-14-2021 End: 31-55-2767ouxrhsfjldMGC BAILEE AICHHOLZFacility:B2Kwknj: 10-05-2017 End: 67-04-3333LjeprxqmoqKHKXOFD PHYSICIANFacility:[facility] Procedures DateProcedureProcedure DetailPerforming ClinicianStart: 69-68-6051QBK CBC WITH AUTO DIFFLisa Marbinz ELECTRICAL TECHNICIAN INSTRUCTOR Work Phone: Start: 33-20-6024Ariavgeixl glycosylated b5rLzdosa Bhakta ELECTRICAL TECHNICIAN INSTRUCTOR Work Phone: Start: 02-72-2175JSK CBC WITH AUTO DIFFLisa Marbinz ELECTRICAL TECHNICIAN INSTRUCTOR Work Phone: Start: 09-19-2023H/O: surgeryH/O squamous cell carcinoma excisionLisa Bhakta ELECTRICAL TECHNICIAN INSTRUCTOR Work Phone: Plan of Treatment DateCare ActivityDetailAuthorStart: 05-27-2026Medicare Annual Wellness (AWV) Medicare Annual Wellness (AWV)[facility] HealthcareStart: 48-38-3375Mzsjqblwdd A1c measurementDiabetes: Hemoglobin S4GXABA HealthcareStart: 06-29-2025 End: 44-97-0775Wxxjmle encounter hkijrtktn27/24/2025 9:20 AM EST Office Visit [facility] [address] [place] [phone] Baiele Bhakta, ELECTRICAL TECHNICIAN INSTRUCTOR [address] [place] [phone] [facility] CW FMStart: 05-01-7866Uxjncwsra vaccinationInfluenza Vaccine (#1)[facility] HealthcareStart: 04-02-2025 End: 98-13-8066Qfmzefj encounter rwraplszd09/28/2025 9:00 AM EDT Office Visit [facility] [address] [place] [phone] Bailee Bhakta, ELECTRICAL TECHNICIAN INSTRUCTOR [address] [place] [phone] [facility] FMStart: 03-30-2025 End: 83-43-7194Ydzeqlt encounter procedureNOMS CW FMComment on above:Type 2 diabetes mellitus with diabetic neuropathy, without long-term current use of insulin (HCC) (Primary Dx); Asthma-COPD overlap syndrome (HCC); Essential (primary) hypertension ; Stage 4 chronic kidney disease (HCC); Type 2 diabetes with complication (HCC)Start: 12-30-2024 End: 396360-ezwigfrhlajmki D3 [Mass/volume] in Serum or PlasmaVitamin D 25 hydroxy Lab Routine Vitamin D deficiency Expected: 12/30/2024 (Approximate), Expires: 12/30/2025NOCT HealthcareComment on above:Expected: 12/30/2024 (Approximate), Expires: 12/30/2025Start: 12-30-2024 End: 10-71-0416ILJ W Auto Differential panel - BloodCBC and differential Lab Routine Iron deficiency anemia, unspecified iron deficiency anemia type Exp ected: 12/30/2024 (Approximate), Expires: 12/30/2025[facility] Work Phone: Comment on above:Expected: 12/30/2024 (Approximate), Expires: 12/30/2025Start: 12-30-2024 End: 91-80-8727Hyjfraiauhkpw metabolic 2000 panel - Serum or PlasmaComprehensive metabolic panel Lab Routine Essential (primary) hypertension (CMS/HCC) Stage 4 chronic kidney disease (CMS/HCC) Lower extremity edema Type 2 diabetes with complication (CMS/HCC) VitaminD deficiency Mixed hyperlipidemia (CMS/HCC) Expected: 12/30/2024 (Approximate), Expires: 12/30/2025[facility] HealthcareComment on above:Expected: 12/30/2024 (Approximate), Expires: 12/30/2025Start: 12-30-2024 End: 20-90-9237Podgdzrq [Mass/volume] in Serum or PlasmaFerritin Lab Routine Stage 4 chronic kidney disease (CMS/HCC) Iron deficiency anemia, unspecified ir on deficiency anemia type Expected: 12/30/2024 (Approximate), Expires: 12/30/2025[facility] HealthcareComment on above:Expected: 12/30/2024 (Approximate), Expires: 12/30/2025Start: 12-30-2024 End: 42-00-9734Znml + transferrin + TIBCIron + transferrin + TIBC Lab Routine Stage 4 chronic kidney disease (CMS/HCC) Iron deficiency anemia, unspecified iron deficiency anemia type Expected: 12/30/2024 (Approximate), Expires: 12/30/2025[facility] HealthcareComment on above:Expected: 12/30/2024 (Approximate), Expires: 12/30/2025Start: 12-30-2024 End: 88-77-7980Iizwq 1996 panel - Serum or PlasmaLipid panel Lab Routine Mixed hyperlipidemia (CMS/HCC) Expected: 12/30/2024 (Approximate), Expires:12/30/2025 [facility] HealthcareComment on above:Expected: 12/30/2024 (Approximate), Expires: 12/30/2025Start: 12-30-2024 End: 28-99-4180Nqpsdtdadfvq/Creatinine panel in random UrineMicroalbumin / creatinine, urine ratio Lab Routine Essential (primary) hypertension (CMS/HCC) Type 2 diabetes with complication (CMS/HCC) Expected: 12/30/2024 (Approximate), Expires: 12/30/2025[facility] HealthcareComment on above:Expected: 12/30/2024 (Approximate), Expires: 12/30/2025Start: 12-30-2024 End: 98-60-8302Llgueknrsb.intact [Mass/volume] in Serum or PlasmaPTH, intact Lab Routine Stage 4 chronic kidney disease ([facility]/HCC) Expected: 12/30/2024 (Approximate), Expires: 12/30/2025[facility] HealthcareComment on above:Expected: 12/30/2024 (Approximate), Expires: 12/30/2025Start: 12-30-2024 End: 86-34-7978Schfwwqiz [Moles/volume] in Serum or PlasmaPhosphorus Lab Routine Stage 4 chronic kidney disease ([facility]/HCC) Expected: 12/30/2024 (Approximate), Expires: 12/30/2025[facility] HealthcareComment on above:Expected: 12/30/2024 (Approximate), Expires: 12/30/2025Start: 12-30-2024 End: 88-46-4876Ubmkxuguyw complete panel - UrineUrinalysis with reflex microscopic (clean catch) Lab Routine Essential (primary) hypertension ([facility]) Type 2 diabetes with complication ([facility]) Expected: 12/30/2024 (Approximate), Expires: 12/30/2025[facility] HealthcareComment on above:Expected: 12/30/2024 (Approximate), Expires: 12/30/2025Start: 12-30-2024 End: 33-85-2937Kczggev encounter procedureNOMS CWM FMComment on above:Type 2 diabetes mellitus with diabetic neuropathy, without long-term current use of insulin ([facility]) (Primary Dx); Asthma-COPD overlap syndrome ([facility]); Essential (primary) hypertension ([facility]); Pulmonary hypertension ([facility]); Tricuspid valve insufficiency, unspecified etiology; Stage 4 chronic kidney disease ([facility]); Lower extremity edema; Diabetic retinopathy associated with type 2 diabetes mellitus, macular edema presence unspecified, unspecified laterality, unspecified retinopathy severity ([facility]); Type 2 diabetes with complication ([facility]); Vitamin D deficiency; Iron deficiency anemia, unspecified iron deficiency anemia type; Mixed hyperlipidemia ([facility]/HCC)Start: 05-21-2025Medicare Annual Wellness (AWV) Medicare Annual Wellness (AWV)[facility] HealthcareStart: 56-58-2320Ctmhfjvc screening Diabetes: Retinopathy ScreeningUNIVERSITY OF U[facility]H [facility]OSPITAL HealthcareStart: 85-74-1053Bmcrxkhrxh A1c measurementDiabetes: Hemoglobin G1PHRGE HealthcareStart: 85-70-4908Rhzzp screening for proteinDiabetes: Urine Protein ScreeningUNIVERSITY OF UTAH [facility]OS[facility]ITAL HealthcareStart: 06-26-2024 End: 78-72-0064Mibmaqc encounter procedureNOMS [facility] FMComment on above:Type 2 diabetes mellitus with diabetic neuropathy, without long-term current use of insulin ([facility]) (Primary Dx); Obstructive sleep apnea (adult) (pediatric); Asthma-COPD overlap syndrome ([facility]); Tricuspid valve insufficiency, unspecified etiology; Pulmonary hypertension ([facility]); Essential (primary) hypertension ([facility]); Stage 4 chronic kidney disease ([facility]); Lower extremity edema; Type 2 diabetes with complication ([facility]); Diabetic retinopathy associated with type 2 diabetes mellitus, macular edema presence unspecified, unspecified laterality, unspecified retinopathy severity ([facility]); BMI 34.0-34.9,adult; Mixed hyperlipidemia ([facility])Start: 07-61-0213Yjwviwpbk vaccinationInfluenza Vaccine (#1)[facility] HealthcareStart: 97-14-4117Mgekkkbclv A1c measurementDiabetes: Hemoglobin M8SHYJD HealthcareStart: 12-25-2023 End: 38-42-2527Muenkqe encounter unwqxlmnj06/21/2024 10:30 AM EDT Office Visit [facility] [address] [place] [address] Bailee Bhakta NP [address] [place] [address] [facility] FMStart: 91-65-1067Pidewhfbwi A1c measurement Diabetes: Hemoglobin A3UMITK HealthcareStart: 09-19-2023 End: 96-36-6587Vnxmqqu encounter srzkufsdo60/14/2024 9:00 AM EST Office Visit [facility] [address] [place] [address] Bailee Bhakta, ELECTRICAL TECHNICIAN INSTRUCTOR [address] [place] [address] [facility] FMComment on above:ArrivedStart: 1950 Glaucoma screeningDiabetes: Retinopathy ScreeningUNIVERSITY OF UTAH [facility]OS[facility] HealthcareStart: 1941Medicare Annual Wellness (AWV)Medicare Annual Wellness (AWV)[facility] Immunizations Immunization DateImmunizationNotesCare CskzrscqWvnhiblk96-14-5412jfkbvqezy, high dose seasonal, preservative-freeLisa Aichholz ELECTRICAL TECHNICIAN INSTRUCTOR Work Phone: [facility] CenterRbhfkyyyqm45-14-5305sfaoignec virus vaccine, unspecified formulationLisa Aichholz ELECTRICAL TECHNICIAN INSTRUCTOR Work Phone: [facility] CenterSljyeousco02-51-0618Whgecuymm, High-dose Seasonal, Quadrivalent, Preservative FreeLisa Aichholz ELECTRICAL TECHNICIAN INSTRUCTOR Work Phone: [facility] CenterCtzwhwpsiv18-19-7748gnjadsnki virus vaccine, unspecified formulationLisa Aichholz ELECTRICAL TECHNICIAN INSTRUCTOR Work Phone: [facility] CenterWrymawfxez80-90-2986Yureqzxpw, High-dose Seasonal, Quadrivalent, Preservative FreeLisa Aichholz ELECTRICAL TECHNICIAN INSTRUCTOR Work Phone: [facility] CenterFhsfscwjsg20-43-9212Xfvnndmbq, High-dose Seasonal, Quadrivalent, Preservative FreeLisa Aichholz ELECTRICAL TECHNICIAN INSTRUCTOR Work Phone: [facility] CenterDplbgrfaso36-63-0827wmbrzqgpcgjy conjugate vaccine, 13 valentLisa Aichholz ELECTRICAL TECHNICIAN INSTRUCTOR Work Phone: [facility] CenterWqjaonfwij93-69-3569voiaszjeh, high dose seasonal, preservative-freeLisa Aichholz ELECTRICAL TECHNICIAN INSTRUCTOR Work Phone: [facility] CenterRbscjzzprp71-87-4232wrcnkewjt, high dose seasonal, preservative-freeLisa Aichholz ELECTRICAL TECHNICIAN INSTRUCTOR Work Phone: [facility] CenterFkrtuclsex93-24-3112cqdakbtfb, high dose seasonal, preservative-freeLisa Aichholz ELECTRICAL TECHNICIAN INSTRUCTOR Work Phone: [phone] [place], [place] [address]Jnkylizyxw19-80-2765kyvkofqtn, high dose seasonal, preservative-freeLisa Aichholz ELECTRICAL TECHNICIAN INSTRUCTOR Work Phone: [facility] CenterWzkwwkzici93-21-1040qaxdhe vaccine, liveLisa Aichholz ELECTRICAL TECHNICIAN INSTRUCTOR Work Phone: [facility] CenterNityizatox98-44-2115xtumlrohj, high dose seasonal, preservative-freeLisa Aichholz ELECTRICAL TECHNICIAN INSTRUCTOR Work Phone: [facility] CenterQvxidsyzvt96-37-8161fkcistrte virus vaccine, whole virusLisa Aichholz ELECTRICAL TECHNICIAN INSTRUCTOR Work Phone: [facility] CenterZqfkvnnrox32-56-3694dirnxgseszld polysaccharide vaccine, 23 valentLisa Aichholz ELECTRICAL TECHNICIAN INSTRUCTOR Work Phone: [facility] CenterTaljxmnpcv43-75-1995xejlusj toxoid, reduced diphtheria toxoid, and acellular pertussis vaccine, adsorbedLisa Aichholz ELECTRICAL TECHNICIAN INSTRUCTOR Work Phone: [facility] Payers DatePayer CategoryPayerPolicy [id number] Health InsuranceUNITED HEALTHCARE MEDICAID Member Subscriber Plan / Payer (Effective 2024- Present) Name: Gina West Relation to Subscriber: Self Name: Gina West Payer ID: Not on file Group ID: Not on file Type: Not on file Address: [address] [id number] 2023Medicare (Managed Care)[id number] 2000Medicare [id number] [id number] 1960 [id number] [id number] [id number] [id number] Social History DateTypeDetailFacilityStart: 04-15-4639Fpwywey smoking status NHISNever smoked tobaccoNOMS HealthcareStart: 12-50-9857Sixgooe use and exposureSmokeless tobacco non-userNOMS HealthcareStart: 09-19-2023 End: 06-37-5707Xydnjni intakeEx-drinker (finding)[facility] HealthcareStart: 09-14-2023 End: 69-60-5905Gmsxnin of Social functionNOMS HealthcareStart: 09-14-2023 End: 89-76-0758Kjkggta use panelNOMS HealthcareStart: 62-39-2939Qccbvlq Comment caffeine more than 4 cups per dayNOMS HealthcareStart: 54-66-5963Cfe Assigned At BirthNot on fileNOMS HealthcareHow often do you need to have someone help you when you read instructions, pamphlets, or other written material from your doctor or pharmacy [SILS]SometimesNOMS HealthcareDo you belong to any clubs or organizations such as pentecostal groups, unions, fraternal or athletic groups, or school groups?NoNOMS HealthcareAre you now , , , , never or living with a partner?WidowedNOMS HealthcareHow often to you have a drink containing alcohol?NeverNOMS HealthcareDo you feel stress - tense, restless, nervous, or anxious, or unable to sleep at night because yourmind is troubled all the time - these days [OSQ]Not at [facility](I/We) worried whether (my/our) food would run out before (I/we) got money to buy more.Never trueNOMS HealthcareHow often do you need to have someone help you when you read instructions, pamphlets, or other written material from your doctor or pharmacy [SILS]Sometimes[facility] Functional Status AxrvHdbevnfktjDcgaceRfvzvqww55-12-7447Vayjuax Health Questionnaire 2 item (PHQ- 2) [Reported][facility] CenterOnxxtuvujp55-43-3660Lpx difficult have these problems made it for you to do your work, take care of things at home, or get along with other people?Not difficult at all 12/30/2024 10:20 AM EDT POP GEE Not difficult at [facility] Clinical Notes 09-19-2023 to 03-30-2025 Note Date & NsmdQquhRoufmdar22-71-4307 History of Present illness Narrative* Bailee Bhakta [...] kidney disease. There is no history of CAD/DE, heart failure, left ventricular hypertrophy or PVD. Identifiable causes of hypertension include chronic renal disease. SUBJECTIVE: MEDICATIONS: Current Outpatient Medications Medication Instructions albuterol HFA 90 mcg/act inhaler 2 puffs, Inhalation, Every 6 hours PRN ferrous sulfate (FEROSUL) 325 mg, Oral, Daily with breakfast Inkyavjzive-Ytcipsful-Puanoy (Trelegy Ellipta) 100-62.5-25 MCG/ACT aerosol powder 1 [...] needed and albuterol, minimal use Relevant Medications Wnzrdxxhuth-Lxcvccbcv-Jlwdfr (Trelegy Ellipta) 100-62.5-25 MCG/ACT aerosol powder Insomnia [...] capsule Chronic kidney disease, stage 3 unspecified ([facility]-HCC) Relevant Medications ferrous sulfate (FeroSul) 325 (65 [...] glucose control OARRS reviewed documented in this encounterUniversity Health Lakewood Medical CenterVooiulnfff01-55-9048 Instructions* Patient Instructions* Bailee Bhakta NP - 03/30/2025 10:30 AM EDT Farxia 5mg or 10mg Jardiance 10mg or 25mg documented in this encounterUniversity Health Lakewood Medical CenterMbaeuidrbz32-22-0196 History of Present illness Narrative* Bailee Bhakta [...] 325 mg, 2 times daily with meals Sfczvljjjhq-Kqkwwcanx-Kuslyi (Trelegy Ellipta) 100-62.5-25 MCG/ACT aerosol powder 1 [...] 25 hydroxy Type 2 diabetes with complication ([facility]) Check blood sugars daily, notify if [...] Microalbumin / creatinine, urine ratio Diabetic retinopathy ([facility]) Continue with annual eye exams Tight glucose control as well Iron deficiency anemia Check labs yearly and prn changes in sxs Relevant Orders CBC and differential Iron + transferrin + TIBC Ferritin HLD (hyperlipidemia) ([facility]) Relevant Orders Comprehensive metabolic panel Lipid panel Pulmonary hypertension ([facility]) Per ECHO findings Type 2 diabetes mellitus with diabetic neuropathy, without long-term current use of insulin ([facility]) - Primary Continue with marcus, inspect [...] EDTAssociated Problem(s): Type 2 diabetes with complication ([facility]) Check blood sugars daily, notify if [...] 12/30/2024 6:32 AM EDTAssociated Problem(s): Diabetic retinopathy ([facility]) Continue with annual eye exams Tight [...] diabetic neuropathy, without long-term currentuse of insulin ([facility]) Continue with marcus, inspect feet regularly, recommend proper fitting shoes as well Blood glucose control OARRS reviewed documented in this encounterUniversity Health Lakewood Medical CenterFtrukenmxk33-08-4196 History of Present illness Narrative* POP GEE [...] being taken. She does not see a brick veneer maker.Eye exam is current. Edema Presents with chronic [...] 325 mg, 2 times daily before meals Fmxlnulhnlw-Eavinnjse-Tygsun (Trelegy Ellipta) 100-62.5-25 MCG/ACT aerosol powder 1 [...] control DM and HTN Asthma-COPD overlap syndrome ([facility]) Does well with Trelegy inhaler, and lainey Has duoneb if needed and albuterol, minimal use Trelegy 100, lot [id number], exp 08/31 #2 samples Relevant Medications Olblpgilasb-Jjnwujwlu-Mcttpq (Trelegy Ellipta) 100-62.5-25 MCG/ACT aerosol powder albuterol HFA 90 mcg/act inhaler Obstructive sleep apnea (adult) (pediatric) Hx of PRETTY PAP use: does not wear PAP Lower extremity edema Stable on lasix, elevate feet above heart level a few times daily Monitor sodium intake Periodic labs to monitor renal function Type 2 diabetes with complication ([facility]) Check blood sugars daily, notify if [...] current meds A1c 5.7% 04/2024 Diabetic retinopathy ([facility]) Continue with annual eye exams Tight glucose control as well HLD (hyperlipidemia) ([facility]) Pulmonary hypertension ([facility]) Per ECHO findings Type 2 diabetes mellitus with diabetic neuropathy, without long-term current use of insulin ([facility]) Continue with marcus, inspect feet regularly Blood glucose control OARRS reviewed Relevant Medications aspirin 81 MG EC tablet Tricuspid regurgitation Per ECHO findings Murmur present Continue to monitor Prior discussions with daughter and patient does not want any surgical intervention for this BMI 34.0-34.9,adult * Bailee Bhakta NP - 06/26/2024 6:32 AM ESTAssociated Problem(s): Diabetic retinopathy ([facility]) Continue with annual eye exams Tight [...] diabetic neuropathy, without long-term currentuse of insulin ([facility]) Continue with marcus, inspect feet regularly Blood glucose control OARRS reviewed documented in this [facility]11-21-2024 Instructions* Patient Instructions* Bailee Bhakta NP - 06/26/2024 8:40 AM EST No med changes Next appt will be Medicare Wellness appt No labs today documented in this [facility]02-14-2024 History of Present illness Narrative* Bailee Bhakta NP - 09/19/2023 9:57 AM ESTAssociated Problem(s): Stage 4 chronic kidney disease ([facility]) Reviewed labs, pt in the past and still today do not want to see Nephrology does not want to do dialysis if gets to that * Bailee Bhakta NP - 09/19/2023 9:56 AM ESTAssociated Problem(s): Lower extremity edema stable * Bailee Bhakta NP - 09/19/2023 9:54 AM ESTAssociated Problem(s): Essential (primary) hypertension ([facility]/HCC) Labs stable * Bailee Bhakta NP - 09/19/2023 9:54 AM ESTAssociated Problem(s): Polyneuropathy, unspecified Elie only taking 1 gabapentin at HS * Bailee Bhakta NP - 09/19/2023 9:53 AM ESTAssociated Problem(s): Type 2 diabetes mellitus with diabetic neuropathy, without long-term currentuse of insulin ([facility]) Reviewed labs Recommend eye exam, and freq [...] bruit Chronic kidney disease, stage IV (severe) ([facility]/HCC) Diabetic retinopathy ([facility]) MUJICA (dyspnea on exertion) Extrinsic asthma ([facility]/HCC) unspecified H/O squamous cell carcinoma excision nasal [...] in meds BMI 34.0-34.9,adult documented in this encounterUN[facility] HealthcareEvaluation note* Diagnosis Type 2 diabetes [...] essential hypertension Stage 4 chronic kidney disease (CMS/[facility]) Encounter for subsequent annual wellness visit (AWV) in Medicare patient- Primary Asthma-COPD overlap syndrome (CMS/HCC) Essential (primary) hypertension (CMS/HCC) Unspecified essential hypertension Stage 4 chronic kidney disease (CMS/HCC) Type 2 diabetes with complication (CMS/HCC) Type 2 diabetes mellitus with diabetic neuropathy, without long-term current use of insulin ([facility]) Essential (primary) hypertension (CMS/HCC)- Primary Unspecified essential hypertension Type 2 diabetes mellitus with diabetic neuropathy, without long-term current use of insulin ([facility]) Obstructive sleep apnea (adult) (pediatric) Asthma-COPD overlap syndrome ([facility]/HCC) Tricuspid valve insufficiency, unspecified etiology Pulmonary hypertension (CMS/HCC) Other chronic pulmonary heart diseases Stage 4 chronic kidney disease ([facility]) Lower extremity edema Edema Type 2 diabetes with complication (CMS/HCC) Diabetic retinopathy associated with type 2 diabetes mellitus, macular edema presence unspecified, unspecified laterality, unspecified retinopathy severity (CMS/HCC) BMI 34.0-34.9,adult Mixed hyperlipidemia (CMS/HCC) Mixed hyperlipidemia Essential (primary) hypertension ([facility]) Unspecified essential hypertension Insomnia, unspecified type Lower extremity edema Edema Type 2 diabetes mellitus with diabetic neuropathy, unspecified (CMS/HCC) Chronic kidney disease, stage 3 unspecified (HCC) (CMS/[facility]) Severe persistent asthma, uncomplicated ([facility]) documented in this encounter [facility] HealthcareEvaluation note* Diagnosis Type 2 diabetes mellitus with diabetic neuropathy, without long-term current use of insulin ([facility])- Primary BMI 34.0-34.9,adult Asthma-COPD overlap syndrome (CMS/HCC) Lower extremity edema Edema Polyneuropathy, unspecified Essential (primary) hypertension ([facility]/HCC) Unspecified essential hypertension Stage 4 chronic kidney disease ([facility]) Encounter for subsequent annual wellness visit (AWV) in Medicare patient- Primary Asthma-COPD overlap syndrome ([facility]/HCC) Essential (primary) hypertension (CMS/HCC) Unspecified essential hypertension Stage 4 chronic kidney disease ([facility]) Type 2 diabetes with complication ([facility]) Type 2 diabetes mellitus with diabetic neuropathy, without long-term current use of insulin ([facility]) Essential (primary) hypertension ([facility])- Primary Unspecified essential hypertension Type 2 diabetes mellitus with diabetic neuropathy, without long-term current use of insulin ([facility]) Obstructive sleep apnea (adult) (pediatric) Asthma-COPD overlap syndrome ([facility]) Tricuspid valve insufficiency, unspecified etiology Pulmonary hypertension ([facility]) Other chronic pulmonary heart diseases Stage 4 chronic kidney disease ([facility]) Lower extremity edema Edema Type 2 diabetes with complication ([facility]) Diabetic retinopathy associated with type 2 diabetes mellitus, macular edema presence unspecified, unspecified laterality, unspecified retinopathy severity ([facility]) BMI 34.0-34.9,adult Mixed hyperlipidemia ([facility]) Mixed hyperlipidemia Polyneuropathy, unspecified documented in this encounter [facility] HealthcareEvaluation note* Diagnosis Type 2 diabetes mellitus with diabetic neuropathy, without long-term current use of insulin ([facility])- Primary BMI 34.0-34.9,adult Asthma-COPD overlap syndrome ([facility]/HCC) Lower extremity edema Edema Polyneuropathy, unspecified Essential (primary) hypertension ([facility]/HCC) Unspecified essential hypertension Stage 4 chronic kidney disease ([facility]) Encounter for subsequent annual wellness visit (AWV) in Medicare patient- Primary Asthma-COPD overlap syndrome ([facility]/HCC) Essential (primary) hypertension ([facility]/HCC) Unspecified essential hypertension Stage 4 chronic kidney disease ([facility]) Type 2 diabetes with complication ([facility]) Type 2 diabetes mellitus with diabetic neuropathy, without long-term current use of insulin ([facility]) Essential (primary) hypertension ([facility]/HCC)- Primary Unspecified essential hypertension Type 2 diabetes [...] overlap syndrome (CMS/HCC) documented in this encounter [facility] HealthcareEvaluation note* Diagnosis Type 2 diabetes mellitus with diabetic neuropathy, without long-term current use of insulin (CMS/HCC)- Primary BMI 34.0-34.9,adult Asthma-COPD overlap syndrome (CMS/HCC) Lower extremity edema Edema Polyneuropathy, unspecified Essential (primary) hypertension (CMS/HCC) Unspecified essential hypertension Stage 4 chronic kidney disease ([facility]/HCC) Encounter for subsequent annual wellness visit (AWV) [...] neuropathy, without long-term current use of insulin (CMS/[facility]) Obstructive sleep apnea (adult) (pediatric) Asthma-COPD overlap syndrome (CMS/HCC) Tricuspid valve insufficiency, unspecified etiology Pulmonary hypertension (CMS/HCC) Other chronic pulmonary heart diseases Stage 4 chronic kidney disease (CMS/HCC) Lower extremity edema Edema Type 2 diabetes with complication (CMS/HCC) Diabetic retinopathy associated with type 2 diabetes mellitus, macular edema presence unspecified, unspecified laterality, unspecified retinopathy severity (CMS/HCC) BMI 34.0-34.9,adult Mixed hyperlipidemia ([facility]/HCC) Mixed hyperlipidemia Encounter for subsequent annual wellness visit (AWV) in Medicare patient- Primary Type 2 diabetes mellitus with diabetic neuropathy, without long-term current use of insulin ([facility]) Asthma-COPD overlap syndrome (CMS/HCC) Essential (primary) [...] Gradual-onset memory impairment documented in this encounter [facility] HealthcareEvaluation note* Diagnosis Type 2 diabetes mellitus with diabetic neuropathy, without long-term current use of insulin (CMS/HCC)- Primary BMI 34.0-34.9,adult Asthma-COPD overlap syndrome (CMS/HCC) Lower extremity edema Edema Polyneuropathy, unspecified Essential (primary) hypertension (CMS/HCC) Unspecified essential hypertension Stage 4 chronic kidney disease ([facility]/HCC) Encounter for subsequent annual wellness visit (AWV) in Medicare patient- Primary Asthma-COPD overlap syndrome ([facility]) Essential (primary) hypertension ([facility]) Unspecified essential hypertension Stage 4 chronic kidney disease (CMS/HCC) Type 2 diabetes with complication (CMS/HCC) Type 2 diabetes mellitus with diabetic neuropathy, without long-term current use of insulin ([facility]) Essential (primary) hypertension ([facility]/HCC)- Primary Unspecified essential hypertension Type 2 diabetes mellitus with diabetic neuropathy, without long-term current use of insulin ([facility]) Obstructive sleep apnea (adult) (pediatric) Asthma-COPD overlap syndrome ([facility]) Tricuspid valve insufficiency, unspecified etiology Pulmonary hypertension (CMS/HCC) Other chronic pulmonary heart diseases Stage 4 chronic kidney disease ([facility]) Lower extremity edema Edema Type 2 diabetes with complication (CMS/HCC) Diabetic retinopathy associated with type 2 diabetes mellitus, macular edema presence unspecified, unspecified laterality, unspecified retinopathy severity (CMS/HCC) BMI 34.0-34.9,adult Mixed hyperlipidemia ([facility]) Mixed hyperlipidemia Encounter for subsequent annual wellness visit (AWV) in Medicare patient- Primary Type 2 diabetes mellitus with diabetic neuropathy, without long-term current use of insulin ([facility]) Asthma-COPD overlap syndrome (CMS/HCC) Essential (primary) [...] Unspecified essential hypertension documented in this encounter [facility] HealthcareEvaluation note* Diagnosis Type 2 diabetes mellitus with diabetic neuropathy, without long-term current use of insulin (HCC)- Primary BMI 34.0-34.9,adult Asthma-COPD overlap syndrome (HCC) Lower extremity edema Edema Polyneuropathy, unspecified Essential (primary) hypertension Unspecified essential hypertension Stage 4 chronic kidney disease ([facility]) Encounter for subsequent annual wellness visit [...] asthma, uncomplicated (HCC) documented in this encounter [facility] HealthcareEvaluation note* Diagnosis Type 2 diabetes [...] impairment Chronic kidney disease, stage 3 unspecified ([facility]-HCC) Type 2 diabetes mellitus with diabetic neuropathy, unspecified (HCC) documented in this encounter [facility] HealthcareEvaluation note* Diagnosis Type 2 diabetes [...] presence unspecified, unspecified laterality, unspecified retinopathy severity ([facility]) BMI 34.0-34.9,adult Mixed hyperlipidemia Mixed hyperlipidemia Encounter [...] unspecified Chronic kidney disease, stage 3 unspecified ([facility]-HCC) BMI 34.0-34.9,adult Iron deficiency anemia, unspecified iron deficiency anemia type documented in this encounter [facility] Summary Purpose Family History No Family History Records FoundNo Family History Records FoundNo Family History Records Found Advance Directives No Advanced Directives Records FoundNo Advanced Directives Records FoundNo Advanced Directives Records Found Additional Source Comments INFORMATION SOURCE (unrecogn ized section and content) DATE CREATED AUTHOR 01/25/2018 [facility] DATE CREATED AUTHOR AUTHOR'S ORGANIZ ATION 10/24/2022 [facility] DATE CREATED AUTHOR AUTHOR'S ORGANIZ ATION 03/31/2025 [facility] EPIC Care Teams (unrecognized sec tion and content) Team MemberRelationshipSpecialtyStart DateEnd Date Krishna Headley MD [address] [place] [address] PCP - [facility]09/14/23 aBilee Bhakta NP [address] [place] [address] Referring PhysicianNurse Practitioner02/21/23Team MemberRelationshipSpecialty Start DateEnd Date Krishna Headley MD [address] [place] [address] PCP - [facility]09/14/23 Bailee Bhakta NP [address] [place] [address] Referring PhysicianNurse Practitioner02/21/23Team MemberRelationshipSpecialty Start DateEnd Date Krishna Headley MD [address] [place] [address] PCP - [facility]09/14/23 Bailee Bhakta NP [address] [place] [address] PCP - [facility] Bailee Bhakta NP [address] [place] [address] Referring PhysicianNurse Practitioner02/21/23Team MemberRelationshipSpecialty Start DateEnd Date Krishna Headley MD [address] [place] [address] PCP - [facility]09/14/23 Bailee Bhakta NP [address] [place] [address] [place] [address] Bailee Bhakta NP [address] [place] [address] Referring PhysicianNurse Practitioner02/21/23Te MemberRelationshipSpecialty Start DateEnd Date Krishna Headley MD [address] [place] [address] PCP - [facility]09/14/23 Bailee Bhakta NP [address] [place] [address] [place] [address] Bailee Bhakta NP [address] [place] [address] Referring PhysicianNurse Practitioner02/21/23Te MemberRelationshipSpecialty Start DateEnd Date Krishna Headley MD [address] [place] [address] PCP - [facility]09/14/23 Bailee Bhakta NP [address] [place] [address] [facility] Bailee Bhakta NP [address] [place] [address] Referring PhysicianNurse Practitioner02/21/23Team MemberRelationshipSpecialty Start DateEnd Date Krishna Headley MD [address] [place] [address] PCP - [facility]09/14/23 Bailee Bhakta NP [address] [place] [address] [place] [address] Bailee hBakta NP [address] [place] [address] Referring PhysicianNurse Practitioner02/21/23Team MemberRelationshipSpecialty Start DateEnd Date Krishna Headley MD [address] [place] [address] PCP - [facility]09/14/23 Bailee Bhakta NP [address] [place] [address] PCP - [facility]/ Bailee Bhakta NP [address] [place] [address] Referring PhysicianNurse Practitioner02/21/23Te MemberRelationshipSpecialty Start DateEnd Date Krishna Headley MD [address] [place] [address] PCP - [facility]09/14/23 Bailee Bhakta NP [address] [place] [address] [facility]/ Bailee Bhakta NP [address] [place] [address] Referring PhysicianNurse Practitioner02/21/23Te MemberRelationshipSpecialty Start DateEnd Date Krishna Headley MD [address] [place] [address] PCP - [facility]09/14/23 Bailee Bhakta NP [address] [place] [address] [place] [address]/ Bailee Bhakta NP [address] [place] [address] Referring PhysicianNurse Practitioner02/21/23Te MemberRelationshipSpecialty Start DateEnd Date Krishna Headley MD [address] [place] [address] PCP - [facility]09/14/23 Bailee Bhakta NP [address] [place] [address] PCP - [facility] Bailee Bhakta NP [address] [place] [address] Referring PhysicianNurse Practitioner02/21/23Te MemberRelationshipSpecialty Start DateEnd Date Krishna Headley MD [address] [place] [address] PCP - [facility]09/14/23 Bailee Bhakta NP [address] [place] [address] [facility] Bailee Bhakta NP [address] [place] [address] Referring PhysicianNurse Practitioner02/21/23Te MemberRelationshipSpecialty Start DateEnd Date Krishna Headley MD [address] [place] [address] PCP - [facility]09/14/23 Bailee Bhakta NP [address] [place] [address] [facility]/ Bailee Bhakta NP [address] [place] [address] Referring PhysicianNurse Practitioner02/21/23Team MemberRelationshipSpecialty Start DateEnd Date Krishna Headley MD [address] [place] [address] PCP - [facility]09/14/23 Bailee Bhakta NP [address] [place] [address] [place] [address] Bailee Bhakta NP [address] [place] [address] Referring PhysicianNurse Practitioner02/21/23Te MemberRelationshipSpecialty Start DateEnd Date Krishna Headley MD [address] [place] [address] PCP - [facility]09/14/23 Bailee Bhakta NP [address] [place] [address] [place] [address] Bailee Bhakta NP [address] [place] [address] Referring PhysicianNurse Practitioner02/21/23Te MemberRelationshipSpecialty Start DateEnd Date Krishna Headley MD [address] [place] [address] PCP - [facility]09/14/23 Bailee Bhakta NP [address] [place] [address] [facility] Bailee Bhakta NP [address] [place] [address] Referring PhysicianNurse Practitioner02/21/23Te MemberRelationshipSpecialty Start DateEnd Date Krishna Headley MD [address] [place] [address] PCP - [facility]09/14/23 Bailee Bhakta NP [address] [place] [address] [place] [address] Bailee Bhakta NP [address] [place] [address] Referring PhysicianNurse Practitioner02/21/23Te MemberRelationshipSpecialty Start DateEnd Date Krishna Headley MD [address] [place] [address] [facility] Bailee Bhakta NP [address] [place] [address] PCP - [facility] Bailee Bhakta NP [address] [place] [address] Referring PhysicianNurse Practitioner02/21/23 Reason for Visit (unrecogniz ed section and content) ReasonOnset DateCommentsMed [id number] RefillReasonOnset DateCommentsMed [id number]/19/2024ReasonCommentsMedicare Annual Wellness Visit InitialReasonCommentsHypertension FOR RECORDS PERTAINING [...] BE BASED ON THE PRIMARY CLINICAL RECORDS. [facility] [employer] [facility]. provides no warranty or guarantee of the accuracy or completeness of information in this document.
[2025-06-29 11:05] LABS: Potassium 4.9 mmol/L (3.5-5.1)
== END 2025-06-29 10:15 | disposition home or self-care (01) ==
PROVIDERS: PCP Nurse Practitioner; Visit Provider Nurse Practitioner
DX: E87.5 Hyperkalemia (principal)
CPT/HCPCS: 36415; 84132